=== PATIENT | male | born 1945 | race Caucasian/White ===

== ENCOUNTER 2017-07-19 00:10 | Observation (INO) | payer MEDICARE, BC ==
[2017-07-19] MEDS ORDERED: Sodium Chloride 0.9% 10 ML Syringe FLUSH PRN (00:16)
[2017-07-19 01:44] LABS: CHLORIDE,CL 108 mmol/L (98-107); SODIUM,NA 142 mmol/L (136-145)
[2017-07-19] MEDS ORDERED: Sodium Chloride 0.9% 1,000 ML IV ONE ×2 (02:07→03:58)
[2017-07-19] MEDS ORDERED: oxyCODONE 5 MG Tab PO PRN (02:29)
[2017-07-19] MEDS ORDERED: Warfarin 2.5 MG Tab PO SCH (02:30)
[2017-07-19] MEDS ORDERED: Warfarin 5 MG Tab PO SCH (02:30)
[2017-07-19] MEDS: Codeine/Promethazine 10-6.25 MG/5 ML Syrup 5 ML UD Cup PO SCH ×3 (03:03→14:48)
[2017-07-19] MEDS: Albuterol/Ipratropium 3.0-0.5 MG/3 ML Neb Soln NEB PRN ×2 (03:03→20:36)
[2017-07-19] MEDS: Oseltamivir 75 MG Cap PO SCH ×2 (03:05→14:48)
--- NOTE | 2017-07-19 04:15 | EDM.PDOC ---
ED HPI GENERAL MEDICAL PROBLEM - General Chief Complaint: Respiratory Problem Stated Complaint: cough Time Seen by Provider: 07/19/17 00:12 Source of Information: Reports: Patient, EMS, Family, RN Notes Reviewed History Limitations: Reports: No Limitations, Altered Mental Status - History of Present Illness INITIAL COMMENTS - FREE TEXT/NARRATIVE: This ER note may be used as an admission H and P. Pt. presents to ER with cough, chest congestion, fatigue, and weakness. Pt. states that he had been experiencing these symptoms for several days, and states that he is too weak to walk. He denies any fever or chills. No hemoptysis. No weakness. He states that several of his live-in relatives have had influenza A. He states that he has been taking claritin. Pt. was admitted in mid May. with CHF exacerbation and was discharged after being diuresed for several days. He continued, however, to feel short of breath. Onset Date: 07/17/17 Neck Pain Score (Numeric/FACES): 6 - Related Data Allergies Allergy/AdvReac Type Severity Reaction Status Date / Time carbamazepine AdvReac Dizziness Verified 07/19/17 00:11 Home Meds: Home Meds Cholecalciferol (Vitamin D3) [Vitamin D3] 5,000 unit PO DAILY 09/06/13 [History] Fluticasone Propionate [Flonase] 1 spray NASBOTH BID 09/06/13 [History] Coffey-3 Fatty Acids [Coffey-3] 1,000 mg PO DAILY 09/06/13 [History] Sertraline [Zoloft] 100 mg PO BEDTIME 09/06/13 [History] Simvastatin [Zocor] 10 mg PO BEDTIME 09/06/13 [History] PEG 400/Propylene Glycol [Systane Lubricant] 1 drop EYELF ASDIRECTED PRN [History] oxyCODONE 5 mg PO Q4H PRN 06/15/15 [History] Cranberry Extract [Cranberry] 500 mg PO DAILY 11/16/15 [History] Multivitamin [Multi-Vitamin Daily] 1 tab PO DAILY 11/16/15 [History] Potassium Chloride [Klor-Con] 20 meq PO DAILY #0 11/26/15 [Rx] Valsartan [Diovan] 320 mg PO DAILY #30 tablet 06/15/16 [Rx] Acetaminophen [Acetaminophen Extra Strength] 500 mg PO BID MDD 4000 MG DAILY 08/31 [History] Celecoxib 200 mg PO DAILY 06/30/17 [History] Docusate Sodium [Colace] 100 mg PO DAILY 06/30/17 [History] Metoprolol Succinate [Toprol XL] 100 mg PO DAILY 06/30/17 [History] Calcium Carb & Citrate/Vit D3 [Citracal + D ER] 1 tab PO DAILY 07/02/17 [History ] Lysine 1,000 mg PO DAILY PRN 07/02/17 [History] Miconazole [Desenex 2%] 1 applic TOP BID 07/02/17 [History] Mupirocin Cream [Bactroban Crm] 1 applic TOP TID 07/02/17 [History] Diltiazem [Cardizem CD] 240 mg PO DAILY #30 cap.cd 07/05/17 [Rx] Furosemide [Lasix] 20 mg PO BIDDIURETIC #60 tablet 07/05/17 [Rx] Menthol/Zinc Oxide [Calmoseptine] 0 gm TOP BEDTIME tube 07/05/17 [Rx] Polyethylene Glycol 3350 [MiraLAX] 17 gm PO DAILY packet 07/05/17 [Rx] Biotin [Biotin] 1 mg PO DAILY 07/19/17 [History] Warfarin [Coumadin] 5 mg PO ASDIRECTED 07/19/17 [History] Warfarin [Coumadin] 7.5 mg PO ASDIRECTED 07/19/17 [History] Past Medical History HEENT History: Reports: Cataract, Other (See Below) Other HEENT History: wears glasses Cardiovascular History: Reports: Afib, Heart Failure, Hypertension Respiratory History: Reports: Pneumonia, Recurrent, Sleep Apnea Gastrointestinal History: Reports: Other (See Below) Other Gastrointestinal History: history of C diff. fecal transplant Genitourinary History: Reports: Neurogenic Bladder, UTI, Recurrent Other Genitourinary History: self cath/due to MS Musculoskeletal History: Reports: Arthritis Other Musculoskeletal History: MSand sore on right knee with brace on Neurological History: Reports: MS Psychiatric History: Reports: Depression Other Psychiatric History: very depressed Endocrine/Metabolic History: Reports: Diabetes, Type II Hematologic History: Reports: Anticoagulation Therapy, Blood Transfusion(s) Dermatologic History: Reports: Other (See Below) Other Dermatologic History: coccyx friction open area, yeast in groin - Infectious Disease History Infectious Disease History: Reports: MRSA Other Infectious Disease History: ecoli - Past Surgical History HEENT Surgical History: Reports: Cataract Surgery GI Surgical History: Reports: Colonoscopy, Hernia Repair/Other Neurological Surgical History: Reports: None Oncologic Surgical History: Reports: None Social & Family History - Family History Family Medical History: Noncontributory Cardiac: Reports: MA Respiratory: Reports: Asthma, COPD Musculoskeletal: Reports: Arthritis, Osteoporosis Neurological: Reports: None Endocrine/Metabolic: Reports: Diabetes, type II - Tobacco Use Smoking Status *Q: Never Smoker Used Tobacco, but Quit: No Second Hand Smoke Exposure: No - Caffeine Use Caffeine Use: Reports: Coffee - Alcohol Use Days Per Week of Alcohol Use: 0 - Recreational Drug Use Recreational Drug Use: No ED ROS GENERAL - Review of Systems Review Of Systems: See Below Constitutional: Reports: No Symptoms HEENT: Reports: No Symptoms Respiratory: Reports: No Symptoms Cardiovascular: Reports: No Symptoms Endocrine: Reports: No Symptoms GI/Abdominal: Reports: No Symptoms : Reports: No Symptoms Musculoskeletal: Reports: No Symptoms Skin: Reports: No Symptoms Neurological: Reports: No Symptoms Psychiatric: Reports: No Symptoms Hematologic/Lymphatic: Reports: No Symptoms Immunologic: Reports: No Symptoms ED EXAM, GENERAL - Physical Exam Exam: See Below Exam Limited By: No Limitations General Appearance: Alert, WD/WN Eye Exam: Left Eye: Normal Inspection, Bilateral Eye: Nystagmus Ears: Normal External Exam Nose: Normal Inspection Throat/Mouth: Normal Inspection Head: Atraumatic Neck: Normal Inspection Respiratory/Chest: No Respiratory Distress, Lungs Clear, Normal Breath Sounds, No Accessory Muscle Use, Chest Non-Tender, Decreased Breath Sounds, Accessory Muscle Use Cardiovascular: Normal Peripheral Pulses, Regular Rate, Rhythm, No JVD, No Murmur, No Rub EKG INTERPRETATION Rhythm: NSR Course - Vital Signs Last Recorded V/S: Last Vital Signs Temp 37.6 C 07/19/17 02:05 Pulse 60 07/19/17 02:05 Resp 20 07/19/17 02:05 BP 180/76 H 07/19/17 02:05 Pulse Ox 91 L 07/19/17 02:05 - Orders/Labs/Meds Orders: Active Orders 24 hr Category Date Time Status Patient Status [ADT] Routine ADT 07/19/17 01:52 Active EKG Documentation Completion [RC] STAT Care 07/19/17 00:17 Ordered Chest 1V Frontal [CR] Stat Exams 07/19/17 00:25 Taken CULTURE BLOOD [BC] Stat Lab 07/19/17 00:55 Received CULTURE BLOOD [BC] Stat Lab 07/19/17 00:55 Received Sodium Chloride 0.9% [Saline Flush] Med 07/19/17 00:16 Active 10 ml FLUSH ASDIRECTED PRN Blood Culture x2 Reflex Set [OM.PC] Stat Oth 07/19/17 00:17 Ordered Peripheral IV Insertion Adult [OM.PC] Routine Oth 07/19/17 00:17 Ordered Medication Orders Acetaminophen (Tylenol Extra Strength) 500 mg PO BID ELIGIO Albuterol/Ipratropium (Duoneb 3.0-0.5 Mg/3 Ml) 3 ml NEB Q6HRRT PRN PRN Reason: Cough Last Admin: 07/19/17 03:03 Dose: 3 ml Celecoxib (Celebrex) 200 mg PO DAILY ELIGIO Cholecalciferol (Vitamin D3) 5,000 units PO DAILY ELIGIO Diltiazem HCl (Cardizem Cd) 240 mg PO DAILY ELIGIO Docusate Sodium (Colace) 100 mg PO DAILY ELIGIO Fish Oil (Fish Oil) 1 gm PO DAILY ELIGIO Furosemide (Lasix) 20 mg PO BIDDIURETIC ELIGIO Sodium Chloride (Normal Saline) 1,000 mls @ 75 mls/hr IV ONETIME ONE Stop: 07/19/17 15:26 Losartan Potassium (Cozaar) 150 mg PO DAILY ELIGIO Metoprolol Succinate (Toprol Xl) 100 mg PO DAILY ELIGIO Oseltamivir Phosphate (Tamiflu) 75 mg PO BID ELIGIO Last Admin: 07/19/17 03:05 Dose: 75 mg Oxycodone HCl (Oxycodone) 5 mg PO Q4H PRN PRN Reason: Pain Last Admin: 07/19/17 03:05 Dose: 5 mg Potassium Chloride (Klor-Con) 20 meq PO DAILY ELIGIO Promethazine HCl/Codeine (Phenergan With Codeine) 5 ml PO Q4HR ELIGIO Last Admin: 07/19/17 03:03 Dose: 5 ml Sertraline HCl (Zoloft) 100 mg PO BEDTIME ELIGIO Simvastatin (Zocor) 10 mg PO BEDTIME ELIGIO Sodium Chloride (Saline Flush) 10 ml FLUSH ASDIRECTED PRN PRN Reason: Keep Vein Open Vitamin B Complex/Vit C/Vit E/Zinc (Stress Formula With Zinc) 1 tab PO DAILY ELIGIO Warfarin Sodium (Coumadin) 7.5 mg PO ASDIRECTED ELIGIO Warfarin Sodium (Coumadin) 5 mg PO ASDIRECTED ELIGIO Labs: Laboratory Tests 07/19/17 07/19/17 07/19/17 Range/Units 00:55 00:55 00:55 WBC 6.6 (4.0-10.0) x10^3/uL RBC 4.45 L (4.5-6.0) x10^6/uL Hgb 12.9 L (14.0-18.0) g/dL Hct 40.3 (40.0-52.0) % MCV 90.6 (78.0-93.0) fL MCH 29.0 (26.0-32.0) pg MCHC 32.0 (32.0-36.0) g/dL RDW Coeff of Kimberlee 14.7 (10.0-15.0) % Plt Count 131 (130-400) x10^3/uL Neut % (Auto) 84.1 H (50.0-80.0) % Lymph % (Auto) 5.0 L (25.0-50.0) % Camp % (Auto) 9.8 (2.0-11.0) % Eos % (Auto) 0.9 (0.0-4.0) % Baso % (Auto) 0.2 (0.2-1.2) % PT 27.5 H (9.8-11.8) SEC INR 2.6 (2.0-3.5) Sodium 142 (136-145) mmol/L Potassium 4.1 (3.5-5.1) mmol/L Chloride 108 H (98-107) mmol/L Carbon Dioxide 28 (21-32) mmol/L BUN 20 H (7-18) mg/dL Creatinine 1.1 (0.70-1.30) mg/dL Est Cr Clr Drug Dosing TNP Estimated GFR (MDRD) > 60 Glucose 123 H (74-106) mg/dL Lactic Acid (0.4-2.0) mmol/L Calcium 8.3 L (8.5-10.1) mg/dL Corrected Calcium 8.46 L (8.5-10.1) mg/dL Total Bilirubin 0.4 (0.2-1.0) mg/dL AST 23 (15-37) U/L ALT 38 (16-63) U/L Alkaline Phosphatase 77 (46-116) U/L Troponin I < 0.017 (<=0.056) ng/mL C-Reactive Protein 3.1 H (<=0.9) mg/dL NT-Pro-B Natriuret Pep 608 H (<=125) pg/mL Total Protein 6.7 (6.4-8.2) g/dL Albumin 3.8 (3.4-5.0) g/dL Globulin 2.9 Albumin/Globulin Ratio 1.31 07/19/17 Range/Units 00:55 WBC (4.0-10.0) x10^3/uL RBC (4.5-6.0) x10^6/uL Hgb (14.0-18.0) g/dL Hct (40.0-52.0) % MCV (78.0-93.0) fL MCH (26.0-32.0) pg MCHC (32.0-36.0) g/dL RDW Coeff of Kimberlee (10.0-15.0) % Plt Count (130-400) x10^3/uL Neut % (Auto) (50.0-80.0) % Lymph % (Auto) (25.0-50.0) % [place] % (Auto) (2.0-11.0) % Eos % (Auto) (0.0-4.0) % Baso % (Auto) (0.2-1.2) % PT (9.8-11.8) SEC INR (2.0-3.5) Sodium (136-145) mmol/L Potassium (3.5-5.1) mmol/L Chloride (98-107) mmol/L Carbon Dioxide (21-32) mmol/L BUN (7-18) mg/dL Creatinine (0.70-1.30) mg/dL Est Cr Clr Drug Dosing Estimated GFR (MDRD) Glucose (74-106) mg/dL Lactic Acid 1.0 (0.4-2.0) mmol/L Calcium (8.5-10.1) mg/dL Corrected Calcium (8.5-10.1) mg/dL Total Bilirubin (0.2-1.0) mg/dL AST (15-37) U/L ALT (16-63) U/L Alkaline Phosphatase (46-116) U/L Troponin I (<=0.056) ng/mL C-Reactive Protein (<=0.9) mg/dL NT-Pro-B Natriuret Pep (<=125) pg/mL Total Protein (6.4-8.2) g/dL Albumin (3.4-5.0) g/dL Globulin Albumin/Globulin Ratio Meds: Medications Generic Name Dose Route Start Last Admin Trade Name Freq PRN Reason Stop Dose Admin Acetaminophen 500 mg 07/19/17 08:00 Tylenol Extra Strength PO BID ELIGIO Albuterol/Ipratropium 3 ml 07/19/17 02:24 07/19/17 03:03 Duoneb 3.0-0.5 Mg/3 Ml NEB 3 ml Q6HRRT PRN Administration Cough Celecoxib 200 mg 07/19/17 08:00 Celebrex PO DAILY ELIGIO Cholecalciferol 5,000 units 07/19/17 08:00 Vitamin D3 PO DAILY ELIGIO Diltiazem HCl 240 mg 07/19/17 08:00 Cardizem Cd PO DAILY ELIGIO Docusate Sodium 100 mg 07/19/17 08:00 Colace PO DAILY ELIGIO Fish Oil 1 gm 07/19/17 08:00 Fish Oil PO DAILY ELIGIO Furosemide 20 mg 07/19/17 08:00 Lasix PO BIDDIURETIC ELIGIO Sodium Chloride 1,000 mls @ 75 mls/hr 07/19/17 03:58 Normal Saline IV 07/19/17 15:26 ONETIME ONE Losartan Potassium 150 mg 07/19/17 08:00 Cozaar PO DAILY ELIGIO Metoprolol Succinate 100 mg 07/19/17 08:00 Toprol Xl PO DAILY ELIGIO Oseltamivir Phosphate 75 mg 07/19/17 02:15 07/19/17 03:05 Tamiflu PO 75 mg BID ELIGIO Administration Oxycodone HCl 5 mg 07/19/17 02:29 07/19/17 03:05 Oxycodone PO 5 mg Q4H PRN Administration Pain Potassium Chloride 20 meq 07/19/17 08:00 Klor-Con PO DAILY ELIGIO Promethazine HCl/Codeine 5 ml 07/19/17 04:00 07/19/17 03:03 Phenergan With Codeine PO 5 ml Q4HR ELIGIO Administration Sertraline HCl 100 mg 07/19/17 20:00 Zoloft PO BEDTIME ELIGIO Simvastatin 10 mg 07/19/17 20:00 Zocor PO BEDTIME ELIGIO Sodium Chloride 10 ml 07/19/17 00:16 Saline Flush FLUSH ASDIRECTED PRN Keep Vein Open Vitamin B Complex/Vit C/Vit E/Zinc 1 tab 07/19/17 08:00 Stress Formula With Zinc PO DAILY ELIGIO Warfarin Sodium 7.5 mg 07/19/17 02:30 Coumadin PO ASDIRECTED ELIGIO Warfarin Sodium 5 mg 07/19/17 02:30 Coumadin PO ASDIRECTED ELIGIO Discontinued Medications Generic Name Dose Route Start Last Admin Trade Name Freq PRN Reason Stop Dose Admin Sodium Chloride 1,000 mls @ 250 mls/hr 07/19/17 02:07 07/19/17 03:02 Normal Saline IV 07/19/17 06:06 250 mls/hr .BOLUS ONE Administration Departure - Departure Time of Disposition: 02:15 Disposition: Admitted As Inpatient 67 Clinical Impression: Influenza - Discharge Information - My Orders Last 24 Hours: My Active Orders 07/19/17 00:16 Sodium Chloride 0.9% [Saline Flush] 10 ml FLUSH ASDIRECTED PRN 07/19/17 00:17 EKG Documentation Completion [RC] STAT Blood Culture x2 Reflex Set [OM.PC] Stat Peripheral IV Insertion Adult [OM.PC] Routine 07/19/17 00:25 Chest 1V Frontal [CR] Stat 07/19/17 00:55 CULTURE BLOOD [BC] Stat CULTURE BLOOD [BC] Stat 07/19/17 01:52 Patient Status [ADT] Routine - Assessment/Plan Last 24 Hours: My Active Orders 07/19/17 00:16 Sodium Chloride 0.9% [Saline Flush] 10 ml FLUSH ASDIRECTED PRN 07/19/17 00:17 EKG Documentation Completion [RC] STAT Blood Culture x2 Reflex Set [OM.PC] Stat Peripheral IV Insertion Adult [OM.PC] Routine 07/19/17 00:25 Chest 1V Frontal [CR] Stat 07/19/17 00:55 CULTURE BLOOD [BC] Stat CULTURE BLOOD [BC] Stat 07/19/17 01:52 Patient Status [ADT] Routine Plan: Admit-observation Indication-Influenza A and weakness Code level 1 Duo neb treatments every 6 hours NS at 75ml/hr after a 500cc fluid bolus Tamiflu 75mg twice daily Phenergan with codeine 1 tsp every 4-6 hours PT and OT tomorrow. At this point, it is not felt that pt. meets criteria for acute admission. Social service consult tomorrow.
[2017-07-19 07:55] LABS: CHLORIDE,CL 110 mmol/L (98-107); SODIUM,NA 146 mmol/L (136-145)
[2017-07-19] MEDS ORDERED: Nystatin Crm 30 GM Tube TOP SCH (08:00)
[2017-07-19] MEDS ORDERED: Losartan 50 MG Tab PO SCH (08:00)
[2017-07-19] MEDS ORDERED: Furosemide 20 MG Tab PO SCH (08:00)
[2017-07-19] MEDS ORDERED: Celecoxib 100 MG Cap PO SCH (08:00)
[2017-07-19] MEDS ORDERED: Metoprolol Succinate 50 MG Tab.ER PO SCH (08:00)
[2017-07-19] MEDS ORDERED: Potassium Chloride 20 MEQ Packet PO SCH (08:00)
[2017-07-19] MEDS ORDERED: Diltiazem 240 MG Cap.CD PO SCH (08:00)
[2017-07-19] MEDS: Cholecalciferol (Vitamin D3) 1,000 Unit Tab PO SCH (09:49)
[2017-07-19] MEDS: Fish Oil/Omega-3 Fatty Acids 1 Gm Cap PO SCH (09:50)
[2017-07-19] MEDS: Acetaminophen 500 MG Tab PO SCH ×2 (09:50→20:35)
[2017-07-19] MEDS: Multivitamin, Stress Formula with Zinc Tab PO SCH (09:51)
[2017-07-19] MEDS: Docusate Sodium 100 MG Cap PO SCH (10:05)
[2017-07-19] MEDS: CELEBREX 200 MG PO SCH (11:59)
[2017-07-19] MEDS: FUROSEMIDE 20 MG PO SCH ×2 (12:00→16:06)
[2017-07-19] MEDS: DILTIAZEM CD 240 MG PO SCH (12:00)
[2017-07-19] MEDS: POTASSIUM CHLORIDE 20 MEQ PO SCH (12:01)
[2017-07-19] MEDS: METOPROLOL 100 MG PO SCH (12:01)
[2017-07-19] MEDS: VALSARTAN 320 MG PO SCH (12:02)
[2017-07-19] MEDS: OSELTAMIVIR 75 MG PO SCH ×2 (12:09→20:33)
[2017-07-19] MEDS ORDERED: Codeine/Promethazine 10-6.25 MG/5 ML Syrup 5 ML UD Cup PO PRN (13:45)
[2017-07-19] MEDS ORDERED: Acetaminophen/HYDROcodone 325-5 MG Tab PO ONE (15:15)
--- NOTE | 2017-07-19 19:06 | PCM.PN ---
- General Info Date of Service: 07/19/17 Admission Dx/Problem (Free Text): Pt. continues to feel week. He has started on Tamiflu. Was admitted observation , with plan to transition to Swing Bed tomorrow. Will be followed by Dr. Benitez. Pt. denies any significant dyspnea. Pt. refused OT today and would not participate in PT today due to fatigue. Functional Status: Reports: Pain Controlled - Review of Systems General: Reports: Fatigue, Malaise HEENT: Reports: No Symptoms Pulmonary: Reports: Shortness of Breath, Cough Cardiovascular: Reports: No Symptoms Gastrointestinal: Reports: No Symptoms Genitourinary: Reports: No Symptoms Musculoskeletal: Reports: No Symptoms Skin: Reports: No Symptoms Neurological: Reports: No Symptoms Psychiatric: Reports: No Symptoms - Patient Data Vitals - Most Recent: Last Vital Signs Temp 36.7 C 07/19/17 16:42 Pulse 58 L 07/19/17 16:42 Resp 18 07/19/17 16:42 BP 157/83 H 07/19/17 16:42 Pulse Ox 94 L 07/19/17 16:42 Weight - Most Recent: 105.415 kg I&O - Last 24 Hours: Intake & Output 07/19/17 07/19/17 07/19/17 06:59 14:59 22:59 Intake Total 500 732 Output Total 905 Balance 500 -173 Lab Results Last 24 Hours: Laboratory Results - last 24 hr 07/19/17 07/19/17 07/19/17 Range/Units 07:11 07:11 07:11 WBC 5.4 (4.0-10.0) x10^3/uL RBC 4.11 L (4.5-6.0) x10^6/uL Hgb 12.0 L (14.0-18.0) g/dL Hct 37.4 L (40.0-52.0) % MCV 91.0 (78.0-93.0) fL MCH 29.2 (26.0-32.0) pg MCHC 32.1 (32.0-36.0) g/dL RDW Coeff of Kimberlee 14.5 (10.0-15.0) % Plt Count 116 L (130-400) x10^3/uL Neut % (Auto) 78.9 (50.0-80.0) % Lymph % (Auto) 7.2 L (25.0-50.0) % [place] % (Auto) 13.1 H (2.0-11.0) % Eos % (Auto) 0.6 (0.0-4.0) % Baso % (Auto) 0.2 (0.2-1.2) % Sodium 146 H (136-145) mmol/L Potassium 4.2 (3.5-5.1) mmol/L Chloride 110 H (98-107) mmol/L Carbon Dioxide 25 (21-32) mmol/L BUN 16 (7-18) mg/dL Creatinine 1.1 (0.70-1.30) mg/dL Est Cr Clr Drug Dosing 63.60 mL/min Estimated GFR (MDRD) > 60 Glucose 105 (74-106) mg/dL Lactic Acid 0.8 (0.4-2.0) mmol/L Calcium 7.9 L (8.5-10.1) mg/dL Med Orders - Current: Current Medications Acetaminophen (Tylenol Extra Strength) 500 mg PO BID [facility] Last Admin: 07/19/17 09:50 Dose: 500 mg Albuterol/Ipratropium (Duoneb 3.0-0.5 Mg/3 Ml) 3 ml NEB Q6HRRT PRN PRN Reason: Cough Last Admin: 07/19/17 03:03 Dose: 3 ml Cholecalciferol (Vitamin D3) 5,000 units PO DAILY [facility] Last Admin: 07/19/17 09:49 Dose: 5,000 units Docusate Sodium (Colace) 100 mg PO DAILY [facility] Last Admin: 07/19/17 10:05 Dose: 100 mg Fish Oil (Fish Oil) 1 gm PO DAILY [facility] Last Admin: 07/19/17 09:50 Dose: 1 gm Nystatin. Cream (Own (Supply)) 1 gm TOP BID [facility] Celebrex. 200mg (Own (Supply)) 0 mg PO DAILY [facility] Last Admin: 07/19/17 11:59 Dose: 200 mg Diltiazem. Cd 240 Mg ((Own Supply)) 0 mg PO DAILY [facility] Last Admin: 07/19/17 12:00 Dose: 240 mg Furosemide. 20mg ( (Own Supply)) 0 mg PO BIDDIURETIC [facility] Last Admin: 07/19/17 16:06 Dose: Not Given Oseltamivir. 75mg ( (Own Supply)) 0 mg PO BID [facility] Stop: 07/23/17 08:01 Last Admin: 07/19/17 12:09 Dose: Not Given Valsartan 320mg (Own (Supply)) 0 mg PO DAILY [facility] Last Admin: 07/19/17 12:02 Dose: 320 mg Metoprolol Er 100mg ((Own Supply)) 0 mg PO DAILY [facility] Last Admin: 07/19/17 12:01 Dose: 100 mg Oxycodone. 5mg (Own (Supply)) 0 mg PO Q4H PRN PRN Reason: Pain Potassium Chloride. (20 Meq (Own Supply)) 0 meq PO DAILY [facility] Last Admin: 07/19/17 12:01 Dose: 20 meq Sertraline. 100mg ( (Own Supply)) 0 mg PO BEDTIME [facility] Simvastatin. 10mg ( (Own Supply)) 0 mg PO BEDTIME [facility] Warfarin (Own Supply ()) 0 mg PO [email or web address] [facility] Warfarin. (Own (Supply)) 0 mg PO [email or web address] [facility] Promethazine HCl/Codeine (Phenergan With Codeine) 5 ml PO Q4HR PRN PRN Reason: cough Sodium Chloride (Saline Flush) 10 ml FLUSH ASDIRECTED PRN PRN Reason: Keep Vein Open Vitamin B Complex/Vit C/Vit E/Zinc (Stress Formula With Zinc) 1 tab PO DAILY [facility] Last Admin: 07/19/17 09:51 Dose: 1 tab Discontinued Medications Hydrocodone Bitart/Acetaminophen ([place] 325-5 Mg) 1 tab PO ONETIME ONE Stop: 07/19/17 15:16 Last Admin: 07/19/17 15:51 Dose: Not Given Sodium Chloride (Normal Saline) 1,000 mls @ 250 mls/hr IV .BOLUS ONE Stop: 07/19/17 06:06 Last Admin: 07/19/17 03:02 Dose: 250 mls/hr Sodium Chloride (Normal Saline) 1,000 mls @ 75 mls/hr IV ONETIME ONE Stop: 07/19/17 15:26 Last Admin: 07/19/17 04:07 Dose: 75 mls/hr Oseltamivir Phosphate (Tamiflu) 75 mg PO BID [facility] Last Admin: 07/19/17 14:48 Dose: Not Given Oxycodone HCl (Oxycodone) 5 mg PO Q4H PRN PRN Reason: Pain Last Admin: 07/19/17 03:05 Dose: 5 mg Promethazine HCl/Codeine (Phenergan With Codeine) 5 ml PO Q4HR ELIGIO Last Admin: 07/19/17 14:48 Dose: Not Given - Exam Quality Assessment: Supplemental Oxygen General: Alert, Oriented HEENT: Pupils Equal, Pupils Reactive, EOMI, Mucous Membr. Moist/[place] Neck: Supple Lungs: Decreased Breath Sounds, Crackles, Wheezing Cardiovascular: Regular Rate, Regular Rhythm GI/Abdominal Exam: Normal Bowel Sounds, Soft, Non-Tender, No Organomegaly, No Distention, No Abnormal Bruit, No Mass Back Exam: Normal Inspection, Full Range of Motion Extremities: Normal Inspection, Normal Range of Motion, Non-Tender, No Pedal Edema, Normal Capillary Refill Skin: Warm, Dry, Intact Neurological: No New Focal Deficit Psy/Mental Status: Alert, Labile Mood, Depressed - Problem List Review Problem List Initiated/Reviewed/Updated: Yes - My Orders Last 24 Hours: My Active Orders 07/19/17 02:05 Intake and Output [RC] 06,18 Oxygen Therapy [RC] 08,20 Up With Assistance [RC] 08,20 Vital Signs [RC] 06,10,14,18,22,02 07/19/17 02:07 Code Status [Resuscitation Status] Routine 07/19/17 02:24 RT Aerosol Therapy [RC] ASDIRECTED Albuterol/Ipratropium [DuoNeb 3.0-0.5 MG/3 ML] 3 ml NEB Q6HRRT PRN 07/19/17 02:25 Consult to Electronic Induction Hardener [CONS] Routine 07/19/17 02:37 VTE/DVT Education [RC] .PRN 07/19/17 04:32 Consult to Occupational Therapy [OT Evaluation and Treatment] [CONS] Routine PT Evaluation and Treatment [CONS] Routine 07/19/17 08:00 Acetaminophen [Tylenol Extra Strength] 500 mg PO BID Cholecalciferol (Vitamin D3) [Vitamin D3] 5,000 units PO DAILY Docusate Sodium [Colace] 100 mg PO DAILY Fish Oil/[place]-3 Fatty Acids [Fish Oil] 1 gm PO DAILY Multivitamins with Zinc [Stress Formula with Zinc] 1 tab PO DAILY 07/19/17 11:26 Oxycodone. 0 mg PO Q4H PRN 07/19/17 11:30 Celebrex. 0 mg PO DAILY Diltiazem. 0 mg PO DAILY Furosemide. 0 mg PO BIDDIURETIC Metoprolol Er 0 mg PO DAILY Oseltamivir. 0 mg PO BID Potassium Chloride. 0 meq PO DAILY Valsartan 0 mg PO DAILY 07/19/17 13:45 Codeine/Promethazine [Phenergan with Codeine] 5 ml PO Q4HR PRN 07/19/17 15:11 Urinary Catheter Assessment [RC] ASDIRECTED 07/19/17 15:15 Urinary Catheter Insertion [Insert Urinary Catheter] [OM.PC] Q24H 07/19/17 20:00 Nystatin. 1 gm TOP BID Sertraline. 0 mg PO BEDTIME Simvastatin. 0 mg PO BEDTIME Warfarin. 0 mg PO [id number] Breakfast Sodium Restricted Diet [DIET] 07/20/17 05:11 Foot Comp Min 3V Rt [CR] AM 07/24/17 20:00 Warfarin. 0 mg PO @1999 - Assessment Assessment:: influenza A Acute on chonic weakness - Plan Plan:: Will transition to swingbed tomorrow. This has been arranged by social research assistant. travel services professional is performing a vulnerable adult referral, as the pt. is non- compliant and refuses any discussion about placement in a more appropriate facility. Will perform a x-ray of the R foot in the AM. Apperently pt. fell/was sitting on it when he slid off of his chair early this AM.
[2017-07-19] MEDS ORDERED: SERTRALINE 100 MG PO SCH (20:00)
[2017-07-19] MEDS ORDERED: SIMVASTATIN 10 MG PO SCH (20:00)
[2017-07-19] MEDS ORDERED: Sertraline 100 MG Tab PO SCH (20:00)
[2017-07-19] MEDS ORDERED: Simvastatin 10 MG Tab PO SCH (20:00)
[2017-07-19] MEDS: OXYCODONE 5 MG PO PRN (20:36)
[2017-07-19] MEDS: NYSTATIN TOP SCH (21:24)
[2017-07-20 07:27] LABS: CHLORIDE,CL 106 mmol/L (98-107); SODIUM,NA 142 mmol/L (136-145)
[2017-07-20] MEDS: Fish Oil/Omega-3 Fatty Acids 1 Gm Cap PO SCH (07:38)
[2017-07-20] MEDS: Multivitamin, Stress Formula with Zinc Tab PO SCH (07:38)
[2017-07-20] MEDS: Acetaminophen 500 MG Tab PO SCH (07:39)
[2017-07-20] MEDS: Docusate Sodium 100 MG Cap PO SCH (07:39)
[2017-07-20] MEDS: Cholecalciferol (Vitamin D3) 1,000 Unit Tab PO SCH (07:39)
[2017-07-20] MEDS: METOPROLOL 100 MG PO SCH (07:41)
[2017-07-20] MEDS: POTASSIUM CHLORIDE 20 MEQ PO SCH (07:41)
[2017-07-20] MEDS: FUROSEMIDE 20 MG PO SCH ×2 (07:42→16:16)
[2017-07-20] MEDS: VALSARTAN 320 MG PO SCH (07:43)
[2017-07-20] MEDS: CELEBREX 200 MG PO SCH (07:43)
[2017-07-20] MEDS: DILTIAZEM CD 240 MG PO SCH (07:43)
[2017-07-20] MEDS: OSELTAMIVIR 75 MG PO SCH (07:44)
[2017-07-20] MEDS ORDERED: Polyethylene Glycol 3350 Powder 17 GM Packet PO PRN (08:50)
[2017-07-20] MEDS: Albuterol/Ipratropium 3.0-0.5 MG/3 ML Neb Soln NEB PRN (09:03)
[2017-07-20] MEDS: NYSTATIN TOP SCH (10:34)
[2017-07-20] MEDS: OXYCODONE 5 MG PO PRN (10:38)
[2017-07-20 14:32] VITALS: BP 165/56
--- NOTE | 2017-07-20 15:00 | PCM.SN ---
- Free Text/Narrative Note: Right Foot xray report reveals acute avulsion fracture from the dorsal aspect of the navicular bone; Case was discussed with MIYA Mandel [facility]. It is felt the patient has fractures involving the 4th and 5th digits right foot. Recommend CAM walker boot and follow up with Podiatry in 7-10 days. Patient can be weight bare as tolerated.
--- NOTE | 2017-07-20 16:52 | PCM.DCSUM1 ---
Discharge Summary - Hospital Course HPI Initial Comments: 72-year-old male patient was admitted to the observation unit at [facility] with a diagnosis of influenza A and weakness. According to the patient's ER provider report, the patient had presented with a several day history of cough, congestion, fatigue, and weakness. The patient had issues with walking and was too weak to walk. The patient had apparently been taking Claritin for his symptoms. The patient subsequently was found to be influenza A positive and with his concurrent weakness was admitted to the observation unit. Patient was placed on DuoNeb's every 6 hours for his cough. Patient was given a 500 mL normal saline bolus and placed on maintenance fluids at 75 mL an hour. Patient was also started on Tamiflu 75 mg by mouth twice daily. - Discharge Data Discharge Date: 07/20/17 Discharge Disposition: DC/Tfer W/I Hosp To Swing 61 Condition: Fair - Discharge Diagnosis/Problem(s) (1) Influenza A SNOMED Code(s): 009118493 ICD Code: J10.1 - FLU DUE TO OTH IDENT INFLUENZA VIRUS W OTH RESP MANIFEST Status: Acute Priority: Medium Onset Date: ~07/18/17 (2) Foot fracture, right SNOMED Code(s): 58826347 ICD Code: S92.901A - UNSP FRACTURE OF RIGHT FOOT, INIT ENCNTR FOR CLOSED FRACTURE Status: Acute Priority: Medium Onset Date: ~07/18/17 Qualifiers: Encounter type: initial encounter Fracture type: closed Qualified Code(s) : S92.901A - Unspecified fracture of right foot, initial encounter for closed fracture (3) Weakness SNOMED Code(s): 68980772 ICD Code: R53.1 - WEAKNESS Status: Chronic Priority: High (4) Diabetes mellitus type 2 SNOMED Code(s): 02204525 ICD Code: E11.9 - TYPE 2 DIABETES MELLITUS WITHOUT COMPLICATIONS Status: Chronic Priority: Medium (5) A-fib SNOMED Code(s): 57743671 ICD Code: I48.91 - UNSPECIFIED ATRIAL FIBRILLATION Status: Chronic Priority: Medium Qualifiers: Atrial fibrillation type: chronic Qualified Code(s): I48.2 - Chronic atrial fibrillation (6) CHF (congestive heart failure) SNOMED Code(s): 16508138 ICD Code: I50.9 - HEART FAILURE, UNSPECIFIED Status: Acute Priority: Medium Problem Details: Last ECHO 03/2015 - [place] Qualifiers: Congestive heart failure type: diastolic Congestive heart failure chronicity: chronic Qualified Code(s): I50.32 - Chronic diastolic (congestive ) heart failure (7) Multiple sclerosis SNOMED Code(s): 98241618 ICD Code: G35 - MULTIPLE SCLEROSIS Status: Chronic Priority: Medium (8) Rheumatoid arthritis SNOMED Code(s): 21028927 ICD Code: M06.9 - RHEUMATOID ARTHRITIS, UNSPECIFIED Status: Chronic Priority: Medium Qualifiers: Rheumatoid factor presence: unspecified presence Laterality: unspecified laterality - Patient Summary/Data Operative Procedure(s) Performed: None Consults: Consultations 07/19/17 02:25 Consult to D[facility]ker [CONS] Routine 07/19/17 04:32 Consult to Occupational Therapy [OT Evaluation and Treatment] [CONS] Routine PT Evaluation and Treatment [CONS] Routine Labs Pending at D/C: None Recommended Follow-up Testing/Procedures: Patient needs to see Podiatry for right foot fracture in 7-10 days Planned Operative Procedure(s) after DC: None Hospital Course: Patient did fairly well during his short stay in the observation unit. The patient was able to tolerate the Tamiflu for treatment of his influenza type a. The patient remained on fluid hydration. Appetite had been fair. No trouble with urination or bowel movements. According to the nursing staff the patient apparently had fallen at home on the day of admission. When the patient was found down at home, the patient's right foot was apparently twisted. When the patient had arrived to the emergency room he did complain of right foot pain. Unfortunately, the right foot was not x-rayed until today and it was found to have a fracture. I did contact orthopedics at [facility] who recommended the patient have a Cam Walker boot placed, weightbearing as tolerated, and follow- up with podiatry in 7-10 days. Otherwise no major issues with the patient. The patient had refused physical and occupational therapy due to his weakness. It is also a possibility the patient did not want to participate due to the right foot pain. VSS and patient remained afebrile. - Patient Instructions Diet: Heart Healthy Diet, Diabetic Diet Activity: As Tolerated, Partial Weight Bearing Driving: Do Not Drive Showering/Bathing: May Shower Notify Provider of: Fever, Increased Pain, Nausea and/or Vomiting - Discharge Plan Home Medications: Home Meds Cholecalciferol (Vitamin D3) [Vitamin D3] 5,000 unit PO DAILY 09/06/13 [History] Fluticasone Propionate [Flonase] 1 spray NASBOTH BID 09/06/13 [History] [place]-3 Fatty Acids [[place]-3] 1,000 mg PO DAILY 09/06/13 [History] Sertraline [Zoloft] 100 mg PO BEDTIME 09/06/13 [History] Simvastatin [Zocor] 10 mg PO BEDTIME 09/06/13 [History] PEG 400/Propylene Glycol [Systane Lubricant] 1 drop EYELF ASDIRECTED PRN [History] oxyCODONE 5 mg PO Q4H PRN 06/15/15 [History] Cranberry Extract [Cranberry] 500 mg PO DAILY 11/16/15 [History] Multivitamin [Multi-Vitamin Daily] 1 tab PO DAILY 11/16/15 [History] Potassium Chloride [Klor-Con] 20 meq PO DAILY #0 11/26/15 [Rx] Valsartan [Diovan] 320 mg PO DAILY #30 tablet 06/15/16 [Rx] Acetaminophen [Acetaminophen Extra Strength] 500 mg PO BID MDD 4000 MG DAILY 08/31 [History] Celecoxib 200 mg PO DAILY 06/30/17 [History] Docusate Sodium [Colace] 100 mg PO DAILY 06/30/17 [History] Metoprolol Succinate [Toprol XL] 100 mg PO DAILY 06/30/17 [History] Calcium Carb & Citrate/Vit D3 [Citracal + D ER] 1 tab PO DAILY 07/02/17 [History ] Lysine 1,000 mg PO DAILY PRN 07/02/17 [History] Miconazole [Desenex 2%] 1 applic TOP BID 07/02/17 [History] Mupirocin Cream [Bactroban Crm] 1 applic TOP TID 07/02/17 [History] Diltiazem [Cardizem CD] 240 mg PO DAILY #30 cap.cd 07/05/17 [Rx] Furosemide [Lasix] 20 mg PO BIDDIURETIC #60 tablet 07/05/17 [Rx] Menthol/Zinc Oxide [Calmoseptine] 0 gm TOP BEDTIME tube 07/05/17 [Rx] Polyethylene Glycol 3350 [MiraLAX] 17 gm PO DAILY packet 07/05/17 [Rx] Biotin [Biotin] 1 mg PO DAILY 07/19/17 [History] Warfarin [Coumadin] 5 mg PO TU@0800 07/19/17 [History] Warfarin [Coumadin] 7.5 mg PO SUMOWETHFRSA@0800 07/19/17 [History] Albuterol/Ipratropium [DuoNeb 3.0-0.5 MG/3 ML] 3 ml NEB Q6HRRT PRN 07/20/17 [ History] Codeine/Promethazine [Phenergan with Codeine] 5 ml PO Q4H PRN 07/20/17 [History] Multivitamin with Minerals [Multivitamins with Minerals] 07/20/17 [History] Nystatin [Nystatin Crm] 30 gm TOP BID 07/20/17 [History] Oseltamivir [Tamiflu] 75 mg PO BID 07/20/17 [History] Patient Handouts: Influenza, Adult, [id number] - Discharge Summary/Plan Comment DC Time >30 min.: Yes Discharge Summary/Plan Comment: Patient will be discharged from observation status and admitted to Swing Bed. Dr. Beatrice Benitez will assume care of this patient while on Swing Bed. Continue same medications from Observation stay. Continue on Tamiflu for the full coarse. I do anticipate the patient medical necessity for patient to remain on swing bed until his weakness improves. CAM walker to be used when ambulating and when patient is out of bed. May have boot off at night while in bed. Patient will need a Podiatry consult within the next 7-10 days. PT/OT will continue to see patient while admitted to swing bed. - General Info Date of Service: 07/20/17 Admission Dx/Problem (Free Text: Influenza Type A Right foot fracture Weakness Subjective Update: Overall, patient states he feels ok. He does complain of some right foot pain, especially with ambulation. Discussed with patient the need to use CAM walker boot, especially with ambulation. Otherwise, no other concerns from patient. Functional Status: Reports: Pain Controlled, Tolerating Diet, Urinating - Review of Systems General: Reports: Weakness (generalized), Fatigue. Denies: Fever Pulmonary: Reports: Cough. Denies: Shortness of Breath, Sputum Cardiovascular: Denies: Chest Pain, Palpitations Gastrointestinal: Reports: No Symptoms Skin: Reports: No Symptoms Neurological: Reports: No Symptoms. Denies: Dizziness, Headache - Patient Data Vitals - Most Recent: Last Vital Signs Temp 37.2 C 07/20/17 14:00 Pulse 71 07/20/17 14:00 Resp 22 H 07/20/17 14:00 BP 165/56 H 07/20/17 14:00 Pulse Ox 93 L 07/20/17 14:00 Weight - Most Recent: 105.415 kg I&O - Last 24 hours: Intake & Output 07/20/17 07/20/17 07/20/17 06:59 14:59 22:59 Intake Total 480 Output Total 600 650 Balance -600 -170 Lab Results - Last 24 hrs: Laboratory Results - last 24 hr 07/20/17 07/20/17 Range/Units 07:04 07:04 WBC 6.1 (4.0-10.0) x10^3/uL RBC 4.28 L (4.5-6.0) x10^6/uL Hgb 12.4 L (14.0-18.0) g/dL Hct 39.2 L (40.0-52.0) % MCV 91.6 (78.0-93.0) fL MCH 29.0 (26.0-32.0) pg MCHC 31.6 L (32.0-36.0) g/dL RDW Coeff of Kimberlee 14.9 (10.0-15.0) % Plt Count 112 L (130-400) x10^3/uL Neut % (Auto) 77.4 (50.0-80.0) % Lymph % (Auto) 11.0 L (25.0-50.0) % [place] % (Auto) 10.9 (2.0-11.0) % Eos % (Auto) 0.5 (0.0-4.0) % Baso % (Auto) 0.2 (0.2-1.2) % Sodium 142 (136-145) mmol/L Potassium 4.6 (3.5-5.1) mmol/L Chloride 106 (98-107) mmol/L Carbon Dioxide 28 (21-32) mmol/L BUN 16 (7-18) mg/dL Creatinine 1.0 (0.70-1.30) mg/dL Est Cr Clr Drug Dosing 69.96 mL/min Estimated GFR (MDRD) > 60 Glucose 105 (74-106) mg/dL Calcium 8.0 L (8.5-10.1) mg/dL Med Orders - Current: Current Medications Acetaminophen (Tylenol Extra Strength) 500 mg PO BID [facility] Last Admin: 07/20/17 07:39 Dose: 500 mg Albuterol/Ipratropium (Duoneb 3.0-0.5 Mg/3 Ml) 3 ml NEB Q6HRRT PRN PRN Reason: Cough Last Admin: 07/20/17 09:03 Dose: 3 ml Cholecalciferol (Vitamin D3) 5,000 units PO DAILY [facility] Last Admin: 07/20/17 07:39 Dose: 5,000 units Docusate Sodium (Colace) 100 mg PO DAILY [facility] Last Admin: 07/20/17 07:39 Dose: 100 mg Fish Oil (Fish Oil) 1 gm PO DAILY [facility] Last Admin: 07/20/17 07:38 Dose: 1 gm Nystatin. Cream (Own (Supply)) 1 gm TOP BID [facility] Last Admin: 07/20/17 10:34 Dose: Not Given Celebrex. 200mg (Own (Supply)) 0 mg PO DAILY [facility] Last Admin: 07/20/17 07:43 Dose: 200 mg Diltiazem. Cd 240 Mg ((Own Supply)) 0 mg PO DAILY [facility] Last Admin: 07/20/17 07:43 Dose: 240 mg Furosemide. 20mg ( (Own Supply)) 0 mg PO BIDDIURETIC [facility] Last Admin: 07/20/17 16:16 Dose: 20 mg Oseltamivir. 75mg ( (Own Supply)) 0 mg PO BID [facility] Stop: 07/23/17 08:01 Last Admin: 07/20/17 07:44 Dose: 75 mg Valsartan 320mg (Own (Supply)) 0 mg PO DAILY [facility] Last Admin: 07/20/17 07:43 Dose: 320 mg Metoprolol Er 100mg ((Own Supply)) 0 mg PO DAILY [facility] Last Admin: 07/20/17 07:41 Dose: 100 mg Oxycodone. 5mg (Own (Supply)) 0 mg PO Q4H PRN PRN Reason: Pain Last Admin: 07/20/17 10:38 Dose: 5 mg Potassium Chloride. (20 Meq (Own Supply)) 0 meq PO DAILY [facility] Last Admin: 07/20/17 07:41 Dose: 20 meq Sertraline. 100mg ( (Own Supply)) 0 mg PO BEDTIME [facility] Last Admin: 07/19/17 20:34 Dose: 100 mg Simvastatin. 10mg ( (Own Supply)) 0 mg PO BEDTIME [facility] Last Admin: 07/19/17 20:34 Dose: 10 mg Warfarin (Own Supply ()) 0 mg PO [email or web address] [facility] Last Admin: 07/19/17 20:31 Dose: 7.5 mg Warfarin. (Own (Supply)) 0 mg PO [email or web address] [facility] Polyethylene Glycol (Miralax) 17 gm PO DAILY PRN PRN Reason: Constipation Last Admin: 07/20/17 10:38 Dose: 17 gm Promethazine HCl/Codeine (Phenergan With Codeine) 5 ml PO Q4HR PRN PRN Reason: cough Last Admin: 07/19/17 20:31 Dose: 5 ml Sodium Chloride (Saline Flush) 10 ml FLUSH ASDIRECTED PRN PRN Reason: Keep Vein Open Vitamin B Complex/Vit C/Vit E/Zinc (Stress Formula With Zinc) 1 tab PO DAILY [facility] Last Admin: 07/20/17 07:38 Dose: 1 tab Discontinued Medications Hydrocodone Bitart/Acetaminophen ([place] 325-5 Mg) 1 tab PO ONETIME ONE Stop: 07/19/17 15:16 Last Admin: 07/19/17 15:51 Dose: Not Given Sodium Chloride (Normal Saline) 1,000 mls @ 250 mls/hr IV .BOLUS ONE Stop: 07/19/17 06:06 Last Admin: 07/19/17 03:02 Dose: 250 mls/hr Sodium Chloride (Normal Saline) 1,000 mls @ 75 mls/hr IV ONETIME ONE Stop: 07/19/17 15:26 Last Admin: 07/19/17 04:07 Dose: 75 mls/hr Oseltamivir Phosphate (Tamiflu) 75 mg PO BID [facility] Last Admin: 07/19/17 14:48 Dose: Not Given Oxycodone HCl (Oxycodone) 5 mg PO Q4H PRN PRN Reason: Pain Last Admin: 07/19/17 03:05 Dose: 5 mg Promethazine HCl/Codeine (Phenergan With Codeine) 5 ml PO Q4HR [facility] Last Admin: 07/19/17 14:48 Dose: Not Given - Exam General: Reports: Alert, Cooperative, No Acute Distress Neck: Reports: Supple Lungs: Reports: Normal Respiratory Effort, Crackles, Wheezing Cardiovascular: Reports: Regular Rate, Regular Rhythm GI/Abdominal Exam: Normal Bowel Sounds, Soft, Non-Tender Skin: Reports: Warm, Dry, Intact Neurological: Reports: No New Focal Deficit *Q Meaningful Use (DIS) - VTE *Q VTE Criteria *Q: VTE Mechanical Contraindications *Q: At Risk for Falls - Stroke *Q Stroke Criteria *Q: - AMI *Q AMI Criteria *Q:
[2017-07-24] MEDS ORDERED: WARFARIN PO SCH (20:00)
== END 2017-07-20 17:04 | disposition swing bed (61) ==
LOC: VM.ED 00:10 → VM.MS 02:02
PROVIDERS: ADMIT Physician Assistant; ATTEND Physician Assistant
DX: J09.X2 Influenza due to identified novel influenza A virus with other respiratory manifestations (principal); S92.901A Unspecified fracture of right foot, initial encounter for closed fracture; R53.1 Weakness; E11.9 Type 2 diabetes mellitus without complications; I48.2 Chronic atrial fibrillation; I50.32 Chronic diastolic (congestive) heart failure; G35 Multiple sclerosis; M06.9 Rheumatoid arthritis, unspecified; I10 Essential (primary) hypertension; G47.30 Sleep apnea, unspecified; F32.9 Major depressive disorder, single episode, unspecified; W18.30XA Fall on same level, unspecified, initial encounter; Y92.009 Unspecified place in unspecified non-institutional (private) residence as the place of occurrence of the external cause; Z79.01 Long term (current) use of anticoagulants; Z79.899 Other long term (current) drug therapy
CPT/HCPCS: 36415; 51701; 71045; 73630; 80048; 80053; 83605; 83880; 84484; 85025; 85610; 86140; 87040; 87804; 93005; 94640; 94760; 96360; 96361; 97161; 97165; 99285; A9270; G0378; J7030

== ENCOUNTER 2017-07-20 16:22 | Inpatient (IN) | payer MEDICARE, BC ==
[2017-07-20] MEDS: Oseltamivir 75 MG Cap PO SCH (21:35)
[2017-07-20] MEDS ORDERED: Codeine/Promethazine 10-6.25 MG/5 ML Syrup 5 ML UD Cup PO PRN (21:47)
[2017-07-20] MEDS ORDERED: LYSINE 1000 MG PO PRN (21:47)
[2017-07-20] MEDS ORDERED: Dextran 70/Hypromellose/PF Ophth Soln 0.9 ML UD EYELF PRN (21:54)
--- NOTE | 2017-07-20 22:12 | PCM.HP ---
H&P History of Present Illness - General Date of Service: 07/20/17 Admit Problem/Dx: Admission Diagnosis/Problem Admission Diagnosis/Problem Weakness Source of Information: Patient - History of Present Illness Initial Comments - Free Text/Narative: 72 year old male admitted to swing bed for continued therapy following readmission due to weakness. Pt was initially discharged approximately two weeks ago following treatment for acute exacerbation of congestive heart failure. Pt refused home health following discharge indicating he would not be home bound. He was seen in clinic one week post discharge. He noted upper respiratory symptoms and continued weakness. Out patient physical therapy was ordered. Pt fell at home. He was brought to the ER for evaluation and tested positive for influenza. Xrays obtained earlier today revealed an acute navicular fracture related to his fall at home. He was placed in cam walker. Right Ankle Pain Score (Numeric/FACES): 5 - Related Data Allergies/Adverse Reactions: Allergies Allergy/AdvReac Type Severity Reaction Status Date / Time carbamazepine AdvReac Dizziness Verified 07/19/17 00:11 Home Medications: Home Meds Cholecalciferol (Vitamin D3) [Vitamin D3] 5,000 unit PO DAILY 09/06/13 [History] Fluticasone Propionate [Flonase] 1 spray NASBOTH BID 09/06/13 [History] Yolo-3 Fatty Acids [Yolo-3] 1,000 mg PO DAILY 09/06/13 [History] Sertraline [Zoloft] 100 mg PO BEDTIME 09/06/13 [History] Simvastatin [Zocor] 10 mg PO BEDTIME 09/06/13 [History] PEG 400/Propylene Glycol [Systane Lubricant] 1 drop EYELF ASDIRECTED PRN [History] oxyCODONE 5 mg PO Q4H PRN 06/15/15 [History] Cranberry Extract [Cranberry] 500 mg PO DAILY 11/16/15 [History] Multivitamin [Multi-Vitamin Daily] 1 tab PO DAILY 11/16/15 [History] Potassium Chloride [Klor-Con] 20 meq PO DAILY #0 11/26/15 [Rx] Valsartan [Diovan] 320 mg PO DAILY #30 tablet 06/15/16 [Rx] Acetaminophen [Acetaminophen Extra Strength] 500 mg PO BID MDD 4000 MG DAILY 08/31 [History] Celecoxib 200 mg PO DAILY 06/30/17 [History] Docusate Sodium [Colace] 100 mg PO DAILY 06/30/17 [History] Metoprolol Succinate [Toprol XL] 100 mg PO DAILY 06/30/17 [History] Calcium Carb & Citrate/Vit D3 [Citracal + D ER] 1 tab PO DAILY 07/02/17 [History ] Lysine 1,000 mg PO DAILY PRN 07/02/17 [History] Miconazole [Desenex 2%] 1 applic TOP BID 07/02/17 [History] Mupirocin Cream [Bactroban Crm] 1 applic TOP TID 07/02/17 [History] Diltiazem [Cardizem CD] 240 mg PO DAILY #30 cap.cd 07/05/17 [Rx] Furosemide [Lasix] 20 mg PO BIDDIURETIC #60 tablet 07/05/17 [Rx] Menthol/Zinc Oxide [Calmoseptine] 0 gm TOP BEDTIME tube 07/05/17 [Rx] Polyethylene Glycol 3350 [MiraLAX] 17 gm PO DAILY packet 07/05/17 [Rx] Biotin [Biotin] 1 mg PO DAILY 07/19/17 [History] Warfarin [Coumadin] 5 mg PO TU@0800 07/19/17 [History] Warfarin [Coumadin] 7.5 mg PO SUMOWETHFRSA@0800 07/19/17 [History] Albuterol/Ipratropium [DuoNeb 3.0-0.5 MG/3 ML] 3 ml NEB Q6HRRT PRN 07/20/17 [ History] Codeine/Promethazine [Phenergan with Codeine] 5 ml PO Q4H PRN 07/20/17 [History] Multivitamin with Minerals [Multivitamins with Minerals] 07/20/17 [History] Nystatin [Nystatin Crm] 30 gm TOP BID 07/20/17 [History] Oseltamivir [Tamiflu] 75 mg PO BID 07/20/17 [History] Past Medical History HEENT History: Reports: Cataract, Other (See Below) Other HEENT History: wears glasses Cardiovascular History: Reports: Afib, Heart Failure, Hypertension Respiratory History: Reports: Pneumonia, Recurrent, Sleep Apnea Gastrointestinal History: Reports: Other (See Below) Other Gastrointestinal History: history of C diff. fecal transplant Genitourinary History: Reports: Neurogenic Bladder, UTI, Recurrent Other Genitourinary History: self cath/due to MS Musculoskeletal History: Reports: Arthritis Other Musculoskeletal History: MSand sore on right knee with brace on Neurological History: Reports: MS Psychiatric History: Reports: Depression Other Psychiatric History: very depressed Endocrine/Metabolic History: Reports: Diabetes, Type II Hematologic History: Reports: Anticoagulation Therapy, Blood Transfusion(s) Dermatologic History: Reports: Other (See Below) Other Dermatologic History: coccyx friction open area, yeast in groin - Infectious Disease History Infectious Disease History: Reports: MRSA Other Infectious Disease History: ecoli - Past Surgical History HEENT Surgical History: Reports: Cataract Surgery GI Surgical History: Reports: Colonoscopy, Hernia Repair/Other Neurological Surgical History: Reports: None Oncologic Surgical History: Reports: None Social & Family History - Family History Family Medical History: Noncontributory Cardiac: Reports: CT Respiratory: Reports: Asthma, COPD Musculoskeletal: Reports: Arthritis, Osteoporosis Neurological: Reports: None Endocrine/Metabolic: Reports: Diabetes, type II - Tobacco Use Smoking Status *Q: Never Smoker Used Tobacco, but Quit: No Second Hand Smoke Exposure: No - Caffeine Use Caffeine Use: Reports: Coffee - Alcohol Use Days Per Week of Alcohol Use: 0 - Recreational Drug Use Recreational Drug Use: No H&P Review of Systems - Review of Systems: Review Of Systems: See Below General: Reports: Weakness HEENT: Reports: No Symptoms Pulmonary: Reports: Shortness of Breath, Cough Cardiovascular: Denies: Chest Pain Gastrointestinal: Reports: Constipation Genitourinary: Reports: Retention Musculoskeletal: Reports: Foot Pain, Joint Pain Skin: Reports: No Symptoms Psychiatric: Reports: Depression Neurological: Reports: Weakness Exam - Exam Exam: See Below - Vital Signs Vital Signs: Last Vital Signs Temp 36.7 C 07/20/17 21:48 Pulse 54 L 07/20/17 21:48 Resp 18 07/20/17 21:48 BP 161/73 H 07/20/17 21:48 Pulse Ox 94 L 07/20/17 21:48 - Exam General: Alert Lungs: Crackles Cardiovascular: Regular Rate GI/Abdominal Exam: No Abnormal Bruit *Q Meaningful Use (ADM) - VTE *Q VTE Criteria *Q: - Stroke *Q Stroke Criteria *Q: - AMI *Q AMI Criteria *Q: - Problem List (1) CHF (congestive heart failure) SNOMED Code(s): 53756795 ICD Code: I50.9 - HEART FAILURE, UNSPECIFIED Status: Chronic Priority: Medium Current Visit: No Problem Details: Last ECHO 03/2015 - [facility] Qualifiers: Congestive heart failure type: diastolic Congestive heart failure chronicity: chronic Qualified Code(s): I50.32 - Chronic diastolic (congestive ) heart failure (2) Foot fracture, right SNOMED Code(s): 65508018 ICD Code: S92.901A - UNSP FRACTURE OF RIGHT FOOT, INIT ENCNTR FOR CLOSED FRACTURE Status: Acute Priority: Medium Current Visit: No Onset Date: ~ 07/18/17 Qualifiers: Encounter type: initial encounter Fracture type: closed Qualified Code(s) : S92.901A - Unspecified fracture of right foot, initial encounter for closed fracture (3) Influenza A SNOMED Code(s): 937111764 ICD Code: J10.1 - FLU DUE TO OTH IDENT INFLUENZA VIRUS W OTH RESP MANIFEST Status: Acute Priority: Medium Current Visit: No Onset Date: ~07/18/17 (4) A-fib SNOMED Code(s): 85021235 ICD Code: I48.91 - UNSPECIFIED ATRIAL FIBRILLATION Status: Chronic Priority: Medium Current Visit: No Qualifiers: Atrial fibrillation type: chronic Qualified Code(s): I48.2 - Chronic atrial fibrillation (5) Diabetes mellitus type 2 SNOMED Code(s): 64798275 ICD Code: E11.9 - TYPE 2 DIABETES MELLITUS WITHOUT COMPLICATIONS Status: Chronic Priority: Medium Current Visit: No (6) Multiple sclerosis SNOMED Code(s): 95249328 ICD Code: G35 - MULTIPLE SCLEROSIS Status: Chronic Priority: Medium Current Visit: No (7) Rheumatoid arthritis SNOMED Code(s): 37596914 ICD Code: M06.9 - RHEUMATOID ARTHRITIS, UNSPECIFIED Status: Chronic Priority: Medium Current Visit: No Qualifiers: Rheumatoid factor presence: unspecified presence Laterality: unspecified laterality (8) Weakness SNOMED Code(s): 85555831 ICD Code: R53.1 - WEAKNESS Status: Chronic Priority: High Current Visit : No Problem List Initiated/Reviewed/Updated: Yes Orders Last 24hrs: Active Orders 24 hr Category Date Time Status Admission Status [Patient Status] [ADT] Routine ADT 07/20/17 16:25 Active Height and Weight [RC] PER UNIT ROUTINE Care 07/20/17 21:46 Ordered Insert Gilliam Catheter [Insert Urinary Catheter] [OM.PC] Care 07/20/17 20:30 Ordered Q24H Insert Gilliam Catheter [Insert Urinary Catheter] [OM.PC] Care 07/21/17 20:30 Ordered Q24H Insert Gilliam Catheter [Insert Urinary Catheter] [OM.PC] Care 07/22/17 20:30 Ordered Q24H Insert Gilliam Catheter [Insert Urinary Catheter] [OM.PC] Care 07/23/17 20:30 Ordered Q24H Insert Gilliam Catheter [Insert Urinary Catheter] [OM.PC] Care 07/24/17 20:30 Ordered Q24H Insert Gilliam Catheter [Insert Urinary Catheter] [OM.PC] Care 07/25/17 20:30 Ordered Q24H Oxygen Therapy [RC] PRN Care 07/20/17 21:45 Ordered Up With Assistance [RC] ASDIRECTED Care 07/20/17 21:45 Ordered Urinary Catheter Assessment [RC] ASDIRECTED Care 07/20/17 20:26 Active VTE/DVT Education [RC] PER UNIT ROUTINE Care 07/20/17 21:45 Ordered Vital Signs [RC] PER UNIT ROUTINE Care 07/20/17 21:45 Ordered Regular Diet [DIET] Diet 07/20/17 Breakfast Ordered Acetaminophen [Tylenol Extra Strength] Med 07/21/17 08:00 Ordered 500 mg PO BID Albuterol/Ipratropium [DuoNeb 3.0-0.5 MG/3 ML] Med 07/20/17 21:47 Ordered 3 ml NEB Q6HRRT PRN Biotin [Biotin] Med 07/21/17 08:00 Ordered 1 mg PO DAILY Calcium Carb & Citrate/Vit D3 [Citracal + D ER] Med 07/21/17 08:00 Ordered 1 tab PO DAILY Celecoxib [CeleBREX] Med 07/21/17 08:00 Ordered 100 mg PO BID Celecoxib [Celecoxib] Med 07/21/17 08:00 Stop Req 200 mg PO DAILY Cholecalciferol (Vitamin D3) [Vitamin D3] Med 07/21/17 08:00 Ordered 5,000 unit PO DAILY Codeine/Promethazine Med 07/20/17 21:47 Ordered 5 ml PO Q4H PRN Cranberry Extract [Cranberry] Med 07/21/17 08:00 Ordered 500 mg PO DAILY Diltiazem [Cardizem CD] Med 07/21/17 08:00 Ordered 240 mg PO DAILY Docusate Sodium [Colace] Med 07/21/17 08:00 Ordered 100 mg PO DAILY Fluticasone Propionate [Flonase] Med 07/21/17 08:00 Ordered 1 spray NASBOTH BID Furosemide [Lasix] Med 07/21/17 08:00 Ordered 20 mg PO BIDDIURETIC Lysine [Lysine] Med 07/20/17 21:47 Ordered 1,000 mg PO DAILY PRN Menthol/Zinc Oxide [Calmoseptine] Med 07/21/17 20:00 Ordered See Dose Instructions TOP BEDTIME Metoprolol Succinate [Toprol XL] Med 07/21/17 08:00 Ordered 100 mg PO DAILY Miconazole [Desenex 2%] Med 07/21/17 08:00 Ordered 1 applic TOP BID Multivitamin [Multi-Vitamin Daily] Med 07/21/17 08:00 Ordered 1 tab PO DAILY Mupirocin Cream [Bactroban Crm] Med 07/21/17 08:00 Ordered 1 applic TOP TID Nystatin [Nystatin Crm] Med 07/21/17 08:00 Ordered 30 gm TOP BID Yolo-3 Fatty Acids [Yolo-3] Med 07/21/17 08:00 Ordered 1,000 mg PO DAILY Oseltamivir [Tamiflu] Med 07/20/17 20:30 Active 75 mg PO BID Oseltamivir [Tamiflu] Med 07/21/17 08:00 Ordered 75 mg PO BID PEG 400/Propylene Glycol [Systane Lubricant] Med 07/20/17 21:54 Ordered 1 drop EYELF ASDIRECTED PRN Polyethylene Glycol 3350 [MiraLAX] Med 07/21/17 08:00 Ordered 17 gm PO DAILY Potassium Chloride [Klor-Con] Med 07/21/17 08:00 Ordered 20 meq PO DAILY Sertraline [Zoloft] Med 07/21/17 20:00 Ordered 100 mg PO BEDTIME Simvastatin [Zocor] Med 07/21/17 20:00 Ordered 10 mg PO BEDTIME Valsartan [Diovan] Med 07/21/17 08:00 Ordered 320 mg PO DAILY Warfarin [Coumadin] Med 07/24/17 08:00 Ordered 5 mg PO TU@0800 Warfarin [Coumadin] Med 07/21/17 08:00 Ordered 7.5 mg PO SUMOWETHFRSA@0800 oxyCODONE Med 07/20/17 21:47 Ordered 5 mg PO Q4H PRN Resuscitation Status Routine Resus Stat 07/20/17 21:45 Ordered Medication Orders Acetaminophen (Tylenol Extra Strength) 500 mg PO BID [facility] Albuterol/Ipratropium (Duoneb 3.0-0.5 Mg/3 Ml) 3 ml NEB Q6HRRT PRN PRN Reason: Cough Calamine/Phenol (Calmoseptine) 0 gm TOP BEDTIME [facility] Celecoxib (Celebrex) 100 mg PO BID [facility] Diltiazem HCl (Cardizem Cd) 240 mg PO DAILY [facility] Docusate Sodium (Colace) 100 mg PO DAILY [facility] Fluticasone Propionate (Flonase) gm NASBOTH BID [facility] Furosemide (Lasix) 20 mg PO BIDDIURETIC [facility] Miconazole (Desenex 2%) gm TOP BID [facility] Non-Formulary Medication (Biotin [Biotin]) 1 mg PO DAILY [facility] Non-Formulary Medication (Calcium Carb & Citrate/Vit D3 [Citracal + D Er]) 1 tab PO DAILY [facility] Non-Formulary Medication (Cholecalciferol (Vitamin D3) [Vitamin D3]) 5,000 unit PO DAILY [facility] Non-Formulary Medication (Codeine/Promethazine) 5 ml PO Q4H PRN PRN Reason: Cough Non-Formulary Medication (Cranberry Extract [Cranberry]) 500 mg PO DAILY [facility] Non-Formulary Medication (Lysine [Lysine]) 1,000 mg PO DAILY PRN PRN Reason: Other Non-Formulary Medication (Metoprolol Succinate [Toprol Xl]) 100 mg PO DAILY [facility] Non-Formulary Medication (Multivitamin [Multi-Vitamin Daily]) 1 tab PO DAILY ELIGIO Non-Formulary Medication (Mupirocin Cream [Bactroban Crm]) 1 applic TOP TID [facility]IO Non-Formulary Medication (Yolo-3 Fatty Acids [Yolo-3]) 1,000 mg PO DAILY [facility] Non-Formulary Medication (Peg 400/Propylene Glycol [Systane Lubricant]) 1 drop EYELF ASDIRECTED PRN PRN Reason: Dry Eyes Non-Formulary Medication (Valsartan [Diovan]) 320 mg PO DAILY [facility] Nystatin (Nystatin Crm) 30 gm TOP BID [facility] Oseltamivir Phosphate (Tamiflu) 75 mg PO BID ELIGIO Last Admin: 07/20/17 21:35 Dose: 75 mg Oseltamivir Phosphate (Tamiflu) 75 mg PO BID [facility] Oxycodone HCl (Oxycodone) 5 mg PO Q4H PRN PRN Reason: Pain Polyethylene Glycol (Miralax) 17 gm PO DAILY [facility] Potassium Chloride (Klor-Con) 20 meq PO DAILY [facility] Sertraline HCl (Zoloft) 100 mg PO BEDTIME [facility] Simvastatin (Zocor) 10 mg PO BEDTIME [facility] Warfarin Sodium (Coumadin) 7.5 mg PO SUMOWETHFRSA@0800 [facility] Warfarin Sodium (Coumadin) 5 mg PO TU@0800 [facility] Assessment/Plan Comment:: Assessment: 1. Weakness related to #2 and #3 2. Diastolic CHF 3. Influenza A 4. Right navicular fracture - acute 5. MS 6. RA Plan: Patient will be admitted to swing bed. Physical therapy will be consulted. Pt will need to remain in cam walker for treatment/immobilization of his navicular fracture. He will complete his course of antiviral therapy.
[2017-07-21] MEDS: oxyCODONE 5 MG Tab PO PRN ×2 (00:28→18:34)
[2017-07-21] MEDS ORDERED: Oseltamivir 75 MG Cap PO SCH (08:00)
[2017-07-21] MEDS ORDERED: Non-Formulary Medication 1 Each (Celecoxib [Celecoxib] 200 MG) PO SCH (08:00)
[2017-07-21] MEDS ORDERED: Fish Oil/Omega-3 Fatty Acids 1 Gm Cap PO SCH (08:00)
[2017-07-21] MEDS: Albuterol/Ipratropium 3.0-0.5 MG/3 ML Neb Soln NEB PRN (08:20)
[2017-07-21] MEDS: Diltiazem 240 MG Cap.CD PO SCH (08:50)
[2017-07-21] MEDS: Mupirocin Oint 22 GM Tube TOP SCH ×3 (08:50→20:38)
[2017-07-21] MEDS: Docusate Sodium 100 MG Cap PO SCH (08:50)
[2017-07-21] MEDS: Metoprolol Succinate 50 MG Tab.ER PO SCH (08:50)
[2017-07-21] MEDS: Cholecalciferol (Vitamin D3) 1,000 Unit Tab PO SCH (08:50)
[2017-07-21] MEDS: Furosemide 20 MG Tab PO SCH ×2 (08:51→16:21)
[2017-07-21] MEDS: Losartan 50 MG Tab PO SCH (08:51)
[2017-07-21] MEDS: Calcium Carbonate/Vitamin D3 1250 MG-200 Unit Tab PO SCH (08:51)
[2017-07-21] MEDS: Multivitamins with Iron/Calcium/Folic Acid/Minerals Tab PO SCH (08:51)
[2017-07-21] MEDS: Oseltamivir 75 MG Cap PO SCH ×2 (08:51→20:26)
[2017-07-21] MEDS: Potassium Chloride 20 MEQ Packet PO SCH (08:51)
[2017-07-21] MEDS: Fluticasone Propionate Nasal Spray 16 GM Bottle NASBOTH SCH ×2 (08:51→20:29)
[2017-07-21] MEDS: Acetaminophen 500 MG Tab PO SCH ×2 (08:51→20:29)
[2017-07-21] MEDS: Polyethylene Glycol 3350 Powder 17 GM Packet PO SCH (08:51)
[2017-07-21] MEDS: Celecoxib 100 MG Cap PO SCH ×2 (08:51→20:26)
[2017-07-21] MEDS: Nystatin Crm 30 GM Tube TOP SCH ×2 (08:51→20:32)
[2017-07-21] MEDS: Miconazole 2% Top Powder 45 GM Container TOP SCH ×2 (08:52→20:29)
[2017-07-21] MEDS: Cranberry 500 MG Cap PO SCH (08:52)
[2017-07-21] MEDS: Sertraline 100 MG Tab PO SCH (20:26)
[2017-07-21] MEDS: Menthol/Zinc Oxide Ointment 3.5 GM Tube TOP SCH (20:28)
[2017-07-21] MEDS: Simvastatin 20 MG Tab PO SCH (20:30)
[2017-07-21] MEDS: Warfarin 2.5 MG Tab PO SCH (20:37)
[2017-07-22] MEDS: Albuterol/Ipratropium 3.0-0.5 MG/3 ML Neb Soln NEB PRN (07:17)
[2017-07-22] MEDS: Polyethylene Glycol 3350 Powder 17 GM Packet PO SCH (07:53)
[2017-07-22] MEDS: Potassium Chloride 20 MEQ Packet PO SCH (07:53)
[2017-07-22] MEDS: Cholecalciferol (Vitamin D3) 1,000 Unit Tab PO SCH (07:54)
[2017-07-22] MEDS: Diltiazem 240 MG Cap.CD PO SCH (07:56)
[2017-07-22] MEDS: Metoprolol Succinate 50 MG Tab.ER PO SCH (07:56)
[2017-07-22] MEDS: Multivitamins with Iron/Calcium/Folic Acid/Minerals Tab PO SCH (07:57)
[2017-07-22] MEDS: Cranberry 500 MG Cap PO SCH (07:57)
[2017-07-22] MEDS: Celecoxib 100 MG Cap PO SCH ×2 (07:57→20:26)
[2017-07-22] MEDS: Calcium Carbonate/Vitamin D3 1250 MG-200 Unit Tab PO SCH (07:57)
[2017-07-22] MEDS: Oseltamivir 75 MG Cap PO SCH ×2 (07:58→20:50)
[2017-07-22] MEDS: Docusate Sodium 100 MG Cap PO SCH (07:58)
[2017-07-22] MEDS: Furosemide 20 MG Tab PO SCH ×2 (07:58→16:24)
[2017-07-22] MEDS: Fish Oil/Omega-3 Fatty Acids 1 Gm Cap PO SCH (07:59)
[2017-07-22] MEDS: Losartan 50 MG Tab PO SCH (07:59)
[2017-07-22] MEDS: Acetaminophen 500 MG Tab PO SCH ×2 (08:00→20:27)
[2017-07-22] MEDS: Nystatin Crm 30 GM Tube TOP SCH ×2 (08:01→20:29)
[2017-07-22] MEDS: Miconazole 2% Top Powder 45 GM Container TOP SCH ×2 (08:02→20:28)
[2017-07-22] MEDS: Fluticasone Propionate Nasal Spray 16 GM Bottle NASBOTH SCH ×2 (08:02→20:29)
[2017-07-22] MEDS: Mupirocin Oint 22 GM Tube TOP SCH ×3 (08:02→20:31)
[2017-07-22] MEDS ORDERED: Ondansetron 4 MG Tab.DIS PO PRN (13:59)
[2017-07-22] MEDS: Warfarin 2.5 MG Tab PO SCH (20:25)
[2017-07-22] MEDS: Simvastatin 20 MG Tab PO SCH (20:26)
[2017-07-22] MEDS: Sertraline 100 MG Tab PO SCH (20:26)
[2017-07-22] MEDS: Menthol/Zinc Oxide Ointment 3.5 GM Tube TOP SCH (20:32)
[2017-07-23] MEDS: Polyethylene Glycol 3350 Powder 17 GM Packet PO SCH (08:45)
[2017-07-23] MEDS: Metoprolol Succinate 50 MG Tab.ER PO SCH (08:46)
[2017-07-23] MEDS: Cholecalciferol (Vitamin D3) 1,000 Unit Tab PO SCH (08:46)
[2017-07-23] MEDS: Potassium Chloride 20 MEQ Packet PO SCH (08:46)
[2017-07-23] MEDS: Docusate Sodium 100 MG Cap PO SCH (08:46)
[2017-07-23] MEDS: Calcium Carbonate/Vitamin D3 1250 MG-200 Unit Tab PO SCH (08:47)
[2017-07-23] MEDS: Furosemide 20 MG Tab PO SCH ×2 (08:48→16:18)
[2017-07-23] MEDS: Celecoxib 100 MG Cap PO SCH ×2 (08:48→19:54)
[2017-07-23] MEDS: Fish Oil/Omega-3 Fatty Acids 1 Gm Cap PO SCH (08:48)
[2017-07-23] MEDS: Losartan 50 MG Tab PO SCH (08:48)
[2017-07-23] MEDS: Cranberry 500 MG Cap PO SCH (08:48)
[2017-07-23] MEDS: Diltiazem 240 MG Cap.CD PO SCH (08:49)
[2017-07-23] MEDS: Acetaminophen 500 MG Tab PO SCH ×2 (08:49→19:54)
[2017-07-23] MEDS: Multivitamins with Iron/Calcium/Folic Acid/Minerals Tab PO SCH (08:49)
[2017-07-23] MEDS: Miconazole 2% Top Powder 45 GM Container TOP SCH ×2 (08:50→19:55)
[2017-07-23] MEDS: Mupirocin Oint 22 GM Tube TOP SCH ×3 (08:50→19:56)
[2017-07-23] MEDS: Fluticasone Propionate Nasal Spray 16 GM Bottle NASBOTH SCH ×2 (08:51→19:56)
[2017-07-23] MEDS: Nystatin Crm 30 GM Tube TOP SCH ×2 (08:51→19:55)
[2017-07-23] MEDS: Oseltamivir 75 MG Cap PO SCH (08:57)
[2017-07-23] MEDS: Menthol/Zinc Oxide Ointment 3.5 GM Tube TOP SCH (19:54)
[2017-07-23] MEDS: Warfarin 2.5 MG Tab PO SCH (19:54)
[2017-07-23] MEDS: Sertraline 100 MG Tab PO SCH (19:54)
[2017-07-23] MEDS: Simvastatin 10 MG Tab PO SCH (19:54)
[2017-07-24] MEDS: Albuterol/Ipratropium 3.0-0.5 MG/3 ML Neb Soln NEB PRN ×2 (07:11→20:13)
[2017-07-24] MEDS: Mupirocin Oint 22 GM Tube TOP SCH ×3 (07:58→20:08)
[2017-07-24] MEDS: Celecoxib 100 MG Cap PO SCH ×2 (07:59→20:06)
[2017-07-24] MEDS: Acetaminophen 500 MG Tab PO SCH ×2 (07:59→20:05)
[2017-07-24] MEDS: Cranberry 500 MG Cap PO SCH (07:59)
[2017-07-24] MEDS: Polyethylene Glycol 3350 Powder 17 GM Packet PO SCH (07:59)
[2017-07-24] MEDS: Furosemide 20 MG Tab PO SCH ×2 (07:59→15:18)
[2017-07-24] MEDS: Fish Oil/Omega-3 Fatty Acids 1 Gm Cap PO SCH (07:59)
[2017-07-24] MEDS: Potassium Chloride 20 MEQ Packet PO SCH (07:59)
[2017-07-24] MEDS: Losartan 50 MG Tab PO SCH (07:59)
[2017-07-24] MEDS: Metoprolol Succinate 50 MG Tab.ER PO SCH (07:59)
[2017-07-24] MEDS: Calcium Carbonate/Vitamin D3 1250 MG-200 Unit Tab PO SCH (08:00)
[2017-07-24] MEDS: Fluticasone Propionate Nasal Spray 16 GM Bottle NASBOTH SCH ×2 (08:00→20:07)
[2017-07-24] MEDS: Multivitamins with Iron/Calcium/Folic Acid/Minerals Tab PO SCH (08:00)
[2017-07-24] MEDS: Cholecalciferol (Vitamin D3) 1,000 Unit Tab PO SCH (08:00)
[2017-07-24] MEDS: Docusate Sodium 100 MG Cap PO SCH (08:00)
[2017-07-24] MEDS: Diltiazem 240 MG Cap.CD PO SCH (08:00)
[2017-07-24] MEDS: Miconazole 2% Top Powder 45 GM Container TOP SCH ×2 (08:00→20:06)
[2017-07-24] MEDS: Nystatin Crm 30 GM Tube TOP SCH ×2 (08:01→20:06)
[2017-07-24] MEDS: Carbamide Peroxide 6.5% Otic Soln 15 ML Bottle EARBOTH PRN (10:48)
[2017-07-24] MEDS ORDERED: Warfarin 5 MG Tab PO SCH (20:00)
[2017-07-24] MEDS: Simvastatin 10 MG Tab PO SCH (20:05)
[2017-07-24] MEDS: Menthol/Zinc Oxide Ointment 3.5 GM Tube TOP SCH (20:07)
[2017-07-24] MEDS: Sertraline 100 MG Tab PO SCH (20:07)
[2017-07-25] MEDS: Albuterol/Ipratropium 3.0-0.5 MG/3 ML Neb Soln NEB PRN ×2 (07:16→20:27)
[2017-07-25] MEDS: Metoprolol Succinate 50 MG Tab.ER PO SCH (07:59)
[2017-07-25] MEDS: Polyethylene Glycol 3350 Powder 17 GM Packet PO SCH (07:59)
[2017-07-25] MEDS: Potassium Chloride 20 MEQ Packet PO SCH (07:59)
[2017-07-25] MEDS: Cholecalciferol (Vitamin D3) 1,000 Unit Tab PO SCH (07:59)
[2017-07-25] MEDS: Mupirocin Oint 22 GM Tube TOP SCH ×3 (08:00→20:28)
[2017-07-25] MEDS: Diltiazem 240 MG Cap.CD PO SCH (08:00)
[2017-07-25] MEDS: Losartan 50 MG Tab PO SCH (08:00)
[2017-07-25] MEDS: Calcium Carbonate/Vitamin D3 1250 MG-200 Unit Tab PO SCH (08:00)
[2017-07-25] MEDS: Celecoxib 100 MG Cap PO SCH ×2 (08:00→20:26)
[2017-07-25] MEDS: Furosemide 20 MG Tab PO SCH ×2 (08:00→16:22)
[2017-07-25] MEDS: Cranberry 500 MG Cap PO SCH (08:00)
[2017-07-25] MEDS: Docusate Sodium 100 MG Cap PO SCH (08:00)
[2017-07-25] MEDS: Fish Oil/Omega-3 Fatty Acids 1 Gm Cap PO SCH (08:00)
[2017-07-25] MEDS: Multivitamins with Iron/Calcium/Folic Acid/Minerals Tab PO SCH (08:00)
[2017-07-25] MEDS: Acetaminophen 500 MG Tab PO SCH ×2 (08:00→20:25)
[2017-07-25] MEDS: Nystatin Crm 30 GM Tube TOP SCH ×2 (08:01→20:27)
[2017-07-25] MEDS: Miconazole 2% Top Powder 45 GM Container TOP SCH ×2 (08:01→20:27)
[2017-07-25] MEDS: Fluticasone Propionate Nasal Spray 16 GM Bottle NASBOTH SCH ×2 (08:04→20:33)
[2017-07-25] MEDS: Carbamide Peroxide 6.5% Otic Soln 15 ML Bottle EARBOTH PRN (16:23)
[2017-07-25] MEDS: Warfarin 2.5 MG Tab PO SCH (20:25)
[2017-07-25] MEDS: Sertraline 100 MG Tab PO SCH (20:25)
[2017-07-25] MEDS: oxyCODONE 5 MG Tab PO PRN (20:26)
[2017-07-25] MEDS: Menthol/Zinc Oxide Ointment 3.5 GM Tube TOP SCH (20:27)
[2017-07-25] MEDS: Simvastatin 10 MG Tab PO SCH (20:33)
[2017-07-26] MEDS: Albuterol/Ipratropium 3.0-0.5 MG/3 ML Neb Soln NEB PRN ×2 (07:37→20:15)
[2017-07-26] MEDS: Miconazole 2% Top Powder 45 GM Container TOP SCH ×2 (07:56→20:15)
[2017-07-26] MEDS: Potassium Chloride 20 MEQ Packet PO SCH (07:57)
[2017-07-26] MEDS: Celecoxib 100 MG Cap PO SCH ×2 (07:57→20:14)
[2017-07-26] MEDS: Acetaminophen 500 MG Tab PO SCH ×2 (07:57→20:14)
[2017-07-26] MEDS: Diltiazem 240 MG Cap.CD PO SCH (07:57)
[2017-07-26] MEDS: Nystatin Crm 30 GM Tube TOP SCH ×2 (07:57→20:15)
[2017-07-26] MEDS: Fish Oil/Omega-3 Fatty Acids 1 Gm Cap PO SCH (07:57)
[2017-07-26] MEDS: Furosemide 20 MG Tab PO SCH ×2 (07:57→16:22)
[2017-07-26] MEDS: Polyethylene Glycol 3350 Powder 17 GM Packet PO SCH (07:57)
[2017-07-26] MEDS: Cholecalciferol (Vitamin D3) 1,000 Unit Tab PO SCH (07:58)
[2017-07-26] MEDS: Docusate Sodium 100 MG Cap PO SCH (07:58)
[2017-07-26] MEDS: Fluticasone Propionate Nasal Spray 16 GM Bottle NASBOTH SCH ×2 (07:58→20:14)
[2017-07-26] MEDS: Metoprolol Succinate 50 MG Tab.ER PO SCH (07:58)
[2017-07-26] MEDS: Calcium Carbonate/Vitamin D3 1250 MG-200 Unit Tab PO SCH (07:58)
[2017-07-26] MEDS: Losartan 50 MG Tab PO SCH (07:58)
[2017-07-26] MEDS: Multivitamins with Iron/Calcium/Folic Acid/Minerals Tab PO SCH (07:58)
[2017-07-26] MEDS: Cranberry 500 MG Cap PO SCH (07:58)
[2017-07-26] MEDS: Mupirocin Oint 22 GM Tube TOP SCH ×3 (08:35→20:15)
--- NOTE | 2017-07-26 18:59 | PCM.PN ---
- General Info Date of Service: 07/24/17 Admission Dx/Problem (Free Text): Admission Diagnosis/Problem Admission Diagnosis/Problem Weakness Subjective Update: Pt states his ear has been bothersome. States some wax was removed with some improvements in his symptoms. Also states his eyes have been dry and would like artificial tears ordered. Pt states the pain in his foot is improving. He states he is quite certain he will not be able to use the cam walker once he gets home. States he will not be able to put it on himself nor move his leg with it on. He questions if he can use his diabetic shoes instead. Functional Status: Reports: Pain Controlled - Review of Systems General: Reports: Weakness HEENT: Reports: Ear Pain, Other (Eye dryness) Pulmonary: Denies: Shortness of Breath Cardiovascular: Denies: Chest Pain Gastrointestinal: Denies: Abdominal Pain Genitourinary: Denies: Dysuria Musculoskeletal: Reports: Joint Pain - Patient Data Vitals - Most Recent: Last Vital Signs Temp 36.8 C 07/26/17 06:00 Pulse 62 07/26/17 07:58 Resp 20 07/25/17 06:00 BP 161/73 H 07/26/17 07:58 Pulse Ox 92 L 07/26/17 07:32 Weight - Most Recent: 104.326 kg I&O - Last 24 Hours: Intake & Output 07/26/17 07/26/17 07/26/17 06:59 14:59 22:59 Intake Total 620 420 540 Output Total 1800 650 Balance -1180 420 -110 Med Orders - Current: Current Medications Acetaminophen (Tylenol Extra Strength) 500 mg PO BID [facility] Last Admin: 07/26/17 07:57 Dose: 500 mg Albuterol/Ipratropium (Duoneb 3.0-0.5 Mg/3 Ml) 3 ml NEB Q6HRRT PRN PRN Reason: Cough Last Admin: 07/26/17 07:37 Dose: 3 ml Artificial Tears (Tears Naturale Free) 1 each EYELF ASDIRECTED PRN PRN Reason: Dry Eyes Last Admin: 07/24/17 10:48 Dose: 1 each Calamine/Phenol (Calmoseptine) 0 gm TOP BEDTIME [facility] Last Admin: 07/25/17 20:27 Dose: 1 dose Calcium Carbonate (Calcium Carbonate/Vitamin D 1250 Mg-200 Unit) 1 tab PO DAILY [facility] Last Admin: 07/26/17 07:58 Dose: 1 tab Carbamide Perox/Anhydrous Glycerin (Debrox 6.5% Otic Soln) 0 ml EARBOTH DAILY PRN PRN Reason: Other Last Admin: 07/25/17 16:23 Dose: 5 drop Celecoxib (Celebrex) 100 mg PO BID [facility] Last Admin: 07/26/17 07:57 Dose: 100 mg Cholecalciferol (Vitamin D3) 5,000 units PO DAILY [facility] Last Admin: 07/26/17 07:58 Dose: 5,000 units Cranberry (Cranberry) 500 mg PO DAILY [facility] Last Admin: 07/26/17 07:58 Dose: 500 mg Diltiazem HCl (Cardizem Cd) 240 mg PO DAILY [facility] Last Admin: 07/26/17 07:57 Dose: 240 mg Docusate Sodium (Colace) 100 mg PO DAILY [facility] Last Admin: 07/26/17 07:58 Dose: 100 mg Fish Oil (Fish Oil) 1 gm PO DAILY [facility] Last Admin: 07/26/17 07:57 Dose: 1 gm Fluticasone Propionate (Flonase) 0 gm NASBOTH BID [facility] Last Admin: 07/26/17 07:58 Dose: 1 spray Furosemide (Lasix) 20 mg PO BIDDIURETIC [facility] Last Admin: 07/26/17 16:22 Dose: 20 mg Losartan Potassium (Cozaar) 150 mg PO DAILY [facility] Last Admin: 07/26/17 07:58 Dose: 150 mg Metoprolol Succinate (Toprol Xl) 100 mg PO DAILY [facility] Last Admin: 07/26/17 07:58 Dose: 100 mg Miconazole (Desenex 2%) 0 gm TOP BID [facility] Last Admin: 07/26/17 07:56 Dose: 1 applic Multivitamins/Minerals (Thera M Plus) 1 tab PO DAILY [facility] Last Admin: 07/26/17 07:58 Dose: 1 tab Mupirocin (Bactroban Oint) 0 gm TOP TID [facility] Last Admin: 07/26/17 11:31 Dose: Not Given Biotin 1mg 1 mg PO DAILY [facility] Last Admin: 07/26/17 08:35 Dose: Not Given Lysine 1,000mg 1,000 mg PO DAILY PRN PRN Reason: Other Nystatin (Nystatin Crm) 30 gm TOP BID [facility] Last Admin: 07/26/17 07:57 Dose: 1 applic Ondansetron HCl (Zofran Odt) 4 mg PO Q6H PRN PRN Reason: Nausea/Vomiting Last Admin: 07/22/17 14:10 Dose: 4 mg Oxycodone HCl (Oxycodone) 5 mg PO Q4H PRN PRN Reason: Pain Last Admin: 07/25/17 20:26 Dose: 5 mg Polyethylene Glycol (Miralax) 17 gm PO DAILY [facility] Last Admin: 07/26/17 07:57 Dose: 17 gm Potassium Chloride (Klor-Con) 20 meq PO DAILY [facility] Last Admin: 07/26/17 07:57 Dose: 20 meq Promethazine HCl/Codeine (Phenergan With Codeine) 5 ml PO Q4H PRN PRN Reason: Cough Sertraline HCl (Zoloft) 100 mg PO BEDTIME [facility] Last Admin: 07/25/17 20:25 Dose: 100 mg Simvastatin (Zocor) 10 mg PO BEDTIME [facility] Last Admin: 07/25/17 20:33 Dose: 10 mg Warfarin Sodium (Coumadin) 7.5 mg PO We@1999 [facility] Last Admin: 07/25/17 20:25 Dose: 7.5 mg Warfarin Sodium (Coumadin) 5 mg PO @1999 [facility] Last Admin: 07/24/17 20:05 Dose: 5 mg Discontinued Medications Fish Oil (Fish Oil) 1,000 gm PO DAILY [facility] Last Admin: 07/21/17 08:52 Dose: 1 gm Non-Formulary Medication (Celecoxib [Celecoxib]) 200 mg PO DAILY [facility] Oseltamivir Phosphate (Tamiflu) 75 mg PO BID [facility] Stop: 07/23/17 08:01 Last Admin: 07/23/17 08:57 Dose: 75 mg Simvastatin (Zocor) 10 mg PO BEDTIME [facility] Last Admin: 07/22/17 20:26 Dose: 10 mg - Exam General: Alert HEENT: Pupils Equal, Other (Bilateral cerumen impaction) Lungs: Clear to Auscultation Cardiovascular: Irregular Rhythm GI/Abdominal Exam: Normal Bowel Sounds - Problem List & Annotations (1) CHF (congestive heart failure) SNOMED Code(s): 46463927 Code(s): I50.9 - HEART FAILURE, UNSPECIFIED Status: Chronic Priority: Medium Current Visit: No Qualifiers: Congestive heart failure type: diastolic Congestive heart failure chronicity: chronic Qualified Code(s): I50.32 - Chronic diastolic (congestive ) heart failure Annotation/Comment:: Last ECHO 03/2015 - [facility] (2) Foot fracture, right SNOMED Code(s): 85326805 Code(s): S92.901A - UNSP FRACTURE OF RIGHT FOOT, INIT ENCNTR FOR CLOSED FRACTURE Status: Acute Priority: Medium Current Visit: No Onset Date: ~ 07/18/17 Qualifiers: Encounter type: initial encounter Fracture type: closed Qualified Code(s) : S92.901A - Unspecified fracture of right foot, initial encounter for closed fracture (3) Influenza A SNOMED Code(s): 758527720 Code(s): J10.1 - FLU DUE TO OTH IDENT INFLUENZA VIRUS W OTH RESP MANIFEST Status: Acute Priority: Medium Current Visit: No Onset Date: ~07/18/17 (4) A-fib SNOMED Code(s): 54591592 Code(s): I48.91 - UNSPECIFIED ATRIAL FIBRILLATION Status: Chronic Priority: Medium Current Visit: No Qualifiers: Atrial fibrillation type: chronic Qualified Code(s): I48.2 - Chronic atrial fibrillation (5) Diabetes mellitus type 2 SNOMED Code(s): 93528324 Code(s): E11.9 - TYPE 2 DIABETES MELLITUS WITHOUT COMPLICATIONS Status: Chronic Priority: Medium Current Visit: No (6) Multiple sclerosis SNOMED Code(s): 80859848 Code(s): G35 - MULTIPLE SCLEROSIS Status: Chronic Priority: Medium Current Visit: No (7) Rheumatoid arthritis SNOMED Code(s): 97017918 Code(s): M06.9 - RHEUMATOID ARTHRITIS, UNSPECIFIED Status: Chronic Priority: Medium Current Visit: No Qualifiers: Rheumatoid factor presence: unspecified presence Laterality: unspecified laterality (8) Weakness SNOMED Code(s): 41360536 Code(s): R53.1 - WEAKNESS Status: Chronic Priority: High Current Visit : No (9) Impacted cerumen of both ears SNOMED Code(s): 98469093 Code(s): H61.23 - IMPACTED CERUMEN, BILATERAL Status: Acute Current Visit : Yes (10) Dry eye syndrome SNOMED Code(s): 94157298 Code(s): H04.129 - DRY EYE SYNDROME OF UNSPECIFIED LACRIMAL GLAND Status: Chronic Current Visit: Yes - Problem List Review Problem List Initiated/Reviewed/Updated: Yes - My Orders Last 24 Hours: My Active Orders 07/25/17 20:30 Insert Gilliam Catheter [Insert Urinary Catheter] [OM.PC] Q24H - Assessment Assessment:: Bilateral cerumen impaction Dry eye Influenza CHF Right navicular fracture - Plan Plan:: Debrox drops Artificial tears Pt will continue to work with physical therapy
[2017-07-26] MEDS: Warfarin 2.5 MG Tab PO SCH (20:13)
[2017-07-26] MEDS: Sertraline 100 MG Tab PO SCH (20:14)
[2017-07-26] MEDS: Menthol/Zinc Oxide Ointment 3.5 GM Tube TOP SCH (20:14)
[2017-07-26] MEDS: Simvastatin 10 MG Tab PO SCH (20:14)
[2017-07-26] MEDS: oxyCODONE 5 MG Tab PO PRN (20:19)
[2017-07-27 06:49] VITALS: BP 141/83
[2017-07-27] MEDS: Miconazole 2% Top Powder 45 GM Container TOP SCH (07:59)
[2017-07-27] MEDS: Fluticasone Propionate Nasal Spray 16 GM Bottle NASBOTH SCH (07:59)
[2017-07-27] MEDS: Polyethylene Glycol 3350 Powder 17 GM Packet PO SCH (07:59)
[2017-07-27] MEDS: Acetaminophen 500 MG Tab PO SCH (07:59)
[2017-07-27] MEDS: Nystatin Crm 30 GM Tube TOP SCH (07:59)
[2017-07-27] MEDS: Potassium Chloride 20 MEQ Packet PO SCH (07:59)
[2017-07-27] MEDS: Fish Oil/Omega-3 Fatty Acids 1 Gm Cap PO SCH (08:00)
[2017-07-27] MEDS: Cholecalciferol (Vitamin D3) 1,000 Unit Tab PO SCH (08:00)
[2017-07-27] MEDS: Multivitamins with Iron/Calcium/Folic Acid/Minerals Tab PO SCH (08:01)
[2017-07-27] MEDS: Celecoxib 100 MG Cap PO SCH (08:01)
[2017-07-27] MEDS: Docusate Sodium 100 MG Cap PO SCH (08:01)
[2017-07-27] MEDS: Diltiazem 240 MG Cap.CD PO SCH (08:01)
[2017-07-27] MEDS: Losartan 50 MG Tab PO SCH (08:01)
[2017-07-27] MEDS: Cranberry 500 MG Cap PO SCH (08:02)
[2017-07-27] MEDS: Furosemide 20 MG Tab PO SCH (08:02)
[2017-07-27] MEDS: Calcium Carbonate/Vitamin D3 1250 MG-200 Unit Tab PO SCH (08:02)
[2017-07-27] MEDS: Metoprolol Succinate 50 MG Tab.ER PO SCH (08:02)
[2017-07-27] MEDS: Mupirocin Oint 22 GM Tube TOP SCH ×2 (08:03→11:14)
--- NOTE | 2017-08-09 14:03 | PCM.DCSUM1 ---
Discharge Summary - Hospital Course Free Text/Narrative:: 72 year old re-admitted to swing bed for continued weakness. Pt was initially hospitalized for acute exacerbation of CHF. Was discharged from swing bed as therapeutic goals had been met. However weakness returned while at home. Patient also developed cough and fever. Was found to be positive for influenza A - Discharge Data Discharge Date: 07/27/17 Discharge Disposition: Home, Self-Care 01 Condition: Good - Discharge Diagnosis/Problem(s) (1) CHF (congestive heart failure) SNOMED Code(s): 22767489 ICD Code: I50.9 - HEART FAILURE, UNSPECIFIED Status: Chronic Priority: Medium Problem Details: Last ECHO 03/2015 - [place] Qualifiers: Congestive heart failure type: diastolic Congestive heart failure chronicity: chronic Qualified Code(s): I50.32 - Chronic diastolic (congestive ) heart failure (2) Foot fracture, right SNOMED Code(s): 70739035 ICD Code: S92.901A - UNSP FRACTURE OF RIGHT FOOT, INIT ENCNTR FOR CLOSED FRACTURE Status: Acute Priority: Medium Onset Date: ~07/18/17 Qualifiers: Encounter type: initial encounter Fracture type: closed Qualified Code(s) : S92.901A - Unspecified fracture of right foot, initial encounter for closed fracture (3) Influenza A SNOMED Code(s): 795438025 ICD Code: J10.1 - FLU DUE TO OTH IDENT INFLUENZA VIRUS W OTH RESP MANIFEST Status: Acute Priority: Medium Onset Date: ~07/18/17 (4) A-fib SNOMED Code(s): 15965336 ICD Code: I48.91 - UNSPECIFIED ATRIAL FIBRILLATION Status: Chronic Priority: Medium Qualifiers: Atrial fibrillation type: chronic Qualified Code(s): I48.2 - Chronic atrial fibrillation (5) Diabetes mellitus type 2 SNOMED Code(s): 30215620 ICD Code: E11.9 - TYPE 2 DIABETES MELLITUS WITHOUT COMPLICATIONS Status: Chronic Priority: Medium (6) Multiple sclerosis SNOMED Code(s): 24131608 ICD Code: G35 - MULTIPLE SCLEROSIS Status: Chronic Priority: Medium (7) Rheumatoid arthritis SNOMED Code(s): 65993254 ICD Code: M06.9 - RHEUMATOID ARTHRITIS, UNSPECIFIED Status: Chronic Priority: Medium Qualifiers: Rheumatoid factor presence: unspecified presence Laterality: unspecified laterality (8) Weakness SNOMED Code(s): 11543648 ICD Code: R53.1 - WEAKNESS Status: Chronic Priority: High (9) Impacted cerumen of both ears SNOMED Code(s): 41255953 ICD Code: H61.23 - IMPACTED CERUMEN, BILATERAL Status: Acute (10) Dry eye syndrome SNOMED Code(s): 73823039 ICD Code: H04.129 - DRY EYE SYNDROME OF UNSPECIFIED [place] Status: Chronic - Patient Summary/Data Consults: Consultations 07/23/17 06:51 Consult to Physical Therapy [PT Evaluation and Treatment] [CONS] Routine Hospital Course: 72-year-old was admitted to swing bed and enrolled in both physical therapy as well as occupational therapy. Patient had complaints of left foot pain related to a fall he sustained at home prior to admission. X-rays were obtained. There is a questionable acute fracture of his navicular tarsal bone. Patient was placed in a cam walker. He had a difficult time participating in physical therapy with a cam walker in place. Subsequently the decision was made to allow him to wear his diabetic shoes for support. With this the patient was able to transfer independently from his bed to his scooter or bedside commode. Patient's weakness gradually improved throughout his swing bed stay with participation in therapy. He completed his course of antiviral therapy for treatment of influenza. His vital signs remained able throughout this period. He did have complaints of "crackling" in his left ear. On exam it was noted to have cerumen buildup and subsequently he was started on Debrox earwax drops. At the time of discharge patient's vital signs were stable. He was able to transfer independently. He was tolerating a regular diet and voiding and stooling without difficulty. He did refuse home therapy. He will be seen in clinic in 1 week's time. - Discharge Plan Home Medications: Home Meds Cholecalciferol (Vitamin D3) [Vitamin D3] 5,000 unit PO DAILY 09/06/13 [History] Fluticasone Propionate [Flonase] 1 spray NASBOTH BID 09/06/13 [History] [place]-3 Fatty Acids [[place]-3] 1,000 mg PO DAILY 09/06/13 [History] Sertraline [Zoloft] 100 mg PO BEDTIME 09/06/13 [History] Simvastatin [Zocor] 10 mg PO BEDTIME 09/06/13 [History] PEG 400/Propylene Glycol [Systane Lubricant] 1 drop EYELF ASDIRECTED PRN [History] oxyCODONE 5 mg PO Q4H PRN 06/15/15 [History] Cranberry Extract [Cranberry] 500 mg PO DAILY 11/16/15 [History] Potassium Chloride [Klor-Con] 20 meq PO DAILY #0 11/26/15 [Rx] Valsartan [Diovan] 320 mg PO DAILY #30 tablet 06/15/16 [Rx] Acetaminophen [Acetaminophen Extra Strength] 500 mg PO BID MDD 4000 MG DAILY 08/31 [History] Docusate Sodium [Colace] 100 mg PO DAILY 06/30/17 [History] Metoprolol Succinate [Toprol XL] 100 mg PO DAILY 06/30/17 [History] Calcium Carb & Citrate/Vit D3 [Citracal + D ER] 1 tab PO DAILY 07/02/17 [History ] Lysine 1,000 mg PO DAILY PRN 07/02/17 [History] Miconazole [Desenex 2%] 1 applic TOP BID 07/02/17 [History] Mupirocin Cream [Bactroban Crm] 1 applic TOP TID 07/02/17 [History] Diltiazem [Cardizem CD] 240 mg PO DAILY #30 cap.cd 07/05/17 [Rx] Furosemide [Lasix] 20 mg PO BIDDIURETIC #60 tablet 07/05/17 [Rx] Menthol/Zinc Oxide [Calmoseptine] 0 gm TOP BEDTIME tube 07/05/17 [Rx] Polyethylene Glycol 3350 [MiraLAX] 17 gm PO DAILY packet 07/05/17 [Rx] Biotin [Biotin] 1 mg PO DAILY 07/19/17 [History] Warfarin [Coumadin] 5 mg PO TU@0800 07/19/17 [History] Warfarin [Coumadin] 7.5 mg PO SUMOWETHFRSA@0800 07/19/17 [History] Albuterol/Ipratropium [DuoNeb 3.0-0.5 MG/3 ML] 3 ml NEB Q6HRRT PRN 07/20/17 [ History] Multivitamin with Minerals [Multivitamins with Minerals] 07/20/17 [History] Nystatin [Nystatin Crm] 30 gm TOP BID 07/20/17 [History] Celecoxib [CeleBREX] 100 mg PO BID cap 07/26/17 [Rx] Diltiazem [Cardizem CD] 240 mg PO DAILY cap.cd 07/26/17 [Rx] - General Info Date of Service: 07/26/17 Functional Status: Reports: Pain Controlled - Review of Systems General: Denies: Fever, Weakness HEENT: Reports: Other (Crackling noted in left ear) Pulmonary: Denies: Shortness of Breath Cardiovascular: Denies: Chest Pain Gastrointestinal: Denies: Abdominal Pain, Constipation Genitourinary: Reports: No Symptoms Musculoskeletal: Reports: Foot Pain Skin: Reports: No Symptoms Neurological: Reports: No Symptoms Psychiatric: Reports: No Symptoms - Patient Data Vitals - Most Recent: Last Vital Signs Temp 36.8 C 07/27/17 06:00 Pulse 68 07/27/17 08:02 Resp 20 07/27/17 06:00 BP 141/83 H 07/27/17 08:02 Pulse Ox 90 L 07/27/17 08:00 Weight - Most Recent: 104.326 kg Med Orders - Current: Current Medications Discontinued Medications Acetaminophen (Tylenol Extra Strength) 500 mg PO BID [facility] Last Admin: 07/27/17 07:59 Dose: 500 mg Albuterol/Ipratropium (Duoneb 3.0-0.5 Mg/3 Ml) 3 ml NEB Q6HRRT PRN PRN Reason: Cough Last Admin: 07/26/17 20:15 Dose: 3 ml Artificial Tears (Tears Naturale Free) 1 each EYELF ASDIRECTED PRN PRN Reason: Dry Eyes Last Admin: 07/24/17 10:48 Dose: 1 each Calamine/Phenol (Calmoseptine) 0 gm TOP BEDTIME [facility] Last Admin: 07/26/17 20:14 Dose: 1 dose Calcium Carbonate (Calcium Carbonate/Vitamin D 1250 Mg-200 Unit) 1 tab PO DAILY [facility] Last Admin: 07/27/17 08:02 Dose: 1 tab Carbamide Perox/Anhydrous Glycerin (Debrox 6.5% Otic Soln) 0 ml EARBOTH DAILY PRN PRN Reason: Other Last Admin: 07/25/17 16:23 Dose: 5 drop Celecoxib (Celebrex) 100 mg PO BID [facility] Last Admin: 01/12/18 08:01 Dose: 100 mg Cholecalciferol (Vitamin D3) 5,000 units PO DAILY [facility] Last Admin: 07/27/17 08:00 Dose: 5,000 units Cranberry (Cranberry) 500 mg PO DAILY [facility] Last Admin: 07/27/17 08:02 Dose: 500 mg Diltiazem HCl (Cardizem Cd) 240 mg PO DAILY [facility] Last Admin: 07/27/17 08:01 Dose: 240 mg Docusate Sodium (Colace) 100 mg PO DAILY [facility] Last Admin: 07/27/17 08:01 Dose: 100 mg Fish Oil (Fish Oil) 1,000 gm PO DAILY [facility] Last Admin: 07/21/17 08:52 Dose: 1 gm Fish Oil (Fish Oil) 1 gm PO DAILY [facility] Last Admin: 07/27/17 08:00 Dose: 1 gm Fluticasone Propionate (Flonase) 0 gm NASBOTH BID [facility] Last Admin: 07/27/17 07:59 Dose: 1 spray Furosemide (Lasix) 20 mg PO BIDDIURETIC [facility] Last Admin: 07/27/17 08:02 Dose: 20 mg Losartan Potassium (Cozaar) 150 mg PO DAILY [facility] Last Admin: 07/27/17 08:01 Dose: 150 mg Metoprolol Succinate (Toprol Xl) 100 mg PO DAILY [facility] Last Admin: 07/27/17 08:02 Dose: 100 mg Miconazole (Desenex 2%) 0 gm TOP BID [facility] Last Admin: 07/27/17 07:59 Dose: 1 applic Multivitamins/Minerals (Thera M Plus) 1 tab PO DAILY [facility] Last Admin: 07/27/17 08:01 Dose: 1 tab Mupirocin (Bactroban Oint) 0 gm TOP TID [facility] Last Admin: 07/27/17 11:14 Dose: Not Given Biotin 1mg 1 mg PO DAILY [facility] Last Admin: 07/27/17 08:03 Dose: Not Given Non-Formulary Medication (Celecoxib [Celecoxib]) 200 mg PO DAILY [facility] Lysine 1,000mg 1,000 mg PO DAILY PRN PRN Reason: Other Nystatin (Nystatin Crm) 30 gm TOP BID [facility] Last Admin: 07/27/17 07:59 Dose: 1 applic Ondansetron HCl (Zofran Odt) 4 mg PO Q6H PRN PRN Reason: Nausea/Vomiting Last Admin: 07/22/17 14:10 Dose: 4 mg Oseltamivir Phosphate (Tamiflu) 75 mg PO BID [facility] Stop: 07/23/17 08:01 Last Admin: 07/23/17 08:57 Dose: 75 mg Oxycodone HCl (Oxycodone) 5 mg PO Q4H PRN PRN Reason: Pain Last Admin: 07/26/17 20:19 Dose: 5 mg Polyethylene Glycol (Miralax) 17 gm PO DAILY [facility] Last Admin: 07/27/17 07:59 Dose: 17 gm Potassium Chloride (Klor-Con) 20 meq PO DAILY [facility] Last Admin: 07/27/17 07:59 Dose: 20 meq Promethazine HCl/Codeine (Phenergan With Codeine) 5 ml PO Q4H PRN PRN Reason: Cough Sertraline HCl (Zoloft) 100 mg PO BEDTIME [facility] Last Admin: 07/26/17 20:14 Dose: 100 mg Simvastatin (Zocor) 10 mg PO BEDTIME [facility] Last Admin: 07/22/17 20:26 Dose: 10 mg Simvastatin (Zocor) 10 mg PO BEDTIME [facility] Last Admin: 07/26/17 20:14 Dose: 10 mg Warfarin Sodium (Coumadin) 7.5 mg PO [email or web address] [facility] Last Admin: 07/26/17 20:13 Dose: 7.5 mg Warfarin Sodium (Coumadin) 5 mg PO Tu@1999 [facility] Last Admin: 07/24/17 20:05 Dose: 5 mg - Exam General: Reports: Alert, Oriented HEENT: Reports: Pupils Equal Lungs: Reports: Clear to Auscultation Cardiovascular: Reports: Irregular Rhythm GI/Abdominal Exam: Normal Bowel Sounds, Soft Extremities: No: Pedal Edema Skin: Reports: Warm, Dry Psy/Mental Status: Reports: Alert, Normal Affect *Q Meaningful Use (DIS) - VTE *Q VTE Criteria *Q: - Stroke *Q Stroke Criteria *Q: - AMI *Q AMI Criteria *Q:
== END 2017-07-27 14:30 | disposition home or self-care (01) | DRG 948 ==
LOC: VM.MS 16:25
PROVIDERS: ADMIT Family Medicine; ATTEND Family Medicine
DX: R53.1 Weakness (principal); I50.32 Chronic diastolic (congestive) heart failure; I50.9 Heart failure, unspecified; I10 Essential (primary) hypertension; N31.9 Neuromuscular dysfunction of bladder, unspecified; G35 Multiple sclerosis; F32.9 Major depressive disorder, single episode, unspecified; E11.9 Type 2 diabetes mellitus without complications; S92.901A Unspecified fracture of right foot, initial encounter for closed fracture; J09.X2 Influenza due to identified novel influenza A virus with other respiratory manifestations; I48.2 Chronic atrial fibrillation; M06.9 Rheumatoid arthritis, unspecified; H61.23 Impacted cerumen, bilateral; H04.129 Dry eye syndrome of unspecified lacrimal gland; Z88.8 Allergy status to other drugs, medicaments and biological substances; Z79.899 Other long term (current) drug therapy; Z79.01 Long term (current) use of anticoagulants
CPT/HCPCS: 94640; 94760; 97110-GP; 97530-GP; A9270-GY

== ENCOUNTER 2017-11-20 07:09 | Inpatient (IN) | payer MEDICARE, BC ==
[2017-11-20] MEDS ORDERED: cefTRIAXone 1 GM Vial IVPUSH ONE (07:31)
[2017-11-20] MEDS ORDERED: Sodium Chloride 0.9% 1,000 ML IV SCH (07:45)
--- NOTE | 2017-11-20 10:03 | EDM.PDOC ---
ED HPI GENERAL MEDICAL PROBLEM - General Chief Complaint: General Stated Complaint: ER Time Seen by Provider: 11/20/17 07:21 Source of Information: Reports: Patient, Family History Limitations: Reports: No Limitations - History of Present Illness INITIAL COMMENTS - FREE TEXT/NARRATIVE: Please use ER note for admission H and P. Patient is brought in via ambulance this morning with complaints of fever, chills, and weakness. His daughter states he was covering himself this weekend in a blanket with temperatures in the 80s and complaints of being cold. He tells me this morning that he has had chills, fever, sweats, overall feels tired and weak. He has history of MS, CHF, has had influenza and pneumonia in the past, A-Fib, Rheumatoid Arthritis, C-Diff requiring fecal transplant. He does have temp of 99.9F on arrival. He denies headache, chest pain, SOB, abdominal pain, no urinary complaints. He denies blood to urine or stool and states he is having normal bowel movements. Onset: Gradual Duration: Getting Worse Location: Reports: Generalized Severity: Moderate Associated Symptoms: Reports: Fever/Chills Generalized Pain Score (Numeric/FACES): 9 - Related Data Allergies Allergy/AdvReac Type Severity Reaction Status Date / Time carbamazepine AdvReac Dizziness Verified 11/20/17 07:23 Home Meds: Home Meds Cholecalciferol (Vitamin D3) [Vitamin D3] 5,000 unit PO DAILY 09/06/13 [History] Fluticasone Propionate [Flonase] 1 spray NASBOTH BID 09/06/13 [History] Brawley-3 Fatty Acids [Brawley-3] 1,000 mg PO DAILY 09/06/13 [History] Sertraline [Zoloft] 100 mg PO DAILY 09/06/13 [History] PEG 400/Propylene Glycol [Systane Lubricant] 1 drop EYELF ASDIRECTED PRN [History] oxyCODONE 5 mg PO Q4H PRN 06/15/15 [History] Cranberry Extract [Cranberry] 500 mg PO DAILY 11/16/15 [History] Potassium Chloride [Klor-Con] 20 meq PO DAILY #0 11/26/15 [Rx] Valsartan [Diovan] 320 mg PO DAILY #30 tablet 06/15/16 [Rx] Acetaminophen [Acetaminophen Extra Strength] 500 mg PO BID MDD 4000 MG DAILY 08/31 [History] Metoprolol Succinate [Toprol XL] 100 mg PO DAILY 06/30/17 [History] Calcium Carb & Citrate/Vit D3 [Citracal + D ER] 1 tab PO DAILY 07/02/17 [History ] Lysine 1,000 mg PO DAILY PRN 07/02/17 [History] Miconazole [Desenex 2%] 1 applic TOP BID 07/02/17 [History] Mupirocin Cream [Bactroban Crm] 1 applic TOP TID 07/02/17 [History] Diltiazem [Cardizem CD] 240 mg PO DAILY #30 cap.cd 07/05/17 [Rx] Polyethylene Glycol 3350 [MiraLAX] 17 gm PO DAILY packet 07/05/17 [Rx] Biotin [Biotin] 1 mg PO DAILY 07/19/17 [History] Warfarin [Coumadin] 5 mg PO TUFR 07/19/17 [History] Albuterol/Ipratropium [DuoNeb 3.0-0.5 MG/3 ML] 3 ml NEB Q6HRRT PRN 07/20/17 [ History] Multivitamin with Minerals [Multivitamins with Minerals] 1 tab PO DAILY [History] Celecoxib [CeleBREX] 100 mg PO DAILY 11/20/17 [History] Furosemide [Lasix] 20 mg PO DAILY 11/20/17 [History] Menthol/Zinc Oxide [Calmoseptine] 1 applic TOP BEDTIME 11/20/17 [History] Warfarin [Coumadin] 7.5 mg PO SUMOWETHSA 11/20/17 [History] atorvaSTATin [Lipitor] 10 mg PO BEDTIME 11/20/17 [History] Past Medical History HEENT History: Reports: Cataract, Other (See Below) Other HEENT History: wears glasses Cardiovascular History: Reports: Afib, Heart Failure, Hypertension Respiratory History: Reports: Pneumonia, Recurrent, Sleep Apnea Gastrointestinal History: Reports: Other (See Below) Other Gastrointestinal History: history of C diff. fecal transplant Genitourinary History: Reports: Neurogenic Bladder, UTI, Recurrent Other Genitourinary History: self cath/due to MS Musculoskeletal History: Reports: Arthritis Other Musculoskeletal History: MSand sore on right knee with brace on Neurological History: Reports: MS Psychiatric History: Reports: Depression Other Psychiatric History: very depressed Endocrine/Metabolic History: Reports: Diabetes, Type II Hematologic History: Reports: Anticoagulation Therapy, Blood Transfusion(s) Dermatologic History: Reports: Other (See Below) Other Dermatologic History: coccyx friction open area, yeast in groin - Infectious Disease History Infectious Disease History: Reports: C-Difficile Other Infectious Disease History: ecoli - Past Surgical History HEENT Surgical History: Reports: Cataract Surgery GI Surgical History: Reports: Colonoscopy, Hernia Repair/Other Neurological Surgical History: Reports: None Oncologic Surgical History: Reports: None Social & Family History - Family History Family Medical History: Noncontributory Cardiac: Reports: [place] Respiratory: Reports: Asthma, COPD Musculoskeletal: Reports: Arthritis, Osteoporosis Neurological: Reports: None Endocrine/Metabolic: Reports: Diabetes, type II - Tobacco Use Smoking Status *Q: Never Smoker Used Tobacco, but Quit: No Second Hand Smoke Exposure: No - Caffeine Use Caffeine Use: Reports: Coffee - Alcohol Use Days Per Week of Alcohol Use: 0 - Recreational Drug Use Recreational Drug Use: No ED ROS GENERAL - Review of Systems Review Of Systems: See Below Constitutional: Reports: Fever, Chills, Night Sweats, Diaphoresis HEENT: Reports: No Symptoms Respiratory: Reports: No Symptoms Cardiovascular: Reports: No Symptoms Endocrine: Reports: Fatigue GI/Abdominal: Reports: No Symptoms : Reports: No Symptoms Musculoskeletal: Reports: No Symptoms Skin: Reports: No Symptoms Neurological: Reports: Weakness Psychiatric: Reports: No Symptoms Hematologic/Lymphatic: Reports: No Symptoms Immunologic: Reports: No Symptoms ED EXAM, GENERAL - Physical Exam Exam: See Below Exam Limited By: No Limitations General Appearance: Alert, WD/WN, Mild Distress Eye Exam: Bilateral Eye: EOMI, Normal Inspection, PERRL Ears: Normal TMs Nose: Normal Inspection, Normal Mucosa, No Blood Throat/Mouth: Normal Inspection, Normal Lips, Normal Teeth, Normal Gums, Normal Oropharynx, Normal Voice, No Airway Compromise Head: Atraumatic, Normocephalic Neck: Normal Inspection, Supple, Non-Tender, Full Range of Motion Respiratory/Chest: No Respiratory Distress, Lungs Clear, Normal Breath Sounds, No Accessory Muscle Use, Chest Non-Tender Cardiovascular: Normal Peripheral Pulses, Regular Rate, Rhythm, No Edema, No Gallop, No JVD, No Murmur, No Rub Peripheral Pulses: 2+: Posterior Tibial (L), Posterior Tibial (R), Dorsalis Pedis (L), Dorsalis Pedis (R) GI/Abdominal: Normal Bowel Sounds, Soft, Non-Tender, No Organomegaly, No Distention, No Abnormal Bruit, No Mass Back Exam: Normal Inspection, Full Range of Motion, NT Extremities: Normal Inspection, Normal Range of Motion, Non-Tender, Normal Capillary Refill, No Pedal Edema Neurological: Alert, Oriented, CN II-XII Intact, Normal Cognition Psychiatric: Normal Affect, Normal Mood Skin Exam: Warm, Dry, Intact, Normal Color, No Rash Lymphatic: No Adenopathy Course - Vital Signs Last Recorded V/S: Last Vital Signs Temp 37.7 C 11/20/17 07:09 Pulse 65 11/20/17 07:09 Resp 20 11/20/17 07:09 BP 170/85 H 11/20/17 07:09 Pulse Ox 93 L 11/20/17 07:09 - Orders/Labs/Meds Orders: Active Orders 24 hr Category Date Time Status Insert Gilliam Catheter [Insert Urinary Catheter] [OM.PC] Care 11/20/17 08:00 Ordered Q24H Urinary Catheter Assessment [RC] ASDIRECTED Care 11/20/17 07:57 Active CULTURE BLOOD [BC] Stat Lab 11/20/17 08:05 Received CULTURE BLOOD [BC] Stat Lab 11/20/17 08:15 Results CULTURE URINE [RM] Stat Lab 11/20/17 07:48 Ordered UA W/MICROSCOPIC [URIN] Stat Lab 11/20/17 07:24 Ordered Sodium Chloride 0.9% [Normal Saline] 1,000 ml Med 11/20/17 07:45 Active IV ASDIRECTED Sodium Chloride 0.9% [Saline Flush] Med 11/20/17 07:31 Active 10 ml FLUSH ASDIRECTED PRN Blood Culture x2 Reflex Set [OM.PC] Stat Oth 11/20/17 07:53 Ordered Saline Lock Insert [OM.PC] Routine Oth 11/20/17 07:31 Ordered Medication Orders Sodium Chloride (Normal Saline) 1,000 mls @ 100 mls/hr IV ASDIRECTED ELIGIO Last Admin: 11/20/17 08:05 Dose: 100 mls/hr Sodium Chloride (Saline Flush) 10 ml FLUSH ASDIRECTED PRN PRN Reason: Keep Vein Open Labs: Laboratory Tests 11/20/17 11/20/17 11/20/17 Range/Units 07:24 07:35 07:35 WBC 13.9 H (4.0-10.0) x10^3/uL RBC 4.77 (4.5-6.0) x10^6/uL Hgb 14.5 D (14.0-18.0) g/dL Hct 43.2 (40.0-52.0) % MCV 90.6 (78.0-93.0) fL MCH 30.4 (26.0-32.0) pg MCHC 33.6 (32.0-36.0) g/dL RDW Coeff of Kimberlee 14.3 (10.0-15.0) % Plt Count 138 (130-400) x10^3/uL Neut % (Auto) 87.7 H (50.0-80.0) % Lymph % (Auto) 4.0 L (25.0-50.0) % Garvin % (Auto) 7.7 (2.0-11.0) % Eos % (Auto) 0.5 (0.0-4.0) % Baso % (Auto) 0.1 L (0.2-1.2) % Sodium 143 (136-145) mmol/L Potassium 4.3 (3.5-5.1) mmol/L Chloride 106 (98-107) mmol/L Carbon Dioxide 26 (21-32) mmol/L Anion Gap 15.3 (10-20) mmol/L BUN 16 (7-18) mg/dL Creatinine 1.2 (0.70-1.30) mg/dL Est Cr Clr Drug Dosing 61.97 mL/min Estimated GFR (MDRD) 60 Glucose 121 H (74-106) mg/dL Lactic Acid (0.4-2.0) mmol/L Calcium 8.4 L (8.5-10.1) mg/dL Corrected Calcium 8.72 (8.5-10.1) mg/dL Total Bilirubin 0.4 (0.2-1.0) mg/dL AST 20 (15-37) U/L ALT 31 (16-63) U/L Alkaline Phosphatase 77 (46-116) U/L C-Reactive Protein 3.7 H (<=0.9) mg/dL Total Protein 7.3 (6.4-8.2) g/dL Albumin 3.6 (3.4-5.0) g/dL Globulin 3.7 Albumin/Globulin Ratio 0.97 Urine Color Yellow (YELLOW) Urine Appearance Cloudy H (CLEAR) Urine pH 5.0 (5.0-8.0) Ur Specific Eden 1.025 Urine Protein 100 H (NEGATIVE) mg/dL Urine Glucose (UA) Negative (NEGATIVE) mg/dL Urine Ketones Negative (NEGATIVE) mg/dL Urine Occult Blood Small H (NEGATIVE) Urine Nitrite Positive H (NEGATIVE) Urine Bilirubin Negative (NEGATIVE) Urine Urobilinogen 0.2 (0.2) EU/dL Ur Leukocyte Esterase Moderate H (NEGATIVE) Urine RBC 0-5 (NOT SEEN) /HPF Urine WBC >100 H (NOT SEEN) /HPF Urine WBC Clumps Moderate Ur Squamous Epith Cells Few H (NEGATIVE) /HPF Ur Renal Epithelial Cell Occasional H (NEGATIVE) /HPF Amorphous Sediment Few Urine Bacteria Many H (NEGATIVE) /HPF Urine Mucus Moderate H (NEGATIVE) /LPF 11/20/17 Range/Units 07:35 WBC (4.0-10.0) x10^3/uL RBC (4.5-6.0) x10^6/uL Hgb (14.0-18.0) g/dL Hct (40.0-52.0) % MCV (78.0-93.0) fL MCH (26.0-32.0) pg MCHC (32.0-36.0) g/dL RDW Coeff of Kimberlee (10.0-15.0) % Plt Count (130-400) x10^3/uL Neut % (Auto) (50.0-80.0) % Lymph % (Auto) (25.0-50.0) % Garvin % (Auto) (2.0-11.0) % Eos % (Auto) (0.0-4.0) % Baso % (Auto) (0.2-1.2) % Sodium (136-145) mmol/L Potassium (3.5-5.1) mmol/L Chloride (98-107) mmol/L Carbon Dioxide (21-32) mmol/L Anion Gap (10-20) mmol/L BUN (7-18) mg/dL Creatinine (0.70-1.30) mg/dL Est Cr Clr Drug Dosing mL/min Estimated GFR (MDRD) Glucose (74-106) mg/dL Lactic Acid 1.2 (0.4-2.0) mmol/L Calcium (8.5-10.1) mg/dL Corrected Calcium (8.5-10.1) mg/dL Total Bilirubin (0.2-1.0) mg/dL AST (15-37) U/L ALT (16-63) U/L Alkaline Phosphatase (46-116) U/L C-Reactive Protein (<=0.9) mg/dL Total Protein (6.4-8.2) g/dL Albumin (3.4-5.0) g/dL Globulin Albumin/Globulin Ratio Urine Color (YELLOW) Urine Appearance (CLEAR) Urine pH (5.0-8.0) Ur Specific Eden Urine Protein (NEGATIVE) mg/dL Urine Glucose (UA) (NEGATIVE) mg/dL Urine Ketones (NEGATIVE) mg/dL Urine Occult Blood (NEGATIVE) Urine Nitrite (NEGATIVE) Urine Bilirubin (NEGATIVE) Urine Urobilinogen (0.2) EU/dL Ur Leukocyte Esterase (NEGATIVE) Urine RBC (NOT SEEN) /HPF Urine WBC (NOT SEEN) /HPF Urine WBC Clumps Ur Squamous Epith Cells (NEGATIVE) /HPF Ur Renal Epithelial Cell (NEGATIVE) /HPF Amorphous Sediment Urine Bacteria (NEGATIVE) /HPF Urine Mucus (NEGATIVE) /LPF Meds: Medications Generic Name Dose Route Start Last Admin Trade Name Freq PRN Reason Stop Dose Admin Sodium Chloride 1,000 mls @ 100 mls/hr 11/20/17 07:45 11/20/17 08:05 Normal Saline IV 100 mls/hr ASDIRECTED LEIGIO Administration Sodium Chloride 10 ml 11/20/17 07:31 Saline Flush FLUSH ASDIRECTED PRN Keep Vein Open Discontinued Medications Generic Name Dose Route Start Last Admin Trade Name Freq PRN Reason Stop Dose Admin Ceftriaxone Sodium 1 gm 11/20/17 07:31 11/20/17 08:05 Rocephin IVPUSH 11/20/17 07:32 1 gm ONETIME ONE Administration Departure - Departure Time of Disposition: 10:20 Disposition: Admitted As Inpatient 67 Condition: Fair Clinical Impression: Sepsis - Discharge Information ED Communication - Discussed Case With (1) Discussed Case With (1): Admitting Provider (I did call Dr. Benitez with my desire to admit. She will see later today and will take over as admitting and attending provider.) - Problem List & Annotations (1) Sepsis SNOMED Code(s): 57984964 Code(s): A41.9 - SEPSIS, UNSPECIFIED ORGANISM Status: Acute Priority: Medium Current Visit: Yes Annotation/Comment:: 1. hydrate 2. IV antibiotics to be determined by attending doctor 3. 1 GM IV rocephin given in ER 4. Monitor CBC, Lactic, CRP 5. Contact precautions Qualifiers: Sepsis type: sepsis due to unspecified organism Qualified Code(s): A41.9 - Sepsis, unspecified organism - My Orders Last 24 Hours: My Active Orders 11/20/17 07:24 UA W/MICROSCOPIC [URIN] Stat 11/20/17 07:31 Sodium Chloride 0.9% [Saline Flush] 10 ml FLUSH ASDIRECTED PRN Saline Lock Insert [OM.PC] Routine 11/20/17 07:45 Sodium Chloride 0.9% [Normal Saline] 1,000 ml IV ASDIRECTED 11/20/17 07:48 CULTURE URINE [RM] Stat 11/20/17 07:53 Blood Culture x2 Reflex Set [OM.PC] Stat 11/20/17 07:57 Urinary Catheter Assessment [RC] ASDIRECTED 11/20/17 08:00 Insert Gilliam Catheter [Insert Urinary Catheter] [OM.PC] Q24H 11/20/17 08:05 CULTURE BLOOD [BC] Stat 11/20/17 08:15 CULTURE BLOOD [BC] Stat - Assessment/Plan Last 24 Hours: My Active Orders 11/20/17 07:24 UA W/MICROSCOPIC [URIN] Stat 11/20/17 07:31 Sodium Chloride 0.9% [Saline Flush] 10 ml FLUSH ASDIRECTED PRN Saline Lock Insert [OM.PC] Routine 11/20/17 07:45 Sodium Chloride 0.9% [Normal Saline] 1,000 ml IV ASDIRECTED 11/20/17 07:48 CULTURE URINE [RM] Stat 11/20/17 07:53 Blood Culture x2 Reflex Set [OM.PC] Stat 11/20/17 07:57 Urinary Catheter Assessment [RC] ASDIRECTED 11/20/17 08:00 Insert Gilliam Catheter [Insert Urinary Catheter] [OM.PC] Q24H 11/20/17 08:05 CULTURE BLOOD [BC] Stat 11/20/17 08:15 CULTURE BLOOD [BC] Stat
[2017-11-20] MEDS: Sodium Chloride 0.9% 1,000 ML IV SCH ×2 (10:40→19:50)
[2017-11-20] MEDS ORDERED: Meropenem 1 GM in Sodium Chloride 0.9% 100 ML IV ONE (15:00)
[2017-11-20] MEDS: Vancomycin 125 MG/2.5 ML Oral Solution 2.5 ML UD Cup PO SCH ×2 (15:00→22:45)
[2017-11-20] MEDS: Meropenem 1 GM SDV IV SCH ×2 (15:00→22:46)
[2017-11-20] MEDS ORDERED: Dextran 70/Hypromellose/PF Ophth Soln 0.9 ML UD EYEBOTH PRN (15:14)
[2017-11-20] MEDS ORDERED: LYSINE 1000 MG PO PRN ×3 (15:23→16:36)
[2017-11-20] MEDS ORDERED: PROPYLENE GLYCOL EYELF PRN (16:01)
[2017-11-20] MEDS ORDERED: Albuterol/Ipratropium 3.0-0.5 MG/3 ML Neb Soln NEB PRN (16:01)
[2017-11-20] MEDS ORDERED: PEG EYELF PRN (16:01)
[2017-11-20] MEDS ORDERED: oxyCODONE 5 MG Tab PO PRN (16:01)
[2017-11-20] MEDS ORDERED: Warfarin 5 MG Tab PO SCH ×2 (16:15→20:00)
--- NOTE | 2017-11-20 16:46 | PCM.HP ---
H&P History of Present Illness - General Date of Service: 11/20/17 Admit Problem/Dx: Admission Diagnosis/Problem Admission Diagnosis/Problem Urosepsis 72 year old male admitted through the ER with complaints of weakness. pt found to have elevated temp, positive UA and elevated WBC. Patient states that he felt fine all day yesterday and had no concerns when he went to bed last night. He states this morning he awoke feeling febrile and having found weakness. He states that his daughter called 911. Source of Information: Patient, EMS Generalized Pain Score (Numeric/FACES): 0 - Related Data Allergies/Adverse Reactions: Allergies Allergy/AdvReac Type Severity Reaction Status Date / Time carbamazepine AdvReac Dizziness Verified 11/20/17 07:23 Home Medications: Home Meds Cholecalciferol (Vitamin D3) [Vitamin D3] 5,000 unit PO DAILY 09/06/13 [History] Fluticasone Propionate [Flonase] 1 spray NASBOTH BID 09/06/13 [History] [place]-3 Fatty Acids [[place]-3] 1,000 mg PO DAILY 09/06/13 [History] Sertraline [Zoloft] 100 mg PO DAILY 09/06/13 [History] PEG 400/Propylene Glycol [Systane Lubricant] 1 drop EYELF ASDIRECTED PRN [History] oxyCODONE 5 mg PO Q4H PRN 06/15/15 [History] Cranberry Extract [Cranberry] 500 mg PO DAILY 11/16/15 [History] Potassium Chloride [Klor-Con] 20 meq PO DAILY #0 11/26/15 [Rx] Valsartan [Diovan] 320 mg PO DAILY #30 tablet 06/15/16 [Rx] Acetaminophen [Acetaminophen Extra Strength] 500 mg PO BID MDD 4000 MG DAILY 08/31 [History] Metoprolol Succinate [Toprol XL] 100 mg PO DAILY 06/30/17 [History] Calcium Carb & Citrate/Vit D3 [Citracal + D ER] 1 tab PO DAILY 07/02/17 [History ] Lysine 1,000 mg PO DAILY PRN 07/02/17 [History] Miconazole [Desenex 2%] 1 applic TOP BID 07/02/17 [History] Mupirocin Cream [Bactroban Crm] 1 applic TOP TID 07/02/17 [History] Diltiazem [Cardizem CD] 240 mg PO DAILY #30 cap.cd 07/05/17 [Rx] Polyethylene Glycol 3350 [MiraLAX] 17 gm PO DAILY packet 07/05/17 [Rx] Biotin [Biotin] 1 mg PO DAILY 07/19/17 [History] Warfarin [Coumadin] 5 mg PO TUFR 07/19/17 [History] Albuterol/Ipratropium [DuoNeb 3.0-0.5 MG/3 ML] 3 ml NEB Q6HRRT PRN 07/20/17 [ History] Multivitamin with Minerals [Multivitamins with Minerals] 1 tab PO DAILY [History] Celecoxib [CeleBREX] 100 mg PO DAILY 11/20/17 [History] Furosemide [Lasix] 20 mg PO DAILY 11/20/17 [History] Menthol/Zinc Oxide [Calmoseptine] 1 applic TOP BEDTIME 11/20/17 [History] Warfarin [Coumadin] 7.5 mg PO SUMOWETHSA 11/20/17 [History] atorvaSTATin [Lipitor] 10 mg PO BEDTIME 11/20/17 [History] Past Medical History HEENT History: Reports: Cataract, Other (See Below) Other HEENT History: wears glasses Cardiovascular History: Reports: Afib, Heart Failure, Hypertension Respiratory History: Reports: Pneumonia, Recurrent, Sleep Apnea Gastrointestinal History: Reports: Other (See Below) Other Gastrointestinal History: history of C diff. fecal transplant Genitourinary History: Reports: Neurogenic Bladder, UTI, Recurrent Other Genitourinary History: self cath/due to MS Musculoskeletal History: Reports: Arthritis Other Musculoskeletal History: MSand sore on right knee with brace on Neurological History: Reports: MS Psychiatric History: Reports: Depression Other Psychiatric History: very depressed Endocrine/Metabolic History: Reports: Diabetes, Type II Hematologic History: Reports: Anticoagulation Therapy, Blood Transfusion(s) Dermatologic History: Reports: Other (See Below) Other Dermatologic History: coccyx friction open area, yeast in groin - Infectious Disease History Infectious Disease History: Reports: C-Difficile Other Infectious Disease History: ecoli - Past Surgical History HEENT Surgical History: Reports: Cataract Surgery GI Surgical History: Reports: Colonoscopy, Hernia Repair/Other Neurological Surgical History: Reports: None Oncologic Surgical History: Reports: None Social & Family History - Family History Family Medical History: Noncontributory Cardiac: Reports: ND Respiratory: Reports: Asthma, COPD Musculoskeletal: Reports: Arthritis, Osteoporosis Neurological: Reports: None Endocrine/Metabolic: Reports: Diabetes, type II - Tobacco Use Smoking Status *Q: Never Smoker Used Tobacco, but Quit: No Second Hand Smoke Exposure: No - Caffeine Use Caffeine Use: Reports: Coffee - Alcohol Use Days Per Week of Alcohol Use: 0 - Recreational Drug Use Recreational Drug Use: No H&P Review of Systems - Review of Systems: Review Of Systems: See Below Free Text/Narrative: Patient is very lethargic and has a difficult time answering all questions. General: Reports: Fever, Weakness HEENT: Reports: No Symptoms Pulmonary: Reports: No Symptoms. Denies: Shortness of Breath Cardiovascular: Denies: Chest Pain Gastrointestinal: Denies: Abdominal Pain Genitourinary: Reports: No Symptoms Musculoskeletal: Reports: Muscle Stiffness Skin: Reports: No Symptoms Neurological: Reports: Weakness Exam - Exam Exam: See Below - Vital Signs Vital Signs: Last Vital Signs Temp 36.8 C 11/20/17 16:04 Pulse 90 11/20/17 16:04 Resp 20 11/20/17 16:04 BP 134/61 11/20/17 16:04 Pulse Ox 90 L 11/20/17 16:04 Weight: 111.493 kg - Exam General: Lethargic HEENT: Conjunctiva Clear, Hearing Intact, Posterior Pharynx Clear, Pupils Equal , Pupils Reactive Neck: Supple Lungs: Clear to Auscultation Cardiovascular: Irregular Rhythm GI/Abdominal Exam: Normal Bowel Sounds, Soft (Male) Exam: Deferred Extremities: No Pedal Edema Skin: Warm, Dry Neuro Extensive - Mental Status: Oriented x3, Opens Eyes to Commands, Slow Response to Commands - Patient Data Lab Results Last 24 hrs: Laboratory Results - last 24 hr 11/20/17 11/20/17 11/20/17 Range/Units 07:24 07:35 07:35 WBC 13.9 H (4.0-10.0) x10^3/uL RBC 4.77 (4.5-6.0) x10^6/uL Hgb 14.5 D (14.0-18.0) g/dL Hct 43.2 (40.0-52.0) % MCV 90.6 (78.0-93.0) fL MCH 30.4 (26.0-32.0) pg MCHC 33.6 (32.0-36.0) g/dL RDW Coeff of Kimberlee 14.3 (10.0-15.0) % Plt Count 138 (130-400) x10^3/uL Neut % (Auto) 87.7 H (50.0-80.0) % Lymph % (Auto) 4.0 L (25.0-50.0) % [place] % (Auto) 7.7 (2.0-11.0) % Eos % (Auto) 0.5 (0.0-4.0) % Baso % (Auto) 0.1 L (0.2-1.2) % Sodium 143 (136-145) mmol/L Potassium 4.3 (3.5-5.1) mmol/L Chloride 106 (98-107) mmol/L Carbon Dioxide 26 (21-32) mmol/L Anion Gap 15.3 (10-20) mmol/L BUN 16 (7-18) mg/dL Creatinine 1.2 (0.70-1.30) mg/dL Est Cr Clr Drug Dosing 61.97 mL/min Estimated GFR (MDRD) 60 Glucose 121 H (74-106) mg/dL Lactic Acid (0.4-2.0) mmol/L Calcium 8.4 L (8.5-10.1) mg/dL Corrected Calcium 8.72 (8.5-10.1) mg/dL Total Bilirubin 0.4 (0.2-1.0) mg/dL AST 20 (15-37) U/L ALT 31 (16-63) U/L Alkaline Phosphatase 77 (46-116) U/L C-Reactive Protein 3.7 H (<=0.9) mg/dL NT-Pro-B Natriuret Pep (<=125) pg/mL Total Protein 7.3 (6.4-8.2) g/dL Albumin 3.6 (3.4-5.0) g/dL Globulin 3.7 Albumin/Globulin Ratio 0.97 Urine Color Yellow (YELLOW) Urine Appearance Cloudy H (CLEAR) Urine pH 5.0 (5.0-8.0) Ur Specific [place] 1.025 Urine Protein 100 H (NEGATIVE) mg/dL Urine Glucose (UA) Negative (NEGATIVE) mg/dL Urine Ketones Negative (NEGATIVE) mg/dL Urine Occult Blood Small H (NEGATIVE) Urine Nitrite Positive H (NEGATIVE) Urine Bilirubin Negative (NEGATIVE) Urine Urobilinogen 0.2 (0.2) EU/dL Ur Leukocyte Esterase Moderate H (NEGATIVE) Urine RBC 0-5 (NOT SEEN) /HPF Urine WBC >100 H (NOT SEEN) /HPF Urine WBC Clumps Moderate Ur Squamous Epith Cells Few H (NEGATIVE) /HPF Ur Renal Epithelial Cell Occasional H (NEGATIVE) /HPF Amorphous Sediment Few Urine Bacteria Many H (NEGATIVE) /HPF Urine Mucus Moderate H (NEGATIVE) /LPF 11/20/17 11/20/17 Range/Units 07:35 07:35 WBC (4.0-10.0) x10^3/uL RBC (4.5-6.0) x10^6/uL Hgb (14.0-18.0) g/dL Hct (40.0-52.0) % MCV (78.0-93.0) fL MCH (26.0-32.0) pg MCHC (32.0-36.0) g/dL RDW Coeff of Kimberlee (10.0-15.0) % Plt Count (130-400) x10^3/uL Neut % (Auto) (50.0-80.0) % Lymph % (Auto) (25.0-50.0) % [place] % (Auto) (2.0-11.0) % Eos % (Auto) (0.0-4.0) % Baso % (Auto) (0.2-1.2) % Sodium (136-145) mmol/L Potassium (3.5-5.1) mmol/L Chloride (98-107) mmol/L Carbon Dioxide (21-32) mmol/L Anion Gap (10-20) mmol/L BUN (7-18) mg/dL Creatinine (0.70-1.30) mg/dL Est Cr Clr Drug Dosing mL/min Estimated GFR (MDRD) Glucose (74-106) mg/dL Lactic Acid 1.2 (0.4-2.0) mmol/L Calcium (8.5-10.1) mg/dL Corrected Calcium (8.5-10.1) mg/dL Total Bilirubin (0.2-1.0) mg/dL AST (15-37) U/L ALT (16-63) U/L Alkaline Phosphatase (46-116) U/L C-Reactive Protein (<=0.9) mg/dL NT-Pro-B Natriuret Pep 460 H (<=125) pg/mL Total Protein (6.4-8.2) g/dL Albumin (3.4-5.0) g/dL Globulin Albumin/Globulin Ratio Urine Color (YELLOW) Urine Appearance (CLEAR) Urine pH (5.0-8.0) Ur Specific [place] Urine Protein (NEGATIVE) mg/dL Urine Glucose (UA) (NEGATIVE) mg/dL Urine Ketones (NEGATIVE) mg/dL Urine Occult Blood (NEGATIVE) Urine Nitrite (NEGATIVE) Urine Bilirubin (NEGATIVE) Urine Urobilinogen (0.2) EU/dL Ur Leukocyte Esterase (NEGATIVE) Urine RBC (NOT SEEN) /HPF Urine WBC (NOT SEEN) /HPF Urine WBC Clumps Ur Squamous Epith Cells (NEGATIVE) /HPF Ur Renal Epithelial Cell (NEGATIVE) /HPF Amorphous Sediment Urine Bacteria (NEGATIVE) /HPF Urine Mucus (NEGATIVE) /LPF Result Diagrams: 11/20/17 07:35 11/20/17 07:35 Dandy Results Last 24 hrs: Microbiology 11/20/17 08:15 Anaerobic Blood Culture - Final Blood - Venous - Lab Draw - Problem List (1) UTI (urinary tract infection) SNOMED Code(s): 32150012 ICD Code: N39.0 - URINARY TRACT INFECTION, SITE NOT SPECIFIED Status: Acute Current Visit: Yes Qualifiers: Urinary tract infection type: site unspecified Hematuria presence: without hematuria Qualified Code(s): N39.0 - Urinary tract infection, site not specified (2) Sepsis SNOMED Code(s): 73048597 ICD Code: A41.9 - SEPSIS, UNSPECIFIED ORGANISM Status: Acute Priority: Medium Current Visit: Yes Problem Details: 1. hydrate 2. IV antibiotics to be determined by attending doctor 3. 1 GM IV rocephin given in ER 4. Monitor CBC, Lactic, CRP 5. Contact precautions Qualifiers: Sepsis type: sepsis due to unspecified organism Qualified Code(s): A41.9 - Sepsis, unspecified organism (3) A-fib SNOMED Code(s): 10162470 ICD Code: I48.91 - UNSPECIFIED ATRIAL FIBRILLATION Status: Chronic Priority: Medium Current Visit: No Qualifiers: Atrial fibrillation type: chronic Qualified Code(s): I48.2 - Chronic atrial fibrillation (4) CHF (congestive heart failure) SNOMED Code(s): 66057177 ICD Code: I50.9 - HEART FAILURE, UNSPECIFIED Status: Chronic Priority: Medium Current Visit: No Problem Details: Last ECHO 03/2015 - [place] Qualifiers: Qualified Code(s): I50.32 - Chronic diastolic (congestive) heart failure (5) Diabetes mellitus type 2 SNOMED Code(s): 16372163 ICD Code: E11.9 - TYPE 2 DIABETES MELLITUS WITHOUT COMPLICATIONS Status: Chronic Priority: Medium Current Visit: No (6) Multiple sclerosis SNOMED Code(s): 32223135 ICD Code: G35 - MULTIPLE SCLEROSIS Status: Chronic Priority: Medium Current Visit: No (7) Rheumatoid arthritis SNOMED Code(s): 91711114 ICD Code: M06.9 - RHEUMATOID ARTHRITIS, UNSPECIFIED Status: Chronic Priority: Medium Current Visit: No Qualifiers: Rheumatoid factor presence: unspecified presence Laterality: unspecified laterality (8) Weakness SNOMED Code(s): 71013425 ICD Code: R53.1 - WEAKNESS Status: Chronic Priority: High Current Visit : No Problem List Initiated/Reviewed/Updated: Yes Orders Last 24hrs: Active Orders 24 hr Category Date Time Status Patient Status [ADT] Routine ADT 11/20/17 09:52 Active Patient Status [ADT] Routine ADT 11/20/17 09:53 Active Insert Gilliam Catheter [Insert Urinary Catheter] [OM.PC] Care 11/20/17 08:00 Ordered Q24H Intake and Output [RC] QSHIFT Care 11/20/17 09:54 Active Oxygen Therapy [RC] PRN Care 11/20/17 09:56 Active Oxygen Therapy [RC] PRN Care 11/20/17 15:57 Active RT Aerosol Therapy [RC] ASDIRECTED Care 11/20/17 15:10 Active Telemetry Monitoring [Cardiac Monitoring] [RC] . Care 11/20/17 10:08 Active DIRECTED Up With Assistance [RC] ASDIRECTED Care 11/20/17 09:53 Active Urinary Catheter Assessment [RC] ASDIRECTED Care 11/20/17 07:57 Active VTE/DVT Education [RC] PER UNIT ROUTINE Care 11/20/17 15:57 Active Vital Signs [RC] Q4H Care 11/20/17 09:53 Active Vital Signs [RC] Q4H Care 11/20/17 15:57 Active Consult to Case Management [CONS] Routine Cons 11/20/17 15:57 Active OT Evaluation and Treatment [CONS] Routine Cons 11/20/17 15:57 Active PT Evaluation and Treatment [CONS] Routine Cons 11/20/17 15:57 Active Regular Diet [DIET] Diet 11/20/17 Lunch Active BMP [BASIC METABOLIC PANEL,BMP] [CHEM] Routine Lab 11/21/17 16:09 Ordered CBC WITH AUTO DIFF [HEME] Routine Lab 11/21/17 16:08 Ordered CULTURE BLOOD [BC] Stat Lab 11/20/17 08:05 Received CULTURE BLOOD [BC] Stat Lab 11/20/17 08:15 Results CULTURE URINE [RM] Stat Lab 11/20/17 07:48 Ordered UA W/MICROSCOPIC [URIN] Stat Lab 11/20/17 07:24 Ordered Acetaminophen [Tylenol Extra Strength] Med 11/20/17 20:00 Active 500 mg PO BID Albuterol/Ipratropium [DuoNeb 3.0-0.5 MG/3 ML] Med 11/20/17 15:06 Active 3 ml NEB Q6HRRT PRN Biotin [Biotin] Med 11/21/17 08:00 Pending 1 mg PO DAILY Calcium Citrate/Vitamin D3 [Calcium Citrate + D] Med 11/21/17 08:00 Active 1 tab PO DAILY Celecoxib [CeleBREX] Med 11/21/17 08:00 Active 100 mg PO DAILY Cholecalciferol (Vitamin D3) [Vitamin D3] Med 11/21/17 08:00 Active 5,000 units PO DAILY Cranberry Med 11/21/17 08:00 Active 500 mg PO DAILY Dextran 70/Hypromellose/PF [Tears Naturale Free] Med 11/20/17 15:14 Active 1 each EYEBOTH ASDIRECTED PRN Diltiazem [Cardizem CD] Med 11/21/17 08:00 Active 240 mg PO DAILY Fish Oil/[place]-3 Fatty Acids [Fish Oil] Med 11/21/17 08:00 Active 1 gm PO DAILY Fluticasone Propionate [Flonase] Med 11/20/17 20:00 Active 0 gm NASBOTH BID Furosemide [Lasix] Med 11/21/17 08:00 Active 20 mg PO DAILY Losartan [Cozaar] Med 11/21/17 08:00 Active 150 mg PO DAILY Lysine Med 11/20/17 16:36 Pending 1,000 mg PO DAILY PRN Menthol/Zinc Oxide [Calmoseptine] Med 11/20/17 20:00 Active 0 gm TOP BEDTIME Meropenem [Merrem] Med 11/20/17 15:00 Active 1 gm IV Q8H Metoprolol Succinate [Toprol XL] Med 11/21/17 08:00 Active 100 mg PO DAILY Miconazole [Desenex 2%] Med 11/20/17 20:00 Active 0 gm TOP BID Multivitamins w-Iron/Ca/FA/Min [Thera M Plus] Med 11/21/17 08:00 Active 1 tab PO DAILY Mupirocin Oint [Bactroban Oint] Med 11/20/17 20:00 Active 0 gm TOP TID Polyethylene Glycol 3350 [MiraLAX] Med 11/21/17 08:00 Active 17 gm PO DAILY Potassium Chloride [Klor-Con] Med 11/21/17 08:00 Active 20 meq PO DAILY Sertraline [Zoloft] Med 11/21/17 08:00 Active 100 mg PO DAILY Sodium Chloride 0.9% [Normal Saline] 1,000 ml Med 11/20/17 10:15 Active IV ASDIRECTED Sodium Chloride 0.9% [Saline Flush] Med 11/20/17 07:31 Active 10 ml FLUSH ASDIRECTED PRN Vancomycin [Vancocin 125 MG/2.5 ML Soln] Med 11/20/17 15:00 Active 125 mg PO Q8H Warfarin [Coumadin] Med 11/20/17 20:00 Active 5 mg PO TUFR@1999 Warfarin [Coumadin] Med 11/21/17 20:00 Active 7.5 mg PO SUMOWETHSA@2000 atorvaSTATin [Lipitor] Med 11/20/17 20:00 Active 10 mg PO BEDTIME oxyCODONE Med 11/20/17 15:14 Active 5 mg PO Q4H PRN Blood Culture x2 Reflex Set [OM.PC] Stat Oth 11/20/17 07:53 Ordered Saline Lock Insert [OM.PC] Routine Oth 11/20/17 07:31 Ordered Resuscitation Status Routine Resus Stat 11/20/17 09:53 Ordered Medication Orders Acetaminophen (Tylenol Extra Strength) 500 mg PO BID ELIGIO Albuterol/Ipratropium (Duoneb 3.0-0.5 Mg/3 Ml) 3 ml NEB Q6HRRT PRN PRN Reason: sob Artificial Tears (Tears Naturale Free) 1 each EYEBOTH ASDIRECTED PRN PRN Reason: Dry Eyes Atorvastatin Calcium (Lipitor) 10 mg PO BEDTIME ELIGIO Calamine/Phenol (Calmoseptine) 0 gm TOP BEDTIME ELIGIO Calcium Citrate (Calcium Citrate + D) 1 tab PO DAILY ELIGIO Celecoxib (Celebrex) 100 mg PO DAILY [facility] Cholecalciferol (Vitamin D3) 5,000 units PO DAILY [facility] Cranberry (Cranberry) 500 mg PO DAILY [facility] Diltiazem HCl (Cardizem Cd) 240 mg PO DAILY [facility] Fish Oil (Fish Oil) 1 gm PO DAILY [facility] Fluticasone Propionate (Flonase) 0 gm NASBOTH BID ELIGIO Furosemide (Lasix) 20 mg PO DAILY [facility] Sodium Chloride (Normal Saline) 1,000 mls @ 75 mls/hr IV ASDIRECTED [facility] Last Admin: 11/20/17 10:40 Dose: 75 mls/hr Losartan Potassium (Cozaar) 150 mg PO DAILY ELIGIO Meropenem (Merrem) 1 gm IV Q8H [facility] Last Admin: 11/20/17 15:00 Dose: 1 gm Metoprolol Succinate (Toprol Xl) 100 mg PO DAILY [facility] Miconazole (Desenex 2%) 0 gm TOP BID [facility] Multivitamins/Minerals (Thera M Plus) 1 tab PO DAILY [facility] Mupirocin (Bactroban Oint) 0 gm TOP TID [facility] Non-Formulary Medication (Lysine) 1,000 mg PO DAILY PRN PRN Reason: COLD SORES? Non-Formulary Medication (Biotin [Biotin]) 1 mg PO DAILY ELIGIO Oxycodone HCl (Oxycodone) 5 mg PO Q4H PRN PRN Reason: Pain Polyethylene Glycol (Miralax) 17 gm PO DAILY [facility] Potassium Chloride (Klor-Con) 20 meq PO DAILY ELIGIO Sertraline HCl (Zoloft) 100 mg PO DAILY [facility] Sodium Chloride (Saline Flush) 10 ml FLUSH ASDIRECTED PRN PRN Reason: Keep Vein Open Vancomycin HCl (Vancocin 125 Mg/2.5 Ml Soln) 125 mg PO Q8H [facility] Last Admin: 11/20/17 15:00 Dose: 125 mg Warfarin Sodium (Coumadin) 5 mg PO TUFR@1999 [facility] Warfarin Sodium (Coumadin) 7.5 mg PO SUMOWETHSA@1999 [facility] Assessment/Plan Comment:: The patient will be admitted to the hospital and started on IV fluids. Is treated with Rocephin in the emergency room. However his last documented urine culture revealed a multidrug resistant strain of Escherichia coli. The patient also has a significant past medical history of C. difficile infection. Subsequently we will start him on meropenem and oral vancomycin until the urinary culture results and blood culture results are available. Home medications will be continued. The patient does verbalize his wish to be a code level I.
[2017-11-20] MEDS: Menthol/Zinc Oxide Ointment 3.5 GM Tube TOP SCH (19:51)
[2017-11-20] MEDS: atorvaSTATin 10 MG Tab PO SCH (19:51)
[2017-11-20] MEDS: Acetaminophen 500 MG Tab PO SCH (19:51)
[2017-11-20] MEDS: Fluticasone Propionate Nasal Spray 16 GM Bottle NASBOTH SCH (19:52)
[2017-11-20] MEDS: Miconazole 2% Top Powder 45 GM Container TOP SCH (19:52)
[2017-11-20] MEDS: Mupirocin Oint 22 GM Tube TOP SCH (19:55)
[2017-11-20] MEDS ORDERED: MUPIROCIN TOP SCH (20:00)
[2017-11-20] MEDS ORDERED: Menthol/Zinc Oxide Ointment 3.5 GM Tube TOP SCH (20:00)
[2017-11-20] MEDS ORDERED: atorvaSTATin 10 MG Tab PO SCH (20:00)
[2017-11-20] MEDS ORDERED: Miconazole 2% Top Powder 45 GM Container TOP SCH (20:00)
[2017-11-20] MEDS ORDERED: Fluticasone Propionate Nasal Spray 16 GM Bottle NASBOTH SCH (20:00)
[2017-11-20] MEDS ORDERED: Acetaminophen 500 MG Tab PO SCH (20:00)
[2017-11-20] MEDS: Albuterol/Ipratropium 3.0-0.5 MG/3 ML Neb Soln NEB PRN (22:00)
[2017-11-20] MEDS: oxyCODONE 5 MG Tab PO PRN (22:25)
[2017-11-20] MEDS: Sodium Chloride 0.9% 10 ML Syringe FLUSH PRN (22:45)
[2017-11-21] MEDS: oxyCODONE 5 MG Tab PO PRN ×3 (02:29→21:29)
[2017-11-21] MEDS: Sodium Chloride 0.9% 10 ML Syringe FLUSH PRN ×2 (06:32→22:47)
[2017-11-21] MEDS: Vancomycin 125 MG/2.5 ML Oral Solution 2.5 ML UD Cup PO SCH ×3 (06:35→22:47)
[2017-11-21] MEDS: Meropenem 1 GM SDV IV SCH ×3 (06:35→22:47)
--- NOTE | 2017-11-21 07:39 | PCM.PN ---
- General Info Date of Service: 11/21/17 Admission Dx/Problem (Free Text): Admission Diagnosis/Problem Admission Diagnosis/Problem Urosepsis Subjective Update: Patient states he is feeling better today. He states he was not gotten out of bed since admission. He does complain of a headache. He denies any chest pain or SOB. No abdominal complaints. He states he did eat a little bit last night. He is drinking oral fluid ok. Functional Status: Reports: Tolerating Diet, Urinating Pain Score: 3 - Review of Systems General: Reports: Weakness, Fatigue. Denies: Fever, Chills Pulmonary: Denies: Shortness of Breath, Cough Cardiovascular: Denies: Chest Pain, Palpitations Gastrointestinal: Denies: Abdominal Pain, Nausea, Vomiting Skin: Reports: No Symptoms Neurological: Reports: Headache - Patient Data Vitals - Most Recent: Last Vital Signs Temp 36.2 C 11/21/17 05:27 Pulse 72 11/21/17 05:27 Resp 20 11/21/17 05:27 BP 159/74 H 11/21/17 05:27 Pulse Ox 90 L 11/21/17 05:27 Weight - Most Recent: 111.811 kg I&O - Last 24 Hours: Intake & Output 11/20/17 11/21/17 11/21/17 22:59 06:59 14:59 Intake Total 890 1450 Output Total 700 550 Balance 190 900 Lab Results Last 24 Hours: Laboratory Results - last 24 hr 11/20/17 11/20/17 11/20/17 Range/Units 07:24 07:35 07:35 WBC 13.9 H (4.0-10.0) x10^3/uL RBC 4.77 (4.5-6.0) x10^6/uL Hgb 14.5 D (14.0-18.0) g/dL Hct 43.2 (40.0-52.0) % MCV 90.6 (78.0-93.0) fL MCH 30.4 (26.0-32.0) pg MCHC 33.6 (32.0-36.0) g/dL RDW Coeff of Kimberlee 14.3 (10.0-15.0) % Plt Count 138 (130-400) x10^3/uL Neut % (Auto) 87.7 H (50.0-80.0) % Lymph % (Auto) 4.0 L (25.0-50.0) % [place] % (Auto) 7.7 (2.0-11.0) % Eos % (Auto) 0.5 (0.0-4.0) % Baso % (Auto) 0.1 L (0.2-1.2) % Sodium 143 (136-145) mmol/L Potassium 4.3 (3.5-5.1) mmol/L Chloride 106 (98-107) mmol/L Carbon Dioxide 26 (21-32) mmol/L Anion Gap 15.3 (10-20) mmol/L BUN 16 (7-18) mg/dL Creatinine 1.2 (0.70-1.30) mg/dL Est Cr Clr Drug Dosing 61.97 mL/min Estimated GFR (MDRD) 60 Glucose 121 H (74-106) mg/dL POC Glucose (74-106) mg/dL Lactic Acid (0.4-2.0) mmol/L Calcium 8.4 L (8.5-10.1) mg/dL Corrected Calcium 8.72 (8.5-10.1) mg/dL Total Bilirubin 0.4 (0.2-1.0) mg/dL AST 20 (15-37) U/L ALT 31 (16-63) U/L Alkaline Phosphatase 77 (46-116) U/L C-Reactive Protein 3.7 H (<=0.9) mg/dL NT-Pro-B Natriuret Pep (<=125) pg/mL Total Protein 7.3 (6.4-8.2) g/dL Albumin 3.6 (3.4-5.0) g/dL Globulin 3.7 Albumin/Globulin Ratio 0.97 Urine Color Yellow (YELLOW) Urine Appearance Cloudy H (CLEAR) Urine pH 5.0 (5.0-8.0) Ur Specific [place] 1.025 Urine Protein 100 H (NEGATIVE) mg/dL Urine Glucose (UA) Negative (NEGATIVE) mg/dL Urine Ketones Negative (NEGATIVE) mg/dL Urine Occult Blood Small H (NEGATIVE) Urine Nitrite Positive H (NEGATIVE) Urine Bilirubin Negative (NEGATIVE) Urine Urobilinogen 0.2 (0.2) EU/dL Ur Leukocyte Esterase Moderate H (NEGATIVE) Urine RBC 0-5 (NOT SEEN) /HPF Urine WBC >100 H (NOT SEEN) /HPF Urine WBC Clumps Moderate Ur Squamous Epith Cells Few H (NEGATIVE) /HPF Ur Renal Epithelial Cell Occasional H (NEGATIVE) /HPF Amorphous Sediment Few Urine Bacteria Many H (NEGATIVE) /HPF Urine Mucus Moderate H (NEGATIVE) /LPF 11/20/17 11/20/17 11/21/17 Range/Units 07:35 07:35 06:30 WBC (4.0-10.0) x10^3/uL RBC (4.5-6.0) x10^6/uL Hgb (14.0-18.0) g/dL Hct (40.0-52.0) % MCV (78.0-93.0) fL MCH (26.0-32.0) pg MCHC (32.0-36.0) g/dL RDW Coeff of [place] (10.0-15.0) % Plt Count (130-400) x10^3/uL Neut % (Auto) (50.0-80.0) % Lymph % (Auto) (25.0-50.0) % [place] % (Auto) (2.0-11.0) % Eos % (Auto) (0.0-4.0) % Baso % (Auto) (0.2-1.2) % Sodium (136-145) mmol/L Potassium (3.5-5.1) mmol/L Chloride (98-107) mmol/L Carbon Dioxide (21-32) mmol/L Anion Gap (10-20) mmol/L BUN (7-18) mg/dL Creatinine (0.70-1.30) mg/dL Est Cr Clr Drug Dosing mL/min Estimated GFR (MDRD) Glucose (74-106) mg/dL POC Glucose 123 H (74-106) mg/dL Lactic Acid 1.2 (0.4-2.0) mmol/L Calcium (8.5-10.1) mg/dL Corrected Calcium (8.5-10.1) mg/dL Total Bilirubin (0.2-1.0) mg/dL AST (15-37) U/L ALT (16-63) U/L Alkaline Phosphatase (46-116) U/L C-Reactive Protein (<=0.9) mg/dL NT-Pro-B Natriuret Pep 460 H (<=125) pg/mL Total Protein (6.4-8.2) g/dL Albumin (3.4-5.0) g/dL Globulin Albumin/Globulin Ratio Urine Color (YELLOW) Urine Appearance (CLEAR) Urine pH (5.0-8.0) Ur Specific [place] Urine Protein (NEGATIVE) mg/dL Urine Glucose (UA) (NEGATIVE) mg/dL Urine Ketones (NEGATIVE) mg/dL Urine Occult Blood (NEGATIVE) Urine Nitrite (NEGATIVE) Urine Bilirubin (NEGATIVE) Urine Urobilinogen (0.2) EU/dL Ur Leukocyte Esterase (NEGATIVE) Urine RBC (NOT SEEN) /HPF Urine WBC (NOT SEEN) /HPF Urine WBC Clumps Ur Squamous Epith Cells (NEGATIVE) /HPF Ur Renal Epithelial Cell (NEGATIVE) /HPF Amorphous Sediment Urine Bacteria (NEGATIVE) /HPF Urine Mucus (NEGATIVE) /LPF [place]andy Results Last 24 Hours: Microbiology 11/20/17 08:15 Anaerobic Blood Culture - Final Blood - Venous - Lab Draw Med Orders - Current: Current Medications Acetaminophen (Tylenol Extra Strength) 500 mg PO BID [facility] Last Admin: 11/20/17 19:51 Dose: 500 mg Albuterol/Ipratropium (Duoneb 3.0-0.5 Mg/3 Ml) 3 ml NEB Q6HRRT PRN PRN Reason: sob Last Admin: 11/20/17 22:00 Dose: 3 ml Artificial Tears (Tears Naturale Free) 1 each EYEBOTH ASDIRECTED PRN PRN Reason: Dry Eyes Last Admin: 11/20/17 19:53 Dose: 1 each Atorvastatin Calcium (Lipitor) 10 mg PO BEDTIME [facility] Last Admin: 11/20/17 19:51 Dose: 10 mg Calamine/Phenol (Calmoseptine) 0 gm TOP BEDTIME [facility] Last Admin: 11/20/17 19:51 Dose: 1 applic Calcium Citrate (Calcium Citrate + D) 1 tab PO DAILY [facility] Celecoxib (Celebrex) 100 mg PO DAILY [facility] Cholecalciferol (Vitamin D3) 5,000 units PO DAILY [facility] Cranberry (Cranberry) 500 mg PO DAILY [facility] Diltiazem HCl (Cardizem Cd) 240 mg PO DAILY [facility] Fish Oil (Fish Oil) 1 gm PO DAILY [facility] Fluticasone Propionate (Flonase) 0 gm NASBOTH BID [facility] Last Admin: 11/20/17 19:52 Dose: 1 spray Furosemide (Lasix) 20 mg PO DAILY [facility] Sodium Chloride (Normal Saline) 1,000 mls @ 75 mls/hr IV ASDIRECTED [facility] Last Admin: 11/20/17 19:50 Dose: 75 mls/hr Losartan Potassium (Cozaar) 150 mg PO DAILY [facility] Meropenem (Merrem) 1 gm IV Q8H [facility] Last Admin: 11/21/17 06:35 Dose: 1 gm Metoprolol Succinate (Toprol Xl) 100 mg PO DAILY [facility] Miconazole (Desenex 2%) 0 gm TOP BID [facility] Last Admin: 11/20/17 19:52 Dose: 1 applic Multivitamins/Minerals (Thera M Plus) 1 tab PO DAILY [facility] Mupirocin (Bactroban Oint) 0 gm TOP TID [facility] Last Admin: 11/20/17 19:55 Dose: Not Given Non-Formulary Medication (Lysine) 1,000 mg PO DAILY PRN PRN Reason: COLD SORES? Non-Formulary Medication (Biotin [Biotin]) 1 mg PO DAILY [facility] Oxycodone HCl (Oxycodone) 5 mg PO Q4H PRN PRN Reason: Pain Last Admin: 11/21/17 02:29 Dose: 5 mg Polyethylene Glycol (Miralax) 17 gm PO DAILY [facility] Potassium Chloride (Klor-Con) 20 meq PO DAILY [facility] Sertraline HCl (Zoloft) 100 mg PO DAILY [facility] Sodium Chloride (Saline Flush) 10 ml FLUSH ASDIRECTED PRN PRN Reason: Keep Vein Open Last Admin: 11/21/17 06:32 Dose: 10 ml Vancomycin HCl (Vancocin 125 Mg/2.5 Ml Soln) 125 mg PO Q8H [facility] Last Admin: 11/21/17 06:35 Dose: 125 mg Warfarin Sodium (Coumadin) 5 mg PO [email or web address]@1999 [facility] Last Admin: 11/20/17 19:52 Dose: 5 mg Warfarin Sodium (Coumadin) 7.5 mg PO SUMOWETHSA@1999 [facility] Discontinued Medications Albuterol/Ipratropium (Duoneb 3.0-0.5 Mg/3 Ml) 3 ml NEB Q6HRRT PRN PRN Reason: Shortness of Breath Atorvastatin Calcium (Lipitor) 10 mg PO BEDTIME [facility] Calamine/Phenol (Calmoseptine) gm TOP BEDTIME [facility] Ceftriaxone Sodium (Rocephin) 1 gm IVPUSH ONETIME ONE Stop: 11/20/17 07:32 Last Admin: 11/20/17 08:05 Dose: 1 gm Celecoxib (Celebrex) 100 mg PO DAILY [facility] Diltiazem HCl (Cardizem Cd) 240 mg PO DAILY [facility] Fluticasone Propionate (Flonase) gm NASBOTH BID [facility] Furosemide (Lasix) 20 mg PO DAILY [facility] Sodium Chloride (Normal Saline) 1,000 mls @ 100 mls/hr IV ASDIRECTED [facility] Last Admin: 11/20/17 08:05 Dose: 100 mls/hr Meropenem 1 gm/ Sodium (Chloride) 100 mls @ 200 mls/hr IV ONETIME ONE Stop: 11/20/17 15:29 Last Admin: 11/20/17 15:22 Dose: 200 mls/hr Miconazole (Desenex 2%) gm TOP BID [facility] Non-Formulary Medication (Lysine) 1,000 mg PO DAILY PRN PRN Reason: COLD SORES? Non-Formulary Medication (Biotin [Biotin]) 1 mg PO DAILY [facility] Non-Formulary Medication (Calcium Carb & Citrate/Vit D3 [Citracal + D Er]) 1 tab PO DAILY [facility] Non-Formulary Medication (Cholecalciferol (Vitamin D3)) 5,000 unit PO DAILY [facility] Non-Formulary Medication (Cranberry Extract [Cranberry]) 500 mg PO DAILY [facility] Non-Formulary Medication (Lysine [Lysine]) 1,000 mg PO DAILY PRN PRN Reason: Other Non-Formulary Medication (Metoprolol Succinate [Toprol Xl]) 100 mg PO DAILY [facility] Non-Formulary Medication (Multivitamin With Minerals [Multivitamins With Minerals]) 1 tab PO DAILY [facility] Non-Formulary Medication (Mupirocin Cream [Bactroban Crm]) 1 applic TOP TID [facility] Non-Formulary Medication ([place]-3 Fatty Acids [[place]-3]) 1,000 mg PO DAILY [facility] Non-Formulary Medication (Peg 400/Propylene Glycol [Systane Lubricant]) 1 drop EYELF ASDIRECTED PRN PRN Reason: Dry Eyes Non-Formulary Medication (Valsartan [Diovan]) 320 mg PO DAILY [facility] Oxycodone HCl (Oxycodone) 5 mg PO Q4H PRN PRN Reason: Pain Polyethylene Glycol (Miralax) 17 gm PO DAILY [facility] Potassium Chloride (Klor-Con) 20 meq PO DAILY [facility] Sertraline HCl (Zoloft) 100 mg PO DAILY [facility] Warfarin Sodium (Coumadin) 5 mg PO TUFR [facility] Last Admin: 11/20/17 17:17 Dose: Not Given Warfarin Sodium (Coumadin) 7.5 mg PO SUMOWETHSA [facility] - Exam Quality Assessment: Urine Catheter General: Alert, Oriented, Cooperative, No Acute Distress, Other (seems much less lethargi this morning) Lungs: Clear to Auscultation, Normal Respiratory Effort, Decreased Breath Sounds Cardiovascular: Regular Rate, Regular Rhythm GI/Abdominal Exam: Soft, Non-Tender, Abnormal Bowel Sounds (Hypoactive) Peripheral Pulses: 2+: Radial (L), Radial (R) Skin: Warm, Dry Neurological: No New Focal Deficit - Problem List & Annotations (1) Sepsis secondary to UTI SNOMED Code(s): 616789255 Code(s): A41.9 - SEPSIS, UNSPECIFIED ORGANISM; N39.0 - URINARY TRACT INFECTION, SITE NOT SPECIFIED Status: Acute Priority: Medium Current Visit : Yes Onset Date: ~11/20/17 (2) Weakness SNOMED Code(s): 20054268 Code(s): R53.1 - WEAKNESS Status: Acute Priority: Medium Current Visit : Yes (3) A-fib SNOMED Code(s): 90009530 Code(s): I48.91 - UNSPECIFIED ATRIAL FIBRILLATION Status: Chronic Priority: Medium Current Visit: No Qualifiers: Atrial fibrillation type: chronic Qualified Code(s): I48.2 - Chronic atrial fibrillation (4) CHF (congestive heart failure) SNOMED Code(s): 80490204 Code(s): I50.9 - HEART FAILURE, UNSPECIFIED Status: Chronic Priority: Medium Current Visit: No Qualifiers: Qualified Code(s): I50.32 - Chronic diastolic (congestive) heart failure (5) Diabetes mellitus type 2 SNOMED Code(s): 39986430 Code(s): E11.9 - TYPE 2 DIABETES MELLITUS WITHOUT COMPLICATIONS Status: Chronic Priority: Medium Current Visit: No (6) Multiple sclerosis SNOMED Code(s): 30200238 Code(s): G35 - MULTIPLE SCLEROSIS Status: Chronic Priority: Medium Current Visit: No (7) Rheumatoid arthritis SNOMED Code(s): 12617945 Code(s): M06.9 - RHEUMATOID ARTHRITIS, UNSPECIFIED Status: Chronic Priority: Medium Current Visit: No Qualifiers: Rheumatoid factor presence: unspecified presence Laterality: unspecified laterality - Problem List Review Problem List Initiated/Reviewed/Updated: Yes - Assessment Assessment:: Sepsis secondary to UTI Weakness Afib CHF DM Type II MS RA - Plan Plan:: 72 yo male patient with a past medical history of Afib, CHD, DM Type II, MS, and RA was admitted to the acute care floor at [facility] for a diagnosis of Sepsis secondary to UTI and weakness. Will continue current medication for now. Await blood and urine cultures to see if any changes to abx therapy are needed. Patient will work with PT/OT today. Continue with IVF hydration. No changes with any home medications. Patient wishes to be a Full Code. Patient on Coumadin for DVT prophylaxis. Patient does wish to be transferred to a higher level of care should the need arise. Continue acute cares for now. I do anticipate the patient will be transitioned to for his weakness at some point. NOTE: This patient was seen and examined by me as an [facility] provider.
[2017-11-21] MEDS: Multivitamins with Iron/Calcium/Folic Acid/Minerals Tab PO SCH (07:43)
[2017-11-21] MEDS: Diltiazem 240 MG Cap.CD PO SCH (07:43)
[2017-11-21] MEDS: Miconazole 2% Top Powder 45 GM Container TOP SCH ×2 (07:43→19:41)
[2017-11-21] MEDS: Calcium Citrate/Vitamin D3 315 MG-250 Unit Tab PO SCH (07:43)
[2017-11-21] MEDS: Cranberry 500 MG Cap PO SCH (07:43)
[2017-11-21] MEDS: Losartan 50 MG Tab PO SCH (07:43)
[2017-11-21] MEDS: Cholecalciferol (Vitamin D3) 1,000 Unit Tab PO SCH (07:43)
[2017-11-21] MEDS: Acetaminophen 500 MG Tab PO SCH ×2 (07:44→19:41)
[2017-11-21] MEDS: Furosemide 20 MG Tab PO SCH (07:44)
[2017-11-21] MEDS: Albuterol/Ipratropium 3.0-0.5 MG/3 ML Neb Soln NEB PRN (07:44)
[2017-11-21] MEDS: Potassium Chloride 20 MEQ Packet PO SCH (07:44)
[2017-11-21] MEDS: Fish Oil/Omega-3 Fatty Acids 1 Gm Cap PO SCH (07:44)
[2017-11-21] MEDS: Celecoxib 100 MG Cap PO SCH (07:44)
[2017-11-21] MEDS: Metoprolol Succinate 50 MG Tab.ER PO SCH (07:46)
[2017-11-21] MEDS: Sertraline 100 MG Tab PO SCH (07:46)
[2017-11-21] MEDS: Mupirocin Oint 22 GM Tube TOP SCH ×2 (07:53→11:18)
[2017-11-21] MEDS: Fluticasone Propionate Nasal Spray 16 GM Bottle NASBOTH SCH ×2 (07:53→19:42)
[2017-11-21] MEDS ORDERED: VALSARTAN 320 MG PO SCH (08:00)
[2017-11-21] MEDS ORDERED: Sertraline 100 MG Tab PO SCH (08:00)
[2017-11-21] MEDS ORDERED: CITRATE PO SCH (08:00)
[2017-11-21] MEDS ORDERED: Potassium Chloride 20 MEQ Packet PO SCH (08:00)
[2017-11-21] MEDS ORDERED: Celecoxib 100 MG Cap PO SCH (08:00)
[2017-11-21] MEDS ORDERED: Non-Formulary Medication 1 Each (Biotin [Biotin] 1 MG) PO SCH ×2 (08:00)
[2017-11-21] MEDS ORDERED: CALCIUM CARB PO SCH (08:00)
[2017-11-21] MEDS ORDERED: BIOTIN 1 MG PO SCH (08:00)
[2017-11-21] MEDS ORDERED: Furosemide 20 MG Tab PO SCH (08:00)
[2017-11-21] MEDS ORDERED: VIT D3 PO SCH (08:00)
[2017-11-21] MEDS ORDERED: Polyethylene Glycol 3350 Powder 17 GM Packet PO SCH (08:00)
[2017-11-21] MEDS ORDERED: Non-Formulary Medication 1 Each (Omega-3 Fatty Acids [Omega-3] 1,000 MG) PO SCH (08:00)
[2017-11-21] MEDS ORDERED: Diltiazem 240 MG Cap.CD PO SCH (08:00)
[2017-11-21] MEDS ORDERED: Non-Formulary Medication 1 Each (Metoprolol Succinate [Toprol Xl] 100 MG) PO SCH (08:00)
[2017-11-21] MEDS ORDERED: CRANBERRY EXTRACT 500 MG PO SCH (08:00)
[2017-11-21] MEDS: Sodium Chloride 0.9% 1,000 ML IV SCH ×2 (08:02→19:45)
[2017-11-21] MEDS: Polyethylene Glycol 3350 Powder 238 GM Bot PO SCH (09:28)
[2017-11-21] MEDS ORDERED: Warfarin 5 MG Tab PO SCH (16:01)
[2017-11-21] MEDS: Menthol/Zinc Oxide Ointment 3.5 GM Tube TOP SCH (19:40)
[2017-11-21] MEDS: atorvaSTATin 10 MG Tab PO SCH (19:41)
[2017-11-21] MEDS: Warfarin 2.5 MG Tab PO SCH (19:41)
[2017-11-22] MEDS: Ondansetron 4 MG Tab.DIS PO PRN ×2 (00:37→06:58)
[2017-11-22] MEDS: Sodium Chloride 0.9% 10 ML Syringe FLUSH PRN (06:29)
[2017-11-22] MEDS: Vancomycin 125 MG/2.5 ML Oral Solution 2.5 ML UD Cup PO SCH ×3 (06:29→23:31)
[2017-11-22] MEDS: Meropenem 1 GM SDV IV SCH ×3 (06:29→23:31)
[2017-11-22] MEDS: Albuterol/Ipratropium 3.0-0.5 MG/3 ML Neb Soln NEB PRN (07:03)
[2017-11-22] MEDS ORDERED: Furosemide 20 MG/2 ML VIAL IV ONE (08:37)
--- NOTE | 2017-11-22 08:58 | PCM.PN ---
- General Info Date of Service: 11/22/17 Admission Dx/Problem (Free Text): Admission Diagnosis/Problem Admission Diagnosis/Problem Urosepsis Subjective Update: Pt states he is feeling slightly better this morning. Notes that the nurses put oxygen on him this morning and states "I have never weighed this much." Pt states he ate breakfast this morning. Is not nauseated. Did vomit yesterday. - Review of Systems General: Reports: Weakness HEENT: Reports: No Symptoms Pulmonary: Denies: Shortness of Breath Cardiovascular: Denies: Chest Pain Gastrointestinal: Reports: No Symptoms. Denies: Nausea Genitourinary: Reports: No Symptoms Musculoskeletal: Reports: No Symptoms Neurological: Reports: Weakness - Patient Data Vitals - Most Recent: Last Vital Signs Temp 36.7 C 11/22/17 06:00 Pulse 66 11/22/17 06:00 Resp 20 11/22/17 06:00 BP 144/63 H 11/22/17 06:00 Pulse Ox 85 L 11/22/17 07:10 Weight - Most Recent: 110.722 kg I&O - Last 24 Hours: Intake & Output 11/21/17 11/22/17 11/22/17 22:59 06:59 14:59 Intake Total 880 1074 Output Total 800 700 Balance 80 374 Lab Results Last 24 Hours: Laboratory Results - last 24 hr 11/21/17 11/22/17 11/22/17 Range/Units 16:21 06:30 06:50 WBC 10.0 (4.0-10.0) x10^3/uL RBC 4.55 (4.5-6.0) x10^6/uL Hgb 13.3 L (14.0-18.0) g/dL Hct 41.5 (40.0-52.0) % MCV 91.2 (78.0-93.0) fL MCH 29.2 (26.0-32.0) pg MCHC 32.0 (32.0-36.0) g/dL RDW Coeff of Kimberlee 14.2 (10.0-15.0) % Plt Count 137 (130-400) x10^3/uL Neut % (Auto) 85.8 H (50.0-80.0) % Lymph % (Auto) 5.3 L (25.0-50.0) % [place] % (Auto) 7.4 (2.0-11.0) % Eos % (Auto) 1.4 (0.0-4.0) % Baso % (Auto) 0.1 L (0.2-1.2) % Sodium (136-145) mmol/L Potassium (3.5-5.1) mmol/L Chloride (98-107) mmol/L Carbon Dioxide (21-32) mmol/L Anion Gap (10-20) mmol/L BUN (7-18) mg/dL Creatinine (0.70-1.30) mg/dL Est Cr Clr Drug Dosing mL/min Estimated GFR (MDRD) Glucose (74-106) mg/dL POC Glucose 111 H 101 (74-106) mg/dL Calcium (8.5-10.1) mg/dL /05/02 Range/Units 06:50 WBC (4.0-10.0) x10^3/uL RBC (4.5-6.0) x10^6/uL Hgb (14.0-18.0) g/dL Hct (40.0-52.0) % MCV (78.0-93.0) fL MCH (26.0-32.0) pg MCHC (32.0-36.0) g/dL RDW Coeff of Kimberlee (10.0-15.0) % Plt Count (130-400) x10^3/uL Neut % (Auto) (50.0-80.0) % Lymph % (Auto) (25.0-50.0) % [place] % (Auto) (2.0-11.0) % Eos % (Auto) (0.0-4.0) % Baso % (Auto) (0.2-1.2) % Sodium 145 (136-145) mmol/L Potassium 3.9 (3.5-5.1) mmol/L Chloride 108 H (98-107) mmol/L Carbon Dioxide 28 (21-32) mmol/L Anion Gap 12.9 (10-20) mmol/L BUN 12 (7-18) mg/dL Creatinine 1.2 (0.70-1.30) mg/dL Est Cr Clr Drug Dosing 61.97 mL/min Estimated GFR (MDRD) 60 Glucose 104 (74-106) mg/dL POC Glucose (74-106) mg/dL Calcium 8.0 L (8.5-10.1) mg/dL Dandy Results Last 24 Hours: Microbiology 11/20/17 07:48 Urine Culture - Preliminary Urine, Catheterized Gram Negative Rods Escherichia Coli Gram Negative Rods#2 11/20/17 08:15 Aerobic Blood Culture - Preliminary Blood - Venous - Lab Draw NO GROWTH AFTER 2 DAYS Anaerobic Blood Culture - Final 11/20/17 08:05 Aerobic Blood Culture - Preliminary Blood - Venous NO GROWTH AFTER 2 DAYS Anaerobic Blood Culture - Preliminary NO GROWTH AFTER 2 DAYS Med Orders - Current: Current Medications Acetaminophen (Tylenol Extra Strength) 500 mg PO BID [facility] Last Admin: 11/21/17 19:41 Dose: 500 mg Albuterol/Ipratropium (Duoneb 3.0-0.5 Mg/3 Ml) 3 ml NEB Q6HRRT PRN PRN Reason: sob Last Admin: 11/22/17 07:03 Dose: 3 ml Artificial Tears (Tears Naturale Free) 1 each EYEBOTH ASDIRECTED PRN PRN Reason: Dry Eyes Last Admin: 11/20/17 19:53 Dose: 1 each Atorvastatin Calcium (Lipitor) 10 mg PO BEDTIME [facility] Last Admin: 11/21/17 19:41 Dose: 10 mg Calamine/Phenol (Calmoseptine) 0 gm TOP BEDTIME [facility] Last Admin: 11/21/17 19:40 Dose: 1 applic Calcium Citrate (Calcium Citrate + D) 1 tab PO DAILY [facility] Last Admin: 11/21/17 07:43 Dose: 1 tab Celecoxib (Celebrex) 100 mg PO DAILY [facility] Last Admin: 11/21/17 07:44 Dose: 100 mg Cholecalciferol (Vitamin D3) 5,000 units PO DAILY [facility] Last Admin: 11/21/17 07:43 Dose: 5,000 units Cranberry (Cranberry) 500 mg PO DAILY [facility] Last Admin: 11/21/17 07:43 Dose: 500 mg Diltiazem HCl (Cardizem Cd) 240 mg PO DAILY [facility] Last Admin: 11/21/17 07:43 Dose: 240 mg Fish Oil (Fish Oil) 1 gm PO DAILY [facility] Last Admin: 11/21/17 07:44 Dose: 1 gm Fluticasone Propionate (Flonase) 0 gm NASBOTH BID [facility] Last Admin: 11/21/17 19:42 Dose: 1 spray Furosemide (Lasix) 20 mg PO BIDDIURETIC [facility] Losartan Potassium (Cozaar) 150 mg PO DAILY [facility] Last Admin: 11/21/17 07:43 Dose: 150 mg Meropenem (Merrem) 1 gm IV Q8H [facility] Last Admin: 11/22/17 06:29 Dose: 1 gm Metoprolol Succinate (Toprol Xl) 100 mg PO DAILY [facility] Last Admin: 11/21/17 07:46 Dose: 100 mg Miconazole (Desenex 2%) 0 gm TOP BID [facility] Last Admin: 11/21/17 19:41 Dose: 1 applic Multivitamins/Minerals (Thera M Plus) 1 tab PO DAILY [facility] Last Admin: 11/21/17 07:43 Dose: 1 tab Non-Formulary Medication (Lysine) 1,000 mg PO DAILY PRN PRN Reason: COLD SORES? Non-Formulary Medication (Biotin [Biotin]) 1 mg PO DAILY [facility] Ondansetron HCl (Zofran Odt) 4 mg PO Q6H PRN PRN Reason: Nausea/Vomiting Last Admin: 11/22/17 06:58 Dose: 4 mg Oxycodone HCl (Oxycodone) 5 mg PO Q4H PRN PRN Reason: Pain Last Admin: 11/21/17 21:29 Dose: 5 mg Polyethylene Glycol (Miralax) 17 gm PO DAILY [facility] Last Admin: 11/21/17 09:28 Dose: Not Given Potassium Chloride (Klor-Con) 20 meq PO DAILY [facility] Last Admin: 11/21/17 07:44 Dose: 20 meq Sertraline HCl (Zoloft) 100 mg PO DAILY [facility] Last Admin: 11/21/17 07:46 Dose: 100 mg Sodium Chloride (Saline Flush) 10 ml FLUSH ASDIRECTED PRN PRN Reason: Keep Vein Open Last Admin: 11/22/17 06:29 Dose: 10 ml Vancomycin HCl (Vancocin 125 Mg/2.5 Ml Soln) 125 mg PO Q8H [facility] Last Admin: 11/22/17 06:29 Dose: 125 mg Warfarin Sodium (Coumadin) 5 mg PO TUFR@1999 [facility] Last Admin: 11/20/17 19:52 Dose: 5 mg Warfarin Sodium (Coumadin) 7.5 mg PO SUMOWETHSA@1999 [facility] Last Admin: 11/21/17 19:41 Dose: 7.5 mg Discontinued Medications Albuterol/Ipratropium (Duoneb 3.0-0.5 Mg/3 Ml) 3 ml NEB Q6HRRT PRN PRN Reason: Shortness of Breath Atorvastatin Calcium (Lipitor) 10 mg PO BEDTIME [facility] Calamine/Phenol (Calmoseptine) gm TOP BEDTIME [facility] Ceftriaxone Sodium (Rocephin) 1 gm IVPUSH ONETIME ONE Stop: 11/20/17 07:32 Last Admin: 11/20/17 08:05 Dose: 1 gm Celecoxib (Celebrex) 100 mg PO DAILY [facility] Diltiazem HCl (Cardizem Cd) 240 mg PO DAILY [facility] Fluticasone Propionate (Flonase) gm NASBOTH BID [facility] Furosemide (Lasix) 20 mg PO DAILY [facility] Last Admin: 11/21/17 07:44 Dose: 20 mg Furosemide (Lasix) 20 mg PO DAILY [facility] Furosemide (Lasix) 20 mg IV ONETIME ONE Stop: 11/22/17 08:38 Sodium Chloride (Normal Saline) 1,000 mls @ 100 mls/hr IV ASDIRECTED [facility] Last Admin: 11/20/17 08:05 Dose: 100 mls/hr Sodium Chloride (Normal Saline) 1,000 mls @ 75 mls/hr IV ASDIRECTED [facility] Last Admin: 11/21/17 19:45 Dose: 75 mls/hr Meropenem 1 gm/ Sodium (Chloride) 100 mls @ 200 mls/hr IV ONETIME ONE Stop: 11/20/17 15:29 Last Admin: 11/20/17 15:22 Dose: 200 mls/hr Miconazole (Desenex 2%) gm TOP BID [facility] Mupirocin (Bactroban Oint) 0 gm TOP TID [facility] Last Admin: 11/21/17 11:18 Dose: Not Given Non-Formulary Medication (Lysine) 1,000 mg PO DAILY PRN PRN Reason: COLD SORES? Non-Formulary Medication (Biotin [Biotin]) 1 mg PO DAILY [facility] Non-Formulary Medication (Calcium Carb & Citrate/Vit D3 [Citracal + D Er]) 1 tab PO DAILY [facility] Non-Formulary Medication (Cholecalciferol (Vitamin D3)) 5,000 unit PO DAILY [facility] Non-Formulary Medication (Cranberry Extract [Cranberry]) 500 mg PO DAILY [facility] Non-Formulary Medication (Lysine [Lysine]) 1,000 mg PO DAILY PRN PRN Reason: Other Non-Formulary Medication (Metoprolol Succinate [Toprol Xl]) 100 mg PO DAILY [facility] Non-Formulary Medication (Multivitamin With Minerals [Multivitamins With Minerals]) 1 tab PO DAILY [facility] Non-Formulary Medication (Mupirocin Cream [Bactroban Crm]) 1 applic TOP TID [facility] Non-Formulary Medication ([place]-3 Fatty Acids [[place]-3]) 1,000 mg PO DAILY [facility] Non-Formulary Medication (Peg 400/Propylene Glycol [Systane Lubricant]) 1 drop EYELF ASDIRECTED PRN PRN Reason: Dry Eyes Non-Formulary Medication (Valsartan [Diovan]) 320 mg PO DAILY [facility] Oxycodone HCl (Oxycodone) 5 mg PO Q4H PRN PRN Reason: Pain Polyethylene Glycol (Miralax) 17 gm PO DAILY [facility] Potassium Chloride (Klor-Con) 20 meq PO DAILY [facility] Sertraline HCl (Zoloft) 100 mg PO DAILY [facility] Warfarin Sodium (Coumadin) 5 mg PO TUFR [facility] Last Admin: 11/20/17 17:17 Dose: Not Given Warfarin Sodium (Coumadin) 7.5 mg PO SUMOWETHSA [facility] - Exam Quality Assessment: Supplemental Oxygen General: Alert, Oriented Neck: Supple Lungs: Rales Cardiovascular: Irregular Rhythm GI/Abdominal Exam: Normal Bowel Sounds - Problem List & Annotations (1) UTI (urinary tract infection) SNOMED Code(s): 42566756 Code(s): N39.0 - URINARY TRACT INFECTION, SITE NOT SPECIFIED Status: Acute Current Visit: Yes Qualifiers: Urinary tract infection type: site unspecified Hematuria presence: without hematuria Qualified Code(s): N39.0 - Urinary tract infection, site not specified Annotation/Comment:: Urine culture returns with growth of two organisms. First is identified as e.coli (2) Sepsis SNOMED Code(s): 41576218 Code(s): A41.9 - SEPSIS, UNSPECIFIED ORGANISM Status: Acute Priority: Medium Current Visit: Yes Qualifiers: Sepsis type: Escherichia coli Qualified Code(s): A41.51 - Sepsis due to Escherichia coli [E. coli] Annotation/Comment:: 1. hydrate 2. IV antibiotics to be determined by attending doctor 3. 1 GM IV rocephin given in ER 4. Monitor CBC, Lactic, CRP 5. Contact precautions (3) A-fib SNOMED Code(s): 99542797 Code(s): I48.91 - UNSPECIFIED ATRIAL FIBRILLATION Status: Chronic Priority: Medium Current Visit: No Qualifiers: Atrial fibrillation type: chronic Qualified Code(s): I48.2 - Chronic atrial fibrillation (4) CHF (congestive heart failure) SNOMED Code(s): 37055626 Code(s): I50.9 - HEART FAILURE, UNSPECIFIED Status: Acute Priority: Medium Current Visit: No Qualifiers: Qualified Code(s): I50.32 - Chronic diastolic (congestive) heart failure Annotation/Comment:: Acute on chronic (5) Diabetes mellitus type 2 SNOMED Code(s): 55724996 Code(s): E11.9 - TYPE 2 DIABETES MELLITUS WITHOUT COMPLICATIONS Status: Chronic Priority: Medium Current Visit: No (6) Multiple sclerosis SNOMED Code(s): 92836465 Code(s): G35 - MULTIPLE SCLEROSIS Status: Chronic Priority: Medium Current Visit: No (7) Rheumatoid arthritis SNOMED Code(s): 49705893 Code(s): M06.9 - RHEUMATOID ARTHRITIS, UNSPECIFIED Status: Chronic Priority: Medium Current Visit: No Qualifiers: Rheumatoid factor presence: unspecified presence Laterality: unspecified laterality (8) Weakness SNOMED Code(s): 15008075 Code(s): R53.1 - WEAKNESS Status: Acute Priority: Medium Current Visit : Yes - Problem List Review Problem List Initiated/Reviewed/Updated: Yes - My Orders Last 24 Hours: My Active Orders 11/21/17 08:00 Biotin [Biotin] 1 mg PO DAILY Calcium Citrate/Vitamin D3 [Calcium Citrate + D] 1 tab PO DAILY Celecoxib [CeleBREX] 100 mg PO DAILY Cholecalciferol (Vitamin D3) [Vitamin D3] 5,000 units PO DAILY Cranberry 500 mg PO DAILY Diltiazem [Cardizem CD] 240 mg PO DAILY Fish Oil/[place]-3 Fatty Acids [Fish Oil] 1 gm PO DAILY Losartan [Cozaar] 150 mg PO DAILY Metoprolol Succinate [Toprol XL] 100 mg PO DAILY Multivitamins w-Iron/Ca/FA/Min [Thera M Plus] 1 tab PO DAILY Polyethylene Glycol 3350 [MiraLAX] 17 gm PO DAILY Potassium Chloride [Klor-Con] 20 meq PO DAILY Sertraline [Zoloft] 100 mg PO DAILY 11/21/17 20:00 Warfarin [Coumadin] 7.5 mg PO SUMOWETHSA@199911/22/17 06:50 INR,PT,PROTHROMBIN TIME [COAG] Routine 11/22/17 16:00 Furosemide [Lasix] 20 mg PO BIDDIURETIC 11/23/17 06:30 BASIC METABOLIC PANEL,BMP [CHEM] Routine - Assessment Assessment:: Sepsis secondary to UTI - Blood cultures are negative; Urine culture has two organisms Weakness - improving Afib - chronic CHF - acute on chronic with weight gain and hypoxia DM Type II - stable MS - stable RA - stable - Plan Plan:: 1. Saline lock IV 2. D/C telemetry 3. Lasix 20 mg IV now and increase oral lasix to 20 mg BID 4. Await identification of second organism 5. BMP in AM
[2017-11-22] MEDS: Cholecalciferol (Vitamin D3) 1,000 Unit Tab PO SCH (09:46)
[2017-11-22] MEDS: Diltiazem 240 MG Cap.CD PO SCH (09:47)
[2017-11-22] MEDS: Cranberry 500 MG Cap PO SCH (09:47)
[2017-11-22] MEDS: Calcium Citrate/Vitamin D3 315 MG-250 Unit Tab PO SCH (09:48)
[2017-11-22] MEDS: Celecoxib 100 MG Cap PO SCH (09:48)
[2017-11-22] MEDS: Multivitamins with Iron/Calcium/Folic Acid/Minerals Tab PO SCH (09:48)
[2017-11-22] MEDS: Metoprolol Succinate 50 MG Tab.ER PO SCH (09:48)
[2017-11-22] MEDS: Acetaminophen 500 MG Tab PO SCH ×2 (09:49→21:21)
[2017-11-22] MEDS: Sertraline 100 MG Tab PO SCH (09:50)
[2017-11-22] MEDS: Losartan 50 MG Tab PO SCH (09:51)
[2017-11-22] MEDS: Fish Oil/Omega-3 Fatty Acids 1 Gm Cap PO SCH (09:53)
[2017-11-22] MEDS: Miconazole 2% Top Powder 45 GM Container TOP SCH ×2 (09:53→21:22)
[2017-11-22] MEDS: Fluticasone Propionate Nasal Spray 16 GM Bottle NASBOTH SCH ×2 (09:54→21:21)
[2017-11-22] MEDS: Potassium Chloride 20 MEQ Packet PO SCH (10:07)
[2017-11-22] MEDS: Furosemide 20 MG Tab PO SCH ×2 (10:23→15:57)
[2017-11-22] MEDS: Polyethylene Glycol 3350 Powder 17 GM Packet PO SCH (17:34)
[2017-11-22] MEDS: Polyethylene Glycol 3350 Powder 238 GM Bot PO SCH (17:44)
[2017-11-22] MEDS: atorvaSTATin 10 MG Tab PO SCH (21:20)
[2017-11-22] MEDS: Warfarin 2.5 MG Tab PO SCH (21:20)
[2017-11-22] MEDS: Menthol/Zinc Oxide Ointment 3.5 GM Tube TOP SCH (21:26)
[2017-11-22] MEDS: oxyCODONE 5 MG Tab PO PRN (21:28)
[2017-11-23] MEDS: Meropenem 1 GM SDV IV SCH (06:13)
[2017-11-23] MEDS: Vancomycin 125 MG/2.5 ML Oral Solution 2.5 ML UD Cup PO SCH (06:13)
[2017-11-23] MEDS: Albuterol/Ipratropium 3.0-0.5 MG/3 ML Neb Soln NEB PRN (07:16)
[2017-11-23] MEDS: Polyethylene Glycol 3350 Powder 17 GM Packet PO SCH (08:46)
[2017-11-23] MEDS: Cholecalciferol (Vitamin D3) 1,000 Unit Tab PO SCH (08:47)
[2017-11-23] MEDS: Furosemide 20 MG Tab PO SCH (08:47)
[2017-11-23] MEDS: Fish Oil/Omega-3 Fatty Acids 1 Gm Cap PO SCH (08:47)
[2017-11-23] MEDS: Calcium Citrate/Vitamin D3 315 MG-250 Unit Tab PO SCH (08:47)
[2017-11-23] MEDS: Acetaminophen 500 MG Tab PO SCH (08:47)
[2017-11-23] MEDS: Diltiazem 240 MG Cap.CD PO SCH (08:47)
[2017-11-23] MEDS: Sertraline 100 MG Tab PO SCH (08:47)
[2017-11-23] MEDS: Cranberry 500 MG Cap PO SCH (08:47)
[2017-11-23] MEDS: Fluticasone Propionate Nasal Spray 16 GM Bottle NASBOTH SCH (08:48)
[2017-11-23] MEDS: Celecoxib 100 MG Cap PO SCH (08:48)
[2017-11-23] MEDS: Metoprolol Succinate 50 MG Tab.ER PO SCH (08:48)
[2017-11-23] MEDS: Miconazole 2% Top Powder 45 GM Container TOP SCH (08:48)
[2017-11-23] MEDS: Losartan 50 MG Tab PO SCH (08:48)
[2017-11-23] MEDS: Multivitamins with Iron/Calcium/Folic Acid/Minerals Tab PO SCH (08:48)
[2017-11-23] MEDS: Potassium Chloride 20 MEQ Packet PO SCH (08:49)
[2017-11-23 10:25] VITALS: BP 150/79
--- NOTE | 2017-11-23 12:41 | PCM.DCSUM1 ---
Discharge Summary - Hospital Course Free Text/Narrative:: 72-year-old male admitted to the hospital through the emergency room with concerns of fever and weakness. He was found to have a urinary tract infection as well as elevated white count. He was subsequently admitted for urosepsis. - Discharge Data Discharge Date: 11/23/17 Discharge Disposition: DC/Tfer W/I Hosp To [facility] Condition: Good - Discharge Diagnosis/Problem(s) (1) UTI (urinary tract infection) SNOMED Code(s): 09193194 ICD Code: N39.0 - URINARY TRACT INFECTION, SITE NOT SPECIFIED Status: Acute Problem Details: Urine culture returns with growth of two organisms. First is identified as e.coli Qualifiers: Urinary tract infection type: site unspecified Hematuria presence: without hematuria Qualified Code(s): N39.0 - Urinary tract infection, site not specified (2) Sepsis SNOMED Code(s): 42950622 ICD Code: A41.9 - SEPSIS, UNSPECIFIED ORGANISM Status: Acute Priority: Medium Problem Details: 1. hydrate 2. IV antibiotics to be determined by attending doctor 3. 1 GM IV rocephin given in ER 4. Monitor CBC, Lactic, CRP 5. Contact precautions Qualifiers: Sepsis type: Escherichia coli Qualified Code(s): A41.51 - Sepsis due to Escherichia coli [E. coli] (3) A-fib SNOMED Code(s): 08623981 ICD Code: I48.91 - UNSPECIFIED ATRIAL FIBRILLATION Status: Chronic Priority: Medium Qualifiers: Atrial fibrillation type: chronic Qualified Code(s): I48.2 - Chronic atrial fibrillation (4) CHF (congestive heart failure) SNOMED Code(s): 09088335 ICD Code: I50.9 - HEART FAILURE, UNSPECIFIED Status: Acute Priority: Medium Problem Details: Acute on chronic Qualifiers: Qualified Code(s): I50.32 - Chronic diastolic (congestive) heart failure (5) Diabetes mellitus type 2 SNOMED Code(s): 59492311 ICD Code: E11.9 - TYPE 2 DIABETES MELLITUS WITHOUT COMPLICATIONS Status: Chronic Priority: Medium (6) Multiple sclerosis SNOMED Code(s): 97550357 ICD Code: G35 - MULTIPLE SCLEROSIS Status: Chronic Priority: Medium (7) Rheumatoid arthritis SNOMED Code(s): 87961213 ICD Code: M06.9 - RHEUMATOID ARTHRITIS, UNSPECIFIED Status: Chronic Priority: Medium Qualifiers: Rheumatoid factor presence: unspecified presence Laterality: unspecified laterality (8) Weakness SNOMED Code(s): 36564641 ICD Code: R53.1 - WEAKNESS Status: Acute Priority: Medium - Patient Summary/Data Consults: Consultations 11/20/17 15:57 Consult to Case Management [CONS] Routine OT Evaluation and Treatment [CONS] Routine PT Evaluation and Treatment [CONS] Routine - Patient Instructions Diet: Regular Diet as Tolerated - Discharge Plan Home Medications: Home Meds Cholecalciferol (Vitamin D3) [Vitamin D3] 5,000 unit PO DAILY 09/06/13 [History] Fluticasone Propionate [Flonase] 1 spray NASBOTH BID 09/06/13 [History] Lorton-3 Fatty Acids [Lorton-3] 1,000 mg PO DAILY 09/06/13 [History] Sertraline [Zoloft] 100 mg PO DAILY 09/06/13 [History] PEG 400/Propylene Glycol [Systane Lubricant] 1 drop EYELF ASDIRECTED PRN [History] oxyCODONE 5 mg PO Q4H PRN 06/15/15 [History] Cranberry Extract [Cranberry] 500 mg PO DAILY 11/16/15 [History] Potassium Chloride [Klor-Con] 20 meq PO DAILY #0 11/26/15 [Rx] Valsartan [Diovan] 320 mg PO DAILY #30 tablet 06/15/16 [Rx] Acetaminophen [Acetaminophen Extra Strength] 500 mg PO BID MDD 4000 MG DAILY 08/31 [History] Metoprolol Succinate [Toprol XL] 100 mg PO DAILY 06/30/17 [History] Calcium Carb & Citrate/Vit D3 [Citracal + D ER] 1 tab PO DAILY 07/02/17 [History ] Lysine 1,000 mg PO DAILY PRN 07/02/17 [History] Miconazole [Desenex 2%] 1 applic TOP BID 07/02/17 [History] Diltiazem [Cardizem CD] 240 mg PO DAILY #30 cap.cd 07/05/17 [Rx] Polyethylene Glycol 3350 [MiraLAX] 17 gm PO DAILY packet 07/05/17 [Rx] Biotin [Biotin] 1 mg PO DAILY 07/19/17 [History] Warfarin [Coumadin] 5 mg PO TUFR 07/19/17 [History] Albuterol/Ipratropium [DuoNeb 3.0-0.5 MG/3 ML] 3 ml NEB Q6HRRT PRN 07/20/17 [ History] Multivitamin with Minerals [Multivitamins with Minerals] 1 tab PO DAILY [History] Celecoxib [CeleBREX] 100 mg PO DAILY 11/20/17 [History] Menthol/Zinc Oxide [Calmoseptine] 1 applic TOP BEDTIME 11/20/17 [History] Warfarin [Coumadin] 7.5 mg PO SUMOWETHSA 11/20/17 [History] atorvaSTATin [Lipitor] 10 mg PO BEDTIME 11/20/17 [History] Forms: ED Department Discharge Referrals: Beatrice Benitez DO [Primary Care Provider] - - Discharge Summary/Plan Comment DC Time >30 min.: No - General Info Date of Service: 11/23/17 - Review of Systems General: Reports: Weakness. Denies: Fever HEENT: Reports: No Symptoms Pulmonary: Denies: Shortness of Breath Cardiovascular: Denies: Chest Pain Gastrointestinal: Denies: Abdominal Pain Genitourinary: Denies: Dysuria Skin: Reports: No Symptoms Neurological: Reports: Weakness - Patient Data Vitals - Most Recent: Last Vital Signs Temp 37.1 C 11/23/17 10:00 Pulse 62 11/23/17 10:00 Resp 20 11/23/17 10:00 BP 150/79 H 11/23/17 10:00 Pulse Ox 92 L 11/23/17 10:00 Weight - Most Recent: 110.767 kg I&O - Last 24 hours: Intake & Output 11/22/17 11/23/17 11/23/17 22:59 06:59 14:59 Intake Total 800 240 Output Total 1500 1000 Balance -1500 -200 240 Lab Results - Last 24 hrs: Laboratory Results - last 24 hr 11/22/17 11/23/17 11/23/17 Range/Units 17:27 06:15 06:48 Sodium 144 (136-145) mmol/L Potassium 4.5 (3.5-5.1) mmol/L Chloride 106 (98-107) mmol/L Carbon Dioxide 29 (21-32) mmol/L Anion Gap 13.5 (10-20) mmol/L BUN 14 (7-18) mg/dL Creatinine 1.3 (0.70-1.30) mg/dL Est Cr Clr Drug Dosing 57.21 mL/min Estimated GFR (MDRD) 54 Glucose 106 (74-106) mg/dL POC Glucose 93 110 H (74-106) mg/dL Calcium 8.4 L (8.5-10.1) mg/dL RBOBIE Results - Last 24 hrs: Microbiology 11/20/17 08:15 Aerobic Blood Culture - Preliminary Blood - Venous - Lab Draw NO GROWTH AFTER 3 DAYS Anaerobic Blood Culture - Final 11/20/17 08:05 Aerobic Blood Culture - Preliminary Blood - Venous NO GROWTH AFTER 3 DAYS Anaerobic Blood Culture - Preliminary NO GROWTH AFTER 3 DAYS 11/20/17 07:48 Urine Culture - Preliminary Urine, Catheterized (Esbl) Escherichia Coli Escherichia Coli Klebsiella Oxytoca Med Orders - Current: Current Medications Discontinued Medications Acetaminophen (Tylenol Extra Strength) 500 mg PO BID [facility] Last Admin: 11/23/17 08:47 Dose: 500 mg Albuterol/Ipratropium (Duoneb 3.0-0.5 Mg/3 Ml) 3 ml NEB Q6HRRT PRN PRN Reason: sob Last Admin: 11/23/17 07:16 Dose: 3 ml Albuterol/Ipratropium (Duoneb 3.0-0.5 Mg/3 Ml) 3 ml NEB Q6HRRT PRN PRN Reason: Shortness of Breath Artificial Tears (Tears Naturale Free) 1 each EYEBOTH ASDIRECTED PRN PRN Reason: Dry Eyes Last Admin: 11/20/17 19:53 Dose: 1 each Atorvastatin Calcium (Lipitor) 10 mg PO BEDTIME [facility] Last Admin: 11/22/17 21:20 Dose: 10 mg Atorvastatin Calcium (Lipitor) 10 mg PO BEDTIME [facility] Calamine/Phenol (Calmoseptine) 0 gm TOP BEDTIME [facility] Last Admin: 11/22/17 21:26 Dose: Not Given Calamine/Phenol (Calmoseptine) gm TOP BEDTIME [facility] Calcium Citrate (Calcium Citrate + D) 1 tab PO DAILY [facility] Last Admin: 11/23/17 08:47 Dose: 1 tab Ceftriaxone Sodium (Rocephin) 1 gm IVPUSH ONETIME ONE Stop: 11/20/17 07:32 Last Admin: 11/20/17 08:05 Dose: 1 gm Celecoxib (Celebrex) 100 mg PO DAILY [facility] Last Admin: 11/23/17 08:48 Dose: 100 mg Celecoxib (Celebrex) 100 mg PO DAILY [facility] Cholecalciferol (Vitamin D3) 5,000 units PO DAILY [facility] Last Admin: 11/23/17 08:47 Dose: 5,000 units Cranberry (Cranberry) 500 mg PO DAILY [facility] Last Admin: 11/23/17 08:47 Dose: 500 mg Diltiazem HCl (Cardizem Cd) 240 mg PO DAILY [facility] Last Admin: 11/23/17 08:47 Dose: 240 mg Diltiazem HCl (Cardizem Cd) 240 mg PO DAILY [facility] Fish Oil (Fish Oil) 1 gm PO DAILY [facility] Last Admin: 11/23/17 08:47 Dose: 1 gm Fluticasone Propionate (Flonase) 0 gm NASBOTH BID [facility] Last Admin: 11/23/17 08:48 Dose: 1 spray Fluticasone Propionate (Flonase) gm NASBOTH BID [facility] Furosemide (Lasix) 20 mg PO DAILY [facility] Last Admin: 11/22/17 10:23 Dose: Not Given Furosemide (Lasix) 20 mg PO DAILY [facility] Furosemide (Lasix) 20 mg IV ONETIME ONE Stop: 11/22/17 08:38 Last Admin: 11/22/17 10:19 Dose: 20 mg Furosemide (Lasix) 20 mg PO BIDDIURETIC [facility] Last Admin: 11/23/17 08:47 Dose: 20 mg Sodium Chloride (Normal Saline) 1,000 mls @ 100 mls/hr IV ASDIRECTED [facility] Last Admin: 11/20/17 08:05 Dose: 100 mls/hr Sodium Chloride (Normal Saline) 1,000 mls @ 75 mls/hr IV ASDIRECTED [facility] Last Admin: 11/21/17 19:45 Dose: 75 mls/hr Meropenem 1 gm/ Sodium (Chloride) 100 mls @ 200 mls/hr IV ONETIME ONE Stop: 11/20/17 15:29 Last Admin: 11/20/17 15:22 Dose: 200 mls/hr Losartan Potassium (Cozaar) 150 mg PO DAILY [facility] Last Admin: 11/23/17 08:48 Dose: 150 mg Meropenem (Merrem) 1 gm IV Q8H [facility] Last Admin: 11/23/17 06:13 Dose: 1 gm Metoprolol Succinate (Toprol Xl) 100 mg PO DAILY [facility] Last Admin: 11/23/17 08:48 Dose: 100 mg Miconazole (Desenex 2%) 0 gm TOP BID [facility] Last Admin: 11/23/17 08:48 Dose: 1 applic Miconazole (Desenex 2%) gm TOP BID [facility] Multivitamins/Minerals (Thera M Plus) 1 tab PO DAILY [facility] Last Admin: 11/23/17 08:48 Dose: 1 tab Mupirocin (Bactroban Oint) 0 gm TOP TID [facility] Last Admin: 11/21/17 11:18 Dose: Not Given Non-Formulary Medication (Lysine) 1,000 mg PO DAILY PRN PRN Reason: COLD SORES? Non-Formulary Medication (Biotin [Biotin]) 1 mg PO DAILY [facility] Non-Formulary Medication (Calcium Carb & Citrate/Vit D3 [Citracal + D Er]) 1 tab PO DAILY [facility] Non-Formulary Medication (Cholecalciferol (Vitamin D3)) 5,000 unit PO DAILY [facility] Non-Formulary Medication (Cranberry Extract [Cranberry]) 500 mg PO DAILY [facility] Non-Formulary Medication (Lysine [Lysine]) 1,000 mg PO DAILY PRN PRN Reason: Other Non-Formulary Medication (Metoprolol Succinate [Toprol Xl]) 100 mg PO DAILY [facility] Non-Formulary Medication (Multivitamin With Minerals [Multivitamins With Minerals]) 1 tab PO DAILY [facility] Non-Formulary Medication (Mupirocin Cream [Bactroban Crm]) 1 applic TOP TID [facility] Non-Formulary Medication (Lorton-3 Fatty Acids [Lorton-3]) 1,000 mg PO DAILY [facility] Non-Formulary Medication (Peg 400/Propylene Glycol [Systane Lubricant]) 1 drop EYELF ASDIRECTED PRN PRN Reason: Dry Eyes Non-Formulary Medication (Valsartan [Diovan]) 320 mg PO DAILY [facility] Non-Formulary Medication (Lysine) 1,000 mg PO DAILY PRN PRN Reason: COLD SORES? Non-Formulary Medication (Biotin [Biotin]) 1 mg PO DAILY [facility] Ondansetron HCl (Zofran Odt) 4 mg PO Q6H PRN PRN Reason: Nausea/Vomiting Last Admin: 11/22/17 06:58 Dose: 4 mg Oxycodone HCl (Oxycodone) 5 mg PO Q4H PRN PRN Reason: Pain Last Admin: 11/22/17 21:28 Dose: 5 mg Oxycodone HCl (Oxycodone) 5 mg PO Q4H PRN PRN Reason: Pain Polyethylene Glycol (Miralax) 17 gm PO DAILY [facility] Last Admin: 11/22/17 17:44 Dose: Not Given Polyethylene Glycol (Miralax) 17 gm PO DAILY [facility] Polyethylene Glycol (Miralax) 17 gm PO DAILY [facility] Last Admin: 11/23/17 08:46 Dose: 17 gm Potassium Chloride (Klor-Con) 20 meq PO DAILY [facility] Last Admin: 11/23/17 08:49 Dose: 20 meq Potassium Chloride (Klor-Con) 20 meq PO DAILY [facility] Sertraline HCl (Zoloft) 100 mg PO DAILY [facility] Last Admin: 11/23/17 08:47 Dose: 100 mg Sertraline HCl (Zoloft) 100 mg PO DAILY [facility] Sodium Chloride (Saline Flush) 10 ml FLUSH ASDIRECTED PRN PRN Reason: Keep Vein Open Last Admin: 11/22/17 06:29 Dose: 10 ml Vancomycin HCl (Vancocin 125 Mg/2.5 Ml Soln) 125 mg PO Q8H [facility] Last Admin: 11/23/17 06:13 Dose: 125 mg Warfarin Sodium (Coumadin) 5 mg PO TUFR@1999 [facility] Last Admin: 11/20/17 19:52 Dose: 5 mg Warfarin Sodium (Coumadin) 7.5 mg PO SUMOWETHSA@1999 [facility] Last Admin: 11/22/17 21:20 Dose: 7.5 mg Warfarin Sodium (Coumadin) 5 mg PO TUFR [facility] Last Admin: 11/20/17 17:17 Dose: Not Given Warfarin Sodium (Coumadin) 7.5 mg PO SUMOWETHSA [facility] - Exam Quality Assessment: Reports: Supplemental Oxygen General: Reports: Alert, Oriented Lungs: Reports: Clear to Auscultation Cardiovascular: Reports: Irregular Rhythm GI/Abdominal Exam: Normal Bowel Sounds Skin: Reports: Warm, Dry Psy/Mental Status: Reports: Alert
== END 2017-11-23 10:25 | disposition swing bed (61) | DRG 871 ==
LOC: VM.ED 07:09 → VM.MS 09:52
PROVIDERS: ADMIT Family Medicine; ATTEND Family Medicine
DX: A41.9 Sepsis, unspecified organism (principal); A41.51 Sepsis due to Escherichia coli [E. coli]; I50.9 Heart failure, unspecified; I50.33 Acute on chronic diastolic (congestive) heart failure; N39.0 Urinary tract infection, site not specified; B96.20 Unspecified Escherichia coli [E. coli] as the cause of diseases classified elsewhere; I48.2 Chronic atrial fibrillation; B96.89 Other specified bacterial agents as the cause of diseases classified elsewhere; E11.9 Type 2 diabetes mellitus without complications; I11.0 Hypertensive heart disease with heart failure; I48.91 Unspecified atrial fibrillation; B37.89 Other sites of candidiasis; M06.9 Rheumatoid arthritis, unspecified; G47.30 Sleep apnea, unspecified; G35 Multiple sclerosis; N31.9 Neuromuscular dysfunction of bladder, unspecified; M19.90 Unspecified osteoarthritis, unspecified site; F32.9 Major depressive disorder, single episode, unspecified; R53.83 Other fatigue; R50.9 Fever, unspecified; R53.1 Weakness; R61 Generalized hyperhidrosis; Z88.6 Allergy status to analgesic agent; Z79.01 Long term (current) use of anticoagulants; Z87.440 Personal history of urinary (tract) infections; Z87.01 Personal history of pneumonia (recurrent); Z79.891 Long term (current) use of opiate analgesic; Z79.899 Other long term (current) drug therapy
CPT/HCPCS: 36415; 51702; 80048; 80053; 81001; 82962; 83605; 83880; 85025; 85610; 86140; 87040; 87086; 87088; 87186; 94640; 94760; 96361; 96374; 97110-GP; 97161-GP; 97165-GO; 97530-GP; 99285; A9270-GY; J0696; J1940; J2185; J7030; J7050

== ENCOUNTER 2017-11-23 10:01 | Inpatient (IN) | payer MEDICARE, BC ==
[2017-11-23] MEDS ORDERED: LYSINE 1000 MG PO PRN (12:44)
[2017-11-23] MEDS ORDERED: Ondansetron 4 MG Tab.DIS PO PRN (13:41)
[2017-11-23] MEDS: Meropenem 1 GM SDV IV SCH ×2 (15:33→23:37)
[2017-11-23] MEDS: Vancomycin 125 MG/2.5 ML Oral Solution 2.5 ML UD Cup PO SCH ×2 (15:33→23:37)
[2017-11-23] MEDS: Furosemide 20 MG Tab PO SCH (15:33)
[2017-11-23] MEDS: Acetaminophen 500 MG Tab PO SCH (20:50)
[2017-11-23] MEDS: Warfarin 5 MG Tab PO SCH (20:50)
[2017-11-23] MEDS: atorvaSTATin 10 MG Tab PO SCH (20:52)
[2017-11-23] MEDS: oxyCODONE 5 MG Tab PO PRN (20:52)
[2017-11-23] MEDS: Menthol/Zinc Oxide Ointment 3.5 GM Tube TOP SCH (20:53)
[2017-11-23] MEDS: Fluticasone Propionate Nasal Spray 16 GM Bottle NASBOTH SCH (20:53)
[2017-11-23] MEDS: Miconazole 2% Top Powder 45 GM Container TOP SCH (20:55)
[2017-11-24] MEDS: Meropenem 1 GM SDV IV SCH ×3 (06:35→23:47)
[2017-11-24] MEDS: Vancomycin 125 MG/2.5 ML Oral Solution 2.5 ML UD Cup PO SCH ×3 (06:35→23:47)
[2017-11-24] MEDS: Albuterol/Ipratropium 3.0-0.5 MG/3 ML Neb Soln NEB PRN ×2 (07:10→20:20)
[2017-11-24] MEDS: Fluticasone Propionate Nasal Spray 16 GM Bottle NASBOTH SCH ×2 (08:16→20:20)
[2017-11-24] MEDS: Miconazole 2% Top Powder 45 GM Container TOP SCH ×2 (08:16→20:21)
[2017-11-24] MEDS: Potassium Chloride 20 MEQ Packet PO SCH (08:16)
[2017-11-24] MEDS: Cranberry 500 MG Cap PO SCH (08:17)
[2017-11-24] MEDS: Acetaminophen 500 MG Tab PO SCH ×2 (08:17→20:18)
[2017-11-24] MEDS: Cholecalciferol (Vitamin D3) 1,000 Unit Tab PO SCH (08:17)
[2017-11-24] MEDS: Fish Oil/Omega-3 Fatty Acids 1 Gm Cap PO SCH (08:17)
[2017-11-24] MEDS: Multivitamins with Iron/Calcium/Folic Acid/Minerals Tab PO SCH (08:17)
[2017-11-24] MEDS: Calcium Citrate/Vitamin D3 315 MG-250 Unit Tab PO SCH (08:17)
[2017-11-24] MEDS: Furosemide 20 MG Tab PO SCH ×3 (08:17→14:59)
[2017-11-24] MEDS: Diltiazem 240 MG Cap.CD PO SCH (08:17)
[2017-11-24] MEDS: Metoprolol Succinate 50 MG Tab.ER PO SCH (08:18)
[2017-11-24] MEDS: BIOTIN 1 MG PO SCH (08:18)
[2017-11-24] MEDS: Losartan 50 MG Tab PO SCH (08:18)
[2017-11-24] MEDS: Sertraline 100 MG Tab PO SCH (08:18)
[2017-11-24] MEDS: Celecoxib 100 MG Cap PO SCH (08:18)
[2017-11-24] MEDS: Polyethylene Glycol 3350 Powder 17 GM Packet PO SCH (08:19)
[2017-11-24] MEDS ORDERED: Furosemide 20 MG/2 ML VIAL IV ONE (16:00)
[2017-11-24] MEDS: Warfarin 2.5 MG Tab PO SCH (20:20)
[2017-11-24] MEDS: atorvaSTATin 10 MG Tab PO SCH (20:20)
[2017-11-24] MEDS: oxyCODONE 5 MG Tab PO PRN (20:20)
[2017-11-24] MEDS: Menthol/Zinc Oxide Ointment 3.5 GM Tube TOP SCH (20:25)
[2017-11-24] MEDS: Dextran 70/Hypromellose/PF Ophth Soln 0.9 ML UD EYEBOTH PRN (21:03)
[2017-11-25] MEDS: Meropenem 1 GM SDV IV SCH ×3 (06:27→23:09)
[2017-11-25] MEDS: Vancomycin 125 MG/2.5 ML Oral Solution 2.5 ML UD Cup PO SCH ×3 (06:27→23:09)
[2017-11-25] MEDS: Albuterol/Ipratropium 3.0-0.5 MG/3 ML Neb Soln NEB PRN ×2 (07:08→19:41)
[2017-11-25] MEDS: Fluticasone Propionate Nasal Spray 16 GM Bottle NASBOTH SCH ×2 (07:23→19:43)
[2017-11-25] MEDS: Miconazole 2% Top Powder 45 GM Container TOP SCH ×2 (07:23→19:40)
[2017-11-25] MEDS: Potassium Chloride 20 MEQ Packet PO SCH (07:23)
[2017-11-25] MEDS: Calcium Citrate/Vitamin D3 315 MG-250 Unit Tab PO SCH (07:23)
[2017-11-25] MEDS: Cholecalciferol (Vitamin D3) 1,000 Unit Tab PO SCH (07:24)
[2017-11-25] MEDS: Diltiazem 240 MG Cap.CD PO SCH (07:24)
[2017-11-25] MEDS: Fish Oil/Omega-3 Fatty Acids 1 Gm Cap PO SCH (07:24)
[2017-11-25] MEDS: Multivitamins with Iron/Calcium/Folic Acid/Minerals Tab PO SCH (07:24)
[2017-11-25] MEDS: Metoprolol Succinate 50 MG Tab.ER PO SCH (07:24)
[2017-11-25] MEDS: Cranberry 500 MG Cap PO SCH (07:24)
[2017-11-25] MEDS: BIOTIN 1 MG PO SCH (07:25)
[2017-11-25] MEDS: Acetaminophen 500 MG Tab PO SCH ×2 (07:25→19:41)
[2017-11-25] MEDS: Losartan 50 MG Tab PO SCH (07:25)
[2017-11-25] MEDS: Furosemide 20 MG Tab PO SCH ×2 (07:25→15:04)
[2017-11-25] MEDS: Celecoxib 100 MG Cap PO SCH (07:25)
[2017-11-25] MEDS: Polyethylene Glycol 3350 Powder 17 GM Packet PO SCH (07:27)
[2017-11-25] MEDS: Sertraline 100 MG Tab PO SCH (07:28)
[2017-11-25] MEDS: Menthol/Zinc Oxide Ointment 3.5 GM Tube TOP SCH (19:40)
[2017-11-25] MEDS: Dextran 70/Hypromellose/PF Ophth Soln 0.9 ML UD EYEBOTH PRN (19:41)
[2017-11-25] MEDS: Warfarin 2.5 MG Tab PO SCH (19:41)
[2017-11-25] MEDS: atorvaSTATin 10 MG Tab PO SCH (19:42)
[2017-11-25] MEDS: oxyCODONE 5 MG Tab PO PRN (19:42)
[2017-11-26] MEDS: Vancomycin 125 MG/2.5 ML Oral Solution 2.5 ML UD Cup PO SCH ×3 (06:15→22:56)
[2017-11-26] MEDS: Meropenem 1 GM SDV IV SCH ×3 (06:15→22:56)
[2017-11-26] MEDS: Albuterol/Ipratropium 3.0-0.5 MG/3 ML Neb Soln NEB PRN (07:29)
[2017-11-26] MEDS: Potassium Chloride 20 MEQ Packet PO SCH (08:20)
[2017-11-26] MEDS: Metoprolol Succinate 50 MG Tab.ER PO SCH (08:21)
[2017-11-26] MEDS: Multivitamins with Iron/Calcium/Folic Acid/Minerals Tab PO SCH (08:21)
[2017-11-26] MEDS: Cholecalciferol (Vitamin D3) 1,000 Unit Tab PO SCH (08:21)
[2017-11-26] MEDS: Furosemide 20 MG Tab PO SCH ×2 (08:22→15:19)
[2017-11-26] MEDS: Acetaminophen 500 MG Tab PO SCH ×2 (08:22→20:28)
[2017-11-26] MEDS: Fish Oil/Omega-3 Fatty Acids 1 Gm Cap PO SCH (08:22)
[2017-11-26] MEDS: Diltiazem 240 MG Cap.CD PO SCH (08:22)
[2017-11-26] MEDS: Sertraline 100 MG Tab PO SCH (08:22)
[2017-11-26] MEDS: Calcium Citrate/Vitamin D3 315 MG-250 Unit Tab PO SCH (08:22)
[2017-11-26] MEDS: Losartan 50 MG Tab PO SCH (08:23)
[2017-11-26] MEDS: Cranberry 500 MG Cap PO SCH (08:23)
[2017-11-26] MEDS: Celecoxib 100 MG Cap PO SCH (08:23)
[2017-11-26] MEDS: Miconazole 2% Top Powder 45 GM Container TOP SCH ×2 (08:24→20:31)
[2017-11-26] MEDS: BIOTIN 1 MG PO SCH (08:24)
[2017-11-26] MEDS: Fluticasone Propionate Nasal Spray 16 GM Bottle NASBOTH SCH ×2 (08:27→20:28)
[2017-11-26] MEDS: Polyethylene Glycol 3350 Powder 17 GM Packet PO SCH (08:28)
[2017-11-26] MEDS: Warfarin 2.5 MG Tab PO SCH (20:30)
[2017-11-26] MEDS: atorvaSTATin 10 MG Tab PO SCH (20:32)
[2017-11-26] MEDS: Menthol/Zinc Oxide Ointment 3.5 GM Tube TOP SCH (20:33)
[2017-11-26] MEDS: oxyCODONE 5 MG Tab PO PRN (20:45)
[2017-11-27] MEDS: Meropenem 1 GM SDV IV SCH ×3 (06:19→22:44)
[2017-11-27] MEDS: Vancomycin 125 MG/2.5 ML Oral Solution 2.5 ML UD Cup PO SCH ×3 (06:19→22:44)
[2017-11-27] MEDS: Losartan 50 MG Tab PO SCH (08:58)
[2017-11-27] MEDS: Celecoxib 100 MG Cap PO SCH (08:59)
[2017-11-27] MEDS: Acetaminophen 500 MG Tab PO SCH ×2 (08:59→21:24)
[2017-11-27] MEDS: Metoprolol Succinate 50 MG Tab.ER PO SCH (09:00)
[2017-11-27] MEDS: Cholecalciferol (Vitamin D3) 1,000 Unit Tab PO SCH (09:01)
[2017-11-27] MEDS: Fish Oil/Omega-3 Fatty Acids 1 Gm Cap PO SCH (09:01)
[2017-11-27] MEDS: Fluticasone Propionate Nasal Spray 16 GM Bottle NASBOTH SCH ×2 (09:02→21:25)
[2017-11-27] MEDS: Polyethylene Glycol 3350 Powder 17 GM Packet PO SCH ×2 (09:02→09:09)
[2017-11-27] MEDS: Diltiazem 240 MG Cap.CD PO SCH (09:02)
[2017-11-27] MEDS: Cranberry 500 MG Cap PO SCH (09:02)
[2017-11-27] MEDS: Calcium Citrate/Vitamin D3 315 MG-250 Unit Tab PO SCH (09:02)
[2017-11-27] MEDS: Miconazole 2% Top Powder 45 GM Container TOP SCH ×2 (09:02→21:24)
[2017-11-27] MEDS: Potassium Chloride 20 MEQ Packet PO SCH (09:03)
[2017-11-27] MEDS: Multivitamins with Iron/Calcium/Folic Acid/Minerals Tab PO SCH (09:04)
[2017-11-27] MEDS: Sertraline 100 MG Tab PO SCH (09:04)
[2017-11-27] MEDS: Furosemide 20 MG Tab PO SCH (09:04)
[2017-11-27] MEDS: BIOTIN 1 MG PO SCH (09:05)
--- NOTE | 2017-11-27 10:38 | PCM.PN ---
- General Info Date of Service: 11/27/17 Admission Dx/Problem (Free Text): Urosepsis Subjective Update: Patient remains on swing bed for IV therapy. A was initially admitted acute care for urosepsis. His urine culture grew 3 organisms including ESBL Escherichia coli. The therapeutic plan is for 10 days of IV antibiotics. Patient states he did develop loose stools yesterday. He states that "It does not smell like C. difficile". - Review of Systems General: Reports: Weakness. Denies: Fever Pulmonary: Denies: Shortness of Breath Cardiovascular: Denies: Chest Pain Gastrointestinal: Denies: Abdominal Pain - Patient Data Vitals - Most Recent: Last Vital Signs Temp 36.6 C 11/27/17 06:00 Pulse 55 L 11/27/17 09:00 Resp 19 11/27/17 06:00 BP 157/71 H 11/27/17 09:00 Pulse Ox 91 L 11/27/17 08:00 Weight - Most Recent: 108.409 kg I&O - Last 24 Hours: Intake & Output 11/26/17 11/27/17 11/27/17 22:59 06:59 14:59 Intake Total 120 Output Total 900 1300 Balance -900 -1300 120 Lab Results Last 24 Hours: Laboratory Results - last 24 hr 11/26/17 11/27/17 Range/Units 17:18 06:21 POC Glucose 102 101 (74-106) mg/dL Med Orders - Current: Current Medications Acetaminophen (Tylenol Extra Strength) 500 mg PO BID [facility] Last Admin: 11/27/17 08:59 Dose: 500 mg Albuterol/Ipratropium (Duoneb 3.0-0.5 Mg/3 Ml) 3 ml NEB Q6HRRT PRN PRN Reason: Shortness of Breath Last Admin: 11/26/17 07:29 Dose: 3 ml Artificial Tears (Tears Naturale Free) 1 each EYEBOTH ASDIRECTED PRN PRN Reason: Dry Eyes Last Admin: 11/25/17 19:41 Dose: 1 each Atorvastatin Calcium (Lipitor) 10 mg PO BEDTIME [facility] Last Admin: 11/26/17 20:32 Dose: 10 mg Calamine/Phenol (Calmoseptine) 0 gm TOP BEDTIME [facility] Last Admin: 11/26/17 20:33 Dose: 1 applic Calcium Citrate (Calcium Citrate + D) 1 tab PO DAILY [facility] Last Admin: 11/27/17 09:02 Dose: 1 tab Celecoxib (Celebrex) 100 mg PO DAILY [facility] Last Admin: 11/27/17 08:59 Dose: 100 mg Cholecalciferol (Vitamin D3) 5,000 units PO DAILY [facility] Last Admin: 11/27/17 09:01 Dose: 5,000 units Cranberry (Cranberry) 500 mg PO DAILY [facility] Last Admin: 11/27/17 09:02 Dose: 500 mg Diltiazem HCl (Cardizem Cd) 240 mg PO DAILY [facility] Last Admin: 11/27/17 09:02 Dose: 240 mg Fish Oil (Fish Oil) 1 gm PO DAILY [facility] Last Admin: 11/27/17 09:01 Dose: 1 gm Fluticasone Propionate (Flonase) 0 gm NASBOTH BID [facility] Last Admin: 11/27/17 09:02 Dose: 2 spray Furosemide (Lasix) 20 mg PO BIDDIURETIC [facility] Last Admin: 11/27/17 09:04 Dose: 20 mg Losartan Potassium (Cozaar) 150 mg PO DAILY [facility] Last Admin: 11/27/17 08:58 Dose: 150 mg Meropenem (Merrem) 1 gm IV Q8H [facility] Stop: 11/30/17 15:01 Last Admin: 11/27/17 06:19 Dose: 1 gm Metoprolol Succinate (Toprol Xl) 100 mg PO DAILY [facility] Last Admin: 11/27/17 09:00 Dose: 100 mg Miconazole (Desenex 2%) 0 gm TOP BID [facility] Last Admin: 11/27/17 09:02 Dose: 1 applic Multivitamins/Minerals (Thera M Plus) 1 tab PO DAILY [facility] Last Admin: 11/27/17 09:04 Dose: 1 tab Biotin 1mg (Own (Supply)) 1 mg PO DAILY [facility] Last Admin: 11/27/17 09:05 Dose: 1 mg Lysine [Lysine] 1, (000 Mg (Own Supply)) 1,000 mg PO DAILY PRN PRN Reason: Other Ondansetron HCl (Zofran Odt) 4 mg PO Q6H PRN PRN Reason: NAUSEA Oxycodone HCl (Oxycodone) 5 mg PO Q4H PRN PRN Reason: Pain Last Admin: 11/26/17 20:45 Dose: 5 mg Polyethylene Glycol (Miralax) 17 gm PO DAILY [facility] Last Admin: 11/27/17 09:09 Dose: Not Given Potassium Chloride (Klor-Con) 20 meq PO DAILY [facility] Last Admin: 11/27/17 09:03 Dose: 20 meq Sertraline HCl (Zoloft) 100 mg PO DAILY [facility] Last Admin: 11/27/17 09:04 Dose: 100 mg Vancomycin HCl (Vancocin 125 Mg/2.5 Ml Soln) 125 mg PO Q8H [facility] Last Admin: 11/27/17 06:19 Dose: 125 mg Warfarin Sodium (Coumadin) 7.5 mg PO SuMoWeThSa@BEDTIME [facility] Last Admin: 11/26/17 20:30 Dose: 7.5 mg Warfarin Sodium (Coumadin) 5 mg PO TuFr@BEDTIME [facility] Last Admin: 11/23/17 20:50 Dose: 5 mg Discontinued Medications Furosemide (Lasix) 20 mg IV ONETIME ONE Stop: 11/24/17 16:01 Last Admin: 11/24/17 16:33 Dose: 20 mg - Exam General: Alert Lungs: Clear to Auscultation Cardiovascular: Irregular Rhythm GI/Abdominal Exam: Normal Bowel Sounds - Problem List Review Problem List Initiated/Reviewed/Updated: Yes - Assessment Assessment:: Urosepsis due to ESBL Hypertension Acute on Chronic CHF with preserved EF DM -II RA MS - Plan Plan:: Will continue with IV antibtioics Will monitor diarrhea Will adjust diuretics and blood pressure medications
[2017-11-27] MEDS ORDERED: amLODIPine 2.5 MG Tab PO SCH (10:45)
[2017-11-27] MEDS: Furosemide 40 MG Tab PO SCH (16:35)
[2017-11-27] MEDS: Warfarin 5 MG Tab PO SCH (21:23)
[2017-11-27] MEDS: Menthol/Zinc Oxide Ointment 3.5 GM Tube TOP SCH (21:24)
[2017-11-27] MEDS: atorvaSTATin 10 MG Tab PO SCH (21:24)
[2017-11-28] MEDS: Meropenem 1 GM SDV IV SCH ×3 (06:32→23:05)
[2017-11-28] MEDS: Vancomycin 125 MG/2.5 ML Oral Solution 2.5 ML UD Cup PO SCH ×3 (06:33→23:04)
[2017-11-28] MEDS: Cranberry 500 MG Cap PO SCH (08:03)
[2017-11-28] MEDS: Metoprolol Succinate 50 MG Tab.ER PO SCH (08:03)
[2017-11-28] MEDS: Celecoxib 100 MG Cap PO SCH (08:03)
[2017-11-28] MEDS: Potassium Chloride 20 MEQ Packet PO SCH (08:03)
[2017-11-28] MEDS: Losartan 50 MG Tab PO SCH (08:03)
[2017-11-28] MEDS: Fish Oil/Omega-3 Fatty Acids 1 Gm Cap PO SCH (08:03)
[2017-11-28] MEDS: Sertraline 100 MG Tab PO SCH (08:03)
[2017-11-28] MEDS: Cholecalciferol (Vitamin D3) 1,000 Unit Tab PO SCH (08:04)
[2017-11-28] MEDS: oxyCODONE 5 MG Tab PO PRN ×2 (08:04→20:51)
[2017-11-28] MEDS: Furosemide 40 MG Tab PO SCH ×2 (08:05→15:55)
[2017-11-28] MEDS: Diltiazem 240 MG Cap.CD PO SCH (08:05)
[2017-11-28] MEDS: Calcium Citrate/Vitamin D3 315 MG-250 Unit Tab PO SCH (08:05)
[2017-11-28] MEDS: Multivitamins with Iron/Calcium/Folic Acid/Minerals Tab PO SCH (08:05)
[2017-11-28] MEDS: Acetaminophen 500 MG Tab PO SCH ×2 (08:05→20:49)
[2017-11-28] MEDS: Miconazole 2% Top Powder 45 GM Container TOP SCH ×2 (08:06→20:48)
[2017-11-28] MEDS: BIOTIN 1 MG PO SCH (08:06)
[2017-11-28] MEDS: Fluticasone Propionate Nasal Spray 16 GM Bottle NASBOTH SCH ×2 (08:06→20:50)
[2017-11-28] MEDS: Sodium Chloride 0.9% 10 ML Syringe IV PRN ×2 (14:43→23:05)
[2017-11-28] MEDS: Warfarin 2.5 MG Tab PO SCH (20:49)
[2017-11-28] MEDS: atorvaSTATin 10 MG Tab PO SCH (20:50)
[2017-11-28] MEDS: Menthol/Zinc Oxide Ointment 3.5 GM Tube TOP SCH (21:09)
[2017-11-29] MEDS: Vancomycin 125 MG/2.5 ML Oral Solution 2.5 ML UD Cup PO SCH ×3 (06:26→23:11)
[2017-11-29] MEDS: Meropenem 1 GM SDV IV SCH ×3 (06:26→23:11)
[2017-11-29] MEDS: Celecoxib 100 MG Cap PO SCH (07:43)
[2017-11-29] MEDS: Cranberry 500 MG Cap PO SCH (07:43)
[2017-11-29] MEDS: Potassium Chloride 20 MEQ Packet PO SCH (07:44)
[2017-11-29] MEDS: Cholecalciferol (Vitamin D3) 1,000 Unit Tab PO SCH (07:44)
[2017-11-29] MEDS: Sertraline 100 MG Tab PO SCH (07:44)
[2017-11-29] MEDS: Losartan 50 MG Tab PO SCH (07:45)
[2017-11-29] MEDS: Metoprolol Succinate 50 MG Tab.ER PO SCH (07:46)
[2017-11-29] MEDS: Acetaminophen 500 MG Tab PO SCH ×2 (07:47→20:05)
[2017-11-29] MEDS: Multivitamins with Iron/Calcium/Folic Acid/Minerals Tab PO SCH (07:47)
[2017-11-29] MEDS: Furosemide 40 MG Tab PO SCH ×2 (07:48→15:39)
[2017-11-29] MEDS: Calcium Citrate/Vitamin D3 315 MG-250 Unit Tab PO SCH (07:48)
[2017-11-29] MEDS: Fish Oil/Omega-3 Fatty Acids 1 Gm Cap PO SCH (07:48)
[2017-11-29] MEDS: Diltiazem 240 MG Cap.CD PO SCH (07:49)
[2017-11-29] MEDS: Miconazole 2% Top Powder 45 GM Container TOP SCH ×2 (07:49→23:11)
[2017-11-29] MEDS: BIOTIN 1 MG PO SCH (07:49)
[2017-11-29] MEDS: Fluticasone Propionate Nasal Spray 16 GM Bottle NASBOTH SCH ×2 (07:50→20:02)
[2017-11-29] MEDS: Sodium Chloride 0.9% 10 ML Syringe IV PRN (15:41)
[2017-11-29] MEDS: atorvaSTATin 10 MG Tab PO SCH (20:03)
[2017-11-29] MEDS: Warfarin 2.5 MG Tab PO SCH (20:03)
[2017-11-29] MEDS: oxyCODONE 5 MG Tab PO PRN (20:04)
[2017-11-29] MEDS: Menthol/Zinc Oxide Ointment 3.5 GM Tube TOP SCH (20:04)
[2017-11-30] MEDS: Meropenem 1 GM SDV IV SCH ×2 (06:15→13:05)
[2017-11-30] MEDS: Vancomycin 125 MG/2.5 ML Oral Solution 2.5 ML UD Cup PO SCH ×2 (06:15→13:05)
[2017-11-30 06:20] VITALS: BP 147/64
[2017-11-30] MEDS: Fluticasone Propionate Nasal Spray 16 GM Bottle NASBOTH SCH (08:37)
[2017-11-30] MEDS: Fish Oil/Omega-3 Fatty Acids 1 Gm Cap PO SCH (08:37)
[2017-11-30] MEDS: Potassium Chloride 20 MEQ Packet PO SCH (08:37)
[2017-11-30] MEDS: Cranberry 500 MG Cap PO SCH (08:38)
[2017-11-30] MEDS: Diltiazem 240 MG Cap.CD PO SCH (08:38)
[2017-11-30] MEDS: Metoprolol Succinate 50 MG Tab.ER PO SCH (08:38)
[2017-11-30] MEDS: Acetaminophen 500 MG Tab PO SCH (08:38)
[2017-11-30] MEDS: Sertraline 100 MG Tab PO SCH (08:38)
[2017-11-30] MEDS: Losartan 50 MG Tab PO SCH (08:38)
[2017-11-30] MEDS: Celecoxib 100 MG Cap PO SCH (08:38)
[2017-11-30] MEDS: Calcium Citrate/Vitamin D3 315 MG-250 Unit Tab PO SCH (08:38)
[2017-11-30] MEDS: Cholecalciferol (Vitamin D3) 1,000 Unit Tab PO SCH (08:38)
[2017-11-30] MEDS: Multivitamins with Iron/Calcium/Folic Acid/Minerals Tab PO SCH (08:38)
[2017-11-30] MEDS: BIOTIN 1 MG PO SCH (08:39)
[2017-11-30] MEDS: Furosemide 40 MG Tab PO SCH (08:39)
[2017-11-30] MEDS: oxyCODONE 5 MG Tab PO PRN (08:39)
[2017-11-30] MEDS: Miconazole 2% Top Powder 45 GM Container TOP SCH (08:40)
[2017-11-30] MEDS: Sodium Chloride 0.9% 10 ML Syringe IV PRN (13:05)
--- NOTE | 2017-12-28 17:14 | PCM.DCSUM1 ---
Discharge Summary - Hospital Course Free Text/Narrative:: 72-year-old male admitted to swing bed for continued IV therapy as well as strengthening following urosepsis. Diagnosis: Stroke: No - Discharge Data Discharge Date: 11/30/17 Discharge Disposition: Home, Self-Care 01 Condition: Good - Discharge Diagnosis/Problem(s) (1) Sepsis secondary to UTI SNOMED Code(s): 820745934 ICD Code: A41.9 - SEPSIS, UNSPECIFIED ORGANISM; N39.0 - URINARY TRACT INFECTION, SITE NOT SPECIFIED Status: Acute Priority: Medium Onset Date: ~ 11/20/17 (2) Weakness SNOMED Code(s): 47511551 ICD Code: R53.1 - WEAKNESS Status: Acute Priority: Medium (3) A-fib SNOMED Code(s): 56038639 ICD Code: I48.91 - UNSPECIFIED ATRIAL FIBRILLATION Status: Chronic Priority: Medium Qualifiers: Atrial fibrillation type: chronic Qualified Code(s): I48.2 - Chronic atrial fibrillation (4) Diabetes mellitus type 2 SNOMED Code(s): 23884682 ICD Code: E11.9 - TYPE 2 DIABETES MELLITUS WITHOUT COMPLICATIONS Status: Chronic Priority: Medium (5) Multiple sclerosis SNOMED Code(s): 92238565 ICD Code: G35 - MULTIPLE SCLEROSIS Status: Chronic Priority: Medium (6) Rheumatoid arthritis SNOMED Code(s): 75235079 ICD Code: M06.9 - RHEUMATOID ARTHRITIS, UNSPECIFIED Status: Chronic Priority: Medium Qualifiers: Rheumatoid factor presence: unspecified presence Laterality: unspecified laterality - Patient Summary/Data Consults: Consultations 11/23/17 14:26 PT Evaluation and Treatment [CONS] Routine 11/23/17 14:27 OT Evaluation and Treatment [CONS] Routine 11/23/17 14:28 Consult to Case Management [CONS] Routine Hospital Course: Swing bed course was unremarkable. Patient was enrolled in therapy and strength gradually improved. IV antibiotics were carried out further required length of treatment. His vital signs remained stable throughout his stay. - Patient Instructions Diet: Heart Healthy Diet - Discharge Plan Prescriptions/Med Rec: Furosemide [Lasix] 40 mg PO BIDDIURETIC #60 tablet Vancomycin [Vancocin 125 MG/2.5 ML Soln] 125 mg PO Q8H #21 cup Home Medications: Home Meds Cholecalciferol (Vitamin D3) [Vitamin D3] 5,000 unit PO DAILY 09/06/13 [History] Fluticasone Propionate [Flonase] 1 spray NASBOTH BID 09/06/13 [History] [place]-3 Fatty Acids [[place]-3] 1,000 mg PO DAILY 09/06/13 [History] Sertraline [Zoloft] 100 mg PO DAILY 09/06/13 [History] PEG 400/Propylene Glycol [Systane Lubricant] 1 drop EYELF ASDIRECTED PRN [History] oxyCODONE 5 mg PO Q4H PRN 06/15/15 [History] Cranberry Extract [Cranberry] 500 mg PO DAILY 11/16/15 [History] Potassium Chloride [Klor-Con] 20 meq PO DAILY #0 11/26/15 [Rx] Valsartan [Diovan] 320 mg PO DAILY #30 tablet 06/15/16 [Rx] Acetaminophen [Acetaminophen Extra Strength] 500 mg PO BID MDD 4000 MG DAILY 08/31 [History] Metoprolol Succinate [Toprol XL] 100 mg PO DAILY 06/30/17 [History] Calcium Carb & Citrate/Vit D3 [Citracal + D ER] 1 tab PO DAILY 07/02/17 [History ] Lysine 1,000 mg PO DAILY PRN 07/02/17 [History] Miconazole [Desenex 2%] 1 applic TOP BID 07/02/17 [History] Diltiazem [Cardizem CD] 240 mg PO DAILY #30 cap.cd 07/05/17 [Rx] Polyethylene Glycol 3350 [MiraLAX] 17 gm PO DAILY packet 07/05/17 [Rx] Biotin [Biotin] 1 mg PO DAILY 07/19/17 [History] Warfarin [Coumadin] 5 mg PO TUFR@199907/19/17 [History] Albuterol/Ipratropium [DuoNeb 3.0-0.5 MG/3 ML] 3 ml NEB Q6HRRT PRN 07/20/17 [ History] Multivitamin with Minerals [Multivitamins with Minerals] 1 tab PO DAILY [History] Celecoxib [CeleBREX] 100 mg PO DAILY 11/20/17 [History] Menthol/Zinc Oxide [Calmoseptine] 1 applic TOP BEDTIME 11/20/17 [History] Warfarin [Coumadin] 7.5 mg PO SUMOWETHSA@199911/20/17 [History] atorvaSTATin [Lipitor] 10 mg PO BEDTIME 11/20/17 [History] Furosemide [Lasix] 40 mg PO BIDDIURETIC #60 tablet 11/30/17 [Rx] Vancomycin [Vancocin 125 MG/2.5 ML Soln] 125 mg PO Q8H #21 cup 11/30/17 [Rx] Patient Handouts: Urosepsis, Probiotics - Discharge Summary/Plan Comment DC Time >30 min.: No Discharge Summary/Plan Comment: Patient be discharged home to the care of himself. He is not homebound and thus will not qualify for home health. He will see me in clinic in 1-2 weeks. He is encouraged to return sooner should he have any problems while at home. He has been instructed to continue with his process of straight catheterization 4 times daily and as needed. He is to contact me should he develop a fever. Home medications per medication reconciliation. - Patient Data Vitals - Most Recent: Last Vital Signs Temp 36.0 C 11/30/17 06:00 Pulse 68 11/30/17 08:38 Resp 20 11/30/17 06:00 BP 147/64 H 11/30/17 08:38 Pulse Ox 93 L 11/30/17 08:00 Weight - Most Recent: 104.508 kg Med Orders - Current: Current Medications Discontinued Medications Acetaminophen (Tylenol Extra Strength) 500 mg PO BID [facility] Last Admin: 11/30/17 08:38 Dose: 500 mg Albuterol/Ipratropium (Duoneb 3.0-0.5 Mg/3 Ml) 3 ml NEB Q6HRRT PRN PRN Reason: Shortness of Breath Last Admin: 11/26/17 07:29 Dose: 3 ml Amlodipine Besylate (Norvasc) 2.5 mg PO DAILY [facility] Artificial Tears (Tears Naturale Free) 1 each EYEBOTH ASDIRECTED PRN PRN Reason: Dry Eyes Last Admin: 11/25/17 19:41 Dose: 1 each Atorvastatin Calcium (Lipitor) 10 mg PO BEDTIME [facility] Last Admin: 11/29/17 20:03 Dose: 10 mg Calamine/Phenol (Calmoseptine) 0 gm TOP BEDTIME [facility] Last Admin: 11/29/17 20:04 Dose: 1 applic Calcium Citrate (Calcium Citrate + D) 1 tab PO DAILY [facility] Last Admin: 11/30/17 08:38 Dose: 1 tab Celecoxib (Celebrex) 100 mg PO DAILY [facility] Last Admin: 11/30/17 08:38 Dose: 100 mg Cholecalciferol (Vitamin D3) 5,000 units PO DAILY [facility] Last Admin: 11/30/17 08:38 Dose: 5,000 units Cranberry (Cranberry) 500 mg PO DAILY [facility] Last Admin: 11/30/17 08:38 Dose: 500 mg Diltiazem HCl (Cardizem Cd) 240 mg PO DAILY [facility] Last Admin: 11/30/17 08:38 Dose: 240 mg Fish Oil (Fish Oil) 1 gm PO DAILY [facility] Last Admin: 11/30/17 08:37 Dose: 1 gm Fluticasone Propionate (Flonase) 0 gm NASBOTH BID [facility] Last Admin: 11/30/17 08:37 Dose: 1 spray Furosemide (Lasix) 20 mg PO BIDDIURETIC [facility] Last Admin: 11/27/17 09:04 Dose: 20 mg Furosemide (Lasix) 20 mg IV ONETIME ONE Stop: 11/24/17 16:01 Last Admin: 11/24/17 16:33 Dose: 20 mg Furosemide (Lasix) 40 mg PO BIDDIURETIC [facility] Last Admin: 11/30/17 08:39 Dose: 40 mg Losartan Potassium (Cozaar) 150 mg PO DAILY [facility] Last Admin: 11/30/17 08:38 Dose: 150 mg Meropenem (Merrem) 1 gm IV Q8H [facility] Stop: 11/30/17 15:01 Last Admin: 11/30/17 13:05 Dose: 1 gm Metoprolol Succinate (Toprol Xl) 100 mg PO DAILY [facility] Last Admin: 11/30/17 08:38 Dose: 100 mg Miconazole (Desenex 2%) 0 gm TOP BID [facility] Last Admin: 11/30/17 08:40 Dose: 1 applic Multivitamins/Minerals (Thera M Plus) 1 tab PO DAILY [facility] Last Admin: 11/30/17 08:38 Dose: 1 tab Biotin 1mg (Own (Supply)) 1 mg PO DAILY [facility] Last Admin: 11/30/17 08:39 Dose: Not Given Lysine [Lysine] 1, (000 Mg (Own Supply)) 1,000 mg PO DAILY PRN PRN Reason: Other Ondansetron HCl (Zofran Odt) 4 mg PO Q6H PRN PRN Reason: NAUSEA Oxycodone HCl (Oxycodone) 5 mg PO Q4H PRN PRN Reason: Pain Last Admin: 11/30/17 08:39 Dose: 5 mg Polyethylene Glycol (Miralax) 17 gm PO DAILY [facility] Last Admin: 11/27/17 09:09 Dose: Not Given Potassium Chloride (Klor-Con) 20 meq PO DAILY [facility] Last Admin: 11/30/17 08:37 Dose: 20 meq Sertraline HCl (Zoloft) 100 mg PO DAILY [facility] Last Admin: 11/30/17 08:38 Dose: 100 mg Sodium Chloride (Saline Flush) 10 ml IV ASDIRECTED PRN PRN Reason: Keep Vein Open Last Admin: 11/30/17 13:05 Dose: 10 ml Vancomycin HCl (Vancocin 125 Mg/2.5 Ml Soln) 125 mg PO Q8H [facility] Last Admin: 11/30/17 13:05 Dose: 125 mg Warfarin Sodium (Coumadin) 7.5 mg PO SuMoWeThSa@BEDTIME [facility] Last Admin: 11/29/17 20:03 Dose: 7.5 mg Warfarin Sodium (Coumadin) 5 mg PO TuFr@BEDTIME [facility] Last Admin: 11/27/17 21:23 Dose: 5 mg
== END 2017-11-30 13:30 | disposition home or self-care (01) | DRG 871 ==
LOC: VM.MS 10:25
PROVIDERS: ADMIT Family Medicine; ATTEND Family Medicine
DX: A41.51 Sepsis due to Escherichia coli [E. coli] (principal); I50.33 Acute on chronic diastolic (congestive) heart failure; N39.0 Urinary tract infection, site not specified; B96.20 Unspecified Escherichia coli [E. coli] as the cause of diseases classified elsewhere; B96.89 Other specified bacterial agents as the cause of diseases classified elsewhere; I48.2 Chronic atrial fibrillation; E11.9 Type 2 diabetes mellitus without complications; G35 Multiple sclerosis; M06.9 Rheumatoid arthritis, unspecified; R19.7 Diarrhea, unspecified; R53.1 Weakness; Z79.01 Long term (current) use of anticoagulants; Z79.891 Long term (current) use of opiate analgesic; Z79.899 Other long term (current) drug therapy; Z16.12 Extended spectrum beta lactamase (ESBL) resistance
CPT/HCPCS: 36415; 80048; 82962; 94640; 94760; 97110-GP; 97530-GP; A9270-GY; J1940; J2185; J7050

== ENCOUNTER 2018-01-06 15:07 | Observation (INO) | payer MEDICARE, BC ==
--- NOTE | 2018-01-06 15:37 | EDM.PDOC ---
ED HPI GENERAL MEDICAL PROBLEM - General Chief Complaint: Gastrointestinal Problem Stated Complaint: BOWEL ISSUES Time Seen by Provider: 01/06/18 15:29 Source of Information: Reports: Patient, Old Records, RN, RN Notes Reviewed History Limitations: Reports: No Limitations - History of Present Illness INITIAL COMMENTS - FREE TEXT/NARRATIVE: Patient presents to the ED at [facility] with concerns he may have develop a C-diff infection again. He is currently taking Vanco oral. He states his diarrhea started 3 days ago. 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 He gets very concerned when he develops symptoms. Onset Date: 01/03/18 - Related Data Allergies Allergy/AdvReac Type Severity Reaction Status Date / Time carbamazepine AdvReac Dizziness Verified 01/06/18 15:18 Home Meds: Home Meds Cholecalciferol (Vitamin D3) [Vitamin D3] 5,000 unit PO DAILY 09/06/13 [History] Fluticasone Propionate [Flonase] 1 spray NASBOTH BID 09/06/13 [History] [place]-3 Fatty Acids [[place]-3] 1,000 mg PO DAILY 09/06/13 [History] Sertraline [Zoloft] 100 mg PO DAILY 09/06/13 [History] PEG 400/Propylene Glycol [Systane Lubricant] 1 drop EYELF ASDIRECTED PRN [History] oxyCODONE 5 mg PO Q4H PRN 06/15/15 [History] Cranberry Extract [Cranberry] 500 mg PO DAILY 11/16/15 [History] Potassium Chloride [Klor-Con] 20 meq PO DAILY #0 11/26/15 [Rx] Valsartan [Diovan] 320 mg PO DAILY #30 tablet 06/15/16 [Rx] Acetaminophen [Acetaminophen Extra Strength] 500 mg PO BID MDD 4000 MG DAILY 08/31 [History] Metoprolol Succinate [Toprol XL] 100 mg PO DAILY 06/30/17 [History] Calcium Carb & Citrate/Vit D3 [Citracal + D ER] 1 tab PO DAILY 07/02/17 [History ] Lysine 1,000 mg PO DAILY PRN 07/02/17 [History] Miconazole [Desenex 2%] 1 applic TOP BID 07/02/17 [History] Diltiazem [Cardizem CD] 240 mg PO DAILY #30 cap.cd 07/05/17 [Rx] Polyethylene Glycol 3350 [MiraLAX] 17 gm PO DAILY packet 07/05/17 [Rx] Biotin [Biotin] 1 mg PO DAILY 07/19/17 [History] Warfarin [Coumadin] 5 mg PO TUFR@199907/19/17 [History] Albuterol/Ipratropium [DuoNeb 3.0-0.5 MG/3 ML] 3 ml NEB Q6HRRT PRN 07/20/17 [ History] Multivitamin with Minerals [Multivitamins with Minerals] 1 tab PO DAILY [History] Celecoxib [CeleBREX] 100 mg PO DAILY 11/20/17 [History] Menthol/Zinc Oxide [Calmoseptine] 1 applic TOP BEDTIME 11/20/17 [History] Warfarin [Coumadin] 7.5 mg PO SUMOWETHSA@199911/20/17 [History] atorvaSTATin [Lipitor] 10 mg PO BEDTIME 11/20/17 [History] Vancomycin [Vancocin 125 MG/2.5 ML Soln] 125 mg PO Q8H #21 cup 11/30/17 [Rx] Furosemide [Lasix] 20 mg PO BID 01/06/18 [History] Mupirocin Cream [Bactroban Crm] 1 applic TOP TID 01/06/18 [History] Sulfamethoxazole/Trimethoprim [Bactrim Ds Tablet] 1 each PO BID 01/06/18 [ History] Past Medical History HEENT History: Reports: Cataract, Other (See Below) Other HEENT History: wears glasses Cardiovascular History: Reports: Afib, Heart Failure, Hypertension Respiratory History: Reports: Pneumonia, Recurrent, Sleep Apnea Gastrointestinal History: Reports: Other (See Below) Other Gastrointestinal History: history of C diff. fecal transplant Genitourinary History: Reports: Neurogenic Bladder, UTI, Recurrent Other Genitourinary History: self cath/due to MS Musculoskeletal History: Reports: Arthritis Other Musculoskeletal History: MSand sore on right knee with brace on Neurological History: Reports: MS Psychiatric History: Reports: Depression Other Psychiatric History: very depressed Endocrine/Metabolic History: Reports: Diabetes, Type II Hematologic History: Reports: Anticoagulation Therapy, Blood Transfusion(s) Dermatologic History: Reports: Other (See Below) Other Dermatologic History: coccyx friction open area, yeast in groin - Infectious Disease History Infectious Disease History: Reports: C-Difficile Other Infectious Disease History: ecoli - Past Surgical History HEENT Surgical History: Reports: Cataract Surgery GI Surgical History: Reports: Colonoscopy, Hernia Repair/Other Neurological Surgical History: Reports: None Oncologic Surgical History: Reports: None Social & Family History - Family History Family Medical History: Noncontributory Cardiac: Reports: [place] Respiratory: Reports: Asthma, COPD Musculoskeletal: Reports: Arthritis, Osteoporosis Neurological: Reports: None Endocrine/Metabolic: Reports: Diabetes, type II - Tobacco Use Smoking Status *Q: Never Smoker - Caffeine Use Caffeine Use: Reports: Coffee - Recreational Drug Use Recreational Drug Use: No ED ROS GENERAL - Review of Systems Review Of Systems: See Below Constitutional: Denies: Fever, Chills, Weakness Respiratory: Denies: Shortness of Breath, Cough Cardiovascular: Denies: Chest Pain, Palpitations GI/Abdominal: Reports: Diarrhea. Denies: Abdominal Pain, Nausea, Vomiting Skin: Reports: No Symptoms Neurological: Reports: No Symptoms ED EXAM, GI/ABD - Physical Exam Exam: See Below Exam Limited By: No Limitations General Appearance: Alert, No Apparent Distress Respiratory/Chest: No Respiratory Distress, Lungs Clear, Normal Breath Sounds Cardiovascular: Normal Peripheral Pulses, Regular Rate, Rhythm GI/Abdominal Exam: Normal Bowel Sounds, Soft, Non-Tender Neurological: Alert, Oriented Skin Exam: Warm, Dry, Intact, Normal Color Course - Vital Signs Last Recorded V/S: Last Vital Signs Temp 36.5 C 01/06/18 15:18 Pulse 64 01/06/18 15:18 Resp 16 01/06/18 15:18 BP 180/63 H 01/06/18 15:18 Pulse Ox 92 L 01/06/18 15:18 - Orders/Labs/Meds Orders: Active Orders 24 hr Category Date Time Status C DIFFICILE TOXIN BY PCR [MREF] Stat Lab 01/06/18 15:45 Ordered STOOL CULTURE/SHIGA TOXIN [MREF] Stat Lab 01/06/18 15:45 Ordered Sodium Chloride 0.9% [Normal Saline] 1,000 ml Med 01/06/18 15:45 Active IV ONETIME Sodium Chloride 0.9% [Saline Flush] Med 01/06/18 15:45 Active 10 ml FLUSH ASDIRECTED PRN Vancomycin 1 gm Med 01/06/18 15:44 Active Sodium Chloride 0.9% [Normal Saline] 250 ml IV STAT Peripheral IV Insertion Adult [OM.PC] Routine Oth 01/06/18 15:45 Ordered Medication Orders Vancomycin HCl 1 gm/ Sodium (Chloride) 250 mls @ 250 mls/hr IV STAT ONE Stop: 01/06/18 16:43 Last Admin: 01/06/18 15:56 Dose: 250 mls/hr Sodium Chloride (Normal Saline) 1,000 mls @ 999 mls/hr IV ONETIME ONE Stop: 01/06/18 16:45 Last Admin: 01/06/18 15:56 Dose: 999 mls/hr Sodium Chloride (Saline Flush) 10 ml FLUSH ASDIRECTED PRN PRN Reason: Keep Vein Open Meds: Medications Generic Name Dose Route Start Last Admin Trade Name Freq PRN Reason Stop Dose Admin Vancomycin HCl 1 gm/ Sodium 250 mls @ 250 mls/hr 01/06/18 15:44 01/06/18 15: 56 Chloride IV 01/06/18 16:43 250 mls/hr STAT ONE Administration Sodium Chloride 1,000 mls @ 999 mls/hr 01/06/18 15:45 01/06/18 15:56 Normal Saline IV 01/06/18 16:45 999 mls/hr ONETIME ONE Administration Sodium Chloride 10 ml 01/06/18 15:45 Saline Flush FLUSH ASDIRECTED PRN Keep Vein Open Departure - Departure Time of Disposition: 16:19 Disposition: Refer to Observation Condition: Fair Clinical Impression: Dizziness, Weakness Diarrhea Qualifiers: Diarrhea type: unspecified type Qualified Code(s): R19.7 - Diarrhea, unspecified - Discharge Information - Problem List Review Problem List Initiated/Reviewed/Updated: Yes - My Orders Last 24 Hours: My Active Orders 01/06/18 15:44 Vancomycin 1 gm Sodium Chloride 0.9% [Normal Saline] 250 ml IV STAT 01/06/18 15:45 C DIFFICILE TOXIN BY PCR [MREF] Stat STOOL CULTURE/SHIGA TOXIN [MREF] Stat Sodium Chloride 0.9% [Normal Saline] 1,000 ml IV ONETIME Sodium Chloride 0.9% [Saline Flush] 10 ml FLUSH ASDIRECTED PRN Peripheral IV Insertion Adult [OM.PC] Routine - Assessment/Plan Last 24 Hours: My Active Orders 01/06/18 15:44 Vancomycin 1 gm Sodium Chloride 0.9% [Normal Saline] 250 ml IV STAT 01/06/18 15:45 C DIFFICILE TOXIN BY PCR [MREF] Stat STOOL CULTURE/SHIGA TOXIN [MREF] Stat Sodium Chloride 0.9% [Normal Saline] 1,000 ml IV ONETIME Sodium Chloride 0.9% [Saline Flush] 10 ml FLUSH ASDIRECTED PRN Peripheral IV Insertion Adult [OM.PC] Routine Assessment:: Diarrhea Weakness Dizziness Plan: Discussed options with patient as he is requesting to stay in the hospital but does not meet acute criteria. He was be admitted to obs for 2 days, if he needs to stay longer, he will have to go self-pay swing. Patient aware.
[2018-01-06] MEDS ORDERED: Sodium Chloride 0.9% 10 ML Syringe FLUSH PRN (15:45)
[2018-01-06] MEDS ORDERED: Sodium Chloride 0.9% 1,000 ML IV ONE (15:45)
[2018-01-06] MEDS ORDERED: LYSINE 1000 MG PO PRN (16:34)
[2018-01-06] MEDS ORDERED: PEG EYELF PRN (16:34)
[2018-01-06] MEDS ORDERED: PROPYLENE GLYCOL EYELF PRN (16:34)
[2018-01-06] MEDS ORDERED: Albuterol/Ipratropium 3.0-0.5 MG/3 ML Neb Soln NEB PRN (16:34)
--- NOTE | 2018-01-06 16:38 | PCM.HP ---
H&P History of Present Illness - General Date of Service: 01/06/18 Admit Problem/Dx: Admission Diagnosis/Problem Admission Diagnosis/Problem Diarrhea Weakness Dizziness Source of Information: Patient, Old Records, RN, RN Notes Reviewed History Limitations: Reports: No Limitations - History of Present Illness Initial Comments - Free Text/Narative: Patient presented to the ED at [facility] with concerns he may have develop a C-diff infection again. He is currently taking Vanco oral. He states his diarrhea started 3 days ago. 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 He gets very concerned when he develops symptoms. While in the ED, patient was given IVF and 1 gram of Vanco IV. Onset of Symptoms: Reports: Gradual Symptom Onset Date: 01/03/18 - Related Data Allergies/Adverse Reactions: Allergies Allergy/AdvReac Type Severity Reaction Status Date / Time carbamazepine AdvReac Dizziness Verified 01/06/18 15:18 Home Medications: Home Meds Cholecalciferol (Vitamin D3) [Vitamin D3] 5,000 unit PO DAILY 09/06/13 [History] Fluticasone Propionate [Flonase] 1 spray NASBOTH BID 09/06/13 [History] [place]-3 Fatty Acids [[place]-3] 1,000 mg PO DAILY 09/06/13 [History] Sertraline [Zoloft] 100 mg PO DAILY 09/06/13 [History] PEG 400/Propylene Glycol [Systane Lubricant] 1 drop EYELF ASDIRECTED PRN [History] oxyCODONE 5 mg PO Q4H PRN 06/15/15 [History] Cranberry Extract [Cranberry] 500 mg PO DAILY 11/16/15 [History] Potassium Chloride [Klor-Con] 20 meq PO DAILY #0 11/26/15 [Rx] Valsartan [Diovan] 320 mg PO DAILY #30 tablet 06/15/16 [Rx] Acetaminophen [Acetaminophen Extra Strength] 500 mg PO BID MDD 4000 MG DAILY 08/31 [History] Metoprolol Succinate [Toprol XL] 100 mg PO DAILY 06/30/17 [History] Calcium Carb & Citrate/Vit D3 [Citracal + D ER] 1 tab PO DAILY 07/02/17 [History ] Lysine 1,000 mg PO DAILY PRN 07/02/17 [History] Miconazole [Desenex 2%] 1 applic TOP BID 07/02/17 [History] Diltiazem [Cardizem CD] 240 mg PO DAILY #30 cap.cd 07/05/17 [Rx] Polyethylene Glycol 3350 [MiraLAX] 17 gm PO DAILY packet 07/05/17 [Rx] Biotin [Biotin] 1 mg PO DAILY 07/19/17 [History] Warfarin [Coumadin] 5 mg PO TUFR@199907/19/17 [History] Albuterol/Ipratropium [DuoNeb 3.0-0.5 MG/3 ML] 3 ml NEB Q6HRRT PRN 07/20/17 [ History] Multivitamin with Minerals [Multivitamins with Minerals] 1 tab PO DAILY [History] Celecoxib [CeleBREX] 100 mg PO DAILY 11/20/17 [History] Menthol/Zinc Oxide [Calmoseptine] 1 applic TOP BEDTIME 11/20/17 [History] Warfarin [Coumadin] 7.5 mg PO SUMOWETHSA@199911/20/17 [History] atorvaSTATin [Lipitor] 10 mg PO BEDTIME 11/20/17 [History] Vancomycin [Vancocin 125 MG/2.5 ML Soln] 125 mg PO Q8H #21 cup 11/30/17 [Rx] Furosemide [Lasix] 20 mg PO BID 01/06/18 [History] Mupirocin Cream [Bactroban Crm] 1 applic TOP TID 01/06/18 [History] Sulfamethoxazole/Trimethoprim [Bactrim Ds Tablet] 1 each PO BID 01/06/18 [ History] Past Medical History HEENT History: Reports: Cataract, Other (See Below) Other HEENT History: wears glasses Cardiovascular History: Reports: Afib, Heart Failure, Hypertension Respiratory History: Reports: Pneumonia, Recurrent, Sleep Apnea Gastrointestinal History: Reports: Other (See Below) Other Gastrointestinal History: history of C diff. fecal transplant Genitourinary History: Reports: Neurogenic Bladder, UTI, Recurrent Other Genitourinary History: self cath/due to MS Musculoskeletal History: Reports: Arthritis Other Musculoskeletal History: MSand sore on right knee with brace on Neurological History: Reports: MS Psychiatric History: Reports: Depression Other Psychiatric History: very depressed Endocrine/Metabolic History: Reports: Diabetes, Type II Hematologic History: Reports: Anticoagulation Therapy, Blood Transfusion(s) Dermatologic History: Reports: Other (See Below) Other Dermatologic History: coccyx friction open area, yeast in groin - Infectious Disease History Infectious Disease History: Reports: C-Difficile Other Infectious Disease History: ecoli - Past Surgical History HEENT Surgical History: Reports: Cataract Surgery GI Surgical History: Reports: Colonoscopy, Hernia Repair/Other Neurological Surgical History: Reports: None Oncologic Surgical History: Reports: None Social & Family History - Family History Family Medical History: Noncontributory Cardiac: Reports: NE Respiratory: Reports: Asthma, COPD Musculoskeletal: Reports: Arthritis, Osteoporosis Neurological: Reports: None Endocrine/Metabolic: Reports: Diabetes, type II - Tobacco Use Smoking Status *Q: Never Smoker - Caffeine Use Caffeine Use: Reports: Coffee - Recreational Drug Use Recreational Drug Use: No H&P Review of Systems - Review of Systems: Review Of Systems: See Below General: Reports: Weakness. Denies: Fever, Chills Pulmonary: Denies: Shortness of Breath, Cough Cardiovascular: Denies: Chest Pain, Palpitations Gastrointestinal: Reports: Diarrhea, Nausea. Denies: Abdominal Pain, Vomiting Skin: Reports: No Symptoms Neurological: Reports: Dizziness. Denies: Headache, Numbness, Paresthesia, Tingling Exam - Exam Exam: See Below - Vital Signs Vital Signs: Last Vital Signs Temp 36.5 C 01/06/18 15:18 Pulse 64 01/06/18 15:18 Resp 16 01/06/18 15:18 BP 180/63 H 01/06/18 15:18 Pulse Ox 92 L 01/06/18 15:18 Weight: 104.326 kg - Exam General: Alert, Oriented, Cooperative Lungs: Clear to Auscultation, Normal Respiratory Effort Cardiovascular: Regular Rate, Regular Rhythm GI/Abdominal Exam: Soft, Non-Tender, Abnormal Bowel Sounds (Hypoactive) Extremities: Normal Inspection Skin: Warm, Dry, Intact Neuro Extensive - Mental Status: Alert, Oriented x3 *Q Meaningful Use (ADM) - VTE *Q VTE Mechanical Contraindications *Q: At Risk for Falls - Problem List (1) Diarrhea SNOMED Code(s): 14055166 ICD Code: R19.7 - DIARRHEA, UNSPECIFIED Status: Acute Current Visit: Yes Qualifiers: Diarrhea type: unspecified type Qualified Code(s): R19.7 - Diarrhea, unspecified (2) Dizziness SNOMED Code(s): 460427953, 778392496 ICD Code: R42 - DIZZINESS AND GIDDINESS Status: Chronic Current Visit: Yes (3) Weakness SNOMED Code(s): 23552354 ICD Code: R53.1 - WEAKNESS Status: Chronic Priority: Medium Current Visit: Yes (4) CHF (congestive heart failure) SNOMED Code(s): 49870636 ICD Code: I50.9 - HEART FAILURE, UNSPECIFIED Status: Acute Priority: Medium Current Visit: No Problem Details: Acute on chronic Qualifiers: Qualified Code(s): I50.32 - Chronic diastolic (congestive) heart failure (5) A-fib SNOMED Code(s): 97789572 ICD Code: I48.91 - UNSPECIFIED ATRIAL FIBRILLATION Status: Chronic Priority: Medium Current Visit: No Qualifiers: Atrial fibrillation type: chronic Qualified Code(s): I48.2 - Chronic atrial fibrillation (6) Diabetes mellitus type 2 SNOMED Code(s): 49836769 ICD Code: E11.9 - TYPE 2 DIABETES MELLITUS WITHOUT COMPLICATIONS Status: Chronic Priority: Medium Current Visit: No (7) Multiple sclerosis SNOMED Code(s): 29821359 ICD Code: G35 - MULTIPLE SCLEROSIS Status: Chronic Priority: Medium Current Visit: No (8) Rheumatoid arthritis SNOMED Code(s): 70385040 ICD Code: M06.9 - RHEUMATOID ARTHRITIS, UNSPECIFIED Status: Chronic Priority: Medium Current Visit: No Qualifiers: Rheumatoid factor presence: unspecified presence Laterality: unspecified laterality Problem List Initiated/Reviewed/Updated: Yes Orders Last 24hrs: Active Orders 24 hr Category Date Time Status Patient Status [ADT] Routine ADT 01/06/18 16:26 Active Height and Weight [RC] UPON Care 01/06/18 16:26 Active Intake and Output [RC] QSHIFT Care 01/06/18 16:26 Active May Shower [RC] ASDIRECTED Care 01/06/18 16:26 Active Oxygen Therapy [RC] PRN Care 01/06/18 16:26 Active Up With Assistance [RC] ASDIRECTED Care 01/06/18 16:26 Active VTE/DVT Education [RC] PER UNIT ROUTINE Care 01/06/18 16:26 Active Vital Signs [RC] Q4H Care 01/06/18 16:26 Active Consult to Case Management [CONS] Routine Cons 01/06/18 16:26 Active PT Evaluation and Treatment [CONS] Routine Cons 01/06/18 16:26 Active Regular Diet [DIET] Diet 01/06/18 Dinner Ordered BASIC METABOLIC PANEL,BMP [CHEM] Routine Lab 01/07/18 05:11 Ordered C DIFFICILE TOXIN BY PCR [MREF] Stat Lab 01/06/18 15:45 Ordered CBC WITH AUTO DIFF [HEME] Routine Lab 01/07/18 05:11 Ordered STOOL CULTURE/SHIGA TOXIN [MREF] Stat Lab 01/06/18 15:45 Ordered Acetaminophen [Tylenol Extra Strength] Med 01/06/18 20:00 Ordered 500 mg PO BID Albuterol/Ipratropium [DuoNeb 3.0-0.5 MG/3 ML] Med 01/06/18 16:34 Ordered 3 ml NEB Q6HRRT PRN Biotin [Biotin] Med 01/07/18 08:00 Ordered 1 mg PO DAILY Calcium Carb & Citrate/Vit D3 [Citracal + D ER] Med 01/07/18 08:00 Ordered 1 tab PO DAILY Celecoxib [CeleBREX] Med 01/07/18 08:00 Ordered 100 mg PO DAILY Cholecalciferol (Vitamin D3) Med 01/07/18 08:00 Ordered 5,000 unit PO DAILY Cranberry Extract [Cranberry] Med 01/07/18 08:00 Ordered 500 mg PO DAILY Diltiazem [Cardizem CD] Med 01/07/18 08:00 Ordered 240 mg PO DAILY Fluticasone Propionate [Flonase] Med 01/06/18 20:00 Ordered 1 spray NASBOTH BID Furosemide [Lasix] Med 01/06/18 20:00 Ordered 20 mg PO BID Lysine [Lysine] Med 01/06/18 16:34 Ordered 1,000 mg PO DAILY PRN Menthol/Zinc Oxide [Calmoseptine] Med 01/06/18 20:00 Ordered 1 applic TOP BEDTIME Metoprolol Succinate [Toprol XL] Med 01/07/18 08:00 Ordered 100 mg PO DAILY Miconazole [Desenex 2%] Med 01/06/18 20:00 Ordered 1 applic TOP BID Multivitamin with Minerals [Multivitamins with Minerals Med 01/07/18 08:00 Ordered ] 1 tab PO DAILY Mupirocin Cream [Bactroban Crm] Med 01/06/18 20:00 Ordered 1 applic TOP TID [place]-3 Fatty Acids [[place]-3] Med 01/07/18 08:00 Ordered 1,000 mg PO DAILY PEG 400/Propylene Glycol [Systane Lubricant] Med 01/06/18 16:34 Ordered 1 drop EYELF ASDIRECTED PRN Potassium Chloride [Klor-Con] Med 01/07/18 08:00 Ordered 20 meq PO DAILY Sertraline [Zoloft] Med 01/07/18 08:00 Ordered 100 mg PO DAILY Sodium Chloride 0.9% [Normal Saline] 1,000 ml Med 01/06/18 15:45 Active IV ONETIME Sodium Chloride 0.9% [Saline Flush] Med 01/06/18 15:45 Active 10 ml FLUSH ASDIRECTED PRN Sulfamethoxazole/Trimethoprim [Bactrim Ds Tablet] Med 01/06/18 20:00 Ordered 1 each PO BID Valsartan [Diovan] Med 01/07/18 08:00 Ordered 320 mg PO DAILY Vancomycin 1 gm Med 01/06/18 15:44 Active Sodium Chloride 0.9% [Normal Saline] 250 ml IV STAT Vancomycin [Vancocin 125 MG/2.5 ML Soln] Med 01/06/18 16:45 Ordered 125 mg PO Q8H Warfarin [Coumadin] Med 01/08/18 20:00 Ordered 5 mg PO TUFR@1999 Warfarin [Coumadin] Med 01/06/18 20:00 Ordered 7.5 mg PO SUMOWETHSA@1999 atorvaSTATin [Lipitor] Med 01/06/18 20:00 Ordered 10 mg PO BEDTIME oxyCODONE [oxyCODONE] Med 01/06/18 16:34 Ordered 5 mg PO Q4H PRN Peripheral IV Insertion Adult [OM.PC] Routine Oth 01/06/18 15:45 Ordered Resuscitation Status Routine Resus Stat 01/06/18 16:26 Ordered Medication Orders Vancomycin HCl 1 gm/ Sodium (Chloride) 250 mls @ 250 mls/hr IV STAT ONE Stop: 01/06/18 16:43 Last Admin: 01/06/18 15:56 Dose: 250 mls/hr Sodium Chloride (Normal Saline) 1,000 mls @ 999 mls/hr IV ONETIME ONE Stop: 01/06/18 16:45 Last Admin: 01/06/18 15:56 Dose: 999 mls/hr Sodium Chloride (Saline Flush) 10 ml FLUSH ASDIRECTED PRN PRN Reason: Keep Vein Open Assessment/Plan Comment:: 72-year-old male patient with a past medical history of diabetes, congestive heart failure, atrial fibrillation, hypertension is admitted to the observation unit at [facility] for a diagnosis of diarrhea, weakness, and dizziness. We will continue the patient is current medications from home. The patient is Bactrim prophylactically for urinary tract infections. The patient is currently taking vancomycin for a multiresistant Escherichia coli in urine. The patient is also taking vancomycin in the past for his C. difficile. We will check stool cultures during this visit. I do not anticipate the patient staying longer than 48 hours. However if he does need to stay longer than 48 hours he will need to go salt swing bed.The patient is aware of this. The patient wishes to be a full code 1.
[2018-01-06] MEDS ORDERED: VANCOMYCIN 125 MG PO SCH (16:45)
[2018-01-06] MEDS ORDERED: oxyCODONE 5 MG Tab PO PRN (17:00)
[2018-01-06] MEDS: Furosemide 20 MG Tab PO SCH (17:21)
[2018-01-06] MEDS ORDERED: MICONAZOLE TOP SCH (20:00)
[2018-01-06] MEDS ORDERED: Warfarin 2.5 MG Tab PO SCH (20:00)
[2018-01-06] MEDS ORDERED: Menthol/Zinc Oxide Ointment 3.5 GM Tube TOP SCH (20:00)
[2018-01-06] MEDS ORDERED: MUPIROCIN TOP SCH (20:00)
[2018-01-06] MEDS ORDERED: atorvaSTATin 10 MG Tab PO SCH (20:00)
[2018-01-06] MEDS: Sulfamethoxazole/Trimethoprim 800-160 MG Tab PO SCH (20:07)
[2018-01-06] MEDS: Acetaminophen 500 MG Tab PO SCH (20:07)
[2018-01-07 05:35] VITALS: BP 151/61
[2018-01-07] MEDS ORDERED: Calcium Carbonate/Vitamin D3 1250 MG-200 Unit Tab PO SCH (08:00)
[2018-01-07] MEDS ORDERED: Non-Formulary Medication 1 Each (Biotin [Biotin] 1 MG) PO SCH (08:00)
[2018-01-07] MEDS ORDERED: Sertraline 100 MG Tab PO SCH (08:00)
[2018-01-07] MEDS ORDERED: Cranberry 500 MG Cap PO SCH (08:00)
[2018-01-07] MEDS ORDERED: Multivitamins with Iron/Calcium/Folic Acid/Minerals Tab PO SCH (08:00)
[2018-01-07] MEDS ORDERED: Diltiazem 240 MG Cap.ER PO SCH (08:00)
[2018-01-07] MEDS ORDERED: Celecoxib 100 MG Cap PO SCH (08:00)
[2018-01-07] MEDS ORDERED: Losartan 50 MG Tab PO SCH (08:00)
[2018-01-07] MEDS ORDERED: Cholecalciferol (Vitamin D3) 1,000 Unit Tab PO SCH (08:00)
[2018-01-07] MEDS ORDERED: Metoprolol Succinate 50 MG Tab.ER PO SCH (08:00)
[2018-01-07] MEDS ORDERED: Potassium Chloride 20 MEQ Tab.ER PO SCH (08:00)
[2018-01-07] MEDS ORDERED: Fish Oil/Omega-3 Fatty Acids 1 Gm Cap PO SCH (08:00)
[2018-01-07] MEDS: Sulfamethoxazole/Trimethoprim 800-160 MG Tab PO SCH (08:15)
[2018-01-07] MEDS: Acetaminophen 500 MG Tab PO SCH (08:16)
[2018-01-07] MEDS: Furosemide 20 MG Tab PO SCH (08:19)
--- NOTE | 2018-01-08 19:56 | PCM.DCSUM1 ---
Discharge Summary - Hospital Course Free Text/Narrative:: Pt. had not loose stools during is stay as an inpatient. He states that he continues to feel poorly; states that he is weak and fatigued. Labs and vital signs are all WNL at discharge. Pt. was upset he was being discharged. He was informed that he did not meet criteria for admission and that he needs to think about possible long-term care. Diagnosis: Stroke: No - Discharge Data Discharge Date: 01/07/18 Discharge Disposition: Home, Self-Care 01 Condition: Good - Discharge Diagnosis/Problem(s) (1) Weakness SNOMED Code(s): 78591671 ICD Code: R53.1 - WEAKNESS Status: Chronic Priority: Medium (2) Cdiff, Clostridium difficile infection SNOMED Code(s): 503111014 ICD Code: B96.89 - OTH BACTERIAL AGENTS THE CAUSE OF DISEASES CLASSD ELSWHR Status: Chronic - Patient Summary/Data Consults: Consultations 01/06/18 16:26 Consult to Case Management [CONS] Routine PT Evaluation and Treatment [CONS] Routine - Patient Instructions Diet: Usual Diet as Tolerated Activity: As Tolerated Showering/Bathing: May Shower - Discharge Plan Home Medications: Home Meds Cholecalciferol (Vitamin D3) [Vitamin D3] 5,000 unit PO DAILY 09/06/13 [History] Fluticasone Propionate [Flonase] 1 spray NASBOTH BID 09/06/13 [History] [place]-3 Fatty Acids [Aroda-3] 1,000 mg PO DAILY 09/06/13 [History] Sertraline [Zoloft] 100 mg PO DAILY 09/06/13 [History] PEG 400/Propylene Glycol [Systane Lubricant] 1 drop EYELF ASDIRECTED PRN [History] oxyCODONE 5 mg PO Q4H PRN 06/15/15 [History] Cranberry Extract [Cranberry] 500 mg PO DAILY 11/16/15 [History] Potassium Chloride [Klor-Con] 20 meq PO DAILY #0 11/26/15 [Rx] Valsartan [Diovan] 320 mg PO DAILY #30 tablet 06/15/16 [Rx] Acetaminophen [Acetaminophen Extra Strength] 500 mg PO BID MDD 4000 MG DAILY 08/31 [History] Metoprolol Succinate [Toprol XL] 100 mg PO DAILY 06/30/17 [History] Calcium Carb & Citrate/Vit D3 [Citracal + D ER] 1 tab PO DAILY 07/02/17 [History ] Lysine 1,000 mg PO DAILY PRN 07/02/17 [History] Miconazole [Desenex 2%] 1 applic TOP BID 07/02/17 [History] Diltiazem [Cardizem CD] 240 mg PO DAILY #30 cap.cd 07/05/17 [Rx] Polyethylene Glycol 3350 [MiraLAX] 17 gm PO DAILY packet 07/05/17 [Rx] Biotin [Biotin] 1 mg PO DAILY 07/19/17 [History] Warfarin [Coumadin] 5 mg PO TUFR@199907/19/17 [History] Albuterol/Ipratropium [DuoNeb 3.0-0.5 MG/3 ML] 3 ml NEB Q6HRRT PRN 07/20/17 [ History] Multivitamin with Minerals [Multivitamins with Minerals] 1 tab PO DAILY [History] Celecoxib [CeleBREX] 100 mg PO DAILY 11/20/17 [History] Menthol/Zinc Oxide [Calmoseptine] 1 applic TOP BEDTIME 11/20/17 [History] Warfarin [Coumadin] 7.5 mg PO SUMOWETHSA@199911/20/17 [History] atorvaSTATin [Lipitor] 10 mg PO BEDTIME 11/20/17 [History] Vancomycin [Vancocin 125 MG/2.5 ML Soln] 125 mg PO Q8H #21 cup 11/30/17 [Rx] Furosemide [Lasix] 20 mg PO BID 01/06/18 [History] Mupirocin Cream [Bactroban Crm] 1 applic TOP TID 01/06/18 [History] Sulfamethoxazole/Trimethoprim [Bactrim Ds Tablet] 1 each PO BID 01/06/18 [ History] - General Info Date of Service: 01/07/18 Functional Status: Reports: Pain Controlled - Review of Systems General: Reports: Weakness, Fatigue, Malaise HEENT: Reports: No Symptoms Pulmonary: Reports: No Symptoms Cardiovascular: Reports: No Symptoms Gastrointestinal: Reports: Diarrhea (resolved) Genitourinary: Reports: No Symptoms Musculoskeletal: Reports: No Symptoms Skin: Reports: No Symptoms Neurological: Reports: No Symptoms Psychiatric: Reports: No Symptoms - Patient Data Vitals - Most Recent: Last Vital Signs Temp 36.9 C 01/07/18 05:34 Pulse 60 01/07/18 08:18 Resp 19 01/07/18 05:34 BP 151/61 H 01/07/18 08:20 Pulse Ox 98 01/07/18 05:34 Weight - Most Recent: 104.326 kg ROBBIE Results - Last 24 hrs: Microbiology 01/06/18 23:55 Shiga Toxin I & II - Final Stool / Feces Med Orders - Current: Current Medications Discontinued Medications Acetaminophen (Tylenol Extra Strength) 500 mg PO BID [facility] Last Admin: 01/07/18 08:16 Dose: 500 mg Albuterol/Ipratropium (Duoneb 3.0-0.5 Mg/3 Ml) 3 ml NEB Q6HRRT PRN PRN Reason: Shortness of Breath Atorvastatin Calcium (Lipitor) 10 mg PO BEDTIME [facility] Last Admin: 01/06/18 20:08 Dose: 10 mg Calamine/Phenol (Calmoseptine) 0 gm TOP BEDTIME [facility] Last Admin: 01/06/18 20:08 Dose: 1 applic Calcium Carbonate (Calcium Carbonate/Vitamin D 1250 Mg-200 Unit) 1 tab PO DAILY [facility] Last Admin: 01/07/18 08:15 Dose: 1 tab Celecoxib (Celebrex) 100 mg PO DAILY [facility] Last Admin: 01/07/18 08:15 Dose: 100 mg Cholecalciferol (Vitamin D3) 5,000 units PO DAILY [facility] Last Admin: 01/07/18 08:16 Dose: 5,000 units Cranberry (Cranberry) 500 mg PO DAILY [facility] Last Admin: 01/07/18 08:20 Dose: 500 mg Diltiazem HCl (Dilacor Xr) 240 mg PO DAILY [facility] Last Admin: 01/07/18 08:20 Dose: 240 mg Fish Oil (Fish Oil) 1 gm PO DAILY [facility] Last Admin: 01/07/18 08:15 Dose: 1 gm Furosemide (Lasix) 20 mg PO BIDDIURETIC [facility] Last Admin: 01/07/18 08:19 Dose: 20 mg Vancomycin HCl 1 gm/ Sodium (Chloride) 250 mls @ 250 mls/hr IV STAT ONE Stop: 01/06/18 16:43 Last Admin: 01/06/18 15:56 Dose: 250 mls/hr Sodium Chloride (Normal Saline) 1,000 mls @ 999 mls/hr IV ONETIME ONE Stop: 01/06/18 16:45 Last Admin: 01/06/18 15:56 Dose: 999 mls/hr Losartan Potassium (Cozaar) 150 mg PO DAILY [facility] Last Admin: 01/07/18 08:20 Dose: 150 mg Metoprolol Succinate (Toprol Xl) 100 mg PO DAILY [facility] Last Admin: 01/07/18 08:18 Dose: 100 mg Multivitamins/Minerals (Thera M Plus) 1 tab PO DAILY [facility] Last Admin: 01/07/18 08:20 Dose: 1 tab Non-Formulary Medication (Biotin [Biotin]) 1 mg PO DAILY [facility] (Fluticasone Propionate [Flonase] 1 [place])Patients Own Med 1 spray NASBOTH BID [facility] Last Admin: 01/07/18 08:20 Dose: 1 spray Non-Formulary Medication (Lysine [Lysine]) 1,000 mg PO DAILY PRN PRN Reason: Other Non-Formulary Medication (Miconazole [Desenex 2%]) 1 applic TOP BID [facility] Last Admin: 01/06/18 21:41 Dose: Not Given Non-Formulary Medication (Mupirocin Cream [Bactroban Crm]) 1 applic TOP TID [facility] Last Admin: 01/06/18 21:41 Dose: Not Given Non-Formulary Medication (Peg 400/Propylene Glycol [Systane Lubricant]) 1 drop EYELF ASDIRECTED PRN PRN Reason: Dry Eyes Non-Formulary Medication (Vancomycin [Vancocin 125 Mg/2.5 Ml Soln]) 125 mg PO Q8H [facility] Last Admin: 01/06/18 21:41 Dose: Not Given Oxycodone HCl (Oxycodone) 5 mg PO Q4H PRN PRN Reason: PAIN Last Admin: 01/06/18 20:30 Dose: 5 mg Potassium Chloride (Klor-Con M20) 20 meq PO DAILY [facility] Last Admin: 01/07/18 08:15 Dose: 20 meq Sertraline HCl (Zoloft) 100 mg PO DAILY [facility] Last Admin: 01/07/18 08:19 Dose: 100 mg Sodium Chloride (Saline Flush) 10 ml FLUSH ASDIRECTED PRN PRN Reason: Keep Vein Open Trimethoprim/Sulfamethoxazole (Septra Ds) 1 tab PO BID [facility] Last Admin: 01/07/18 08:15 Dose: 1 tab Warfarin Sodium (Coumadin) 5 mg PO TuFr@1999 [facility] Warfarin Sodium (Coumadin) 7.5 mg PO SuMoWeThSa@1999 [facility] Last Admin: 01/06/18 20:07 Dose: 7.5 mg - Exam General: Reports: Alert, Oriented Lungs: Reports: Clear to Auscultation, Normal Respiratory Effort Cardiovascular: Reports: Regular Rate, Regular Rhythm GI/Abdominal Exam: Normal Bowel Sounds, Soft, Non-Tender, No Organomegaly, No Distention, No Abnormal Bruit, No Mass, Pelvis Stable (Male) Exam: Deferred Rectal (Males) Exam: Deferred Back Exam: Reports: Normal Inspection, Full Range of Motion Extremities: Normal Inspection, Normal Range of Motion, Non-Tender, No Pedal Edema, Normal Capillary Refill Skin: Reports: Warm, Dry, Intact Wound/Incisions: Reports: Healing Well Neurological: Reports: No New Focal Deficit Psy/Mental Status: Reports: Alert, Normal Affect, Normal Mood *Q Meaningful Use (DIS) - VTE *Q VTE Mechanical Contraindications *Q: At Risk for Falls
[2018-01-08] MEDS ORDERED: Warfarin 5 MG Tab PO SCH (20:00)
== END 2018-01-07 11:20 | disposition home or self-care (01) ==
LOC: VM.ED 15:07 → VM.MS 16:19
PROVIDERS: ADMIT Nurse Practitioner Family; ATTEND Nurse Practitioner Family
DX: R19.7 Diarrhea, unspecified (principal); B96.89 Other specified bacterial agents as the cause of diseases classified elsewhere; R53.1 Weakness; R42 Dizziness and giddiness; I11.0 Hypertensive heart disease with heart failure; I50.32 Chronic diastolic (congestive) heart failure; E11.9 Type 2 diabetes mellitus without complications; I48.2 Chronic atrial fibrillation; B96.20 Unspecified Escherichia coli [E. coli] as the cause of diseases classified elsewhere; F32.9 Major depressive disorder, single episode, unspecified; G35 Multiple sclerosis; M06.9 Rheumatoid arthritis, unspecified; G47.30 Sleep apnea, unspecified; Z79.51 Long term (current) use of inhaled steroids; Z79.899 Other long term (current) drug therapy; Z88.8 Allergy status to other drugs, medicaments and biological substances
CPT/HCPCS: 36415; 51702; 80048; 85025; 87045; 87046; 87899; 96365; 99217; 99218; 99283-GF; 99284; A9270-GY; G0378; J3370; J7030; J7050

== ENCOUNTER 2018-01-25 01:56 | Emergency (ER) | payer MEDICARE, BC | END 2018-01-25 05:59 | disposition swing bed (61) | LOC: VM.ED 01:56 | DX: S80.01XA Contusion of right knee, initial encounter (principal); S99.911A Unspecified injury of right ankle, initial encounter; E11.9 Type 2 diabetes mellitus without complications; Z88.8 Allergy status to other drugs, medicaments and biological substances; Z79.899 Other long term (current) drug therapy; W19.XXXA Unspecified fall, initial encounter; Y92.009 Unspecified place in unspecified non-institutional (private) residence as the place of occurrence of the external cause | CPT/HCPCS: 99285 ==

== ENCOUNTER 2018-01-25 01:56 | Inpatient (IN) | payer MEDICARE, BC ==
--- NOTE | 2018-01-25 02:01 | EDM.PDOC ---
ED HPI GENERAL MEDICAL PROBLEM - General Chief Complaint: Lower Extremity Injury/Pain Stated Complaint: Fall; Right knee pain and right ankle pain Time Seen by Provider: 01/25/18 01:57 Source of Information: Reports: Patient, EMS Notes Reviewed, RN, RN Notes Reviewed History Limitations: Reports: No Limitations - History of Present Illness INITIAL COMMENTS - FREE TEXT/NARRATIVE: Patient is brought to the emergency room at [facility] via EMS after he sustained a fall at home. The patient states that he underwent a trigeminal nerve manipulation earlier today and he has been somewhat dizzy since the procedure. The patient states that he lost his balance and fell landing on his right knee and right ankle. The patient states that his right lower extremity was hyperextended behind him. The patient complains of right knee pain and right ankle pain. The patient has not had any previous injury or trauma to the affected sites. The patient denies any numbness tingling or paresthesia to any extremity. The patient denies any head injury or trauma. No LOC. The patient has active range of motion of the right lower extremity. The patient does not have any obvious bone deformities. Otherwise no other concerns. Onset: Today, Sudden Onset Date: 01/25/18 Right Knee Pain Score (Numeric/FACES): 7 - Related Data Allergies Allergy/AdvReac Type Severity Reaction Status Date / Time carbamazepine AdvReac Dizziness Verified 01/25/18 01:59 Home Meds: Home Meds Cholecalciferol (Vitamin D3) [Vitamin D3] 5,000 unit PO DAILY 09/06/13 [History] Fluticasone Propionate [Flonase] 1 spray NASBOTH BID 09/06/13 [History] Lathrop-3 Fatty Acids [Lathrop-3] 1,000 mg PO DAILY 09/06/13 [History] Sertraline [Zoloft] 100 mg PO DAILY 09/06/13 [History] PEG 400/Propylene Glycol [Systane Lubricant] 1 drop EYELF ASDIRECTED PRN [History] oxyCODONE 5 mg PO Q4H PRN 06/15/15 [History] Cranberry Extract [Cranberry] 500 mg PO DAILY 11/16/15 [History] Potassium Chloride [Klor-Con] 20 meq PO DAILY #0 11/26/15 [Rx] Valsartan [Diovan] 320 mg PO DAILY #30 tablet 06/15/16 [Rx] Acetaminophen [Acetaminophen Extra Strength] 500 mg PO BID MDD 4000 MG DAILY 08/31 [History] Metoprolol Succinate [Toprol XL] 100 mg PO DAILY 06/30/17 [History] Calcium Carb & Citrate/Vit D3 [Citracal + D ER] 1 tab PO DAILY 07/02/17 [History ] Lysine 1,000 mg PO DAILY PRN 07/02/17 [History] Miconazole [Desenex 2%] 1 applic TOP BID 07/02/17 [History] Diltiazem [Cardizem CD] 240 mg PO DAILY #30 cap.cd 07/05/17 [Rx] Polyethylene Glycol 3350 [MiraLAX] 17 gm PO DAILY packet 07/05/17 [Rx] Biotin [Biotin] 1 mg PO DAILY 07/19/17 [History] Warfarin [Coumadin] 5 mg PO TUFR@199907/19/17 [History] Albuterol/Ipratropium [DuoNeb 3.0-0.5 MG/3 ML] 3 ml NEB Q6HRRT PRN 07/20/17 [ History] Multivitamin with Minerals [Multivitamins with Minerals] 1 tab PO DAILY [History] Celecoxib [CeleBREX] 100 mg PO DAILY 11/20/17 [History] Menthol/Zinc Oxide [Calmoseptine] 1 applic TOP BEDTIME 11/20/17 [History] Warfarin [Coumadin] 7.5 mg PO SUMOWETHSA@199911/20/17 [History] atorvaSTATin [Lipitor] 10 mg PO BEDTIME 11/20/17 [History] Vancomycin [Vancocin 125 MG/2.5 ML Soln] 125 mg PO Q8H #21 cup 11/30/17 [Rx] Furosemide [Lasix] 20 mg PO BID 01/06/18 [History] Mupirocin Cream [Bactroban Crm] 1 applic TOP TID 01/06/18 [History] Sulfamethoxazole/Trimethoprim [Bactrim Ds Tablet] 1 each PO BID 01/06/18 [ History] Past Medical History HEENT History: Reports: Cataract, Other (See Below) Other HEENT History: wears glasses Cardiovascular History: Reports: Afib, Heart Failure, Hypertension Respiratory History: Reports: Pneumonia, Recurrent, Sleep Apnea Gastrointestinal History: Reports: Other (See Below) Other Gastrointestinal History: history of C diff. fecal transplant Genitourinary History: Reports: Neurogenic Bladder, UTI, Recurrent Other Genitourinary History: self cath/due to MS Musculoskeletal History: Reports: Arthritis Other Musculoskeletal History: MSand sore on right knee with brace on Neurological History: Reports: MS Psychiatric History: Reports: Depression Other Psychiatric History: very depressed Endocrine/Metabolic History: Reports: Diabetes, Type II Hematologic History: Reports: Anticoagulation Therapy, Blood Transfusion(s) Dermatologic History: Reports: Other (See Below) Other Dermatologic History: coccyx friction open area, yeast in groin - Infectious Disease History Infectious Disease History: Reports: C-Difficile Other Infectious Disease History: ecoli - Past Surgical History HEENT Surgical History: Reports: Cataract Surgery GI Surgical History: Reports: Colonoscopy, Hernia Repair/Other Neurological Surgical History: Reports: None Oncologic Surgical History: Reports: None Social & Family History - Family History Family Medical History: Noncontributory Cardiac: Reports: [place] Respiratory: Reports: Asthma, COPD Musculoskeletal: Reports: Arthritis, Osteoporosis Neurological: Reports: None Endocrine/Metabolic: Reports: Diabetes, type II - Caffeine Use Caffeine Use: Reports: Coffee Review of Systems - Review of Systems Review Of Systems: See Below Constitutional: Denies: Chills, Fever, Weakness Respiratory: Denies: Shortness of Breath, Cough Cardiovascular: Denies: Chest Pain, Palpitations Musculoskeletal: Reports: Leg Pain, Joint Pain, Joint Swelling, Muscle Pain Skin: Reports: No Symptoms Neurological: Reports: No Symptoms ED EXAM, GENERAL - Physical Exam Exam: See Below Exam Limited By: No Limitations General Appearance: Alert, No Apparent Distress Head: Atraumatic, Normocephalic Respiratory/Chest: No Respiratory Distress, Lungs Clear, Normal Breath Sounds Cardiovascular: Normal Peripheral Pulses, Regular Rate, Rhythm Peripheral Pulses: 2+: Posterior Tibial (R), Dorsalis Pedis (R) Back Exam: Normal Inspection Extremities: Normal Inspection, Joint Swelling, Leg Pain, Limited Range of Motion. No: Increased Warmth Neurological: Alert, Oriented Skin Exam: Warm, Dry, Intact, Normal Color Course - Vital Signs Last Recorded V/S: Last Vital Signs Temp 37.5 C 01/25/18 02:02 Pulse 60 01/25/18 02:02 Resp 20 01/25/18 02:02 BP 123/72 01/25/18 02:02 Pulse Ox 88 L 01/25/18 02:02 - Orders/Labs/Meds Orders: Active Orders 24 hr Category Date Time Status Ankle Min 3V Rt [CR] Stat Exams 01/25/18 02:00 Taken Knee 3V Rt [CR] Stat Exams 01/25/18 01:58 Taken - Radiology Interpretation Free Text/Narrative:: Knee, 3V: Periarticular soft tissue edema, contusion. Not presents on prior exam ; No acute bone pathology Right Ankle, 3V: Soft tissue edema and swelling; well-corticated bony fragment adjacent to the tip of the lateral malleolus. Benign chronic finding See scanned reports in EMR Departure - Departure Time of Disposition: 03:47 Disposition: Home, Self-Care 01 Condition: Fair Clinical Impression: Contusion of knee, right Qualifiers: Encounter type: initial encounter Qualified Code(s): S80.01XA - Contusion of right knee, initial encounter Fall Qualifiers: Encounter type: initial encounter Qualified Code(s): W19.XXXA - Unspecified fall, initial encounter Right ankle injury Qualifiers: Encounter type: initial encounter Qualified Code(s): S99.911A - Unspecified injury of right ankle, initial encounter - Discharge Information *PRESCRIPTION DRUG MONITORING PROGRAM REVIEWED*: Not Applicable *COPY OF PRESCRIPTION DRUG MONITORING REPORT IN PATIENT ANNEMARIE: Not Applicable Instructions: Contusion, [id number] Referrals: Beatrice Benitez DO [Physician] - Forms: ED Department Discharge Additional Instructions: Rest and elevate and ice the right lower leg several times a day. Continue to take your home pain medications as directed. The x-rays do not show any broken bones or dislocations, which is good news. Follow-up with Dr. Benitez as symptoms warrant. Call us with any questions or concerns. - My Orders Last 24 Hours: My Active Orders 01/25/18 01:58 Knee 3V Rt [CR] Stat 01/25/18 02:00 Ankle Min 3V Rt [CR] Stat - Assessment/Plan Last 24 Hours: My Active Orders 01/25/18 01:58 Knee 3V Rt [CR] Stat 01/25/18 02:00 Ankle Min 3V Rt [CR] Stat Assessment:: Right knee contusion Right ankle injury Plan: Review of the x-rays does not show any acute pathology for fracture or dislocation. The patient appears to have a right knee contusion with moderate swelling. The patient does have some right lateral malleolus swelling of the right ankle. It is recommended that the patient to rest elevate and ice the affected extremity. The patient may ambulate as tolerated. The patient will continue with his pain medications at home. No other changes of medications. Patient can follow up with primary care provider as symptoms warrant.
[2018-01-25] MEDS ORDERED: Ondansetron 4 MG Tab.DIS PO PRN (04:43)
[2018-01-25] MEDS ORDERED: oxyCODONE 5 MG Tab PO PRN (05:02)
[2018-01-25] MEDS ORDERED: LYSINE 1000 MG PO PRN (05:02)
[2018-01-25] MEDS ORDERED: PEG EYELF PRN (05:02)
[2018-01-25] MEDS ORDERED: PROPYLENE GLYCOL EYELF PRN (05:02)
[2018-01-25] MEDS ORDERED: Albuterol/Ipratropium 3.0-0.5 MG/3 ML Neb Soln NEB PRN (05:15)
[2018-01-25] MEDS ORDERED: Potassium Chloride 20 MEQ Tab.ER PO SCH (08:00)
[2018-01-25] MEDS ORDERED: Metoprolol Succinate 50 MG Tab.ER PO SCH (08:00)
[2018-01-25] MEDS ORDERED: Non-Formulary Medication 1 Each (Biotin [Biotin] 1 MG) PO SCH (08:00)
[2018-01-25] MEDS ORDERED: Diltiazem 240 MG Cap.ER PO SCH (08:00)
[2018-01-25] MEDS ORDERED: MUPIROCIN TOP SCH (08:00)
[2018-01-25] MEDS ORDERED: Sertraline 100 MG Tab PO SCH (08:00)
[2018-01-25] MEDS ORDERED: Sulfamethoxazole/Trimethoprim 800-160 MG Tab PO SCH (08:00)
[2018-01-25] MEDS ORDERED: Fluticasone Propionate Nasal Spray 16 GM Bottle NAS SCH (08:00)
[2018-01-25] MEDS ORDERED: Furosemide 20 MG Tab PO SCH (08:00)
[2018-01-25] MEDS ORDERED: VALSARTAN 320 MG PO SCH (08:00)
[2018-01-25] MEDS ORDERED: Celecoxib 100 MG Cap PO SCH (08:00)
[2018-01-25] MEDS ORDERED: Losartan 50 MG Tab PO SCH (08:00)
--- NOTE | 2018-01-25 08:56 | PCM.HP ---
H&P History of Present Illness - General Date of Service: 01/25/18 Admit Problem/Dx: Admission Diagnosis/Problem Admission Diagnosis/Problem Contusion of knee Source of Information: Patient, EMS Notes Reviewed, Old Records, RN, RN Notes Reviewed History Limitations: Reports: No Limitations - History of Present Illness Initial Comments - Free Text/Narative: EMS was called the patient's home earlier this evening because the patient needed help getting into bed. When the EMS arrived the patient had stated to the EMS crew that he had fallen and was complaining of right knee pain and also right ankle pain. Patient had requested to be brought to the emergency room for further evaluation. In interviewing the patient the patient states that he did fall onto his left knee. The patient has a strong history of frequent falling at home. The patient also recalls local police department many times during the week for assistance in his home due to his inability to care for self. The patient did not have any head injury or trauma. The patient remembers the entire incident. The patient's only complaint is right knee and ankle pain. The patient does not have any numbness tingling or paresthesia to the right lower extremity. Onset of Symptoms: Reports: Today Duration of Symptoms: Reports: Intermittent Location: Reports: Lower Extremity, Right Quality: Reports: Dull Severity: Moderate Improves with: Reports: Rest Worsens with: Reports: Movement Context: Reports: Trauma Associated Symptoms: Reports: No Other Symptoms Right Knee Pain Score (Numeric/FACES): 7 - Related Data Allergies/Adverse Reactions: Allergies Allergy/AdvReac Type Severity Reaction Status Date / Time carbamazepine AdvReac Dizziness Verified 01/25/18 01:59 Home Medications: Home Meds Cholecalciferol (Vitamin D3) [Vitamin D3] 5,000 unit PO DAILY 09/06/13 [History] Fluticasone Propionate [Flonase] 1 spray NASBOTH BID 09/06/13 [History] Ursa-3 Fatty Acids [Ursa-3] 1,000 mg PO DAILY 09/06/13 [History] Sertraline [Zoloft] 100 mg PO DAILY 09/06/13 [History] PEG 400/Propylene Glycol [Systane Lubricant] 1 drop EYELF ASDIRECTED PRN [History] oxyCODONE 5 mg PO Q4H PRN 06/15/15 [History] Cranberry Extract [Cranberry] 500 mg PO DAILY 11/16/15 [History] Potassium Chloride [Klor-Con] 20 meq PO DAILY #0 11/26/15 [Rx] Valsartan [Diovan] 320 mg PO DAILY #30 tablet 06/15/16 [Rx] Acetaminophen [Acetaminophen Extra Strength] 500 mg PO BID MDD 4000 MG DAILY 08/31 [History] Metoprolol Succinate [Toprol XL] 100 mg PO DAILY 06/30/17 [History] Calcium Carb & Citrate/Vit D3 [Citracal + D ER] 1 tab PO DAILY 07/02/17 [History ] Lysine 1,000 mg PO DAILY PRN 07/02/17 [History] Miconazole [Desenex 2%] 1 applic TOP BID 07/02/17 [History] Diltiazem [Cardizem CD] 240 mg PO DAILY #30 cap.cd 07/05/17 [Rx] Polyethylene Glycol 3350 [MiraLAX] 17 gm PO DAILY packet 07/05/17 [Rx] Biotin [Biotin] 1 mg PO DAILY 07/19/17 [History] Warfarin [Coumadin] 5 mg PO TUFR@199907/19/17 [History] Albuterol/Ipratropium [DuoNeb 3.0-0.5 MG/3 ML] 3 ml NEB Q6HRRT PRN 07/20/17 [ History] Multivitamin with Minerals [Multivitamins with Minerals] 1 tab PO DAILY [History] Celecoxib [CeleBREX] 100 mg PO DAILY 11/20/17 [History] Menthol/Zinc Oxide [Calmoseptine] 1 applic TOP BEDTIME 11/20/17 [History] Warfarin [Coumadin] 7.5 mg PO SUMOWETHSA@199911/20/17 [History] atorvaSTATin [Lipitor] 10 mg PO BEDTIME 11/20/17 [History] Vancomycin [Vancocin 125 MG/2.5 ML Soln] 125 mg PO Q8H #21 cup 11/30/17 [Rx] Furosemide [Lasix] 20 mg PO BID 01/06/18 [History] Mupirocin Cream [Bactroban Crm] 1 applic TOP TID 01/06/18 [History] Sulfamethoxazole/Trimethoprim [Bactrim Ds Tablet] 1 each PO BID 01/06/18 [ History] Past Medical History HEENT History: Reports: Cataract, Other (See Below) Other HEENT History: wears glasses Cardiovascular History: Reports: Afib, Heart Failure, Hypertension Respiratory History: Reports: Pneumonia, Recurrent, Sleep Apnea Gastrointestinal History: Reports: Other (See Below) Other Gastrointestinal History: history of C diff. fecal transplant Genitourinary History: Reports: Neurogenic Bladder, UTI, Recurrent Other Genitourinary History: self cath/due to MS Musculoskeletal History: Reports: Arthritis Other Musculoskeletal History: MSand sore on right knee with brace on Neurological History: Reports: [place] Psychiatric History: Reports: Depression Other Psychiatric History: very depressed Endocrine/Metabolic History: Reports: Diabetes, Type II Hematologic History: Reports: Anticoagulation Therapy, Blood Transfusion(s) Dermatologic History: Reports: Other (See Below) Other Dermatologic History: coccyx friction open area, yeast in groin - Infectious Disease History Infectious Disease History: Reports: C-Difficile Other Infectious Disease History: ecoli - Past Surgical History HEENT Surgical History: Reports: Cataract Surgery GI Surgical History: Reports: Colonoscopy, Hernia Repair/Other Neurological Surgical History: Reports: None Oncologic Surgical History: Reports: None Social & Family History - Family History Family Medical History: Noncontributory Cardiac: Reports: [place] Respiratory: Reports: Asthma, COPD Musculoskeletal: Reports: Arthritis, Osteoporosis Neurological: Reports: None Endocrine/Metabolic: Reports: Diabetes, type II - Tobacco Use Smoking Status *Q: Former Smoker Used Tobacco, but Quit: No - Caffeine Use Caffeine Use: Reports: Coffee - Recreational Drug Use Recreational Drug Use: No H&P Review of Systems - Review of Systems: Review Of Systems: See Below General: Reports: Weakness (chronic). Denies: Fever, Chills Pulmonary: Denies: Shortness of Breath, Cough Cardiovascular: Denies: Chest Pain, Palpitations Musculoskeletal: Reports: Leg Pain, Joint Pain Skin: Reports: No Symptoms Neurological: Reports: No Symptoms. Denies: Dizziness, Headache, Numbness, Paresthesia, Tingling Exam - Exam Exam: See Below - Vital Signs Vital Signs: Last Vital Signs Temp 37.2 C 01/25/18 06:00 Pulse 63 01/25/18 06:00 Resp 18 01/25/18 06:00 BP 153/64 H 01/25/18 06:00 Pulse Ox 91 L 01/25/18 06:00 Weight: 104.326 kg - Exam General: Alert, Oriented, Cooperative Lungs: Clear to Auscultation, Normal Respiratory Effort Cardiovascular: Regular Rate, Regular Rhythm Back Exam: Normal Inspection Extremities: Joint Swelling (mild swelling of right knee), Leg Pain, Limited Range of Motion. No: Increased Warmth, Redness Skin: Warm, Dry, Intact Neuro Extensive - Mental Status: Alert, Oriented x3 - Patient Data Lab Results Last 24 hrs: Laboratory Results - last 24 hr 01/25/18 Range/Units 06:44 POC Glucose 281 H (74-106) mg/dL *Q Meaningful Use (ADM) - VTE *Q VTE Mechanical Contraindications *Q: At Risk for Falls - Problem List (1) Contusion of knee, right SNOMED Code(s): 01299232 ICD Code: S80.01XA - CONTUSION OF RIGHT KNEE, INITIAL ENCOUNTER Status: Acute Priority: Low Current Visit: Yes Qualifiers: Encounter type: initial encounter Qualified Code(s): S80.01XA - Contusion of right knee, initial encounter (2) Fall SNOMED Code(s): 9694956, 283730596 ICD Code: W19.XXXA - UNSPECIFIED FALL, INITIAL ENCOUNTER Status: Acute Priority: Low Current Visit: Yes Qualifiers: Encounter type: initial encounter Qualified Code(s): W19.XXXA - Unspecified fall, initial encounter (3) Right ankle injury SNOMED Code(s): 51086307749522641 ICD Code: S99.911A - UNSPECIFIED INJURY OF RIGHT ANKLE, INITIAL ENCOUNTER Status: Acute Priority: Low Current Visit: Yes Qualifiers: Encounter type: initial encounter Qualified Code(s): S99.911A - Unspecified injury of right ankle, initial encounter Problem List Initiated/Reviewed/Updated: Yes Orders Last 24hrs: Active Orders 24 hr Category Date Time Status Patient Status [ADT] Routine ADT 01/25/18 04:43 Active Height and Weight [RC] PER UNIT ROUTINE Care 01/25/18 04:44 Active Intake and Output [RC] ,18 Care 01/25/18 04:43 Active Oxygen Therapy [RC] PRN Care 01/25/18 04:43 Active Up With Assistance [RC] ASDIRECTED Care 01/25/18 04:43 Active VTE/DVT Education [RC] PER UNIT ROUTINE Care 01/25/18 04:43 Active Vital Signs [RC] 06,10,14,18,22,02 Care 01/25/18 04:43 Active Consult to Case Management [CONS] Routine Cons 01/25/18 04:43 Active [employer] Diet [DIET] Diet 01/25/18 Breakfast Active Ankle Min 3V Rt [CR] Stat Exams 01/25/18 02:00 Taken Knee 3V Rt [CR] Stat Exams 01/25/18 01:58 Taken Acetaminophen [Tylenol Extra Strength] Med 01/25/18 08:00 Active 500 mg PO BID Albuterol/Ipratropium [DuoNeb 3.0-0.5 MG/3 ML] Med 01/25/18 05:15 Active 3 ml NEB Q6H PRN Calcium Carbonate/Vitamin D3 [Calcium Carbonate/Vitamin Med 01/25/18 08:00 Active D 1250 MG-200 Unit] 1 tab PO DAILY Celecoxib [CeleBREX] Med 01/25/18 08:00 Active 100 mg PO DAILY Cholecalciferol (Vitamin D3) [Vitamin D3] Med 01/25/18 08:00 Active 5,000 units PO DAILY Cranberry Med 01/25/18 08:00 Active 500 mg PO DAILY Diltiazem [Dilacor XR] Med 01/25/18 08:00 Active 240 mg PO DAILY Fish Oil/Ursa-3 Fatty Acids [Fish Oil] Med 01/25/18 08:00 Active 1 gm PO DAILY Fluticasone Propionate [Flonase] Med 01/25/18 08:00 Active 0 gm HARVEY BID Furosemide [Lasix] Med 01/25/18 08:00 Active 20 mg PO BIDDIURETIC Losartan [Cozaar] Med 01/25/18 08:00 Active 150 mg PO DAILY Menthol/Zinc Oxide [Calmoseptine] Med 01/25/18 20:00 Active 0 gm TOP BEDTIME Metoprolol Succinate [Toprol XL] Med 01/25/18 08:00 Active 100 mg PO DAILY Miconazole [Desenex 2%] Med 01/25/18 08:00 Active 0 gm TOP BID Multivitamins w-Iron/Ca/FA/Min [Thera M Plus] Med 01/25/18 08:00 Active 1 tab PO DAILY Mupirocin Cream [Bactroban Crm] Med 01/25/18 08:00 Pending 1 applic TOP TID Ondansetron [Zofran ODT] Med 01/25/18 04:43 Active 4 mg PO Q6H PRN Polyethylene Glycol 3350 [MiraLAX] Med 01/25/18 08:00 Active 17 gm PO DAILY Potassium Chloride [Klor-Con M20] Med 01/25/18 08:00 Active 20 meq PO DAILY Sertraline [Zoloft] Med 01/25/18 08:00 Active 100 mg PO DAILY Sulfamethoxazole/Trimethoprim [Septra DS] Med 01/25/18 08:00 Active 1 tab PO BID Warfarin [Coumadin] Med 01/25/18 20:00 Pending 5 mg PO TUFR@1999 Warfarin [Coumadin] Med 01/26/18 20:00 Pending 7.5 mg PO SUMOWETHSA@1999 atorvaSTATin [Lipitor] Med 01/25/18 20:00 Active 10 mg PO BEDTIME oxyCODONE Med 01/25/18 05:02 Active 5 mg PO Q4H PRN Resuscitation Status Routine Resus Stat 01/25/18 04:43 Ordered Medication Orders Acetaminophen (Tylenol Extra Strength) 500 mg PO BID ELIGIO Albuterol/Ipratropium (Duoneb 3.0-0.5 Mg/3 Ml) 3 ml NEB Q6H PRN PRN Reason: SHORTNESS OF BREATH Atorvastatin Calcium (Lipitor) 10 mg PO BEDTIME ELIGIO Calamine/Phenol (Calmoseptine) 0 gm TOP BEDTIME ELIGIO Calcium Carbonate (Calcium Carbonate/Vitamin D 1250 Mg-200 Unit) 1 tab PO DAILY [facility]IGIO Celecoxib (Celebrex) 100 mg PO DAILY [facility]IGIO Cholecalciferol (Vitamin D3) 5,000 units PO DAILY ELIGIO Cranberry (Cranberry) 500 mg PO DAILY [facility]IGIO Diltiazem HCl (Dilacor Xr) 240 mg PO DAILY [facility]IGIO Fish Oil (Fish Oil) 1 gm PO DAILY ELIGIO Fluticasone Propionate (Flonase) 0 gm HARVEY BID ELIGIO Furosemide (Lasix) 20 mg PO BIDDIURETIC ELIGIO Losartan Potassium (Cozaar) 150 mg PO DAILY ELIGIO Metoprolol Succinate (Toprol Xl) 100 mg PO DAILY ELIGIO Miconazole (Desenex 2%) 0 gm TOP BID ELIGIO Multivitamins/Minerals (Thera M Plus) 1 tab PO DAILY ELIGIO Non-Formulary Medication (Mupirocin Cream [Bactroban Crm]) 1 applic TOP TID ELIGIO Non-Formulary Medication (Warfarin [Coumadin]) 5 mg PO TUFR@2000 [facility] Non-Formulary Medication (Warfarin [Coumadin]) 7.5 mg PO SUMOWETHSA@2000 [facility] Ondansetron HCl (Zofran Odt) 4 mg PO Q6H PRN PRN Reason: nausea, able to take PO Oxycodone HCl (Oxycodone) 5 mg PO Q4H PRN PRN Reason: Pain Polyethylene Glycol (Miralax) 17 gm PO DAILY [facility] Potassium Chloride (Klor-Con M20) 20 meq PO DAILY [facility] Sertraline HCl (Zoloft) 100 mg PO DAILY [facility] Trimethoprim/Sulfamethoxazole (Septra Ds) 1 tab PO BID ELIGIO Assessment/Plan Comment:: 72-year-old male patient with a past medical history of congestive heart failure , hypertension, MS is admitted to the swing bed unit at [facility] for right knee contusion. The patient does not have any medical necessity to be admitted to the hospital, therefore the patient requested to be admitted swing bed self-pay. We will continue the patient's same medications from home without any changes. The patient does not any nursing services beyond helping him with his medications. Given the patient's long-standing history of falls, mobility issues, inability to take care of his own ADLs, I did speak with the patient about placement to the [facility]. The patient also has a long-standing history of making several comments about wanting to kill himself. In further discussion the patient states that he would never actually attempt to harm himself, however he does make the comments on several occasions and with each admission to this facility. At this time I do think the patient is appropriate for [facility] placement given his inability to care for himself at home, frequent falls, multiple comorbid conditions requiring multiple medications. The patient has agreed to be screened for admission to the [facility]. I will ask case management to facilitate this process today in hopes of getting the patient placed today. However the patient may not be able to be placed on next week, in that case the patient would remain self-pay swing bed as he does not have any medical necessity to be formally admitted to the hospital.
[2018-01-25] MEDS ORDERED: CELECOXIB 100 MG PO SCH (09:30)
[2018-01-25] MEDS ORDERED: DILTIAZEM 240 MG PO SCH (09:30)
[2018-01-25] MEDS ORDERED: FUROSEMIDE 20 MG PO SCH (09:35)
[2018-01-25] MEDS ORDERED: OXYCODONE 5 MG PO PRN (10:09)
[2018-01-25] MEDS ORDERED: SULFAMETHOXAZOLE PO SCH (10:15)
[2018-01-25] MEDS ORDERED: TRIMETHOPRIM PO SCH (10:15)
[2018-01-25] MEDS: POTASSIUM 20 MEQ PO SCH (10:56)
[2018-01-25] MEDS: DILTIAZEM 240 MG PO SCH (10:56)
[2018-01-25] MEDS: VALSARTAN 320 MG PO SCH (10:57)
[2018-01-25] MEDS: METOPROLOL 100 MG PO SCH (10:57)
[2018-01-25] MEDS: CELECOXIB 100 MG PO SCH (10:58)
[2018-01-25] MEDS: Cholecalciferol (Vitamin D3) 1,000 Unit Tab PO SCH (11:02)
[2018-01-25] MEDS: Calcium Carbonate/Vitamin D3 1250 MG-200 Unit Tab PO SCH (11:02)
[2018-01-25] MEDS: Cranberry 500 MG Cap PO SCH (11:02)
[2018-01-25] MEDS: Polyethylene Glycol 3350 Powder 17 GM Packet PO SCH (11:02)
[2018-01-25] MEDS: Fish Oil/Omega-3 Fatty Acids 1 Gm Cap PO SCH (11:02)
[2018-01-25] MEDS: Multivitamins with Iron/Calcium/Folic Acid/Minerals Tab PO SCH (11:02)
[2018-01-25] MEDS: Acetaminophen 500 MG Tab PO SCH ×2 (11:03→21:54)
[2018-01-25] MEDS: FUROSEMIDE 20 MG PO SCH ×2 (11:30→17:33)
[2018-01-25] MEDS: MUPIROCIN TOP SCH ×2 (12:19→21:47)
[2018-01-25] MEDS: Miconazole 2% Top Powder 45 GM Container TOP SCH ×2 (12:19→21:45)
[2018-01-25] MEDS: FLUTICASONE NAS SCH ×2 (12:21→21:45)
[2018-01-25 12:31] LABS: ANION GAP 10.7 mmol/L (10-20); CHLORIDE,CL 107 mmol/L (98-107); SODIUM,NA 141 mmol/L (136-145)
[2018-01-25] MEDS ORDERED: Sodium Chloride 0.9% 1,000 ML IV ONE (12:49)
--- NOTE | 2018-01-25 12:55 | PCM.SN ---
- Free Text/Narrative Note: Called by the patient's nurse at 11:45 AM regarding the patient having a temperature of 101.6, new onset confusion, and elevated respiratory rate of 28. The patient was assessed by me and no derivation of symptoms found. The patient' s blood work was unremarkable outside of a slightly elevated WBC count of 14.4. The patient's lactic acid is normal at 1.2. The patient's urinalysis did not show any acute UTI. The patient's chest x-ray did not show any acute infiltrate , but does have chronic small bilateral effusions and/or pleural thickening with cardiomegaly with mild pulmonary vascular congestion. No pulmonary edema. I will give the patient 1 L of normal saline for hydration. Otherwise no other intervention is warranted. We will monitor the patient. We are continuing to process patient for vulnerable adult. We will continue working on [facility] placement. The patient is aware of the plan of care.
[2018-01-25] MEDS ORDERED: atorvaSTATin 10 MG Tab PO SCH (20:00)
[2018-01-25] MEDS ORDERED: ATORVASTATIN 10 MG PO SCH (20:00)
[2018-01-25] MEDS ORDERED: Non-Formulary Medication 1 Each (Warfarin [Coumadin] 5 MG) PO SCH (20:00)
[2018-01-25] MEDS ORDERED: WARFARIN PO SCH (20:00)
[2018-01-25] MEDS: Menthol/Zinc Oxide Ointment 3.5 GM Tube TOP SCH (21:45)
[2018-01-26] MEDS: Calcium Carbonate/Vitamin D3 1250 MG-200 Unit Tab PO SCH (08:12)
[2018-01-26] MEDS: Multivitamins with Iron/Calcium/Folic Acid/Minerals Tab PO SCH (08:12)
[2018-01-26] MEDS: Acetaminophen 500 MG Tab PO SCH ×2 (08:12→20:52)
[2018-01-26] MEDS: Cranberry 500 MG Cap PO SCH (08:12)
[2018-01-26] MEDS: FUROSEMIDE 20 MG PO SCH ×2 (08:12→15:11)
[2018-01-26] MEDS: Fish Oil/Omega-3 Fatty Acids 1 Gm Cap PO SCH (08:12)
[2018-01-26] MEDS: Cholecalciferol (Vitamin D3) 1,000 Unit Tab PO SCH (08:12)
[2018-01-26] MEDS: VALSARTAN 320 MG PO SCH (08:13)
[2018-01-26] MEDS: CELECOXIB 100 MG PO SCH (08:13)
[2018-01-26] MEDS: DILTIAZEM 240 MG PO SCH (08:13)
[2018-01-26] MEDS: METOPROLOL 100 MG PO SCH (08:13)
[2018-01-26] MEDS: POTASSIUM 20 MEQ PO SCH (08:13)
[2018-01-26] MEDS: MUPIROCIN TOP SCH ×3 (08:14→20:51)
[2018-01-26] MEDS: Miconazole 2% Top Powder 45 GM Container TOP SCH ×2 (08:14→20:51)
[2018-01-26] MEDS: Polyethylene Glycol 3350 Powder 17 GM Packet PO SCH (08:14)
[2018-01-26] MEDS: FLUTICASONE NAS SCH ×2 (08:14→20:51)
[2018-01-26] MEDS: Vancomycin 125 MG/2.5 ML Oral Solution 2.5 ML UD Cup PO SCH ×4 (09:25→21:09)
[2018-01-26] MEDS ORDERED: Sodium Chloride 0.9% 1,000 ML IV SCH (18:45)
[2018-01-26] MEDS ORDERED: WARFARIN 7.5 MG PO SCH (20:00)
[2018-01-26] MEDS ORDERED: Non-Formulary Medication 1 Each (Warfarin [Coumadin] 7.5 MG) PO SCH (20:00)
[2018-01-26] MEDS: Menthol/Zinc Oxide Ointment 3.5 GM Tube TOP SCH (20:50)
[2018-01-26] MEDS ORDERED: Calcium Carbonate 750 MG Tab.Chew PO PRN (21:02)
--- NOTE | 2018-01-26 21:46 | PCM.DCSUM1 ---
Discharge Summary - Hospital Course Free Text/Narrative:: 72 year old male admitted to swing bed with weakness - anticipating needs for nursing home bed. Develop explosive diarrhea. Patient with history of C diff colitis. Symptoms are very similar. Was noted to have slightly elevated WBC on admission as well as elevated temperature. Had been hospitalized at [facility] for two procedures related to his trigeminal neuralgia. He is uncertain if he received any antibiotics but feels the weakness and diarrhea are because "I wasn't allowed to eat or drink for two days." Diagnosis: Stroke: No - Discharge Data Discharge Date: 01/26/18 Discharge Disposition: Admitted As Inpatient 67 Condition: Good - Discharge Diagnosis/Problem(s) (1) Diarrhea SNOMED Code(s): 06169761 ICD Code: R19.7 - DIARRHEA, UNSPECIFIED Status: Chronic Current Visit: No (2) Frequent falls SNOMED Code(s): 170782345 ICD Code: R29.6 - REPEATED FALLS Status: Chronic Priority: High Current Visit: No (3) Multiple sclerosis SNOMED Code(s): 01933308 ICD Code: G35 - MULTIPLE SCLEROSIS Status: Chronic Priority: Medium Current Visit: No (4) Weakness SNOMED Code(s): 29014354 ICD Code: R53.1 - WEAKNESS Status: Chronic Priority: Medium Current Visit: No - Patient Summary/Data Consults: Consultations 01/25/18 04:43 Consult to Case Management [CONS] Routine - Patient Instructions Diet: Low Sodium Driving: Do Not Drive - Discharge Plan *PRESCRIPTION DRUG MONITORING PROGRAM REVIEWED*: Not Applicable *COPY OF PRESCRIPTION DRUG MONITORING REPORT IN PATIENT ANNEMAIRE: Not Applicable Home Medications: Home Meds Cholecalciferol (Vitamin D3) [Vitamin D3] 5,000 unit PO DAILY 09/06/13 [History] Fluticasone Propionate [Flonase] 1 spray NASBOTH BID 09/06/13 [History] Crowley-3 Fatty Acids [Crowley-3] 1,000 mg PO DAILY 09/06/13 [History] Sertraline [Zoloft] 100 mg PO DAILY 09/06/13 [History] PEG 400/Propylene Glycol [Systane Lubricant] 1 drop EYELF ASDIRECTED PRN [History] oxyCODONE 5 mg PO Q4H PRN 06/15/15 [History] Cranberry Extract [Cranberry] 500 mg PO DAILY 11/16/15 [History] Potassium Chloride [Klor-Con] 20 meq PO DAILY #0 11/26/15 [Rx] Valsartan [Diovan] 320 mg PO DAILY #30 tablet 06/15/16 [Rx] Acetaminophen [Acetaminophen Extra Strength] 500 mg PO BID MDD 4000 MG DAILY 08/31 [History] Metoprolol Succinate [Toprol XL] 100 mg PO DAILY 06/30/17 [History] Lysine 1,000 mg PO DAILY PRN 07/02/17 [History] Miconazole [Desenex 2%] 1 applic TOP BID 07/02/17 [History] Diltiazem [Cardizem CD] 240 mg PO DAILY #30 cap.cd 07/05/17 [Rx] Polyethylene Glycol 3350 [MiraLAX] 17 gm PO DAILY packet 07/05/17 [Rx] Biotin [Biotin] 1 mg PO DAILY 07/19/17 [History] Warfarin [Coumadin] 5 mg PO TUFR@199907/19/17 [History] Albuterol/Ipratropium [DuoNeb 3.0-0.5 MG/3 ML] 3 ml NEB Q6HRRT PRN 07/20/17 [ History] Multivitamin with Minerals [Multivitamins with Minerals] 1 tab PO DAILY [History] Celecoxib [CeleBREX] 100 mg PO DAILY 11/20/17 [History] Menthol/Zinc Oxide [Calmoseptine] 1 applic TOP BEDTIME 11/20/17 [History] Warfarin [Coumadin] 7.5 mg PO SUMOWETHSA@199911/20/17 [History] atorvaSTATin [Lipitor] 10 mg PO BEDTIME 11/20/17 [History] Furosemide [Lasix] 20 mg PO BID 01/06/18 [History] Mupirocin Cream [Bactroban Crm] 1 applic TOP TID 01/06/18 [History] Calcium Carbonate/Vitamin D3 [Calcium 600-Vit D3 500 Softgel] 1 cap PO DAILY [History] Gabapentin [Neurontin] 300 mg PO BEDTIME 01/25/18 [History] Patient Handouts: Contusion, [id number] Forms: ED Department Discharge Referrals: Beatrice Benitez DO [Physician] - - Discharge Summary/Plan Comment DC Time >30 min.: No Discharge Summary/Plan Comment: Patient will be changed to acute status. He is in need of IV fluid therapy as well as oral antibiotics. May need to add IV antibiotics if temp increases or WBC increases - General Info Date of Service: 01/26/18 - Review of Systems General: Reports: Weakness Pulmonary: Reports: Shortness of Breath Cardiovascular: Denies: Chest Pain Gastrointestinal: Reports: Abdominal Pain, Diarrhea Genitourinary: Reports: No Symptoms Musculoskeletal: Reports: Back Pain Skin: Reports: No Symptoms Neurological: Reports: No Symptoms - Patient Data Vitals - Most Recent: Last Vital Signs Temp 36.6 C 01/26/18 16:39 Pulse 69 01/26/18 16:39 Resp 18 01/26/18 16:39 BP 130/59 L 01/26/18 16:39 Pulse Ox 95 01/26/18 16:39 Weight - Most Recent: 107.139 kg I&O - Last 24 hours: Intake & Output 01/26/18 01/26/18 01/26/18 06:59 14:59 22:59 Intake Total 100 Output Total 500 400 Balance -400 -400 Lab Results - Last 24 hrs: Laboratory Results - last 24 hr 01/25/18 01/26/18 01/26/18 Range/Units 21:40 06:20 17:58 POC Glucose 149 H 136 H 153 H (74-106) mg/dL 01/26/18 Range/Units 21:12 POC Glucose 131 H (74-106) mg/dL ROBBIE Results - Last 24 hrs: Microbiology 01/25/18 11:55 Aerobic Blood Culture - Preliminary Blood - Venous - Lab Draw NO GROWTH AFTER 1 DAY Anaerobic Blood Culture - Preliminary NO GROWTH AFTER 1 DAY 01/25/18 11:45 Aerobic Blood Culture - Preliminary Blood - Venous NO GROWTH AFTER 1 DAY Anaerobic Blood Culture - Preliminary NO GROWTH AFTER 1 DAY 01/25/18 11:39 Urine Culture - Preliminary Urine, Catheterized Gram Negative Rods Med Orders - Current: Current Medications Acetaminophen (Tylenol Extra Strength) 500 mg PO BID [facility] Last Admin: 01/26/18 20:52 Dose: 500 mg Albuterol/Ipratropium (Duoneb 3.0-0.5 Mg/3 Ml) 3 ml NEB Q6H PRN PRN Reason: SHORTNESS OF BREATH Calamine/Phenol (Calmoseptine) 0 gm TOP BEDTIME [facility] Last Admin: 01/26/18 20:50 Dose: 1 applic Calcium Carbonate (Calcium Carbonate/Vitamin D 1250 Mg-200 Unit) 1 tab PO DAILY [facility] Last Admin: 01/26/18 08:12 Dose: 1 tab Calcium Carbonate/Glycine (Tums Extra Strength) 750 mg PO Q2H PRN PRN Reason: Dyspepsia Last Admin: 01/26/18 21:08 Dose: 750 mg Cholecalciferol (Vitamin D3) 5,000 units PO DAILY [facility] Last Admin: 01/26/18 08:12 Dose: 5,000 units Cranberry (Cranberry) 500 mg PO DAILY [facility] Last Admin: 01/26/18 08:12 Dose: 500 mg Fish Oil (Fish Oil) 1 gm PO DAILY [facility] Last Admin: 01/26/18 08:12 Dose: 1 gm Sodium Chloride (Normal Saline) 1,000 mls @ 100 mls/hr IV ASDIRECTED [facility] Last Admin: 01/26/18 19:03 Dose: 100 mls/hr Miconazole (Desenex 2%) 0 gm TOP BID [facility] Last Admin: 01/26/18 20:51 Dose: 1 applic Multivitamins/Minerals (Thera M Plus) 1 tab PO DAILY [facility] Last Admin: 01/26/18 08:12 Dose: 1 tab Mupirocin Cream [ Bactroban Crm] (Own Supply) 1 applic TOP TID [facility] Last Admin: 01/26/18 20:51 Dose: Not Given Warfarin [Coumadin] 0 mg PO TUFR@1999 [facility] Last Admin: 01/25/18 21:48 Dose: 5 mg Warfarin [Coumadin] (7.5mg (Own Supply)) 0 mg PO SUMOWETHSA@1999 [facility] Last Admin: 01/26/18 20:53 Dose: 7.5 mg Atorvastatin. 10mg ( (Own Supply)) 0 mg PO BEDTIME [facility] Last Admin: 01/26/18 20:47 Dose: 10 mg Celecoxib. 100mg ( (Own Supply)) 0 mg PO DAILY [facility] Last Admin: 01/26/18 08:13 Dose: 100 mg Diltiazem. Er 240mg ((Own Supply)) 0 mg PO DAILY [facility] Last Admin: 01/26/18 08:13 Dose: 240 mg Metoprolol.Er 100mg ((Own Supply)) 0 mg PO DAILY [facility] Last Admin: 01/26/18 08:13 Dose: 100 mg Potassium. 20 Meq ( (Own Supply)) 0 meq PO DAILY [facility] Last Admin: 01/26/18 08:13 Dose: 20 meq Sertraline. 100mg ( (Own Supply)) 0 mg PO DAILY [facility] Last Admin: 01/26/18 08:13 Dose: 100 mg Valsartan. 320mg ( (Own Supply)) 0 mg PO DAILY [facility] Last Admin: 01/26/18 08:13 Dose: 320 mg Fluticasone. Nasal ([place] (Own Supply)) 1 spray HARVEY BID [facility] Last Admin: 01/26/18 20:51 Dose: 1 spray Furosemide. 20mg ( (Own Supply)) 0 mg PO BIDDIURETIC [facility] Last Admin: 01/26/18 15:11 Dose: 20 mg Gabapentin. 300mg ( (Own Supply)) 0 mg PO BEDTIME [facility] Last Admin: 01/26/18 20:49 Dose: 300 mg Ondansetron HCl (Zofran Odt) 4 mg PO Q6H PRN PRN Reason: nausea, able to take PO Polyethylene Glycol (Miralax) 17 gm PO DAILY [facility] Last Admin: 01/26/18 08:14 Dose: Not Given Vancomycin HCl (Vancocin 125 Mg/2.5 Ml Soln) 250 mg PO QID [facility] Last Admin: 01/26/18 21:09 Dose: 250 mg Discontinued Medications Sodium Chloride (Normal Saline) 1,000 mls @ 999 mls/hr IV ONETIME ONE Stop: 01/25/18 13:49 Last Admin: 01/25/18 13:27 Dose: 999 mls/hr Non-Formulary Medication (Biotin [Biotin]) 1 mg PO DAILY [facility] Non-Formulary Medication (Lysine [Lysine]) 1,000 mg PO DAILY PRN PRN Reason: Other Non-Formulary Medication (Mupirocin Cream [Bactroban Crm]) 1 applic TOP TID [facility] Non-Formulary Medication (Peg 400/Propylene Glycol [Systane Lubricant]) 1 drop EYELF ASDIRECTED PRN PRN Reason: Dry Eyes Non-Formulary Medication (Warfarin [Coumadin]) 5 mg PO TUFR@2000 [facility] Non-Formulary Medication (Warfarin [Coumadin]) 7.5 mg PO SUMOWETHSA@2000 [facility] Non-Formulary Medication (Atorvastatin.) 10 mg PO BEDTIME [facility] Non-Formulary Medication (Celecoxib.) 100 mg PO DAILY [facility] Non-Formulary Medication (Diltiazem. Er) 240 mg PO DAILY [facility] Non-Formulary Medication (Furosemide.) 20 mg PO BIDDIURETIC [facility] Last Admin: 01/25/18 12:20 Dose: Not Given - Exam Quality Assessment: Reports: Supplemental Oxygen General: Reports: Alert Neck: Reports: Supple Lungs: Reports: Clear to Auscultation Cardiovascular: Reports: Irregular Rhythm GI/Abdominal Exam: Normal Bowel Sounds Skin: Reports: Warm, Dry Psy/Mental Status: Reports: Alert *Q Meaningful Use (DIS) - VTE *Q VTE Mechanical Contraindications *Q: At Risk for Falls
[2018-01-26 21:58] VITALS: BP 141/76
== END 2018-01-26 19:00 | disposition critical access hospital (66) | DRG 948 ==
LOC: VM.ED 01:56 → VM.MS 04:40 → UNDOADMIN 04:40 → VM.MS 04:43 → UNDOADMOB 04:43 → INTOOBSV 04:43 → OBSVTOIN 04:43 → VM.MS 04:43 → EDSTATUS 15:02 → UNDODISIN 01-26 19:00
PROVIDERS: ADMIT Nurse Practitioner Family; ATTEND Nurse Practitioner Family
DX: R53.1 Weakness (principal); S80.01XA Contusion of right knee, initial encounter; S99.911A Unspecified injury of right ankle, initial encounter; W19.XXXA Unspecified fall, initial encounter; I11.0 Hypertensive heart disease with heart failure; I50.9 Heart failure, unspecified; G35 Multiple sclerosis; R29.6 Repeated falls; Z91.81 History of falling; I48.91 Unspecified atrial fibrillation; G47.30 Sleep apnea, unspecified; N31.9 Neuromuscular dysfunction of bladder, unspecified; R41.0 Disorientation, unspecified; Z79.899 Other long term (current) drug therapy; Z79.01 Long term (current) use of anticoagulants; R19.7 Diarrhea, unspecified; Z86.19 Personal history of other infectious and parasitic diseases
CPT/HCPCS: 36415; 51702; 71045; 73562-RT; 73610-RT; 80053; 81001; 82962; 83605; 85025; 86140; 87040; 87086; 87186; 87493; 94760; 99285; A9270-GY; J7030

== ENCOUNTER 2018-01-26 19:00 | Inpatient (IN) | payer MEDICARE, BC ==
[2018-01-26] MEDS ORDERED: LYSINE 1000 MG PO PRN (23:55)
[2018-01-26] MEDS ORDERED: Albuterol/Ipratropium 3.0-0.5 MG/3 ML Neb Soln NEB PRN (23:55)
[2018-01-27] MEDS: Vancomycin 125 MG/2.5 ML Oral Solution 2.5 ML UD Cup PO SCH ×3 (07:40→20:15)
[2018-01-27] MEDS: Cholecalciferol (Vitamin D3) 1,000 Unit Tab PO SCH (07:40)
[2018-01-27] MEDS: Metoprolol Succinate 50 MG Tab.ER PO SCH (07:46)
[2018-01-27] MEDS: Fish Oil/Omega-3 Fatty Acids 1 Gm Cap PO SCH (07:46)
[2018-01-27] MEDS: Cranberry 500 MG Cap PO SCH (07:47)
[2018-01-27] MEDS: Furosemide 20 MG Tab PO SCH ×2 (07:47→17:02)
[2018-01-27] MEDS: Multivitamins with Iron/Calcium/Folic Acid/Minerals Tab PO SCH (07:47)
[2018-01-27] MEDS: Calcium Carbonate/Vitamin D3 1250 MG-200 Unit Tab PO SCH (07:47)
[2018-01-27] MEDS: Sertraline 100 MG Tab PO SCH (07:48)
[2018-01-27] MEDS: Acetaminophen 500 MG Tab PO STA ×2 (07:48→08:01)
[2018-01-27] MEDS: Miconazole 2% Top Powder 45 GM Container TOP SCH ×2 (07:49→20:23)
[2018-01-27] MEDS: Diltiazem 240 MG Cap.ER PO SCH (07:50)
[2018-01-27] MEDS: Fluticasone Propionate Nasal Spray 16 GM Bottle NASBOTH SCH (07:50)
[2018-01-27] MEDS ORDERED: Non-Formulary Medication 1 Each (Biotin [Biotin] 1 MG) PO SCH (08:00)
[2018-01-27] MEDS ORDERED: Celecoxib 100 MG Cap PO SCH (08:00)
[2018-01-27] MEDS ORDERED: MUPIROCIN TOP SCH (08:00)
[2018-01-27] MEDS: Acetaminophen 500 MG Tab PO SCH ×2 (08:01→20:21)
[2018-01-27] MEDS: Potassium Chloride 20 MEQ Packet PO SCH (08:03)
[2018-01-27] MEDS: Sodium Chloride 0.9% 1,000 ML IV SCH (08:57)
[2018-01-27] MEDS: Calcium Carbonate 750 MG Tab.Chew PO PRN ×2 (08:57→20:28)
--- NOTE | 2018-01-27 09:59 | PCM.HP ---
H&P History of Present Illness - General Date of Service: 01/26/18 Admit Problem/Dx: Admission Diagnosis/Problem Admission Diagnosis/Problem Diarrhea of presumed infectious origin Source of Information: Patient - Related Data Allergies/Adverse Reactions: Allergies Allergy/AdvReac Type Severity Reaction Status Date / Time carbamazepine AdvReac Dizziness Verified 01/25/18 01:59 Home Medications: Home Meds Cholecalciferol (Vitamin D3) [Vitamin D3] 5,000 unit PO DAILY 09/06/13 [History] Fluticasone Propionate [Flonase] 1 spray NASBOTH BID 09/06/13 [History] [place]-3 Fatty Acids [[place]-3] 1,000 mg PO DAILY 09/06/13 [History] Sertraline [Zoloft] 100 mg PO DAILY 09/06/13 [History] PEG 400/Propylene Glycol [Systane Lubricant] 1 drop EYELF ASDIRECTED PRN [History] oxyCODONE 5 mg PO Q4H PRN 06/15/15 [History] Cranberry Extract [Cranberry] 500 mg PO DAILY 11/16/15 [History] Potassium Chloride [Klor-Con] 20 meq PO DAILY #0 11/26/15 [Rx] Valsartan [Diovan] 320 mg PO DAILY #30 tablet 06/15/16 [Rx] Acetaminophen [Acetaminophen Extra Strength] 500 mg PO BID MDD 4000 MG DAILY 08/31 [History] Metoprolol Succinate [Toprol XL] 100 mg PO DAILY 06/30/17 [History] Lysine 1,000 mg PO DAILY PRN 07/02/17 [History] Miconazole [Desenex 2%] 1 applic TOP BID 07/02/17 [History] Diltiazem [Cardizem CD] 240 mg PO DAILY #30 cap.cd 07/05/17 [Rx] Polyethylene Glycol 3350 [MiraLAX] 17 gm PO DAILY packet 07/05/17 [Rx] Biotin [Biotin] 1 mg PO DAILY 07/19/17 [History] Warfarin [Coumadin] 5 mg PO TUFR@199907/19/17 [History] Albuterol/Ipratropium [DuoNeb 3.0-0.5 MG/3 ML] 3 ml NEB Q6HRRT PRN 07/20/17 [ History] Multivitamin with Minerals [Multivitamins with Minerals] 1 tab PO DAILY [History] Celecoxib [CeleBREX] 100 mg PO DAILY 11/20/17 [History] Menthol/Zinc Oxide [Calmoseptine] 1 applic TOP BEDTIME 11/20/17 [History] Warfarin [Coumadin] 7.5 mg PO SUMOWETHSA@2000 11/20/17 [History] atorvaSTATin [Lipitor] 10 mg PO BEDTIME 11/20/17 [History] Furosemide [Lasix] 20 mg PO BID 01/06/18 [History] Mupirocin Cream [Bactroban Crm] 1 applic TOP TID 01/06/18 [History] Calcium Carbonate/Vitamin D3 [Calcium 600-Vit D3 500 Softgel] 1 cap PO DAILY [History] Gabapentin [Neurontin] 300 mg PO BEDTIME 01/25/18 [History] Past Medical History HEENT History: Reports: Cataract, Other (See Below) Other HEENT History: wears glasses Cardiovascular History: Reports: Afib, Heart Failure, Hypertension Respiratory History: Reports: Pneumonia, Recurrent, Sleep Apnea Gastrointestinal History: Reports: Other (See Below) Other Gastrointestinal History: history of C diff. fecal transplant Genitourinary History: Reports: Neurogenic Bladder, UTI, Recurrent Other Genitourinary History: self cath/due to MS Musculoskeletal History: Reports: Arthritis Other Musculoskeletal History: MSand sore on right knee with brace on Neurological History: Reports: MS Psychiatric History: Reports: Depression Other Psychiatric History: very depressed Endocrine/Metabolic History: Reports: Diabetes, Type II Hematologic History: Reports: Anticoagulation Therapy, Blood Transfusion(s) Dermatologic History: Reports: Other (See Below) Other Dermatologic History: coccyx friction open area, yeast in groin - Infectious Disease History Infectious Disease History: Reports: C-Difficile, MRSA Other Infectious Disease History: ecoli - Past Surgical History HEENT Surgical History: Reports: Cataract Surgery GI Surgical History: Reports: Colonoscopy, Hernia Repair/Other Neurological Surgical History: Reports: None Oncologic Surgical History: Reports: None Social & Family History - Family History Family Medical History: Noncontributory Cardiac: Reports: MT Respiratory: Reports: Asthma, COPD Musculoskeletal: Reports: Arthritis, Osteoporosis Neurological: Reports: None Endocrine/Metabolic: Reports: Diabetes, type II - Tobacco Use Smoking Status *Q: Never Smoker Second Hand Smoke Exposure: No - Caffeine Use Caffeine Use: Reports: Coffee - Recreational Drug Use Recreational Drug Use: No H&P Review of Systems - Review of Systems: Review Of Systems: See Below General: Reports: Weakness. Denies: Fever, Chills HEENT: Reports: No Symptoms Pulmonary: Reports: Shortness of Breath Cardiovascular: Denies: Chest Pain Gastrointestinal: Reports: Abdominal Pain ("heartburn"), Diarrhea. Denies: Black Stool, Bloody Stool, Hematochezia, Melena Genitourinary: Reports: No Symptoms Musculoskeletal: Reports: Other (jaw pain) Exam - Exam Exam: See Below - Vital Signs Vital Signs: Last Vital Signs Temp 36.6 C 01/27/18 06:00 Pulse 103 H 01/27/18 07:46 Resp 20 01/27/18 06:00 BP 143/68 H 01/27/18 07:46 Pulse Ox 93 L 01/27/18 07:40 Weight: 108.227 kg - Exam Quality Assessment: Supplemental Oxygen General: Alert, Oriented Neck: Supple Lungs: Rhonchi Cardiovascular: Irregular Rhythm GI/Abdominal Exam: Abnormal Bowel Sounds (hyperactive) Extremities: Normal Inspection, No Pedal Edema Skin: Warm, Dry Neuro Extensive - Mental Status: Alert, Oriented x3, Normal Mood/Affect - Problem List (1) CHF (congestive heart failure) SNOMED Code(s): 32834444 ICD Code: I50.9 - HEART FAILURE, UNSPECIFIED Status: Chronic Priority: Medium Current Visit: No Problem Details: Acute on chronic Qualifiers: Heart failure type: diastolic (2) Diarrhea SNOMED Code(s): 16263499 ICD Code: R19.7 - DIARRHEA, UNSPECIFIED Status: Acute Current Visit: No (3) Cdiff, Clostridium difficile infection SNOMED Code(s): 463239817 ICD Code: B96.89 - OTH BACTERIAL AGENTS THE CAUSE OF DISEASES CLASSD [id number] Status: Chronic Current Visit: No (4) Multiple sclerosis SNOMED Code(s): 59320023 ICD Code: G35 - MULTIPLE SCLEROSIS Status: Chronic Priority: Medium Current Visit: No (5) Rheumatoid arthritis SNOMED Code(s): 85885319 ICD Code: M06.9 - RHEUMATOID ARTHRITIS, UNSPECIFIED Status: Chronic Priority: Medium Current Visit: No (6) Weakness SNOMED Code(s): 88708858 ICD Code: R53.1 - WEAKNESS Status: Chronic Priority: Medium Current Visit: No Problem List Initiated/Reviewed/Updated: Yes Orders Last 24hrs: Active Orders 24 hr Category Date Time Status Daily Weight [Height and Weight] [] 07 Care 01/26/18 22:53 Active Intake and Output [RC] 06,18 Care 01/26/18 22:54 Active Oxygen Therapy [RC] 08,20 Care 01/26/18 22:55 Active Up With Assistance [] 08, Care 01/26/18 22:55 Active Urinary Catheter Assessment [RC] 08, Care 01/26/18 22:56 Active Vital Signs [RC] 02,06,10,14,18,22 Care 01/26/18 22:54 Active Consult to Case Management [CONS] Routine Cons 01/26/18 22:57 Active [employer] Diet [DIET] Diet 01/27/18 Breakfast Active BRAT Diet [DIET] Diet 01/27/18 Breakfast Active BMP [BASIC METABOLIC PANEL,BMP] [CHEM] Routine Lab 01/27/18 09:45 Ordered CBC W/O DIFF,HEMOGRAM [HEME] Routine Lab 01/27/18 09:44 Ordered Acetaminophen [Tylenol Extra Strength] Med 01/27/18 08:00 Active 500 mg PO BID Albuterol/Ipratropium [DuoNeb 3.0-0.5 MG/3 ML] Med 01/26/18 23:55 Active 3 ml NEB Q6HRRT PRN Biotin [Biotin] Med 01/27/18 08:00 Pending 1 mg PO DAILY Calcium Carbonate [Tums Extra Strength] Med 01/27/18 08:09 Active 750 mg PO Q2H PRN Calcium Carbonate/Vitamin D3 [Calcium Carbonate/Vitamin Med 01/27/18 08:00 Active D 1250 MG-200 Unit] 1 tab PO DAILY Cholecalciferol (Vitamin D3) [Vitamin D3] Med 01/27/18 08:00 Active 5,000 units PO DAILY Cranberry Med 01/27/18 08:00 Active 500 mg PO DAILY Diltiazem [Dilacor XR] Med 01/27/18 08:00 Active 240 mg PO DAILY Fish Oil/[place]-3 Fatty Acids [Fish Oil] Med 01/27/18 08:00 Active 1 gm PO DAILY Fluticasone Propionate [Flonase] Med 01/27/18 08:00 Active 0 gm NASBOTH BID Furosemide [Lasix] Med 01/27/18 08:00 Active 20 mg PO BIDDIURETIC Gabapentin [Neurontin] Med 01/27/18 20:00 Active 300 mg PO BEDTIME Lysine [Lysine] Med 01/26/18 23:55 Pending 1,000 mg PO DAILY PRN Menthol/Zinc Oxide [Calmoseptine] Med 01/27/18 20:00 Active 0 gm TOP BEDTIME Metoprolol Succinate [Toprol XL] Med 01/27/18 08:00 Active 100 mg PO DAILY Miconazole [Desenex 2%] Med 01/27/18 08:00 Active 0 gm TOP BID Multivitamins w-Iron/Ca/FA/Min [Thera M Plus] Med 01/27/18 08:00 Active 1 tab PO DAILY Mupirocin Cream [Bactroban Crm] Med 01/27/18 08:00 Pending 1 applic TOP TID PEG 400/Propylene Glycol [Systane Lubricant] Med 01/26/18 23:55 Pending 1 drop EYELF ASDIRECTED PRN Potassium Chloride [Klor-Con] Med 01/27/18 08:00 Active 20 meq PO DAILY Sertraline [Zoloft] Med 01/27/18 08:00 Active 100 mg PO DAILY Sodium Chloride 0.9% [Normal Saline] 1,000 ml Med 01/27/18 08:15 Active IV ASDIRECTED Valsartan [Diovan] Med 01/27/18 08:00 Pending 320 mg PO DAILY Vancomycin [Vancocin 125 MG/2.5 ML Soln] Med 01/27/18 08:00 Active 250 mg PO Q6H Warfarin [Coumadin] Med 01/29/18 20:00 Active 5 mg PO TUFR@1999 Warfarin [Coumadin] Med 01/27/18 20:00 Active 7.5 mg PO SUMOWETHSA@1999 atorvaSTATin [Lipitor] Med 01/27/18 20:00 Active 10 mg PO BEDTIME oxyCODONE Med 01/26/18 23:55 Active 5 mg PO Q4H PRN Peripheral IV Insertion Adult [OM.PC] Routine Oth 01/27/18 08:51 Ordered Resuscitation Status Routine Resus Stat 01/26/18 22:51 Ordered Medication Orders Acetaminophen (Tylenol Extra Strength) 500 mg PO BID [facility] Last Admin: 01/27/18 08:01 Dose: 500 mg Albuterol/Ipratropium (Duoneb 3.0-0.5 Mg/3 Ml) 3 ml NEB Q6HRRT PRN PRN Reason: Shortness of Breath Atorvastatin Calcium (Lipitor) 10 mg PO BEDTIME [facility] Calamine/Phenol (Calmoseptine) 0 gm TOP BEDTIME [facility] Calcium Carbonate (Calcium Carbonate/Vitamin D 1250 Mg-200 Unit) 1 tab PO DAILY [facility] Last Admin: 01/27/18 07:47 Dose: 1 tab Calcium Carbonate/Glycine (Tums Extra Strength) 750 mg PO Q2H PRN PRN Reason: Dyspepsia Last Admin: 01/27/18 08:57 Dose: 750 mg Cholecalciferol (Vitamin D3) 5,000 units PO DAILY [facility] Last Admin: 01/27/18 07:40 Dose: 5,000 units Cranberry (Cranberry) 500 mg PO DAILY [facility] Last Admin: 01/27/18 07:47 Dose: 500 mg Diltiazem HCl (Dilacor Xr) 240 mg PO DAILY [facility] Last Admin: 01/27/18 07:50 Dose: 240 mg Fish Oil (Fish Oil) 1 gm PO DAILY [facility] Last Admin: 01/27/18 07:46 Dose: 1 gm Fluticasone Propionate (Flonase) 0 gm NASBOTH BID [facility] Last Admin: 01/27/18 07:50 Dose: 1 spray Furosemide (Lasix) 20 mg PO BIDDIURETIC [facility] Last Admin: 01/27/18 07:47 Dose: 20 mg Gabapentin (Neurontin) 300 mg PO BEDTIME [facility] Sodium Chloride (Normal Saline) 1,000 mls @ 100 mls/hr IV ASDIRECTED [facility] Last Admin: 01/27/18 08:57 Dose: 100 mls/hr Metoprolol Succinate (Toprol Xl) 100 mg PO DAILY [facility] Last Admin: 01/27/18 07:46 Dose: 100 mg Miconazole (Desenex 2%) 0 gm TOP BID [facility] Last Admin: 01/27/18 07:49 Dose: 1 applic Multivitamins/Minerals (Thera M Plus) 1 tab PO DAILY [facility] Last Admin: 01/27/18 07:47 Dose: 1 tab Non-Formulary Medication (Biotin [Biotin]) 1 mg PO DAILY [facility] Non-Formulary Medication (Lysine [Lysine]) 1,000 mg PO DAILY PRN PRN Reason: Other Non-Formulary Medication (Mupirocin Cream [Bactroban Crm]) 1 applic TOP TID [facility] Non-Formulary Medication (Peg 400/Propylene Glycol [Systane Lubricant]) 1 drop EYELF ASDIRECTED PRN PRN Reason: Dry Eyes Non-Formulary Medication (Valsartan [Diovan]) 320 mg PO DAILY [facility] Oxycodone HCl (Oxycodone) 5 mg PO Q4H PRN PRN Reason: Pain Potassium Chloride (Klor-Con) 20 meq PO DAILY [facility] Last Admin: 01/27/18 08:03 Dose: 20 meq Sertraline HCl (Zoloft) 100 mg PO DAILY [facility] Last Admin: 01/27/18 07:48 Dose: 100 mg Vancomycin HCl (Vancocin 125 Mg/2.5 Ml Soln) 250 mg PO Q6H [facility] Last Admin: 01/27/18 07:40 Dose: 250 mg Warfarin Sodium (Coumadin) 5 mg PO TUFR@1999 [facility] Warfarin Sodium (Coumadin) 7.5 mg PO SUMOWETHSA@1999 [facility] Assessment/Plan Comment:: 1. Diarrhea - presumed to be C difficile colitis 2. Dehydration secondary to #1 3. Weakness 4. Hypoxia - presumed to be atelectasis 5. Chronic diastolic CHF 6. MS 7. RA 8. Trigeminal neuralgia Patient admitted to acute care. IV fluids necessary to treat dehydration related to diarrhea. Sample collected to test for C diff. Patient started on oral vanoomycin. Anticipating discharge to SNF
--- NOTE | 2018-01-27 10:16 | PCM.PN ---
- General Info Date of Service: 01/27/18 Subjective Update: Patient states he is still having considerable diarrhea. Denies any other concerns. - Review of Systems General: Reports: Weakness HEENT: Reports: No Symptoms Pulmonary: Reports: No Symptoms Cardiovascular: Reports: No Symptoms Gastrointestinal: Reports: Diarrhea Genitourinary: Reports: No Symptoms Musculoskeletal: Reports: No Symptoms - Patient Data Vitals - Most Recent: Last Vital Signs Temp 36.8 C 01/27/18 10:00 Pulse 78 01/27/18 10:00 Resp 18 01/27/18 10:00 BP 158/62 H 01/27/18 10:00 Pulse Ox 96 01/27/18 10:00 Weight - Most Recent: 108.227 kg I&O - Last 24 Hours: Intake & Output 01/26/18 01/27/18 01/27/18 22:59 06:59 14:59 Intake Total 100 100 Output Total 650 Balance 100 -550 Med Orders - Current: Current Medications Acetaminophen (Tylenol Extra Strength) 500 mg PO BID [facility] Last Admin: 01/27/18 08:01 Dose: 500 mg Albuterol/Ipratropium (Duoneb 3.0-0.5 Mg/3 Ml) 3 ml NEB Q6HRRT PRN PRN Reason: Shortness of Breath Atorvastatin Calcium (Lipitor) 10 mg PO BEDTIME [facility] Calamine/Phenol (Calmoseptine) 0 gm TOP BEDTIME [facility] Calcium Carbonate (Calcium Carbonate/Vitamin D 1250 Mg-200 Unit) 1 tab PO DAILY [facility] Last Admin: 01/27/18 07:47 Dose: 1 tab Calcium Carbonate/Glycine (Tums Extra Strength) 750 mg PO Q2H PRN PRN Reason: Dyspepsia Last Admin: 01/27/18 08:57 Dose: 750 mg Cholecalciferol (Vitamin D3) 5,000 units PO DAILY [facility] Last Admin: 01/27/18 07:40 Dose: 5,000 units Cranberry (Cranberry) 500 mg PO DAILY [facility] Last Admin: 01/27/18 07:47 Dose: 500 mg Diltiazem HCl (Dilacor Xr) 240 mg PO DAILY [facility] Last Admin: 01/27/18 07:50 Dose: 240 mg Fish Oil (Fish Oil) 1 gm PO DAILY [facility] Last Admin: 01/27/18 07:46 Dose: 1 gm Fluticasone Propionate (Flonase) 0 gm NASBOTH BID [facility] Last Admin: 01/27/18 07:50 Dose: 1 spray Furosemide (Lasix) 20 mg PO BIDDIURETIC [facility] Last Admin: 01/27/18 07:47 Dose: 20 mg Gabapentin (Neurontin) 300 mg PO BEDTIME [facility] Sodium Chloride (Normal Saline) 1,000 mls @ 100 mls/hr IV ASDIRECTED [facility] Last Admin: 01/27/18 08:57 Dose: 100 mls/hr Metoprolol Succinate (Toprol Xl) 100 mg PO DAILY [facility] Last Admin: 01/27/18 07:46 Dose: 100 mg Miconazole (Desenex 2%) 0 gm TOP BID [facility] Last Admin: 01/27/18 07:49 Dose: 1 applic Multivitamins/Minerals (Thera M Plus) 1 tab PO DAILY [facility] Last Admin: 01/27/18 07:47 Dose: 1 tab Non-Formulary Medication (Biotin [Biotin]) 1 mg PO DAILY [facility] Non-Formulary Medication (Lysine [Lysine]) 1,000 mg PO DAILY PRN PRN Reason: Other Non-Formulary Medication (Mupirocin Cream [Bactroban Crm]) 1 applic TOP TID [facility] Non-Formulary Medication (Peg 400/Propylene Glycol [Systane Lubricant]) 1 drop EYELF ASDIRECTED PRN PRN Reason: Dry Eyes Non-Formulary Medication (Valsartan [Diovan]) 320 mg PO DAILY [facility] Oxycodone HCl (Oxycodone) 5 mg PO Q4H PRN PRN Reason: Pain Potassium Chloride (Klor-Con) 20 meq PO DAILY [facility] Last Admin: 01/27/18 08:03 Dose: 20 meq Sertraline HCl (Zoloft) 100 mg PO DAILY [facility] Last Admin: 01/27/18 07:48 Dose: 100 mg Vancomycin HCl (Vancocin 125 Mg/2.5 Ml Soln) 250 mg PO Q6H [facility] Last Admin: 01/27/18 07:40 Dose: 250 mg Warfarin Sodium (Coumadin) 5 mg PO TUFR@1999 [facility] Warfarin Sodium (Coumadin) 7.5 mg PO SUMOWETHSA@1999 [facility] Discontinued Medications Acetaminophen (Tylenol Extra Strength) 500 mg PO ONETIME STA Stop: 01/27/18 05:21 Last Admin: 01/27/18 08:01 Dose: Not Given Celecoxib (Celebrex) 100 mg PO DAILY [facility] - Exam Quality Assessment: Supplemental Oxygen General: Alert, Oriented Lungs: Clear to Auscultation Cardiovascular: Irregular Rhythm GI/Abdominal Exam: Normal Bowel Sounds Skin: Warm, Dry Neurological: No New Focal Deficit - Problem List & Annotations (1) CHF (congestive heart failure) SNOMED Code(s): 47451381 Code(s): I50.9 - HEART FAILURE, UNSPECIFIED Status: Chronic Priority: Medium Current Visit: No Qualifiers: Heart failure type: diastolic Annotation/Comment:: Acute on chronic (2) Diarrhea SNOMED Code(s): 92979975 Code(s): R19.7 - DIARRHEA, UNSPECIFIED Status: Acute Current Visit: No (3) Cdiff, Clostridium difficile infection SNOMED Code(s): 708014525 Code(s): B96.89 - OTH BACTERIAL AGENTS THE CAUSE OF DISEASES CLASSD [id number] Status: Chronic Current Visit: No (4) Multiple sclerosis SNOMED Code(s): 48783129 Code(s): G35 - MULTIPLE SCLEROSIS Status: Chronic Priority: Medium Current Visit: No (5) Rheumatoid arthritis SNOMED Code(s): 24601048 Code(s): M06.9 - RHEUMATOID ARTHRITIS, UNSPECIFIED Status: Chronic Priority: Medium Current Visit: No (6) Weakness SNOMED Code(s): 58975336 Code(s): R53.1 - WEAKNESS Status: Chronic Priority: Medium Current Visit: No - Problem List Review Problem List Initiated/Reviewed/Updated: Yes - My Orders Last 24 Hours: My Active Orders 01/26/18 22:51 Resuscitation Status Routine 01/26/18 22:53 Daily Weight [Height and Weight] [RC] 01/26/18 22:54 Intake and Output [RC] ,18 Vital Signs [RC] 02,06,10,14,18,22 01/26/18 22:55 Oxygen Therapy [RC] ,20 Up With Assistance [RC] 01/26/18 22:56 Urinary Catheter Assessment [RC] 01/26/18 22:57 Consult to Case Management [CONS] Routine 01/27/18 08:00 Vancomycin [Vancocin 125 MG/2.5 ML Soln] 250 mg PO Q6H 01/27/18 08:09 Calcium Carbonate [Tums Extra Strength] 750 mg PO Q2H PRN 01/27/18 08:15 Sodium Chloride 0.9% [Normal Saline] 1,000 ml IV ASDIRECTED 01/27/18 08:51 Peripheral IV Insertion Adult [OM.PC] Routine 01/27/18 09:44 CBC W/O DIFF,HEMOGRAM [HEME] Routine 01/27/18 09:45 BMP [BASIC METABOLIC PANEL,BMP] [CHEM] Routine 01/27/18 Breakfast [place] [employer] Diet [DIET] BRAT Diet [DIET] - Assessment Assessment:: 1. Diarrhea - presumed to be C difficile colitis 2. Dehydration secondary to #1 3. Weakness 4. Hypoxia - presumed to be atelectasis 5. Chronic diastolic CHF 6. MS 7. RA 8. Trigeminal neuralgia - Plan Plan:: Continue with IV fluids and oral vancomycin. Await lab results. If CBC still elevated will plan to add IV metronidazole.
[2018-01-27] MEDS ORDERED: Dextran 70/Hypromellose/PF Ophth Soln 0.9 ML UD EYELF PRN (10:30)
[2018-01-27 11:23] LABS: CHLORIDE,CL 108 mmol/L (98-107); SODIUM,NA 140 mmol/L (136-145)
[2018-01-27 11:24] LABS: ANION GAP 9.4 mmol/L (10-20)
[2018-01-27] MEDS: Losartan 50 MG Tab PO SCH ×2 (11:53→11:57)
[2018-01-27] MEDS: oxyCODONE 5 MG Tab PO PRN (20:17)
[2018-01-27] MEDS: atorvaSTATin 10 MG Tab PO SCH (20:17)
[2018-01-27] MEDS: Warfarin 5 MG Tab PO SCH (20:19)
[2018-01-27] MEDS: Gabapentin 300 MG Cap PO SCH (20:20)
[2018-01-28] MEDS: Fluticasone Propionate Nasal Spray 16 GM Bottle NASBOTH SCH ×3 (00:32→21:33)
[2018-01-28] MEDS: Menthol/Zinc Oxide Ointment 3.5 GM Tube TOP SCH ×2 (00:32→21:33)
[2018-01-28] MEDS: Sodium Chloride 0.9% 1,000 ML IV SCH ×3 (01:20→21:00)
[2018-01-28] MEDS: Vancomycin 125 MG/2.5 ML Oral Solution 2.5 ML UD Cup PO SCH ×4 (02:54→21:29)
[2018-01-28] MEDS: Cholecalciferol (Vitamin D3) 1,000 Unit Tab PO SCH (08:25)
[2018-01-28] MEDS: Losartan 50 MG Tab PO SCH (08:26)
[2018-01-28] MEDS: Cranberry 500 MG Cap PO SCH (08:27)
[2018-01-28] MEDS: Diltiazem 240 MG Cap.ER PO SCH (08:27)
[2018-01-28] MEDS: Furosemide 20 MG Tab PO SCH ×2 (08:29→15:02)
[2018-01-28] MEDS: Calcium Carbonate/Vitamin D3 1250 MG-200 Unit Tab PO SCH (08:29)
[2018-01-28] MEDS: Multivitamins with Iron/Calcium/Folic Acid/Minerals Tab PO SCH (08:30)
[2018-01-28] MEDS: Metoprolol Succinate 50 MG Tab.ER PO SCH (08:30)
[2018-01-28] MEDS: Acetaminophen 500 MG Tab PO SCH ×2 (08:31→21:31)
[2018-01-28] MEDS: Sertraline 100 MG Tab PO SCH (08:31)
[2018-01-28] MEDS: Potassium Chloride 20 MEQ Packet PO SCH (08:32)
[2018-01-28] MEDS: Fish Oil/Omega-3 Fatty Acids 1 Gm Cap PO SCH (08:32)
[2018-01-28] MEDS: Miconazole 2% Top Powder 45 GM Container TOP SCH ×2 (08:33→21:34)
--- NOTE | 2018-01-28 10:41 | PCM.PN ---
- General Info Date of Service: 01/28/18 Admission Dx/Problem (Free Text): Admission Diagnosis/Problem Admission Diagnosis/Problem 1. Diarrhea - presumed to be C difficile colitis 2. Dehydration secondary to #1 3. Weakness 4. Hypoxia - presumed to be atelectasis 5. Chronic diastolic CHF 6. MS 7. RA 8. Trigeminal neuralgia Subjective Update: Patient states he is still having considerable diarrhea. Denies any other concerns. Patient offers no specific complaints. Functional Status: Reports: Pain Controlled, Tolerating Diet. Denies: New Symptoms Pain Score: 0 - Review of Systems General: Reports: Weakness. Denies: Fever, Chills Pulmonary: Denies: Shortness of Breath, Cough Cardiovascular: Denies: Chest Pain, Palpitations Gastrointestinal: Reports: Diarrhea. Denies: Abdominal Pain, Nausea, Vomiting Skin: Reports: Other (see nursing notes) Neurological: Reports: No Symptoms - Patient Data Vitals - Most Recent: Last Vital Signs Temp 36.6 C 01/28/18 09:49 Pulse 67 01/28/18 09:49 Resp 20 01/28/18 09:49 BP 144/74 H 01/28/18 09:49 Pulse Ox 97 01/28/18 09:49 Weight - Most Recent: 107.139 kg I&O - Last 24 Hours: Intake & Output 01/27/18 01/28/18 01/28/18 22:59 06:59 14:59 Intake Total 1434 100 Output Total 1000 Balance 434 100 Lab Results Last 24 Hours: Laboratory Results - last 24 hr 01/27/18 01/27/18 Range/Units 10:50 10:50 WBC 10.3 H (4.0-10.0) x10^3/uL RBC 4.13 L (4.5-6.0) x10^6/uL Hgb 12.1 L (14.0-18.0) g/dL Hct 37.0 L (40.0-52.0) % MCV 89.6 (78.0-93.0) fL MCH 29.3 (26.0-32.0) pg MCHC 32.7 (32.0-36.0) g/dL RDW Coeff of Kimberlee 14.9 (10.0-15.0) % Plt Count 107 L (130-400) x10^3/uL Sodium 140 (136-145) mmol/L Potassium 3.4 L (3.5-5.1) mmol/L Chloride 108 H (98-107) mmol/L Carbon Dioxide 26 (21-32) mmol/L Anion Gap 9.4 L (10-20) mmol/L BUN 16 (7-18) mg/dL Creatinine 1.0 (0.70-1.30) mg/dL Est Cr Clr Drug Dosing 72.16 mL/min Estimated GFR (MDRD) > 60 Glucose 145 H (74-106) mg/dL Calcium 8.3 L (8.5-10.1) mg/dL Med Orders - Current: Current Medications Acetaminophen (Tylenol Extra Strength) 500 mg PO BID [facility] Last Admin: 01/28/18 08:31 Dose: 500 mg Albuterol/Ipratropium (Duoneb 3.0-0.5 Mg/3 Ml) 3 ml NEB Q6HRRT PRN PRN Reason: Shortness of Breath Artificial Tears (Tears Naturale Free) 0 each EYELF ASDIRECTED PRN PRN Reason: DRY EYES Atorvastatin Calcium (Lipitor) 10 mg PO BEDTIME [facility] Last Admin: 01/27/18 20:17 Dose: 10 mg Calamine/Phenol (Calmoseptine) 0 gm TOP BEDTIME [facility] Last Admin: 01/28/18 00:32 Dose: 1 applic Calcium Carbonate (Calcium Carbonate/Vitamin D 1250 Mg-200 Unit) 1 tab PO DAILY [facility] Last Admin: 01/28/18 08:29 Dose: 1 tab Calcium Carbonate/Glycine (Tums Extra Strength) 750 mg PO Q2H PRN PRN Reason: Dyspepsia Last Admin: 01/27/18 20:28 Dose: 750 mg Cholecalciferol (Vitamin D3) 5,000 units PO DAILY [facility] Last Admin: 01/28/18 08:25 Dose: 5,000 units Cranberry (Cranberry) 500 mg PO DAILY [facility] Last Admin: 01/28/18 08:27 Dose: 500 mg Diltiazem HCl (Dilacor Xr) 240 mg PO DAILY [facility] Last Admin: 01/28/18 08:27 Dose: 240 mg Fish Oil (Fish Oil) 1 gm PO DAILY [facility] Last Admin: 01/28/18 08:32 Dose: 1 gm Fluticasone Propionate (Flonase) 0 gm NASBOTH BID [facility] Last Admin: 01/28/18 08:33 Dose: 1 spray Furosemide (Lasix) 20 mg PO BIDDIURETIC [facility] Last Admin: 01/28/18 08:29 Dose: 20 mg Gabapentin (Neurontin) 300 mg PO BEDTIME [facility] Last Admin: 01/27/18 20:20 Dose: 300 mg Sodium Chloride (Normal Saline) 1,000 mls @ 100 mls/hr IV ASDIRECTED [facility] Last Admin: 01/28/18 10:32 Dose: 100 mls/hr Losartan Potassium (Cozaar) 150 mg PO DAILY [facility] Last Admin: 01/28/18 08:26 Dose: 150 mg Metoprolol Succinate (Toprol Xl) 100 mg PO DAILY [facility] Last Admin: 01/28/18 08:30 Dose: 100 mg Miconazole (Desenex 2%) 0 gm TOP BID [facility] Last Admin: 01/28/18 08:33 Dose: 1 applic Multivitamins/Minerals (Thera M Plus) 1 tab PO DAILY [facility] Last Admin: 01/28/18 08:30 Dose: 1 tab Non-Formulary Medication (Biotin [Biotin]) 1 mg PO DAILY [facility] Last Admin: 01/27/18 11:53 Dose: Not Given Non-Formulary Medication (Lysine [Lysine]) 1,000 mg PO DAILY PRN PRN Reason: Other Non-Formulary Medication (Mupirocin Cream [Bactroban Crm]) 1 applic TOP TID [facility] Last Admin: 01/27/18 11:53 Dose: Not Given Oxycodone HCl (Oxycodone) 5 mg PO Q4H PRN PRN Reason: Pain Last Admin: 01/27/18 20:17 Dose: 5 mg Potassium Chloride (Klor-Con) 20 meq PO DAILY [facility] Last Admin: 01/28/18 08:32 Dose: 20 meq Sertraline HCl (Zoloft) 100 mg PO DAILY [facility] Last Admin: 01/28/18 08:31 Dose: 100 mg Vancomycin HCl (Vancocin 125 Mg/2.5 Ml Soln) 250 mg PO Q6H [facility] Last Admin: 01/28/18 09:44 Dose: 250 mg Warfarin Sodium (Coumadin) 5 mg PO TUFR@1999 [facility] Warfarin Sodium (Coumadin) 7.5 mg PO SUMOWETHSA@1999 [facility] Last Admin: 01/27/18 20:19 Dose: 7.5 mg Discontinued Medications Acetaminophen (Tylenol Extra Strength) 500 mg PO ONETIME [facility] Stop: 01/27/18 05:21 Last Admin: 01/27/18 08:01 Dose: Not Given Celecoxib (Celebrex) 100 mg PO DAILY [facility] - Exam Quality Assessment: Urine Catheter, Skin Breakdown General: Alert, Oriented, Cooperative, No Acute Distress Neck: Supple Lungs: Clear to Auscultation, Normal Respiratory Effort Cardiovascular: Regular Rate, Regular Rhythm GI/Abdominal Exam: Soft, Tender (generalized), Abnormal Bowel Sounds ( Hyperactive) Peripheral Pulses: 2+: Radial (L), Radial (R) Skin: Warm, Dry, Other (see nursing notes) Wound/Incisions: Healing Well Neurological: No New Focal Deficit - Problem List Review Problem List Initiated/Reviewed/Updated: Yes - My Orders Last 24 Hours: My Active Orders 01/27/18 10:30 Dextran 70/Hypromellose/PF [Tears Naturale Free] 0 each EYELF ASDIRECTED PRN Losartan [Cozaar] 150 mg PO DAILY 01/27/18 20:00 Gabapentin [Neurontin] 300 mg PO BEDTIME Menthol/Zinc Oxide [Calmoseptine] 0 gm TOP BEDTIME Warfarin [Coumadin] 7.5 mg PO SUMOWETHSA@1999 atorvaSTATin [Lipitor] 10 mg PO BEDTIME 01/29/18 20:00 Warfarin [Coumadin] 5 mg PO TUFR@1999 - Assessment Assessment:: 1. Diarrhea - presumed to be C difficile colitis 2. Dehydration secondary to #1 3. Weakness 4. Hypoxia - presumed to be atelectasis 5. Chronic diastolic CHF 6. MS 7. RA 8. Trigeminal neuralgia - Plan Plan:: Will continue with same plan of care. Hold off on Flagyl for now. Will recheck CBC tomorrow. No other changes with medications for now.
[2018-01-28] MEDS: Warfarin 5 MG Tab PO SCH (21:30)
[2018-01-28] MEDS: atorvaSTATin 10 MG Tab PO SCH (21:31)
[2018-01-28] MEDS: oxyCODONE 5 MG Tab PO PRN (21:35)
[2018-01-28] MEDS: Gabapentin 300 MG Cap PO SCH (21:35)
[2018-01-29] MEDS: Vancomycin 125 MG/2.5 ML Oral Solution 2.5 ML UD Cup PO SCH ×4 (02:06→20:29)
[2018-01-29] MEDS: Sodium Chloride 0.9% 1,000 ML IV SCH ×2 (07:08→17:13)
[2018-01-29 07:20] LABS: CHLORIDE,CL 111 mmol/L (98-107); SODIUM,NA 145 mmol/L (136-145)
[2018-01-29 07:41] LABS: ANION GAP 9.9 mmol/L (10-20)
[2018-01-29] MEDS: Cholecalciferol (Vitamin D3) 1,000 Unit Tab PO SCH (08:03)
[2018-01-29] MEDS: Diltiazem 240 MG Cap.ER PO SCH (08:03)
[2018-01-29] MEDS: Metoprolol Succinate 50 MG Tab.ER PO SCH (08:03)
[2018-01-29] MEDS: Cranberry 500 MG Cap PO SCH (08:03)
[2018-01-29] MEDS: Furosemide 20 MG Tab PO SCH ×2 (08:04→16:11)
[2018-01-29] MEDS: Multivitamins with Iron/Calcium/Folic Acid/Minerals Tab PO SCH (08:04)
[2018-01-29] MEDS: Sertraline 100 MG Tab PO SCH (08:04)
[2018-01-29] MEDS: Fish Oil/Omega-3 Fatty Acids 1 Gm Cap PO SCH (08:04)
[2018-01-29] MEDS: Losartan 50 MG Tab PO SCH (08:04)
[2018-01-29] MEDS: Calcium Carbonate/Vitamin D3 1250 MG-200 Unit Tab PO SCH (08:05)
[2018-01-29] MEDS: Potassium Chloride 20 MEQ Packet PO SCH (08:05)
[2018-01-29] MEDS: Fluticasone Propionate Nasal Spray 16 GM Bottle NASBOTH SCH ×2 (08:05→20:33)
[2018-01-29] MEDS: Acetaminophen 500 MG Tab PO SCH ×2 (08:05→20:30)
[2018-01-29] MEDS: Miconazole 2% Top Powder 45 GM Container TOP SCH ×2 (08:07→20:28)
[2018-01-29] MEDS ORDERED: Cholestyramine/Aspartame Powder 4 GM Packet PO PRN (10:01)
[2018-01-29] MEDS ORDERED: Potassium Chloride 20 MEQ Tab.ER PO ONE (11:30)
[2018-01-29] MEDS ORDERED: Warfarin 5 MG Tab PO SCH (20:00)
[2018-01-29] MEDS: Gabapentin 300 MG Cap PO SCH (20:29)
[2018-01-29] MEDS: atorvaSTATin 10 MG Tab PO SCH (20:30)
[2018-01-29] MEDS: oxyCODONE 5 MG Tab PO PRN (20:31)
[2018-01-29] MEDS: Menthol/Zinc Oxide Ointment 3.5 GM Tube TOP SCH (20:32)
--- NOTE | 2018-01-29 20:33 | PCM.PN ---
- General Info Date of Service: 01/29/18 Admission Dx/Problem (Free Text): Admission Diagnosis/Problem Admission Diagnosis/Problem 1. Diarrhea - presumed to be C difficile colitis 2. Dehydration secondary to #1 3. Weakness 4. Hypoxia - presumed to be atelectasis 5. Chronic diastolic CHF 6. MS 7. RA 8. Trigeminal neuralgia Subjective Update: Diarrhea has improved. Patient denies any pain this morning. He states he does not like the BRAT diet and would like to have his diet order changed. Continues with indwelling catheter. Denies any abdominal cramping or pain. No N/V. Denies any SOB. Functional Status: Reports: Pain Controlled, Tolerating Diet Pain Score: 0 - Review of Systems General: Reports: Weakness. Denies: Fever, Chills Pulmonary: Denies: Shortness of Breath, Cough Cardiovascular: Denies: Chest Pain, Palpitations Gastrointestinal: Reports: Diarrhea. Denies: Abdominal Pain, Nausea, Vomiting Skin: Reports: Other (see nursing assessment) Neurological: Denies: Dizziness, Headache - Patient Data Vitals - Most Recent: Last Vital Signs Temp 36.6 C 01/29/18 16:58 Pulse 62 01/29/18 16:58 Resp 18 01/29/18 06:00 BP 170/88 H 01/29/18 16:58 Pulse Ox 96 01/29/18 07:41 Weight - Most Recent: 107.774 kg I&O - Last 24 Hours: Intake & Output 01/29/18 01/29/18 01/29/18 06:59 14:59 22:59 Intake Total 0490 677 5317 Output Total 250 650 Balance 990 330 824 Lab Results Last 24 Hours: Laboratory Results - last 24 hr 01/29/18 01/29/18 Range/Units 06:49 06:49 WBC 6.2 (4.0-10.0) x10^3/uL RBC 3.81 L (4.5-6.0) x10^6/uL Hgb 11.2 L (14.0-18.0) g/dL Hct 34.2 L (40.0-52.0) % MCV 89.8 (78.0-93.0) fL MCH 29.4 (26.0-32.0) pg MCHC 32.7 (32.0-36.0) g/dL RDW Coeff of Kimberlee 14.6 (10.0-15.0) % Plt Count 134 (130-400) x10^3/uL Neut % (Auto) 71.2 (50.0-80.0) % Lymph % (Auto) 11.5 L (25.0-50.0) % [place] % (Auto) 14.5 H (2.0-11.0) % Eos % (Auto) 2.6 (0.0-4.0) % Baso % (Auto) 0.2 (0.2-1.2) % Sodium 145 (136-145) mmol/L Potassium 2.9 L* (3.5-5.1) mmol/L Chloride 111 H (98-107) mmol/L Carbon Dioxide 27 (21-32) mmol/L Anion Gap 9.9 L (10-20) mmol/L BUN 10 (7-18) mg/dL Creatinine 0.9 (0.70-1.30) mg/dL Est Cr Clr Drug Dosing 80.18 mL/min Estimated GFR (MDRD) > 60 Glucose 110 H (74-106) mg/dL Calcium 7.3 L (8.5-10.1) mg/dL Med Orders - Current: Current Medications Acetaminophen (Tylenol Extra Strength) 500 mg PO BID [facility] Last Admin: 01/29/18 08:05 Dose: 500 mg Albuterol/Ipratropium (Duoneb 3.0-0.5 Mg/3 Ml) 3 ml NEB Q6HRRT PRN PRN Reason: Shortness of Breath Artificial Tears (Tears Naturale Free) 0 each EYELF ASDIRECTED PRN PRN Reason: DRY EYES Atorvastatin Calcium (Lipitor) 10 mg PO BEDTIME [facility] Last Admin: 01/28/18 21:31 Dose: 10 mg Calamine/Phenol (Calmoseptine) 0 gm TOP BEDTIME [facility] Last Admin: 01/28/18 21:33 Dose: 1 applic Calcium Carbonate (Calcium Carbonate/Vitamin D 1250 Mg-200 Unit) 1 tab PO DAILY [facility] Last Admin: 01/29/18 08:05 Dose: 1 tab Calcium Carbonate/Glycine (Tums Extra Strength) 750 mg PO Q2H PRN PRN Reason: Dyspepsia Last Admin: 01/27/18 20:28 Dose: 750 mg Cholecalciferol (Vitamin D3) 5,000 units PO DAILY [facility] Last Admin: 01/29/18 08:03 Dose: 5,000 units Cholestyramine Resin (Prevalite Packet) 4 gm PO DAILY PRN PRN Reason: Diarrhea Cranberry (Cranberry) 500 mg PO DAILY [facility] Last Admin: 01/29/18 08:03 Dose: 500 mg Diltiazem HCl (Dilacor Xr) 240 mg PO DAILY [facility] Last Admin: 01/29/18 08:03 Dose: 240 mg Fish Oil (Fish Oil) 1 gm PO DAILY [facility] Last Admin: 01/29/18 08:04 Dose: 1 gm Fluticasone Propionate (Flonase) 0 gm NASBOTH BID [facility] Last Admin: 01/29/18 08:05 Dose: 1 spray Furosemide (Lasix) 20 mg PO BIDDIURETIC [facility] Last Admin: 01/29/18 16:11 Dose: 20 mg Gabapentin (Neurontin) 300 mg PO BEDTIME [facility] Last Admin: 01/28/18 21:35 Dose: 300 mg Sodium Chloride (Normal Saline) 1,000 mls @ 100 mls/hr IV ASDIRECTED [facility] Last Admin: 01/29/18 17:13 Dose: 100 mls/hr Losartan Potassium (Cozaar) 150 mg PO DAILY [facility] Last Admin: 01/29/18 08:04 Dose: 150 mg Metoprolol Succinate (Toprol Xl) 100 mg PO DAILY [facility] Last Admin: 01/29/18 08:03 Dose: 100 mg Miconazole (Desenex 2%) 0 gm TOP BID [facility] Last Admin: 01/29/18 08:07 Dose: 1 applic Multivitamins/Minerals (Thera M Plus) 1 tab PO DAILY [facility] Last Admin: 01/29/18 08:04 Dose: 1 tab Non-Formulary Medication (Biotin [Biotin]) 1 mg PO DAILY [facility] Last Admin: 01/27/18 11:53 Dose: Not Given Non-Formulary Medication (Lysine [Lysine]) 1,000 mg PO DAILY PRN PRN Reason: Other Non-Formulary Medication (Mupirocin Cream [Bactroban Crm]) 1 applic TOP TID [facility] Last Admin: 01/27/18 11:53 Dose: Not Given Oxycodone HCl (Oxycodone) 5 mg PO Q4H PRN PRN Reason: Pain Last Admin: 01/28/18 21:35 Dose: 5 mg Potassium Chloride (Klor-Con) 20 meq PO DAILY [facility] Last Admin: 01/29/18 08:05 Dose: 20 meq Sertraline HCl (Zoloft) 100 mg PO DAILY [facility] Last Admin: 01/29/18 08:04 Dose: 100 mg Vancomycin HCl (Vancocin 125 Mg/2.5 Ml Soln) 250 mg PO Q6H [facility] Last Admin: 01/29/18 13:51 Dose: 250 mg Warfarin Sodium (Coumadin) 5 mg PO TUFR@1999 [facility] Warfarin Sodium (Coumadin) 7.5 mg PO SUMOWETHSA@1999 [facility] Last Admin: 01/28/18 21:30 Dose: 7.5 mg Discontinued Medications Acetaminophen (Tylenol Extra Strength) 500 mg PO ONETIME STA Stop: 01/27/18 05:21 Last Admin: 01/27/18 08:01 Dose: Not Given Celecoxib (Celebrex) 100 mg PO DAILY [facility] Potassium Chloride (Klor-Con M20) 60 meq PO ONETIME ONE Stop: 01/29/18 11:31 Last Admin: 01/29/18 12:04 Dose: 60 meq - Exam Quality Assessment: Urine Catheter, Skin Breakdown General: Alert, Oriented, Cooperative, No Acute Distress Neck: Supple Lungs: Clear to Auscultation, Normal Respiratory Effort, Decreased Breath Sounds Cardiovascular: Regular Rate, Regular Rhythm GI/Abdominal Exam: Soft, Non-Tender, Abnormal Bowel Sounds (Hyperactive) Peripheral Pulses: 2+: Radial (L), Radial (R) Skin: Warm, Dry, Other (see nursing assessment notes) Neurological: No New Focal Deficit - Problem List Review Problem List Initiated/Reviewed/Updated: Yes - My Orders Last 24 Hours: My Active Orders 01/29/18 10:01 Cholestyramine/Aspartame [Prevalite Packet] 4 gm PO DAILY PRN 01/29/18 20:00 Warfarin [Coumadin] 5 mg PO TUFR@199901/30/18 05:11 BASIC METABOLIC PANEL,BMP [CHEM] Routine MAGNESIUM [CHEM] Routine - Assessment Assessment:: 1. Diarrhea - presumed to be C difficile colitis 2. Dehydration secondary to #1 3. Weakness 4. Hypoxia - presumed to be atelectasis 5. Chronic diastolic CHF 6. MS 7. RA 8. Trigeminal neuralgia - Plan Plan:: Hospital day #3 for C Diff colitis, leukocytosis, diarrhea, dehydration, and hypokalemia. Continue acute cares for now. Change diet to ADA. Will start Questran for diarrhea. Continue with Vanco. Stop IVF. Anticipate discharge to alf this . NOTE: This patient was seen and examined by me as an [facility] provider
[2018-01-30] MEDS: Vancomycin 125 MG/2.5 ML Oral Solution 2.5 ML UD Cup PO SCH ×4 (01:48→20:04)
[2018-01-30 07:22] LABS: ANION GAP 8.4 mmol/L (10-20); CHLORIDE,CL 111 mmol/L (98-107); SODIUM,NA 144 mmol/L (136-145)
[2018-01-30] MEDS: Potassium Chloride 20 MEQ Packet PO SCH (07:59)
[2018-01-30] MEDS: Losartan 50 MG Tab PO SCH (08:00)
[2018-01-30] MEDS: Sertraline 100 MG Tab PO SCH (08:01)
[2018-01-30] MEDS: Metoprolol Succinate 50 MG Tab.ER PO SCH (08:01)
[2018-01-30] MEDS: Acetaminophen 500 MG Tab PO SCH ×2 (08:01→20:06)
[2018-01-30] MEDS: Diltiazem 240 MG Cap.ER PO SCH (08:01)
[2018-01-30] MEDS: Fish Oil/Omega-3 Fatty Acids 1 Gm Cap PO SCH (08:02)
[2018-01-30] MEDS: Cranberry 500 MG Cap PO SCH (08:02)
[2018-01-30] MEDS: Calcium Carbonate/Vitamin D3 1250 MG-200 Unit Tab PO SCH (08:02)
[2018-01-30] MEDS: Furosemide 20 MG Tab PO SCH ×2 (08:02→16:44)
[2018-01-30] MEDS: Fluticasone Propionate Nasal Spray 16 GM Bottle NASBOTH SCH ×2 (08:02→20:05)
[2018-01-30] MEDS: Multivitamins with Iron/Calcium/Folic Acid/Minerals Tab PO SCH (08:02)
[2018-01-30] MEDS: Cholecalciferol (Vitamin D3) 1,000 Unit Tab PO SCH (08:02)
[2018-01-30] MEDS: Miconazole 2% Top Powder 45 GM Container TOP SCH ×2 (08:03→20:10)
[2018-01-30] MEDS ORDERED: Magnesium Oxide 400 MG Tab PO ONE (13:56)
--- NOTE | 2018-01-30 14:01 | PCM.PN ---
- General Info Date of Service: 01/30/18 Admission Dx/Problem (Free Text): Admission Diagnosis/Problem Admission Diagnosis/Problem 1. Diarrhea - presumed to be C difficile colitis 2. Dehydration secondary to #1 3. Weakness 4. Hypoxia - presumed to be atelectasis 5. Chronic diastolic CHF 6. MS 7. RA 8. Trigeminal neuralgia Subjective Update: Diarrhea has improved. Patient denies any pain this morning. Patient much happier with a regular diet. Continues with indwelling catheter. Denies any abdominal cramping or pain. No N/V. Denies any SOB. Functional Status: Reports: Pain Controlled, Tolerating Diet, Urinating Pain Score: 0 - Review of Systems General: Reports: Weakness (chronic). Denies: Fever, Chills Pulmonary: Denies: Shortness of Breath, Sputum Cardiovascular: Denies: Chest Pain, Palpitations Gastrointestinal: Reports: Diarrhea (intermittent). Denies: Abdominal Pain, Nausea, Vomiting Skin: Reports: No Symptoms Neurological: Reports: No Symptoms - Patient Data Vitals - Most Recent: Last Vital Signs Temp 36.3 C 01/30/18 10:00 Pulse 96 01/30/18 10:00 Resp 18 01/30/18 10:00 BP 162/77 H 01/30/18 10:00 Pulse Ox 98 01/30/18 10:00 Weight - Most Recent: 109.905 kg I&O - Last 24 Hours: Intake & Output 01/29/18 01/30/18 01/30/18 22:59 06:59 14:59 Intake Total 1474 904 600 Output Total 650 1300 Balance 824 -396 600 Lab Results Last 24 Hours: Laboratory Results - last 24 hr 01/30/18 Range/Units 06:53 Sodium 144 (136-145) mmol/L Potassium 3.4 L (3.5-5.1) mmol/L Chloride 111 H (98-107) mmol/L Carbon Dioxide 28 (21-32) mmol/L Anion Gap 8.4 L (10-20) mmol/L BUN 8 (7-18) mg/dL Creatinine 1.0 (0.70-1.30) mg/dL Est Cr Clr Drug Dosing 72.16 mL/min Estimated GFR (MDRD) > 60 Glucose 113 H (74-106) mg/dL Calcium 7.5 L (8.5-10.1) mg/dL Magnesium 1.6 L (1.8-2.4) mg/dL Med Orders - Current: Current Medications Acetaminophen (Tylenol Extra Strength) 500 mg PO BID [facility] Last Admin: 01/30/18 08:01 Dose: 500 mg Albuterol/Ipratropium (Duoneb 3.0-0.5 Mg/3 Ml) 3 ml NEB Q6HRRT PRN PRN Reason: Shortness of Breath Artificial Tears (Tears Naturale Free) 0 each EYELF ASDIRECTED PRN PRN Reason: DRY EYES Atorvastatin Calcium (Lipitor) 10 mg PO BEDTIME [facility] Last Admin: 01/29/18 20:30 Dose: 10 mg Calamine/Phenol (Calmoseptine) 0 gm TOP BEDTIME [facility] Last Admin: 01/29/18 20:32 Dose: 1 applic Calcium Carbonate (Calcium Carbonate/Vitamin D 1250 Mg-200 Unit) 1 tab PO DAILY [facility] Last Admin: 01/30/18 08:02 Dose: 1 tab Calcium Carbonate/Glycine (Tums Extra Strength) 750 mg PO Q2H PRN PRN Reason: Dyspepsia Last Admin: 01/27/18 20:28 Dose: 750 mg Cholecalciferol (Vitamin D3) 5,000 units PO DAILY [facility] Last Admin: 01/30/18 08:02 Dose: 5,000 units Cholestyramine Resin (Prevalite Packet) 4 gm PO DAILY PRN PRN Reason: Diarrhea Cranberry (Cranberry) 500 mg PO DAILY [facility] Last Admin: 01/30/18 08:02 Dose: 500 mg Diltiazem HCl (Dilacor Xr) 240 mg PO DAILY [facility] Last Admin: 01/30/18 08:01 Dose: 240 mg Fish Oil (Fish Oil) 1 gm PO DAILY [facility] Last Admin: 01/30/18 08:02 Dose: 1 gm Fluticasone Propionate (Flonase) 0 gm NASBOTH BID [facility] Last Admin: 01/30/18 08:02 Dose: 1 spray Furosemide (Lasix) 20 mg PO BIDDIURETIC [facility] Last Admin: 01/30/18 08:02 Dose: 20 mg Gabapentin (Neurontin) 300 mg PO BEDTIME [facility] Last Admin: 01/29/18 20:29 Dose: 300 mg Losartan Potassium (Cozaar) 150 mg PO DAILY [facility] Last Admin: 01/30/18 08:00 Dose: 150 mg Magnesium Oxide (Magnesium Oxide) 400 mg PO ONETIME ONE Stop: 01/30/18 13:57 Metoprolol Succinate (Toprol Xl) 100 mg PO DAILY [facility] Last Admin: 01/30/18 08:01 Dose: 100 mg Miconazole (Desenex 2%) 0 gm TOP BID [facility] Last Admin: 01/30/18 08:03 Dose: 1 applic Multivitamins/Minerals (Thera M Plus) 1 tab PO DAILY [facility] Last Admin: 01/30/18 08:02 Dose: 1 tab Non-Formulary Medication (Biotin [Biotin]) 1 mg PO DAILY [facility] Last Admin: 01/27/18 11:53 Dose: Not Given Non-Formulary Medication (Lysine [Lysine]) 1,000 mg PO DAILY PRN PRN Reason: Other Non-Formulary Medication (Mupirocin Cream [Bactroban Crm]) 1 applic TOP TID [facility] Last Admin: 01/27/18 11:53 Dose: Not Given Oxycodone HCl (Oxycodone) 5 mg PO Q4H PRN PRN Reason: Pain Last Admin: 01/29/18 20:31 Dose: 5 mg Potassium Chloride (Klor-Con) 20 meq PO DAILY [facility] Last Admin: 01/30/18 07:59 Dose: 20 meq Sertraline HCl (Zoloft) 100 mg PO DAILY [facility] Last Admin: 01/30/18 08:01 Dose: 100 mg Vancomycin HCl (Vancocin 125 Mg/2.5 Ml Soln) 250 mg PO Q6H [facility] Last Admin: 01/30/18 07:59 Dose: 250 mg Warfarin Sodium (Coumadin) 5 mg PO TUFR@1999 [facility] Last Admin: 01/29/18 20:29 Dose: 5 mg Warfarin Sodium (Coumadin) 7.5 mg PO SUMOWETHSA@1999 [facility] Last Admin: 01/28/18 21:30 Dose: 7.5 mg Discontinued Medications Acetaminophen (Tylenol Extra Strength) 500 mg PO ONETIME STA Stop: 01/27/18 05:21 Last Admin: 01/27/18 08:01 Dose: Not Given Celecoxib (Celebrex) 100 mg PO DAILY [facility] Sodium Chloride (Normal Saline) 1,000 mls @ 100 mls/hr IV ASDIRECTED [facility] Stop: 01/30/18 00:04 Last Admin: 01/29/18 17:13 Dose: 100 mls/hr Potassium Chloride (Klor-Con M20) 60 meq PO ONETIME ONE Stop: 01/29/18 11:31 Last Admin: 01/29/18 12:04 Dose: 60 meq - Exam Quality Assessment: Urine Catheter, Skin Breakdown ([place]) General: Alert, Oriented, Cooperative, No Acute Distress Lungs: Clear to Auscultation, Normal Respiratory Effort, Decreased Breath Sounds Cardiovascular: Regular Rate, Regular Rhythm GI/Abdominal Exam: Soft, Non-Tender, Abnormal Bowel Sounds (Hyperactive x4 quad) Peripheral Pulses: 2+: Radial (L), Radial (R) Skin: Warm, Dry, Other (see nursing notes for wounds) Neurological: No New Focal Deficit - Problem List Review Problem List Initiated/Reviewed/Updated: Yes - My Orders Last 24 Hours: My Active Orders 01/29/18 20:00 Warfarin [Coumadin] 5 mg PO TUFR@199901/30/18 13:56 Magnesium Oxide 400 mg PO ONETIME ONE - Assessment Assessment:: 1. Diarrhea - presumed to be C difficile colitis 2. Dehydration secondary to #1 3. Weakness 4. Hypoxia - presumed to be atelectasis 5. Chronic diastolic CHF 6. MS 7. RA 8. Trigeminal neuralgia - Plan Plan:: Hospital day #4 for C Diff colitis, leukocytosis, diarrhea, dehydration, and hypokalemia. Continue acute cares for now. Tolerating diet ok. Will give a one time dose of Magnesium today. Potassium improved with supplement. Recheck labs in AM. Plan for NH placement/discharge tomorrow. NOTE: This patient was seen and examined by me as an [facility] provider
[2018-01-30] MEDS: Gabapentin 300 MG Cap PO SCH (20:05)
[2018-01-30] MEDS: atorvaSTATin 10 MG Tab PO SCH (20:05)
[2018-01-30] MEDS: Warfarin 5 MG Tab PO SCH (20:06)
[2018-01-30] MEDS: oxyCODONE 5 MG Tab PO PRN (20:08)
[2018-01-30] MEDS: Menthol/Zinc Oxide Ointment 3.5 GM Tube TOP SCH (20:10)
[2018-01-31] MEDS: Vancomycin 125 MG/2.5 ML Oral Solution 2.5 ML UD Cup PO SCH ×2 (01:48→07:48)
[2018-01-31 07:04] LABS: ANION GAP 7.4 mmol/L (10-20); CHLORIDE,CL 107 mmol/L (98-107); SODIUM,NA 143 mmol/L (136-145)
[2018-01-31] MEDS: Acetaminophen 500 MG Tab PO SCH (07:48)
[2018-01-31] MEDS: Losartan 50 MG Tab PO SCH (07:48)
[2018-01-31] MEDS: Potassium Chloride 20 MEQ Packet PO SCH (07:48)
[2018-01-31] MEDS: Cholecalciferol (Vitamin D3) 1,000 Unit Tab PO SCH (07:49)
[2018-01-31] MEDS: Multivitamins with Iron/Calcium/Folic Acid/Minerals Tab PO SCH (07:49)
[2018-01-31] MEDS: Fish Oil/Omega-3 Fatty Acids 1 Gm Cap PO SCH (07:49)
[2018-01-31] MEDS: Cranberry 500 MG Cap PO SCH (07:49)
[2018-01-31] MEDS: Metoprolol Succinate 50 MG Tab.ER PO SCH (07:49)
[2018-01-31] MEDS: Furosemide 20 MG Tab PO SCH (07:49)
[2018-01-31] MEDS: Calcium Carbonate/Vitamin D3 1250 MG-200 Unit Tab PO SCH (07:49)
[2018-01-31] MEDS: Miconazole 2% Top Powder 45 GM Container TOP SCH (07:50)
[2018-01-31] MEDS: Sertraline 100 MG Tab PO SCH (07:50)
[2018-01-31] MEDS: Diltiazem 240 MG Cap.ER PO SCH (07:50)
[2018-01-31] MEDS: Fluticasone Propionate Nasal Spray 16 GM Bottle NASBOTH SCH (07:51)
[2018-01-31 09:53] VITALS: BP 168/70
[2018-01-31] MEDS ORDERED: Magnesium Oxide 400 MG Tab PO ONE (11:25)
[2018-01-31] MEDS ORDERED: Potassium Chloride 20 MEQ Tab.ER PO ONE (11:25)
--- NOTE | 2018-01-31 11:33 | PCM.DCSUM1 ---
Discharge Summary - Hospital Course HPI Initial Comments: Patient initially admitted to Obs until placement could be found. Patient had a status change to acute for C-Diff infection and needs for daily abx therapy. Diagnosis: Stroke: No Modified Alex Scale: No Symptoms at All Modified [place] Scale Score: 0 - Discharge Data Discharge Date: 01/31/18 Discharge Disposition: DC/Tfer to SNF 03 Condition: Fair - Patient Summary/Data Operative Procedure(s) Performed: None Consults: Consultations 01/26/18 22:57 Consult to Case Management [CONS] Routine 01/29/18 10:32 Consult to Respiratory Therapy [Respiratory Care Assess and Treatment] [CONS] Routine Labs Pending at D/C: None Recommended Follow-up Testing/Procedures: None Planned Operative Procedure(s) after DC: None Hospital Course: Patient remained hemodynamically stable admitted to acute care. The patient did have a stool that was positive for C. difficile, therefore he was started on oral vancomycin. The patient tolerated by mouth fluids and solids without any difficulty. The patient's diarrhea has essentially resolved at the time of discharge. The patient did not have any issues with pain. The patient had a Gilliam catheter in place will acute care, however this will be discontinued prior to discharge to the [facility] as the patient does self catheter at home. - Patient Instructions Diet: Regular Diet as Tolerated Activity: As Tolerated Driving: Do Not Drive Showering/Bathing: May Shower Notify Provider of: Fever, Increased Pain - Discharge Plan *PRESCRIPTION DRUG MONITORING PROGRAM REVIEWED*: Not Applicable *COPY OF PRESCRIPTION DRUG MONITORING REPORT IN PATIENT ANNEMARIE: Not Applicable Home Medications: Home Meds Cholecalciferol (Vitamin D3) [Vitamin D3] 5,000 unit PO DAILY 09/06/13 [History] Fluticasone Propionate [Flonase] 1 spray NASBOTH BID 09/06/13 [History] [place]-3 Fatty Acids [[place]-3] 1,000 mg PO DAILY 09/06/13 [History] Sertraline [Zoloft] 100 mg PO DAILY 09/06/13 [History] PEG 400/Propylene Glycol [Systane Lubricant] 1 drop EYELF ASDIRECTED PRN [History] oxyCODONE 5 mg PO Q4H PRN 06/15/15 [History] Cranberry Extract [Cranberry] 500 mg PO DAILY 11/16/15 [History] Potassium Chloride [Klor-Con] 20 meq PO DAILY #0 11/26/15 [Rx] Valsartan [Diovan] 320 mg PO DAILY #30 tablet 06/15/16 [Rx] Acetaminophen [Acetaminophen Extra Strength] 500 mg PO BID MDD 4000 MG DAILY 08/31 [History] Metoprolol Succinate [Toprol XL] 100 mg PO DAILY 06/30/17 [History] Lysine 1,000 mg PO DAILY PRN 07/02/17 [History] Miconazole [Desenex 2%] 1 applic TOP BID 07/02/17 [History] Diltiazem [Cardizem CD] 240 mg PO DAILY #30 cap.cd 07/05/17 [Rx] Biotin [Biotin] 1 mg PO DAILY 07/19/17 [History] Warfarin [Coumadin] 5 mg PO TUFR@199907/19/17 [History] Albuterol/Ipratropium [DuoNeb 3.0-0.5 MG/3 ML] 3 ml NEB Q6HRRT PRN 07/20/17 [ History] Multivitamin with Minerals [Multivitamins with Minerals] 1 tab PO DAILY [History] Menthol/Zinc Oxide [Calmoseptine] 1 applic TOP BEDTIME 11/20/17 [History] Warfarin [Coumadin] 7.5 mg PO SUMOWETHSA@199911/20/17 [History] atorvaSTATin [Lipitor] 10 mg PO BEDTIME 11/20/17 [History] Furosemide [Lasix] 20 mg PO BID 01/06/18 [History] Mupirocin Cream [Bactroban Crm] 1 applic TOP TID 01/06/18 [History] Calcium Carbonate/Vitamin D3 [Calcium 600-Vit D3 500 Softgel] 1 cap PO DAILY [History] Gabapentin [Neurontin] 300 mg PO BEDTIME 01/25/18 [History] Vancomycin [Vancocin 125 MG/2.5 ML Soln] 250 mg PO Q6H cup 01/31/18 [Rx] Referrals: Beatrice Benitez DO [Primary Care Provider] - - Discharge Summary/Plan Comment DC Time >30 min.: Yes Discharge Summary/Plan Comment: Patient will be discharge to the [facility]. Will stop Celebrex given GI problems. Stop MiraLas for now and restart as needed, otherwise no changes with other meds. Continue Vanco until seen by Dr. Benitez, who will follow this patient in the [place]. - General Info Date of Service: 01/31/18 Admission Dx/Problem (Free Text: Admission Diagnosis/Problem Admission Diagnosis/Problem 1. Diarrhea - presumed to be C difficile colitis 2. Dehydration secondary to #1 3. Weakness 4. Hypoxia - presumed to be atelectasis 5. Chronic diastolic CHF 6. MS 7. RA 8. Trigeminal neuralgia Subjective Update: Diarrhea has improved. Patient denies any pain this morning. Patient much happier with a regular diet. Continues with indwelling catheter. Denies any abdominal cramping or pain. No N/V. Denies any SOB. Patient ok with going to the [place] today. Functional Status: Reports: Pain Controlled, Tolerating Diet, Urinating Numeric/FACES Score: 0 - Review of Systems General: Denies: Fever, Weakness, Chills Pulmonary: Denies: Shortness of Breath, Cough Cardiovascular: Denies: Chest Pain, Palpitations Gastrointestinal: Reports: Diarrhea. Denies: Abdominal Pain, Nausea, Vomiting Skin: Reports: No Symptoms Neurological: Reports: No Symptoms - Patient Data Vitals - Most Recent: Last Vital Signs Temp 36.2 C 01/31/18 09:52 Pulse 56 L 01/31/18 09:52 Resp 18 01/31/18 09:52 BP 168/70 H 01/31/18 09:52 Pulse Ox 94 L 01/31/18 09:52 Weight - Most Recent: 109.406 kg I&O - Last 24 hours: Intake & Output 01/30/18 01/31/18 01/31/18 22:59 06:59 14:59 Intake Total 240 240 360 Output Total 1200 500 Balance -960 -260 360 Lab Results - Last 24 hrs: Laboratory Results - last 24 hr 01/31/18 Range/Units 06:37 Sodium 143 (136-145) mmol/L Potassium 3.4 L (3.5-5.1) mmol/L Chloride 107 (98-107) mmol/L Carbon Dioxide 32 (21-32) mmol/L Anion Gap 7.4 L (10-20) mmol/L BUN 9 (7-18) mg/dL Creatinine 1.0 (0.70-1.30) mg/dL Est Cr Clr Drug Dosing 72.16 mL/min Estimated GFR (MDRD) > 60 Glucose 106 (74-106) mg/dL Calcium 7.4 L (8.5-10.1) mg/dL Magnesium 1.6 L (1.8-2.4) mg/dL Med Orders - Current: Current Medications Acetaminophen (Tylenol Extra Strength) 500 mg PO BID [facility] Last Admin: 01/31/18 07:48 Dose: 500 mg Albuterol/Ipratropium (Duoneb 3.0-0.5 Mg/3 Ml) 3 ml NEB Q6HRRT PRN PRN Reason: Shortness of Breath Artificial Tears (Tears Naturale Free) 0 each EYELF ASDIRECTED PRN PRN Reason: DRY EYES Atorvastatin Calcium (Lipitor) 10 mg PO BEDTIME [facility] Last Admin: 01/30/18 20:05 Dose: 10 mg Calamine/Phenol (Calmoseptine) 0 gm TOP BEDTIME [facility] Last Admin: 01/30/18 20:10 Dose: 1 applic Calcium Carbonate (Calcium Carbonate/Vitamin D 1250 Mg-200 Unit) 1 tab PO DAILY [facility] Last Admin: 01/31/18 07:49 Dose: 1 tab Calcium Carbonate/Glycine (Tums Extra Strength) 750 mg PO Q2H PRN PRN Reason: Dyspepsia Last Admin: 01/27/18 20:28 Dose: 750 mg Cholecalciferol (Vitamin D3) 5,000 units PO DAILY [facility] Last Admin: 01/31/18 07:49 Dose: 5,000 units Cholestyramine Resin (Prevalite Packet) 4 gm PO DAILY PRN PRN Reason: Diarrhea Cranberry (Cranberry) 500 mg PO DAILY [facility] Last Admin: 01/31/18 07:49 Dose: 500 mg Diltiazem HCl (Dilacor Xr) 240 mg PO DAILY [facility] Last Admin: 01/31/18 07:50 Dose: 240 mg Fish Oil (Fish Oil) 1 gm PO DAILY [facility] Last Admin: 01/31/18 07:49 Dose: 1 gm Fluticasone Propionate (Flonase) 0 gm NASBOTH BID [facility] Last Admin: 01/31/18 07:51 Dose: 1 spray Furosemide (Lasix) 20 mg PO BIDDIURETIC [facility] Last Admin: 01/31/18 07:49 Dose: 20 mg Gabapentin (Neurontin) 300 mg PO BEDTIME [facility] Last Admin: 01/30/18 20:05 Dose: 300 mg Losartan Potassium (Cozaar) 150 mg PO DAILY [facility] Last Admin: 01/31/18 07:48 Dose: 150 mg Magnesium Oxide (Magnesium Oxide) 400 mg PO ONETIME ONE Stop: 01/31/18 11:26 Metoprolol Succinate (Toprol Xl) 100 mg PO DAILY [facility] Last Admin: 01/31/18 07:49 Dose: 100 mg Miconazole (Desenex 2%) 0 gm TOP BID [facility] Last Admin: 01/31/18 07:50 Dose: 1 applic Multivitamins/Minerals (Thera M Plus) 1 tab PO DAILY [facility] Last Admin: 01/31/18 07:49 Dose: 1 tab Non-Formulary Medication (Biotin [Biotin]) 1 mg PO DAILY [facility] Last Admin: 01/27/18 11:53 Dose: Not Given Non-Formulary Medication (Lysine [Lysine]) 1,000 mg PO DAILY PRN PRN Reason: Other Non-Formulary Medication (Mupirocin Cream [Bactroban Crm]) 1 applic TOP TID [facility] Last Admin: 01/27/18 11:53 Dose: Not Given Oxycodone HCl (Oxycodone) 5 mg PO Q4H PRN PRN Reason: Pain Last Admin: 01/30/18 20:08 Dose: 5 mg Potassium Chloride (Klor-Con) 20 meq PO DAILY [facility] Last Admin: 01/31/18 07:48 Dose: 20 meq Potassium Chloride (Klor-Con M20) 40 meq PO ONETIME ONE Stop: 01/31/18 11:26 Sertraline HCl (Zoloft) 100 mg PO DAILY [facility] Last Admin: 01/31/18 07:50 Dose: 100 mg Vancomycin HCl (Vancocin 125 Mg/2.5 Ml Soln) 250 mg PO Q6H [facility] Last Admin: 01/31/18 07:48 Dose: 250 mg Warfarin Sodium (Coumadin) 5 mg PO TUFR@1999 [facility] Last Admin: 01/29/18 20:29 Dose: 5 mg Warfarin Sodium (Coumadin) 7.5 mg PO SUMOWETHSA@1999 [facility] Last Admin: 01/30/18 20:06 Dose: 7.5 mg Discontinued Medications Acetaminophen (Tylenol Extra Strength) 500 mg PO ONETIME STA Stop: 01/27/18 05:21 Last Admin: 01/27/18 08:01 Dose: Not Given Celecoxib (Celebrex) 100 mg PO DAILY [facility] Sodium Chloride (Normal Saline) 1,000 mls @ 100 mls/hr IV ASDIRECTED [facility] Stop: 01/30/18 00:04 Last Admin: 01/29/18 17:13 Dose: 100 mls/hr Magnesium Oxide (Magnesium Oxide) 400 mg PO ONETIME ONE Stop: 01/30/18 13:57 Last Admin: 01/30/18 15:14 Dose: 400 mg Potassium Chloride (Klor-Con M20) 60 meq PO ONETIME ONE Stop: 01/29/18 11:31 Last Admin: 01/29/18 12:04 Dose: 60 meq - Exam Quality Assessment: Reports: Urine Catheter, Skin Breakdown General: Reports: Alert, Oriented, Cooperative, No Acute Distress Neck: Reports: Supple Lungs: Reports: Clear to Auscultation, Normal Respiratory Effort, Decreased Breath Sounds Cardiovascular: Reports: Regular Rate, Regular Rhythm GI/Abdominal Exam: Normal Bowel Sounds, Soft, Non-Tender Extremities: Normal Inspection Skin: Reports: Warm, Dry, Intact Neurological: Reports: No New Focal Deficit *Q Meaningful Use (DIS) - VTE *Q VTE Mechanical Contraindications *Q: At Risk for Falls
== END 2018-01-31 12:20 | DRG 372 ==
LOC: VM.MS 19:00
PROVIDERS: ADMIT Family Medicine; ATTEND Family Medicine
DX: A04.71 Enterocolitis due to Clostridium difficile, recurrent (principal); I50.32 Chronic diastolic (congestive) heart failure; J98.11 Atelectasis; I11.0 Hypertensive heart disease with heart failure; G35 Multiple sclerosis; M06.9 Rheumatoid arthritis, unspecified; E86.0 Dehydration; I48.91 Unspecified atrial fibrillation; G50.0 Trigeminal neuralgia; E87.6 Hypokalemia; G47.30 Sleep apnea, unspecified; N31.9 Neuromuscular dysfunction of bladder, unspecified; M19.90 Unspecified osteoarthritis, unspecified site; E11.9 Type 2 diabetes mellitus without complications; Z79.01 Long term (current) use of anticoagulants; Z79.899 Other long term (current) drug therapy; Z88.8 Allergy status to other drugs, medicaments and biological substances
CPT/HCPCS: 36415; 80048; 83735; 85025; 85027; 94760; A9270-GY; J7030